=== PATIENT | male | born 1950 | race Caucasian/White ===

== ENCOUNTER → 2017-05-11 11:30 | Outpatient (CLI) | payer MEDICARE, OTHER, SELFPAY ==
[2017-05-11 12:21] LABS: AST(SGOT) 19 U/L (15-37); Alanine Aminotransfer ALT/SGPT 31 U/L (16-61); Alkaline Phosphatase 87 U/L (45-117); Bilirubin, Direct 0.22 mg/dL (0.00-0.30); Cholesterol 94 mg/dL (200); Globulin 4.1 g/dL (2.2-4.2); High Density Lipoprotein 24 mg/dL; Protein, Total 8.1 g/dL (6.4-8.2); Triglycerides 170 mg/dL; Very Low Density Lipoprotein 34 mg/dL (5-40)
== END ==
PROVIDERS: Family Provider Family Medicine; PCP Family Medicine; Visit Provider Nurse Practitioner Family
DX: E78.5 Hyperlipidemia, unspecified (principal); Z79.899 Other long term (current) drug therapy
CPT/HCPCS: 36415; 80061; 80076

== ENCOUNTER → 2017-06-14 10:25 | Outpatient (CLI) | payer MEDICARE, OTHER, SELFPAY ==
--- NOTE | 2017-06-14 18:21 | LEAS ---
Arterial Study - Arterial Study Arterial Study: Bilateral lower extremity noninvasive arterial exam at rest Right lower extremity The right PT and DP ankle-brachial indices at rest are 1.091.08 respectively with a digital index of 0.95. The right posterior tibial and dorsalis pedis Doppler waveforms are triphasic. Volume pulse recordings demonstrate normal application the calf the ankle and digital waveforms are well maintained. Left lower extremity The left PT and DP ankle-brachial indices at rest are normal at 1.02 and 1.04 respectively with a digital index of 0.82. The Doppler waveforms for the left posterior tibial and dorsalis pedis are triphasic. Volume pulse recordings demonstrate normal amplification the calf and the ankle and digital waveforms are well maintained. Impression Normal bilateral extremity noninvasive resting ankle brachial indices. Very minimally diminished digital indices likely consistent with insignificant distal small vessel disease. Naeem Charles M.D., F.A.C.S.
== END ==
PROVIDERS: Family Provider Family Medicine; PCP Family Medicine; Visit Provider Podiatrist
DX: I73.9 Peripheral vascular disease, unspecified (principal); Z98.890 Other specified postprocedural states
CPT/HCPCS: 93923

== ENCOUNTER → 2018-05-12 09:43 | Outpatient (CLI) | payer MEDICARE, OTHER, SELFPAY ==
[2018-05-12 09:20] VITALS: BMI 31.7
[2018-05-12 10:40] LABS: AST(SGOT) 18 U/L (15-37); Alanine Aminotransfer ALT/SGPT 29 U/L (16-61); Alkaline Phosphatase 68 U/L (45-117); Bilirubin, Direct 0.22 mg/dL (0.00-0.30); Cholesterol 99 mg/dL (200); Globulin 3.4 g/dL (2.2-4.2); High Density Lipoprotein 22 mg/dL; Protein, Total 7.4 g/dL (6.4-8.2); Triglycerides 204 mg/dL; Very Low Density Lipoprotein 41 mg/dL (5-40)
== END ==
PROVIDERS: Family Provider Family Medicine; PCP Family Medicine; Referring Provider Internal Medicine Cardiovascular Disease; Visit Provider Internal Medicine Cardiovascular Disease
DX: E78.5 Hyperlipidemia, unspecified (principal); I25.10 Atherosclerotic heart disease of native coronary artery without angina pectoris
CPT/HCPCS: 36415; 80061; 80076

== ENCOUNTER 2020-04-26 09:58 | Outpatient (RCR) | payer MEDICARE, OTHER, SELFPAY ==
[2019-12-20 13:16] VITALS: BMI 31.4
[2020-04-26] MEDS: COVID-19 VACC, MRNA(PFIZER)/PF 30 MCG/0.3 ML SYRINGE IM (08:19)
[2020-05-17] MEDS: COVID-19 VACC, MRNA(PFIZER)/PF 30 MCG/0.3 ML SYRINGE IM (08:05)
== END 2020-04-26 23:59 ==
LOC: IMMUN 09:58
PROVIDERS: PCP Family Medicine; Visit Provider Family Medicine
DX: Z23 Encounter for immunization (principal)
CPT/HCPCS: 0001A; 0002A; 91300

== ENCOUNTER → 2020-08-28 08:06 | Outpatient (CLI) | payer MEDICARE, OTHER, SELFPAY ==
[2019-05-18 11:52] VITALS: BMI 31.4
[2019-12-20 13:16] VITALS: BMI 31.4
[2020-08-28 09:40] LABS: AST(SGOT) 17 U/L (15-37); Alanine Aminotransfer ALT/SGPT 30 U/L (16-61); Albumin, Serum 4.1 g/dL (3.2-5.0); Alkaline Phosphatase 56 U/L (45-117); Cholesterol 85 mg/dL (200); Globulin 3.5 g/dL (2.2-4.2); High Density Lipoprotein 23 mg/dL; Protein, Total 7.6 g/dL (6.4-8.2); Triglycerides 234 mg/dL; Very Low Density Lipoprotein 47 mg/dL (5-40)
== END ==
PROVIDERS: Referring Provider Internal Medicine Cardiovascular Disease; Visit Provider Internal Medicine Cardiovascular Disease
DX: E78.5 Hyperlipidemia, unspecified (principal)
CPT/HCPCS: 36415; 80061; 80076

== ENCOUNTER → 2020-09-10 06:30 | Outpatient (CLI) | payer MEDICARE, OTHER, SELFPAY ==
[2020-08-29 08:56] VITALS: BMI 31.4
--- NOTE | 2020-09-10 06:32 | ART_ITS ---
Reason For Study: claudication, PVD Procedure A bilateral lower extremity continuous wave Doppler with analog waveform analysis,segmental pressures,and ankle brachial indexes without exercise. Left Segmental Pressures Left brachial= 148mmHg. Left thigh = 134mmHg. Left calf = 117mmHg. Left posterior tibial artery = 128mmHg. Left dorsalis pedis artery = 121mmHg. Left digit = 79 mmHg. Right Segmental Pressures Right brachial= 148mmHg. Right thigh = 115mmHg. Right calf = 136mmHg. Right posterior tibial artery = 109mmHg. Right dorsalis pedis artery = 98mmHg. Right digit = 75 mmHg. The right dorsalis pedis waveforms are biphasic. The right posterior tibial artery waveforms are biphasic. Indices The right ankle brachial index by the dorsalis pedis is .66. The right ankle brachial index by the posterior tibial artery is .74. The right digital-brachial index is .51. The left ankle brachial index by the dorsalis pedis is .82. The left ankle brachial index by the posterior tibial artery is .86. The left digital-brachial index is .53. VL/Lower Ext Art Exam w/o Exercis Interpretation Summary Abnormal right PT T and DP ankle-brachial indices of 0.74 and 0.66 respectively . Biphasic Doppler waveforms noted consistent with moderate to severe disease Abnormal left PT and DP ankle-brachial index of 0.86 and 0.82 respectively. Bip hasic Doppler waveforms consistent with moderate to severe disease Abnormal bilateral digital brachial indices Ordering Physician: Gabbi Saavedra Performed By: Angel Gabriel RVT and Student
--- NOTE | 2020-09-10 08:46 | STRESSREP_ITS ---
Stress Test Report Date: 09-10-2020 Procedure: Exercise tolerance test/imaging study Indications: Shortness of breath/dyspnea on exertion; CAD; status post PCI; st atus post CABG Consent: Per the patient Procedure: The patient exercised on a Valente protocol for 3 minutes and 30 seconds completing Stage I and 30 seconds of Stage II achieving a peak heart rate of 148 bpm (98% predicted maximal heart rate) with a peak blood pressure 228/88 mmHg and a peak MET capacity of 5 METs. The baseline ECG demonstrated sinus rhythm; poor R wave progression; nonspecific ST/T wave abnormality. The peak exercise ECG demonstrated continued nonspecific ST/T wave abnormality. There was a rare PVC during recovery. The functional capacity was considered decreased. There was [no complaint of chest discomfort during exercise or recovery]. The examination was discontinued secondary to dyspnea, leg discomfort, and fatigue. Impression: 1. Technically adequate (percent predicted maximal heart rate greater than 85%) exercise tolerance test 2. Peak exercise ECG with continued nonspecific ST/T wave abnormality 3. There was a rare PVC during recovery 4. Nuclear images pending Myocardial perfusion imaging study: Technique: The patient was injected with 14.5 mCi of technetium 99m Cardiolite and subsequently rest SPECT Cardiolite nuclear imaging was obtained in the horizontal long, vertical long, and short axis views. The patient exercised on a Valente protocol for 3 minutes and 30 seconds completing Stage I and 30 seconds of Stage II achieving a peak heart rate of 148 bpm (98% predicted maximal heart rate) with a peak blood pressure 228/88 mmHg and a peak MET capacity of 5 METs. The patient was injected with 44.2 mCi of technetium 99m Cardiolite and s ubsequently stress SPECT Cardiolite nuclear imaging was obtained in the horizontal long, vertical long, and short axis views. A gated Cardiolite study at peak stress was obtained. Interpretation: Rest and stress SPECT Cardiolite nuclear imaging status post realignment, normalization, and attenuation correction, demonstrates [the appearance of relative uniform tracer uptake and myocardial perfusion appearing within normal limits]. [There is end systolic thickening and brightening]. The gated Cardiolite study demonstrates [myocardial thickening and inward wall motion]. The reported LVEF is []%. Impression: 1. Rest and stress SPECT Cardiolite nuclear imaging demonstrate [relative uniform tracer uptake and myocardial perfusion appearing within normal limits]. 2. The gated Cardiolite study reports an LVEF of []%. This note was generated with Scandidation software. It may contain incorrect words, spelling, and punctuation that were not noted in checking the note before signing.
== END ==
PROVIDERS: PCP Family Medicine; Referring Provider Internal Medicine Cardiovascular Disease; Visit Provider Internal Medicine Cardiovascular Disease
DX: I25.10 Atherosclerotic heart disease of native coronary artery without angina pectoris (principal); I73.9 Peripheral vascular disease, unspecified; R06.00 Dyspnea, unspecified
CPT/HCPCS: 78452; 93017; 93923; A9500; A4216

== ENCOUNTER 2020-10-28 09:05 | Day surgery (SDC) | payer MEDICARE, OTHER, SELFPAY ==
[2020-08-29 08:56] VITALS: BMI 31.4
--- NOTE | 2020-10-09 09:24 | RAD_ITS ---
INDICATION: cerda EXAMINATION/TECHNIQUE: X-RAY - XR Chest 2 Views COMPARISON: 10/16/2015. FINDINGS: LINES/DEVICES: Sternal wires are seen in position. LUNGS: Obliteration of the left costophrenic angle is visualized with a fluid level and overlying anemia streaky opacities suggestive of subsegmental atelectatic streaks, these demonstrate slight prominence in comparison to the prior study. Unremarkable aeration of the right hemithorax is visualized. MEDIASTINUM AND CARDIOVASCULAR STRUCTURES: Cardiac silhouette not enlarged. Central airways and mediastinal contour are unremarkable. BONES AND SOFT TISSUES: Unremarkable. IMPRESSION: Left lower lobe opacification, would recommend clinical correlation for left lower lobe infiltrate, subsegmental atelectatic changes, aspiration with small pleural effusion. Electronically Signed: Lewis José MD at 11:41 EDT Tel , Service support , RAD/Chest PA and Lateral
[2020-10-09 10:43] LABS: Absolute Lymphocyte Count 1.35 X10^3/uL (0.83-4.51); Absolute Neutrophil Count 1.8 X10^3/uL (2.0-7.7); Basophil# 0.05 X10^3/uL; Basophil% 1.1 % (0-1); Eosinophil# 0.05 X10^3/uL; Eosinophils% 1.1 % (0-5); Hematocrit 36.6 % (40-54); Hemoglobin 11.4 g/dL (13.0-16.5); Lymphocyte # 1.35 X10^3/ul (0.83-4.51); Lymphocyte % 30.4 % (19-41); Mean Corp Hgb Conc 31.1 g/dL (32-36); Mean Corpuscular Hgb 31.1 pg (27.0-32.0); Mean Platelet Vol. 12.6 fl (6.2-12.0); Monocyte# 1.01 X10^3/uL; Monocyte% 22.7 % (0-10); NRBC Flagged by Analyzer 0 % (0-5); Neutrophil # 1.84 X10^3/uL (2.7-7.7); Neutrophil % 41.5 % (47-70); POSITIVE COUNT YES; Platelet Count 69 K/mm3 (150-450); RBC Distribution Width CV 17.2 % (11.6-14.6); RBC Distribution Width SD 61.8 fl (35.1-43.9); Red Blood Count 3.66 M/mm3 (4.6-6.2); White Blood Count 4.4 K/mm3 (4.4-11.0)
[2020-10-09 10:45] LABS: Differential Indicated SCAN CRITERIA MET
[2020-10-09 10:53] LABS: International Normalized Ratio 1.1; Partial Thromboplast Time 34.2 Seconds (24.1-36.2); Prothrombin Time (Protime)PT. 13.7 SECONDS (11.7-14.9)
[2020-10-09 11:25] LABS: Anisocytosis 1+; Platelet Estimate MKD DEC (ADEQ)
[2020-10-09 11:34] LABS: Anion Gap 8 (5-15); BUN 14 mg/dL (7-18); BUN/Creat Ratio 14.7 RATIO (10-20); Chloride 105 mmol/L (98-107); Creatinine, Serum 0.95 mg/dL (0.70-1.30); EST Glomerular Filtration Rate 83 mL/min (>60); Est Glom Filt Rate - Afr Amer 101 mL/min (>60); Glucose 259 mg/dL (74-106); Potassium 4.5 mmol/L (3.5-5.1); Sodium Level 137 mmol/L (136-145)
[2020-10-25 07:58] VITALS: BMI 31.0
--- NOTE | 2020-10-28 12:24 | CL.D_ITS ---
Patient Name: CLARK DUFFY Study Date: 10/28/2020 Performing: Samuel Plascencia MD Ht: 68.11 inches 173 cm : 1950 Wt: 205.03 lbs 93 kg Age: 70 Gender: male BSA: 2.07 PROCEDURE(S) PERFORMED [id number]/COR/LV/CABG CLINICAL PROFILE AND INDICATIONS Indications: Other, Other Heart Failure: None Stress/Imaging Date: 10/07/20ress Test with SPECT MPI: Indeterminant CAD Presentations: Symptom unlikely to be ischemic. CONCLUSIONS Well revascularized with a patent STARKEY to the LAD, saphenous vein graft to the circumflex artery, and saphenous vein graft to the right coronary artery supplying the posterolateral vessel. Stenosis not ed in the sokaogon distal circumflex artery. RECOMMENDATIONS Patient appears to be fairly well revascularized and without significant ischemia noted I would recom mend medical therapy. DESCRIPTION OF PROCEDURE The patient arrived to the procedure lab. The risks and benefits of the procedure as well as a full d escription of our services here and current unavailability of surgical backup were fully explained to the patient and/or their significant other prior to the catheterization. The Timeout was completed, verifying the correct patient and procedure. The patient's procedural site was prepped and draped in the usual fashion. Local anesthetic was given subcutaneously to right groin region with Lidocaine 2%. Using a modified Seldinger technique, arterial access was obtained via the right femoral artery, a 5 Fr sheath was inserted. Left Coronary Artery selective angiography was performed in multiple views u sing a 5 Fr. JL4 catheter. Right Coronary Artery selective angiography was then performed in multiple views using a 5 Fr. 3DRC (Tylor) catheter. Saphenous Vein graft to the OM 1 selective angiography was performed in multiple views using a 5 Fr. 3DRC (Tylor) catheter. Saphenous Vein graft to the RPDA selective angiography was performed in multiple views using a 5 Fr. 3DRC (Tylor) catheter. Left Ventriculography was performed in ABERNATHY projection using a 5 Fr. Pigtail catheter. LV t o AO pullback pressures were then recorded.Contrast was injected through the sheath and the Right Sophie ac and Femoral artery were assessed for possible closure device.The arterial sheath was pulled and ma nual compression applied until hemostasis is achieved. CORONARY ANGIOGRAPHY DOMINANCE: Right Dominant LEFT HEART ASSESSMENT Left Ventricular Ejection Fraction: by LV Gram 55 % Normal LV wall motion Normal Left Ventricular systolic function LEFT MAIN: Moderate luminal irregularities up to 50% LEFT ANTERIOR DESCENDING ARTERY: PROX LAD: Proximal 70% stenosis in the midsegment is subtotally occluded DIAGONAL 1: Proximal - Mild luminal irregularities less than 30% CIRCUMFLEX ARTERY: MID CIRC: Previously placed stent is occluded RIGHT CORONARY ARTERY: Nondominant with no significant stenosis GRAFTS: STARKEY graft to the Mid LAD Presumed to be patent because of competitive flow. Saphenous Vein graft to the 2nd OM Patent with proximal and mid segment valves noted to be present bu t no significant stenosis noted. Saphenous Vein graft to the RPDA Is patent Saphenous Vein graft to the RPDA This vessel further supplies to the posterolateral vessel which is p atent and then supplies to the AV groove branch of the circumflex artery and a high-grade 90% stenosi s is noted within. This vessel however subtends to a very small circumflex artery territory. COMPLICATIONS No Complications PROCEDURE MEDICATIONS Versed 1 mg IV Fentanyl 50 mcg IV Oxygen: 2 L/min via nasal cannula SUMMARY OF HEMODYNAMIC DATA Time AIR REST ECG 09:29:23 AO 145/71 (98) SA 11:44:00 LV 134/15, 23 12:05:18 LV 120/14, 14 12:05:24 LV 127/12, 22 12:06:07 LV 134/14, 23 12:06:13 LVp 134/14, 21 12:06:17 AOp 136/71 (97) 12:06:22 Signed By Samuel Plascencia MD On 10/28/2020 12:23:01 PM Samuel Plascencia MD
--- NOTE | 2020-10-28 14:12 | HP.PCM_ITS ---
History and Physical CLARK DUFFY, is a 70 M who presents today for a diagnostic heart cath for an abnormal stress test. He has a hx of coronary artery disease status post coronary bypass surgery with a left internal mammary artery to the left anterior descending artery saphenous vein graft to ramus intermedius and radial graft to the posterior descending artery. He also has a history of hypertension. hyperlipidemia and PAD. He does have CR and is on CPAP. He was in the office in August of 2019 with no complaints. Stress test was done since it has been greater than 5 years since his previous stress. Stress test demonstrated: 1. Rest and stress SPECT Cardiolite nuclear imaging demonstrate myocardial perfusion changes appearing compatible with an area of previous myocardial injury/infarction involving portions of the basal inferior segments and demonstrating post-rest myocardial perfusion changes concerning for an area of denae-infarct related myocardial ischemia extending to the mid inferior segments. 2. The gated Cardiolite study reports an LVEF of 56%. Allergies gluten Adverse Reaction (Verified 12/20/19 13:14) Nausea/Vom/Diarrhea lactose Adverse Reaction (Verified 12/20/19 13:14) Other lisinopril Adverse Reaction (Verified 12/20/19 13:14) cough nitro patch Allergy (Uncoded 05/18/19 11:52) Unknown RYE Adverse Reaction (Uncoded 05/18/19 11:52) Upset Stomach Medications tamsulosin 0.4 mg PO QODAY 11/04/14 [History Confirmed 08/29/20] aspirin 81 mg PO DAILY 10/18/15 [History Confirmed 08/29/20] metoprolol tartrate 100 mg tablet 100 mg PO BID #180 tab 05/11/17 [Rx Confirmed 08/29/20] nitroglycerin 0.4 mg sublingual tablet 0.4 mg SUBLINGUAL Q5M PRN #25 tab 05/11/17 [Rx Confirmed 08/29/20] cholecalciferol (vitamin D3) 50 mcg (2,000 unit) capsule 50 mcg PO DAILY 05/18/19 [History Confirmed 08/29/20] metformin 500 mg tablet 500 mg PO DAILY tab 05/18/19 [History Confirmed 08/29/20] phenazopyridine 200 mg tablet 200 mg PO TID PRN tab 05/18/19 [History Confirmed 08/29/20] amlodipine 5 mg tablet 5 mg PO DAILY #90 tab 08/29/20 [Rx Confirmed 08/29/20] atorvastatin 20 mg tablet 20 mg PO QHS #90 tab 08/29/20 [Rx Confirmed 08/29/20] PFSH Medical History Anemia Atherosclerotic heart disease of [place] coronary artery without angina pectoris Celiac disease Claudication of both lower extremities Depression Essential (primary) hypertension GERD (gastroesophageal reflux disease) Hyperlipidemia Obesity Old inferior wall myocardial infarction Peripheral vascular disease Surgical History H/O coronary artery bypass surgery (11/09/08) History of arthroscopy of left knee History of coronary artery stent placement (03/02/98) History of left heart catheterization (10/21/15) Hx of appendectomy Hx of removal of cyst Status post insertion of iliac artery stent Family History Mother Hypertension Brother Hypertension Sister Hypertension Social History (Updated 12/20/19 @ 14:04 by Gabbi CHURCHILL, [place]) Smoking Status: Former smoker second hand exposure: No alcohol intake: never substance use type: does not use what type of physical activity do you participate in: none frequency: does not exercise seatbelt use: always ROS Const Const: Negative for fatigue, weakness, headache(s), frequent falls, excessive sweating, weight gain or weight loss Eyes Eyes: Negative for blind spots, loss of peripheral vision, transient loss of vision, blurry vision, change in vision or double vision ENT ENT: Negative for headache(s), dizziness, tinnitus, Nosebleed/epistaxis or balance problems Cardio Chest Pain: No Palpitations: No Edema: None Muscle aches with walking: None Resp Respiratory: Negative for SOB with activity, SOB at rest, SOB orthopnea\SOB lying down or Cough GI GI: Negative nausea, vomiting, heartburn, bloating, vomiting blood/hematemesis, bright, red blood in stools or black,tarry stools : Negative for hematuria Musc Musc: Negative for muscle aches/ myalgia, muscle weakness, joint pain or balance problems Skin Skin: Negative rash or wounds Neuro Neuro: Negative for dizziness, lightheadedness, near syncope, syncope, orthostatic symptoms, frequent falls, headache(s), weakness, confusion, memory loss, restless legs, blurry vision or double vision Jourdan Hematologic/Lymphatic: Negative for easy bleeding or easy bruising Endo Endo: Negative for fatigue, cold intolerance, heat intolerance or excessive swea ting Psych Psych: Negative for anxiety or depression Allergy Allergy/Immunology: Negative for rash Cardiology Exam Const Appearance: cooperative, healthy appearing, comfortable, no acute distress and well developed Orientation: alert, awake and oriented x3 Head Head: normal to inspection Ears: hearing grossly normal bilaterally Nose: external nose normal Face and Sinus: face symmetric Mouth: oral mucosae normal, lip normal and moist mucous membranes Eyes General: appearance normal, both eyes and all related structures Eyelids: eyelids normal Conjunctivae: conjunctivae normal Pupils: PERRL EOM: EOM intact bilaterally Neck Neck: normal visual inspection and trachea midline; Negative no JVD Carotids: Negative bruit Chest Chest inspection: normal inspection of the chest Auscultation: Bilateral: Clear to Auscultation Cardio Palpation: normal PMI Rate: regular rate Rhythm: regular rhythm Heart sounds: S1 normal and S2 normal; Negative rub, gallop or murmur GI GI: soft, no hepatosplenomegaly and bowel sounds present Neuro General: patient alert, patient awake, patient oriented x3 and CN's II-XI intact bilaterally Extremities Pulses: Normal: Right Radial Pulse and Left Radial Pulse and Diminished: Right Posterior Tibial Pulse and Left Posterior Tibial Pulse Lower Extremity Edema: None: Bilateral Psych Psychological: normal affect Assessment & Plan Assessment/Plan (1) Atherosclerotic heart disease of [place] coronary artery without angina pectoris: (2) History of coronary artery stent placement: (3) Old inferior wall myocardial infarction: (4) Essential (primary) hypertension: (5) Hyperlipidemia: (6) Abnormal stress test: PLAN: Patient will undergo a diagnostic heart catheterization today for his abnormal stress test. Based on findings we will make additional changes in plan of care if needed. He will continue to follow-up in the office as scheduled.
== END 2020-10-28 17:30 | disposition home or self-care (01) ==
PROVIDERS: Physician Assistant Medical; PCP Family Medicine; Referring Provider Internal Medicine Cardiovascular Disease; Visit Provider Internal Medicine Cardiovascular Disease
DX: R94.39 Abnormal result of other cardiovascular function study (principal); I25.10 Atherosclerotic heart disease of native coronary artery without angina pectoris; E78.5 Hyperlipidemia, unspecified; I10 Essential (primary) hypertension; I73.9 Peripheral vascular disease, unspecified; G47.33 Obstructive sleep apnea (adult) (pediatric); K21.9 Gastro-esophageal reflux disease without esophagitis; E66.9 Obesity, unspecified; I25.2 Old myocardial infarction; Z79.82 Long term (current) use of aspirin; Z95.1 Presence of aortocoronary bypass graft; Z79.899 Other long term (current) drug therapy; Z68.31 Body mass index [BMI] 31.0-31.9, adult; Z87.891 Personal history of nicotine dependence; R06.09 Other forms of dyspnea; J90 Pleural effusion, not elsewhere classified; Z79.02 Long term (current) use of antithrombotics/antiplatelets; Z86.2 Personal history of diseases of the blood and blood-forming organs and certain disorders involving the immune mechanism
CPT/HCPCS: 36415; 71046; 80048; 85025; 85610; 85730; 93459; 99152; 99153; J7040; Q9967; C1769

== ENCOUNTER → 2020-11-11 14:09 | Outpatient (CLI) | payer MEDICARE, OTHER, SELFPAY ==
--- NOTE | 2020-11-11 14:12 | CT_ITS ---
We are attempting to reach an attending provider to discuss findings. An addendum with communication details will be sent when the communication is complete. EXAM: CT ANGIOGRAPHY ABDOMEN AND PELVIS WITH RUNOFF TO THE LOWER EXTREMITIES WITH INTRAVENOUS CONTRAST CLINICAL INDICATION: ATHEROSCLEROSIS TECHNIQUE: Helically acquired angiography images were obtained of the abdomen, pelvis and lower extremities with intravenous contrast using CTA runoff protocol. This CT exam was performed using one or more of the following dose reduction techniques: automated exposure control, adjustment of the mA and/or kV according to patient size, and/or use of iterative reconstruction technique. This report was created using [employer] report generation technology. MIP reconstructed images were created and reviewed. CONTRAST: IV 100mL [id number] COMPARISON: None. FINDINGS: VASCULATURE: AORTA: No acute findings. Normal caliber abdominal aorta. No occlusion or significant stenosis. No dissection. CELIAC TRUNK AND MESENTERIC ARTERIES: Celiac and superior mesenteric arteries: There is mild diffuse narrowing. Inferior mesenteric artery: There is mild diffuse narrowing. No dissection. RENAL ARTERIES: Right renal artery(arteries): There is mild diffuse narrowing. Left renal artery(arteries): There is mild diffuse narrowing. No dissection. RIGHT ILIAC ARTERIES: Right common iliac artery: There is mild diffuse narrowing. Right external iliac artery: There is mild diffuse narrowing. Right internal iliac artery: There is mild diffuse narrowing. No dissection. RIGHT FEMORAL/POPLITEAL ARTERIES: Right common femoral artery: No demonstrated narrowing. Right popliteal artery: No demonstrated narrowing. No dissection. RIGHT CALF/FOOT ARTERIES: Right anterior tibial artery: No flow seen distally. This may suggest slow flow, stenosis, or occlusion. Right anterior tibial artery: No flow seen distally. This may suggest slow flow, stenosis, or occlusion. Right posterior tibial artery: No demonstrated narrowing. Right peroneal artery: No demonstrated narrowing. LEFT ILIAC ARTERIES: Left common iliac artery: There is mild diffuse narrowing. Left external iliac artery: There is mild diffuse narrowing. Left internal iliac artery: There is mild diffuse narrowing. No dissection. LEFT FEMORAL/POPLITEAL ARTERIES: Left common femoral artery: No demonstrated narrowing. Left popliteal artery: No demonstrated narrowing. No dissection. LEFT CALF/FOOT ARTERIES: Left anterior tibial artery: No flow seen distally. This may suggest slow flow, stenosis, or occlusion. Left anterior tibial artery: No flow seen distally. This may suggest slow flow, stenosis, or occlusion. Left posterior tibial artery: No demonstrated narrowing. Left peroneal artery: No demonstrated narrowing. LOWER THORAX: Small left pleural effusion. Left lower lobe infiltrate. There are coronary arterial calcifications. Esophageal wall thickening may suggest an esophagitis. ABDOMEN: LIVER: There is diffuse fatty infiltration of the liver. GALLBLADDER AND BILE DUCTS: Unremarkable. No calcified gallstones. No gallbladder distention or wall edema. No intra- or extrahepatic biliary ductal dilation. PANCREAS: Fatty replacement of the pancreas. No focal cystic or solid mass. SPLEEN: Unremarkable. Normal size without focal cystic or solid mass. ADRENALS: Unremarkable. No nodules. KIDNEYS AND URETERS: 10 mm simple cyst of the right kidney. No follow-up acquired. Normal renal size and position. No hydronephrosis. STOMACH AND BOWEL: There is an umbilical hernia containing fat. There is no bowel involvement. There is no incarceration. There is no findings suggesting that this is causing a bowel obstruction. No focal inflammatory change. PELVIS: APPENDIX: No evidence of acute appendicitis. BLADDER: Unremarkable. REPRODUCTIVE: Unremarkable as visualized. No mass. ABDOMEN, PELVIS and LOWER EXTREMITIES: INTRAPERITONEAL SPACE: Unremarkable. No ascites or other fluid collection. No free air. BONES/JOINTS: Left superficial femoral: Severe critical stenosis distally. Right superficial femoral: Severe stenosis distally. Multiple median sternotomy wires are noted consistent for cardiac surgery. Right superficial femoral: Severe stenosis distally. Left superficial femoral: Severe critical stenosis distally. No suspicious lytic or blastic abnormality. SOFT TISSUES: See above. LYMPH NODES: Unremarkable. No enlarged lymph nodes. OTHER FINDINGS: RIGHT LOWER EXTREMITY Right profundus femoris: No demonstrated narrowing. Right tibioperoneal trunk: There is moderate diffuse narrowing. LEFT LOWER EXTREMITY Left profundus femoris: No demonstrated narrowing. Left tibioperoneal trunk: There is moderate diffuse narrowing. CT/CTA Abd w/Runoff W/WO Contrast IMPRESSION: 1. Small left pleural effusion. Left lower lobe infiltrate. 2. There is diffuse fatty infiltration of the liver. 3. There is esophagitis 4. Left anterior tibial artery: No flow seen distally. This may suggest slow flow, stenosis, or occlusion. 5. Right anterior tibial artery: No flow seen distally. This may suggest slow flow, stenosis, or occlusion. 6. Left superficial femoral: Severe critical stenosis distally but there is flow distally. 7. Right superficial femoral: Severe stenosis distally. Electronically Signed: Peewee Frazier MD at 15:29 EDT , Service support ,
== END ==
PROVIDERS: PCP Family Medicine; Referring Provider Surgery Vascular Surgery; Visit Provider Surgery Vascular Surgery
DX: I70.213 Atherosclerosis of native arteries of extremities with intermittent claudication, bilateral legs (principal); I77.1 Stricture of artery; I11.9 Hypertensive heart disease without heart failure; E11.9 Type 2 diabetes mellitus without complications; E78.00 Pure hypercholesterolemia, unspecified; C44.90 Unspecified malignant neoplasm of skin, unspecified; F32.A Depression, unspecified; F41.9 Anxiety disorder, unspecified
CPT/HCPCS: 75635; Q9967

== ENCOUNTER → 2021-10-28 | Outpatient (CLI) | payer MEDICARE, OTHER, SELFPAY ==
--- NOTE | 2021-10-28 08:46 | ADUL_ITS ---
Reason For Study: Atherosclerosis Left Velocities Ext Iliac Artery, dist = 73.4 cm./sec. Common Femoral Artery, mid = 104.3 cm./sec. SFA, origin, 197.6 cm/sec. SFA, prox, 46.1 cm/sec. SFA, mid, 38.4 cm/sec. SFA, mid/distal, 342.5 cm/sec. SFA, distal, 35.2 cm/sec. Profunda Femoral Artery = 134.5 cm./sec. Popliteal Artery, mid = 35.2 cm./sec. Post. Tibial Artery, prox = 23.7 cm./sec. Post Tibial Artery, mid = 37.2 cm./sec. Post Tibial Artery, dist. = 25.1 cm./sec. Peroneal Artery, prox = 18.7 cm./sec. Peroneal Artery, mid = 25.8 cm./sec. Peroneal Artery,dist. = 15.2 cm./sec. Ant.Tibial Artery, prox = 16.6 cm./sec. Ant Tibial Artery, mid = 12.1 cm./sec. Ant. Tibial Artery, distal = 10.9 cm./sec. Procedure Exam performed in department. /US Art Duplex Unilat Lower Ext Interpretation Summary Left femoral severe stenosis. Ordering Physician: Jeyson Albright Referring Physician: MD Omaira Robbin Performed By: Swetha Ortiz RVT
--- NOTE | 2021-10-28 08:46 | ART_ITS ---
Reason For Study: Atherosclerosis Procedure A bilateral lower extremity continuous wave Doppler with analog waveform analysis and ankle brachial indexes. Left Segmental Pressures Left brachial= 144mmHg. Left posterior tibial artery = 105mmHg. Left dorsalis pedis artery = 97mmHg. The left dorsalis pedis waveforms are biphasic. The left posterior tibial artery waveforms are biphasic. Right Segmental Pressures Right brachial= 144mmHg. Right posterior tibial artery = 114mmHg. Right dorsalis pedis artery = 109mmHg. The right dorsalis pedis waveforms are biphasic. The right posterior tibial artery waveforms are biphasic. Indices The right ankle brachial index by the dorsalis pedis is 0.76. The right ankle brachial index by the posterior tibial artery is 0.79. The left ankle brachial index by the dorsalis pedis is 0.67. The left ankle brachial index by the posterior tibial artery is 0.73. VL/Ankle Brachial Index Interpretation Summary Bilateral moderate occlussive disease at rest from with ABHINAV 0.79 and 0.73. Ordering Physician: Jeyson Albright Referring Physician: MD Robbin Castano Performed By: Swetha Ortiz RVT
--- NOTE | 2021-10-28 08:46 | AAVD_ITS ---
Reason For Study: Atherosclerosis of aorta Aorta Measurements Aorta Doppler Measurements Proximal aorta measures1.45 x 1.50cm. in cross- Peak systolic flow velocities within the proximal sectional axis. aorta measure 63.2 cm/sec. Proximal aorta measures1.47cm. in longitudinal Peak systolic flow velocities within the mid aorta axis. measure 90.4 cm/sec. Mid aorta measures1.15 x 1.16cm. in cross- Peak systolic flow velocities within the distal sectional axis. aorta measure 97.7 cm/sec. Mid aorta measures1.18cm. in longitudinal axis. Distal aorta measures1.06 x 1.04cm. in cross- sectional axis. Distal aorta measures1.06cm. in longitudinal axis. Left Iliac Artery Left iliac artery measures 0.56 x 0.57 cm. in the cross-sectional axis. Left iliac artery measures 0.54 cm. in the longitudinal axis. Peak systolic velocity in the left iliac artery measures 306 cm/sec. Right Iliac Artery Right iliac artery measures 0.54 x 0.52 cm. in the cross-sectional axis. Right iliac artery measures 0.60 cm. in the longitudinal axis. Peak systolic velocity in the right iliac artery measures 173.4 cm/sec. Procedure Aorta IVC Iliac vasculature or bypass grafts [id number]. Exam performed in department. VL/Abd Aortic/IVC Duplex scan Interpretation Summary Aorta and right iliac normal and no stenosis. Left common iliac severe stenosis . No aneurysm noted. Ordering Physician: Jeyson Albright Referring Physician: MD Omaira Robbin Performed By: Swetha Ortiz RVT
== END | disposition home or self-care (01) ==
LOC: CVS 08:41
PROVIDERS: PCP Family Medicine; Referring Provider Surgery Vascular Surgery; Visit Provider Surgery Vascular Surgery
DX: I70.0 Atherosclerosis of aorta (principal); E11.51 Type 2 diabetes mellitus with diabetic peripheral angiopathy without gangrene; I70.213 Atherosclerosis of native arteries of extremities with intermittent claudication, bilateral legs; I77.1 Stricture of artery; I10 Essential (primary) hypertension; F32.9 Major depressive disorder, single episode, unspecified; F41.9 Anxiety disorder, unspecified; E78.00 Pure hypercholesterolemia, unspecified; C44.90 Unspecified malignant neoplasm of skin, unspecified
CPT/HCPCS: 93922; 93926; 93978

== ENCOUNTER → 2022-12-04 | Outpatient (CLI) | payer MEDICARE, OTHER, SELFPAY ==
--- NOTE | 2022-12-04 08:05 | ART_ITS ---
Reason For Study: Atherosclerosis Procedure A bilateral lower extremity continuous wave Doppler with analog waveform analysis and ankle brachial indexes. Left Segmental Pressures Left brachial= 151mmHg. Left posterior tibial artery = 114mmHg. Left dorsalis pedis artery = 110mmHg. Left digit = 52 mmHg. The left dorsalis pedis waveforms are biphasic. The left posterior tibial artery waveforms are biphasic. Right Segmental Pressures Right brachial= 153mmHg. Right posterior tibial artery = 121mmHg. Right dorsalis pedis artery = 110mmHg. Right digit = 90 mmHg. The right dorsalis pedis waveforms are biphasic. The right posterior tibial artery waveforms are biphasic. Indices The right ankle brachial index by the dorsalis pedis is 0.72. The right ankle brachial index by the posterior tibial artery is 0.79. The right digital-brachial index is 0.59. The left ankle brachial index by the dorsalis pedis is 0.72. The left ankle brachial index by the posterior tibial artery is 0.75. The left digital-brachial index is 0.34. VL/Ankle Brachial Index Interpretation Summary Bilateral mild occlussive disease with ABHINAV 0.79 and 0.75. Digits 0.59 and 0.34. Ordering Physician: Jeyson Albright Referring Physician: Adam Watson Performed By: Swetha Ortiz RVT
--- NOTE | 2022-12-04 08:05 | AAVD_ITS ---
Reason For Study: Atherosclerosis Aorta Measurements Aorta Doppler Measurements Proximal aorta measures1.50 x 1.46cm. in cross- Peak systolic flow velocities within the proximal sectional axis. aorta measure 69.7 cm/sec. Proximal aorta measures1.49cm. in longitudinal Peak systolic flow velocities within the mid aorta axis. measure 100.8 cm/sec. Mid aorta measures1.04 x 1.04cm. in cross- Peak systolic flow velocities within the distal sectional axis. aorta measure 107.3 cm/sec. Mid aorta measures1.08cm. in longitudinal axis. Distal aorta measures1.08 x 1.04cm. in cross- sectional axis. Distal aorta measures1.01cm. in longitudinal axis. Left Iliac Artery Left iliac artery measures 0.62 x 0.67 cm. in the cross-sectional axis. Left iliac artery measures 0.62 cm. in the longitudinal axis. Peak systolic velocity in the left iliac artery measures 176.2 cm/sec. Right Iliac Artery Right iliac artery measures 0.74 x 0.86 cm. in the cross-sectional axis. Right iliac artery measures 0.77 cm. in the longitudinal axis. Peak systolic velocity in the right iliac artery measures 162.2 cm/sec. Procedure Aorta IVC Iliac vasculature or bypass grafts [id number]. Exam performed in department. VL/Abd Aortic/IVC Duplex scan Interpretation Summary No aortoiliac stenosis or aneurysm. Ordering Physician: Jeyson Albright Referring Physician: Adam Watson Performed By: Swetha Ortiz RVT
--- NOTE | 2022-12-04 08:05 | ADU_ITS ---
Reason For Study: Atherosclerosis Right Velocities Left Velocities Ext. Iliac Artery, dist = 71 cm./sec. Ext Iliac Artery, dist = 108.5 cm./sec. Common Femoral Artery, mid = 98.4 cm./sec. Common Femoral Artery, mid = 109.4 cm./sec. SFA origin, 153.4cm/sec. SFA, origin, 116.7 cm/sec. SFA prox, 60 cm/sec. SFA, prox, 37.7 cm/sec. SFA mid, 274.2 cm/sec. SFA, mid, 30.1 cm/sec. SFA mid, dist to stenosis, 138.7 cm/sec. SFA, mid/distal, 401.8 cm/sec. SFA distal, 40.4 cm/sec. SFA, distal, 28.9 cm/sec. Profunda Femoral Artery = 59.2 cm./sec. Profunda Femoral Artery = 93 cm./sec. Popliteal Artery, mid = 31.8 cm./sec. Popliteal Artery, mid = 33.6 cm./sec. Post. Tibial Artery, prox = 26.4 cm./sec. Post. Tibial Artery, prox = 23.2 cm./sec. Post. Tibial Artery, mid = 29.2 cm./sec. Post Tibial Artery, mid = 28.9 cm./sec. Post. Tibial Artery, dist = 36.7 cm./sec. Post Tibial Artery, dist. = 17.1 cm./sec. Peroneal Artery, prox = 22.6 cm./sec. Peroneal Artery, prox = 18 cm./sec. Peroneal Artery, mid = 40.9 cm./sec. Peroneal Artery, mid = 22 cm./sec. Peroneal Artery,dist = 23.4 cm./sec. Peroneal Artery,dist. = 11.9 cm./sec. Ant. Tibial Artery, prox = 22 cm./sec. Ant.Tibial Artery, prox = 19.4 cm./sec. Ant. Tibial Artery, mid = 13.1 cm./sec. Ant Tibial Artery, mid = 10.1. cm./sec. Ant. Tibial Artery, dist = 12 cm./sec. Ant. Tibial Artery, distal = 9.7 cm./sec. Procedure Exam performed in department. VL/US Art Duplex Bilat Lower Ext Interpretation Summary Right femoral stenosis, otherwise patent throughout. Ordering Physician: Jeyson Albright Referring Physician: Adam Watson Performed By: Swetha Ortiz RVT
== END | disposition home or self-care (01) ==
LOC: CVS 08:05
PROVIDERS: PCP Family Medicine; Referring Provider Surgery Vascular Surgery; Visit Provider Surgery Vascular Surgery
DX: Z48.812 Encounter for surgical aftercare following surgery on the circulatory system (principal); I77.1 Stricture of artery; I70.213 Atherosclerosis of native arteries of extremities with intermittent claudication, bilateral legs; I10 Essential (primary) hypertension
CPT/HCPCS: 93922; 93925; 93978

== ENCOUNTER 2023-02-03 09:08 | Inpatient (IN) | payer MEDICARE, OTHER, SELFPAY ==
[2023-02-03] VITALS (10 sets, daily range): BP systolic 138–189; BP diastolic 66–84; PULSE 104–122; RESP 12–26; TEMP 36.5–36.8; O2SAT 91–97; BMI 26.5; BMI 29.0
--- NOTE | 2023-02-03 09:51 | ED.VIS.CHEST ---
HPI History of Present Illness Chief Complaint: Chest Pain Informant: patient Onset/Context/Timing Onset: Today Location: Right Chest Narrative Narrative: Patient presents secondary to esophagus pain and dry heaves. He states this morning he developed pain through his esophagus and states he gets a burning sensation when he takes a deep breath. He has pain in the right upper chest. He was able to keep his medications down this morning but has not eaten anything. No fever or chills. 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 Depression Essential (primary) hypertension GERD (gastroesophageal reflux disease) Hyperlipidemia Obesity Old inferior wall myocardial infarction Peripheral vascular disease Home Medications tamsulosin 0.4 mg capsule 0.4 mg PO QODAY 11/04/14 [History Last Taken Unknown] aspirin 81 mg tablet,delayed release 81 mg PO DAILY 10/18/15 [History Last Taken 10/28/20] metoprolol tartrate 100 mg tablet 100 mg PO BID #180 tabs 05/11/17 [Rx Last Taken 10/28/20] nitroglycerin 0.4 mg sublingual tablet 0.4 mg sublingual Q5M PRN Chest Pain #25 tabs 05/11/17 [Rx Last Taken Unknown] cholecalciferol (vitamin D3) 50 mcg (2,000 unit) capsule 50 mcg PO DAILY 05/18/19 [History Last Taken 10/28/20] metformin 500 mg tablet 500 mg PO DAILY 05/18/19 [History Last Taken 10/26/20] phenazopyridine 200 mg tablet 200 mg PO TID PRN Pain 05/18/19 [History Last Taken Unknown] clopidogrel 75 mg tablet (Plavix) 75 mg PO DAILY #30 tabs 09/17/20 [Rx Last Taken 10/28/20] atorvastatin 20 mg tablet 20 mg PO QHS #90 tabs 05/19/22 [Rx Last Taken Unknown] amlodipine 5 mg tablet See Rx Instructions .Route .COMPLEX #90 tabs 07/07/22 [Rx Last Taken Unknown] Allergy/AdvReac Type Severity Reaction Status Date / Time nitroglycerin Allergy NEEDS Verified 02/03/23 09:08 FOLLOW-UP Food Allergies: Uncoded AdvReac Upset Verified 05/26/22 13:56 Stomach lactose AdvReac Other Verified 02/03/23 09:08 lisinopril AdvReac cough Verified 02/03/23 09:08 Family History Mother Hypertension Brother Hypertension Sister Hypertension Surgical History H/O coronary artery bypass surgery (11/09/08) History of arthroscopy of left knee History of coronary artery stent placement (03/02/98) History of left heart catheterization (10/28/20) Hx of appendectomy Hx of removal of cyst Status post insertion of iliac artery stent Social History Smoking Status: Former smoker second hand exposure: No alcohol intake: never substance use type: does not use what type of physical activity do you participate in: none frequency: does not exercise seatbelt use: always ROS ROS ED Constitutional Constitutional ED: Denies chills or fever(s) Eyes Eyes: Denies change in vision or discharge from eye(s) ENT ENT ED: Denies discharge from eye(s), rhinorrhea or sore throat Cardiovascular Cardiovascular: Reports chest pain; Denies palpitations Respiratory/Chest Respiratory/Chest: Reports dyspnea; Denies cough Gastrointestinal Gastrointestinal: Reports abdominal pain, nausea and vomiting; Denies diarrhea Genitourinary Genitourinary ED: Denies dysuria Musculoskeletal Musculoskeletal: Denies back pain or extremity pain Integumentary Denies Abrasions or rash Neurologic Neurologic: Denies headache(s) or weakness Psychiatric Psychiatric: Denies anxiety or depression Allergic/Immunologic Allergic/Immunologic ED: Denies lip swelling or urticaria EXAM Physical Exam Const Vital Signs: 02/03/23 09:09 02/03/23 09:50 02/03/23 10:04 Temperature 97.7 F L Temperature Source Oral Pulse Rate 122 H Respiratory Rate 26 H Respiratory Effort Normal Non-Labored Blood Pressure 189/84 H Blood Pressure Mean 119 Pulse Ox 95 Oxygen Delivery Method Room Air Room Air 02/03/23 11:13 02/03/23 11:21 02/03/23 12:25 Temperature Temperature Source Pulse Rate 108 H 117 H Respiratory Rate 18 22 H 20 H Respiratory Effort Blood Pressure 150/76 H 140/73 H Blood Pressure Mean 100 95 Pulse Ox 96 92 Oxygen Delivery Method Room Air Room Air Positive well nourished and well developed General Appearance ED: well developed HEENT Reports moist mucous membranes Eyes EOMs intact bilaterally Chest Wall inspection of chest normal and palpation of chest normal Resp normal respiratory effort and clear to auscultation bilaterally Cardio Rate: tachycardic GI soft to palpation and non-tender Extremity normal to inspection Neuro oriented x3 and no sensory deficits noted Motor Exam: strength 5/5 throughout Psych mental status grossly normal Skin no rashes or lesions noted Heart Score History: Slightly/Non-Suspicious ECG: Normal Age: >/= 65 years Risk Factors: >/= 3 Risk Factors or History of CAD Troponin: >1 - <3 Normal Limit Score: 5 MDM MDM MDM Narrative Medical decision making narrative: Patient placed on diagnostic cardiac sonographer. IV line established. EKG obtained to evaluate for cardiac arrhythmia/ischemia. Chest x-ray obtained to evaluate for acute lung pathology, cardiac size, or mediastinal abnormality. Labwork obtained to evaluate for leukocytosis, anemia, and electrolyte derangement. Patient given small dose of morphine along with Zofran. He will also be given a dose of Protonix. History & Record Review Discussion w/independent historian: Patient and Family Additional record(s) reviewed:: Prior outpatient record, Prior ED visit and Prior labs Lab Data Attestation: I reviewed the patient's lab results. Labs: Laboratory Results - last 24 hr 02/03/23 02/03/23 09:15 11:25 WBC 8.2 RBC 4.19 L Hgb 13.1 Hct 41.0 MCV 97.9 H MCH 31.3 MCHC 32.0 RDW Std Deviation 59.9 H RDW Coeff of Gertrudis 16.7 H Plt Count 61 L MPV 12.9 H Immature Gran % (Auto) 1.300 H Neut % (Auto) 61.4 Lymph % (Auto) 16.4 L Rich % (Auto) 19.8 H Eos % (Auto) 0.5 Baso % (Auto) 0.6 Absolute Neuts (auto) 5.1 Absolute Lymphs (auto) 1.35 Nucleated RBC % 0 Differential Comment SCANNED Platelet Estimate MOD DEC D-Dimer Quant (PE/DVT) 0.38 Sodium 135 L Potassium 4.1 Chloride 103 Carbon Dioxide 19.0 L Anion Gap 13 BUN 13 Creatinine 1.38 H Estim Creat Clear Calc 53.11 Est GFR (MDRD) Af Amer 65 Est GFR (MDRD) Non-Af 54 L BUN/Creatinine Ratio 9.4 L Glucose 242 H Calcium 9.5 Total Bilirubin 1.30 H Direct Bilirubin 0.34 H AST 22 ALT 29 Alkaline Phosphatase 70 Troponin I High Sens 36 94 H Total Protein 8.5 H Albumin 4.4 Globulin 4.1 Radiography Chest X-Ray - ED: 1 View, Read by ED Physician, Chronic Changes and No Infiltrates Diagnostic Testing: Clinical Impression(s) from Imaging Studies Chest X-Ray 02/03/23 10:10 IMPRESSION: No acute pulmonary process, no interval change Electronically Signed: Maicol Hayes MD at 10:25 EST , Abdomen/Pelvis CT 02/03/23 11:36 IMPRESSION: 1. No focal acute inflammatory process. 2. Hepatic steatosis. 3. Small hiatal hernia. Electronically Signed: Hiram Sommers MD at 12:40 EST , EKG Initial EKG: Attestation: I personally reviewed and interpreted this EKG as follows: Interpretation: Sinus Tachycardia (Sinus tachycardia at 126. No acute ischemia.) Treatment and Re-Evaluation :: Patient was given a dose of morphine and Zofran along with IV fluids. He did take his aspirin this morning. CBC reveals normal white count 8.2 with a hemoglobin of 13.1. Platelet count is low at 61,000. This is consistent with his prior values. Chemistry studies reveal a sodium of 135 and a bicarb of 19. Anion gap is normal. Creatinine is slightly bumped to 1.38. LFTs reveal a total bili of 1.3 and direct bili 0.34. Alk phos, ALT, AST are normal. Initial troponin is normal at 36 but 2-hour repeat is elevated at 94. Portable chest x-ray per my interpretation reveals chronic changes with no focal infiltrate. Radiology interpretation reviewed. Initial EKG is sinus tach at 126 with no acute ischemia. On repeat evaluation patient states the pain in his chest seem to be resolved but he was having some burning in his epigastrium like reflux. He had been given a dose of Protonix but I also given a GI cocktail. CT scan of the abdomen pelvis obtained which reveals a hiatal hernia with no other acute findings. With his troponin bump and I will repeat an EKG at this time and plan on observation for cycling of enzymes. He did take baby aspirin this morning but I will give him 3 additional baby aspirin at this time. I will speak with the hospitalist. Discharge Plan Dx/Rx/DC Orders Clinical Impression: Elevated troponin, Chest pain, Hernia, hiatal Disposition Disposition: Acute Care Hospital [facility]
[2023-02-03 10:00] LABS: Absolute Lymphocyte Count 1.35 X10^3/uL (0.83-4.51); Absolute Neutrophil Count 5.1 X10^3/uL (2.0-7.7); Basophil# 0.05 X10^3/uL; Basophil% 0.6 % (0-1); Eosinophil# 0.04 X10^3/uL; Eosinophils% 0.5 % (0-5); Hemoglobin 13.1 g/dL (13.0-16.5); Lymphocyte # 1.35 X10^3/ul (0.83-4.51); Lymphocyte % 16.4 % (19-41); Mean Corpuscular Hgb 31.3 pg (27.0-32.0); Mean Corpuscular Volume 97.9 fL (80-94); Mean Platelet Vol. 12.9 fl (6.2-12.0); Monocyte# 1.63 X10^3/uL; Monocyte% 19.8 % (0-10); NRBC Flagged by Analyzer 0 % (0-5); Neutrophil # 5.06 X10^3/uL (2.7-7.7); Neutrophil % 61.4 % (47-70); POSITIVE COUNT YES; POSITIVE DIFFERENTIAL YES; Platelet Count 61 K/mm3 (150-450); RBC Distribution Width CV 16.7 % (11.6-14.6); RBC Distribution Width SD 59.9 fl (35.1-43.9); Red Blood Count 4.19 M/mm3 (4.6-6.2); White Blood Count 8.2 K/mm3 (4.4-11.0)
[2023-02-03] MEDS: 0.9% Normal Saline (1000mL) 1,000 ML 150 ML IV (10:01)
[2023-02-03] MEDS: Ondansetron 4 MG/2 ML Vial IV (10:02)
[2023-02-03] MEDS: Morphine 4 MG/ML Syringe 2 MG IV (10:02)
[2023-02-03 10:09] LABS: D-Dimer Quantitative (DVT/PE) 0.38 FEU/ug/m (0.27-0.49)
--- NOTE | 2023-02-03 10:10 | RAD_ITS ---
STUDY: X-RAY CHEST REASON FOR EXAM: Male, 72 years old. Chest pain TECHNIQUE: 2 AP portable views COMPARISON: 10/09/2020 FINDINGS: EKG leads overlie the chest Lungs are expanded with stable blunting of the left costophrenic angle, likely postsurgical. Sternal cerclage wires and vascular clips are present from a prior sternotomy and coronary artery bypass graft procedure (CABG). Normal mediastinum and yamil. Normal visualized pulmonary arteries. There is atherosclerotic calcification of the aortic arch with tortuosity. There are diffuse degenerative changes of the visualized thoracic spine. Normal visualized ribs, clavicles, and shoulders. There is no demonstrated abnormality of the visualized soft tissue structures of the upper abdomen. RAD/Chest 1 View (Portable) IMPRESSION: No acute pulmonary process, no interval change Electronically Signed: Maicol Hayes MD at 10:25 EST ,
[2023-02-03 10:21] LABS: AST(SGOT) 22 U/L (15-37); Alanine Aminotransfer ALT/SGPT 29 U/L (16-61); Albumin, Serum 4.4 g/dL (3.2-5.0); Alkaline Phosphatase 70 U/L (45-117); Anion Gap 13 (5-15); BUN 13 mg/dL (7-18); BUN/Creat Ratio 9.4 RATIO (10-20); Bilirubin, Direct 0.34 mg/dL (0.00-0.30); Calcium,Total 9.5 mg/dL (8.5-10.1); Chloride 103 mmol/L (98-107); Creatinine, Serum 1.38 mg/dL (0.70-1.30); EST Glomerular Filtration Rate 54 mL/min (>60); Est Glom Filt Rate - Afr Amer 65 mL/min (>60); Estimated Creatinine Clearance 53.11 ml/min; Globulin 4.1 g/dL (2.2-4.2); Glucose 242 mg/dL (74-106); Potassium 4.1 mmol/L (3.5-5.1); Protein, Total 8.5 g/dL (6.4-8.2); Sodium Level 135 mmol/L (136-145); Troponin-I HS (w/2H Reflex) 36 pg/mL (3.0-78.0)
[2023-02-03 10:25] LABS: Differential Indicated SCAN CRITERIA MET
[2023-02-03 10:27] LABS: Differential Comment SCANNED; Platelet Estimate MOD DEC (ADEQ)
[2023-02-03] MEDS: Pantoprazole Sodium 40 MG in 0.9% Normal Saline (100mL MB+) 100 ML 330 MG IV (10:32)
--- NOTE | 2023-02-03 11:36 | CT_ITS ---
STUDY: CT ABDOMEN AND PELVIS WITH CONTRAST REASON FOR EXAM: Male, 72 years old. Upper abd pain RADIATION DOSAGE (If Supplied By Facility): CTDIvol = ( 13.24 ) mGy, DLP = ( 1033.80 ) mGycm TECHNIQUE: IV 100mL [id number]-300 was administered. Transaxial images were obtained from the dome of the diaphragm to the symphysis pubis. Multiplanar coronal and sagittal images were reformatted. Individualized Dose Optimization Techniques Were Used For This CT. COMPARISON: Prior study dated: 11/11/2020. FINDINGS: The visualized lung bases demonstrate mild scarring in the left lower lung. Normal heart size. Coronary calcifications. Hepatic steatosis. Normal gallbladder and extrahepatic biliary system. Normal spleen. There is diffuse atrophy of the pancreas. Normal bilateral adrenal glands. Small bilateral renal cysts appear to be simple. No evidence of hydronephrosis. There is a small hiatal hernia. Normal in caliber small bowel loops. No evidence of acute diverticulitis. The appendix is visualized and appears normal. There is diffuse atherosclerotic calcification of the abdominal aorta, without a demonstrated aneurysm. No retroperitoneal adenopathy. Normal urinary bladder. Very small umbilical hernia containing fat. No demonstrated acute osseous changes. CT/Abdomen/Pelvis W IV Cont ONLY IMPRESSION: 1. No focal acute inflammatory process. 2. Hepatic steatosis. 3. Small hiatal hernia. Electronically Signed: Hiram Sommers MD at 12:40 EST ,
[2023-02-03] MEDS: Mag Hydrox/Al Hydrox/Simeth 30 ML UDC PO (11:45)
[2023-02-03 11:54] LABS: Reflex Troponin-HS? (from REC) Y
[2023-02-03 12:21] LABS: Troponin-I HS 94 pg/mL (3.0-78.0)
[2023-02-03] MEDS: Aspirin 81 MG TAB.CHEW 243 MG PO (13:01)
--- NOTE | 2023-02-03 13:28 | HP.PCM.HOS_ITS ---
HPI - General General Date of Admission: 02/03/23 Date of Service: 02/03/23 Chief Complaint: Chest pain, dyspepsia, N/V. HPI Narrative The patient is a 72 y/o M w/ PMHx: CR on CPAP, COPD, Diabetes mellitus type II, BPH, Anxiety and Depression, Chronic thrombocytopenia, Chronic Fe deficiency anemia, CAD s/p CABG and PCI, PAD s/p liiac artery PCI, HTN, HLD, GERD, Obesity, PVD, Celiac disease, Former tobacco use who presents to the [facility] ED on 02/03/23 with history of atypical chest discomfort secondary to midline discomfort which she describes in the esophagus with associated nausea with dry heaves with a burning sensation when he attempts to take a deep breath with the pain primarily in the right upper chest although he does note that he was able to keep his medications down but he had not eaten anything with no recent fevers or chills with associated dyspnea and upper abdominal discomfort as well prompting eventual ED evaluation. In the ED patient following interventions notes being chest pain free. Last cardiac catheterization noted 10/28/2020 with patent STARKEY to LAD, saphenous vein graft to circumflex artery, saphenous vein graft to right coronary artery supplying the posterior lateral vessel with some stenosis noted in the [place] distal circumflex artery therefore recommended at that time given no significant ischemia continue medical therapy. He notes his initial discomfort started while he was walking from his doctors office at approximately 8:30 AM and persisted through evaluation rating his discomfort 3-4 out of 10 in severity with resolution he notes specifically following intake of the GI cocktail. Workup in the ED included T97.7, heart rate initially 122 with most recent repeat 117, BP initially 189/84 with most recent repeat 140/73, respiratory rate 26, 95% on room air with most recent repeat respiratory rate 20, 92% on room air, CBC with WBC 8.2, he 113.1, platelets 61 with increased immature granulocyte, D-dimer 0.38, CMP with sodium 135, carbon dioxide 19, BUN/creatinine 13/1.3, glucose 242, T. bili 1.30, D bili 0.34, AST/ALT 222/29, alk phos 70, troponin initial 36 with repeat delta 94, chest x-ray with no acute cardiopulmonary finding, CT abdomen and pelvis with contrast with no acute focal inflammatory process, hepatic steatosis, small hiatal hernia, EKG with sinus tachycardia with no acute evidence of ischemia with repeat EKG similar with questionable 0.5 mm depression V6. In the ED patient administered GI cocktail, Protonix 40 mg IV x 1, maintenance normal saline, morphine 2 mg IV x 1, aspirin 243 mg p.o. x 1. [facility] Medical History (Updated 02/03/23 @ 14:[address] Stacey Pruitt MD) Anemia Atherosclerotic heart disease of [place] coronary artery without angina pectoris Celiac disease Claudication of both lower extremities COPD (chronic obstructive pulmonary disease) Depression Diabetes mellitus, type 2 Essential (primary) hypertension GERD (gastroesophageal reflux disease) Hyperlipidemia Obesity Old inferior wall myocardial infarction CR on CPAP Peripheral vascular disease Home Medications tamsulosin 0.4 mg capsule 0.4 mg PO QODAY 11/04/14 [History Last Taken Unknown] aspirin 81 mg tablet,delayed release 81 mg PO DAILY 10/18/15 [History Last Taken 10/28/20] metoprolol tartrate 100 mg tablet 100 mg PO BID #180 tabs 05/11/17 [Rx Last Taken 10/28/20] nitroglycerin 0.4 mg sublingual tablet 0.4 mg sublingual Q5M PRN Chest Pain #25 tabs 05/11/17 [Rx Last Taken Unknown] metformin 500 mg tablet 1,000 mg PO BID glucose 05/18/19 [History Last Taken 10/26/20] atorvastatin 20 mg tablet 20 mg PO QHS #90 tabs 05/19/22 [Rx Last Taken Unknown] amlodipine 5 mg tablet 5 mg PO DAILY 02/03/23 [History Last Taken Unknown] duloxetine 60 mg capsule,delayed release 60 mg PO DAILY 02/03/23 [History Last Taken Unknown] ferrous sulfate 325 mg (65 mg iron) tablet (iron) 325 mg PO DAILY 02/03/23 [History Last Taken Unknown] finasteride 5 mg tablet (Proscar) 5 mg PO DAILY 02/03/23 [History Last Taken Unknown] fluticasone furoate 100 mcg-vilanterol 25 mcg/dose inhalation powder (Breo Ellipta) 1 inh inhalation QHS moisture for bottom of left lung 02/03/23 [History Last Taken Unknown] omeprazole 40 mg capsule,delayed release 40 mg PO DAILY 02/03/23 [History Last Taken Unknown] Allergy/AdvReac Type Severity Reaction Status Date / Time nitroglycerin Allergy NEEDS Verified 02/03/23 09:08 FOLLOW-UP Food Allergies: Uncoded AdvReac Upset Verified 05/26/22 13:56 Stomach lactose AdvReac Other Verified 02/03/23 09:08 lisinopril AdvReac cough Verified 02/03/23 09:08 Family History Mother Hypertension Brother Hypertension Sister Hypertension Surgical History H/O coronary artery bypass surgery (11/09/08) History of arthroscopy of left knee History of coronary artery stent placement (03/02/98) History of left heart catheterization (10/28/20) Hx of appendectomy Hx of removal of cyst Status post insertion of iliac artery stent Social History (Updated 02/03/23 @ 14:[address] Stacey Pruitt MD) household members: spouse Smoking Status: Former smoker how long ago did patient quit smoking: Quit 1998, smoked 2 ppd since age 26 until quit. second hand exposure: No alcohol intake: never substance use type: does not use what type of physical activity do you participate in: none frequency: does not exercise seatbelt use: always ROS ROS Narrative Admission Review of Systems: CONSTITUTIONAL: No weight loss, fever, chills, + weakness or fatigue. HEENT: Eyes: No visual loss, blurred vision, double vision or yellow sclerae. Ears, Nose, Throat: No hearing loss, sneezing, congestion, runny nose or sore throat. SKIN: No rash or itching, lesions, wounds. CARDIOVASCULAR: + Chest pain. No palpitations, edema, orthopnea, syncopal events. RESPIRATORY: + shortness of breath. No cough or sputum, wheezing, hemoptysis. GASTROINTESTINAL: + Episode dry heaving, nausea/emesis, upper abdominal discomfort with dyspepsia sensation. No anorexia, diarrhea, melena, BRBPR. GENITOURINARY: No dysuria, frequency, urgency or retention. NEUROLOGICAL: No headache, dizziness, syncope, paralysis, ataxia, numbness or tingling in the extremities, focal weakness, change in bowel or bladder control, seizure. MUSCULOSKELETAL: + muscle, back pain, joint pain or stiffness. HEMATOLOGIC: + anemia. No bleeding or bruising. LYMPHATICS: No enlarged nodes. No history of splenectomy. PSYCHIATRIC: + Anxiety and depression. ENDOCRINOLOGIC: No reports of sweating, cold or heat intolerance. No polyuria or polydipsia. ALLERGIES: No history of asthma, hives, eczema or rhinitis. Vital Signs Vital Signs Vital Signs: 02/03/23 09:09 02/03/23 09:50 02/03/23 10:04 Temperature 97.7 F L Temperature Source Oral Pulse Rate 122 H Respiratory Rate 26 H Respiratory Effort Normal Non-Labored Blood Pressure 189/84 H Blood Pressure Mean 119 Pulse Ox 95 Oxygen Delivery Method Room Air Room Air 02/03/23 11:13 02/03/23 11:21 02/03/23 12:25 Temperature Temperature Source Pulse Rate 108 H 117 H Respiratory Rate 18 22 H 20 H Respiratory Effort Blood Pressure 150/76 H 140/73 H Blood Pressure Mean 100 95 Pulse Ox 96 92 Oxygen Delivery Method Room Air Room Air 02/03/23 13:11 Temperature Temperature Source Pulse Rate 109 H Respiratory Rate 22 H Respiratory Effort Blood Pressure 155/79 H Blood Pressure Mean 104 Pulse Ox Oxygen Delivery Method Weight Weight: 195 lb 12.328 oz Body Mass Index (BMI) 26.5 Physical Exam Narrative Physical Examination: General: Awake, alert, oriented x 3 and cooperative, seated upright in the ED bed in no apparent distress, notes improvement of his previous discomfort, resolved. Skin: Normal color, normal turgor, no icterus, no cyanosis. HEENT: AT/NC, EOMI, PERRLA, mildly dry MM, no carotid bruits or JVD noted. Lungs: Mildly diminished, greater bases, proper effort, no rales, ronchi or wheezing. Heart: Mildly tachycardic with regular rhythm; no gallop, rub audible. Abdomen: Soft, NTTP including the epigastric region, ND, mildly hyperactive BS, no HSM. Extremities: No cyanosis, clubbing, or edema. Neurological: Patient awake, alert, oriented as noted, cognitive function intact; pupils equally reactive to light and accommodation, cranial nerves II- XII grossly normal, moving all 4 extremities, no focal deficits, strength mildly to moderately globally decreased secondary to acute presentation complaints, improving. Psychiatric: Affect appears mildly fatigued otherwise normal, no acute evidence of depressive or anxiety feelings. Results Lab / Micro Data 02/03/23 09:15 02/03/23 09:15 Labs: Laboratory Results - last 24 hr 02/03/23 09:15: WBC 8.2, RBC 4.19 L, Hgb 13.1, Hct 41.0, MCV 97.9 H, MCH 31.3, MCHC 32.0, RDW Std Deviation 59.9 H, RDW Coeff of Gertrudis 16.7 H, Plt Count 61 L, MPV 12.9 H, Immature Gran % (Auto) 1.300 H, Neut % (Auto) 61.4, Lymph % (Auto) 16.4 L, Butler % (Auto) 19.8 H, Eos % (Auto) 0.5, Baso % (Auto) 0.6, Absolute Neuts (auto) 5.1, Absolute Lymphs (auto) 1.35, Nucleated RBC % 0, Differential Comment SCANNED, Platelet Estimate MOD DEC, D-Dimer Quant (PE/DVT) 0.38, Sodium 135 L, Potassium 4.1, Chloride 103, Carbon Dioxide 19.0 L, Anion Gap 13, BUN 13, Creatinine 1.38 H, Estim Creat Clear Calc 53.11, Est GFR (MDRD) Af Amer 65, Est GFR (MDRD) Non-Af 54 L, BUN/Creatinine Ratio 9.4 L, Glucose 242 H, Calcium 9.5, Total Bilirubin 1.30 H, Direct Bilirubin 0.34 H, AST 22, ALT 29, Alkaline Phosphatase 70, Troponin I High Sens 36, Total Protein 8.5 H, Albumin 4.4, Globulin 4.1 02/03/23 11:25: Troponin I High Sens 94 H Imagaing Radiology Impression Chest X-Ray 02/03/23 10:10 IMPRESSION: No acute pulmonary process, no interval change Electronically Signed: Maicol Hayes MD at 10:25 EST , Abdomen/Pelvis CT 02/03/23 11:36 IMPRESSION: 1. No focal acute inflammatory process. 2. Hepatic steatosis. 3. Small hiatal hernia. Electronically Signed: Hiram Sommers MD at 12:40 EST , Assessment & Plan Assessment/Plan (1) Chest pain: (2) Elevated troponin: PLAN: Plan The patient is a 72 y/o M w/ PMHx: CR on CPAP, COPD, Diabetes mellitus type II, BPH, Anxiety and Depression, Chronic thrombocytopenia, Chronic Fe deficiency anemia, CAD s/p CABG and PCI, PAD s/p liiac artery PCI, HTN, HLD, GERD, Obesity, PVD, Celiac disease, Former tobacco use who presents to the [facility] ED on 02/03/23 with history of atypical chest discomfort secondary to midline discomfort which she describes in the esophagus with associated nausea with dry heaves with a burning sensation when he attempts to take a deep breath with the pain primarily in the right upper chest although he does note that he was able to keep his medications down but he had not eaten anything with no recent fevers or chills with associated dyspnea and upper abdominal discomfort as well prompting eventual ED evaluation. #1. Chest Pain, atypical with indeterminate cardiac enzyme of unclear significance: EKG in ED sinus tachycardia with no acute evidence of ischemia, CXR w/ no acute cardiopulmonary findings, CT A/P with no acute findings, initial trop 36-->repeat delta 94. Will admit to PCI, place on a monitored bed to assure no acute myocardial infarction with serial cardiac enzymes and EKGs. Will request ECHO. If repeat serial cardiac enzymes continue to significantly rise will initiate heparin drip cautiously given thrombocytopenia chronically and request cardiology consultation however if they remain similar may consider still AM stress testing but will continue to see trend and determine best course of action and certainly may still review this with cardiology depending on the level. FLP in AM. Mag requested. If cardiac work-up not marked then may need to further pursue GI etiology. ASA, NG, morphine. #2. CAD: Status post CABG and PCI, most recent cardiac catheterization 2020 with patent STARKEY to LAD, saphenous vein graft to circumflex artery, saphenous vein graft to right coronary artery supplying the posterior lateral vessel with some stenosis noted in the [place] distal circumflex artery therefore recommended at that time given no significant ischemia continue medical therapy, will continue aspirin, statin, metoprolol, not on TATE inhibitor secondary to cough history but from current list not on ARB, continue evaluation as noted above. #3. PAD: Status post peripheral iliac artery PCI, will continue aspirin, statin, hypertensive regimen as noted, continue evaluation as noted above, recent 12/15/2022 arterial evaluation with noted bilateral mildly occlusive d isease with an ABHINAV 0.79 and 0.75, digit 0.59, 0.34. Encourage continued outpatient follow-up with vascular surgery. #4. Possible Progressing CKD with Chronic Kidney Disease Stage III unclear subtype however previous GFR last noted 2020 was consistent with type II this certainly could be renal insufficiency on CKD but suspect more likely progressed to CKD stage III: Admission BUN/Cr 13/1.38, baseline renal function 0.9-1.0, repeat BMP in AM which will help further elucidate current disease level. #5. Diabetes mellitus type II: Hold oral home regimen, ADA diet until n.p.o. status, accu checks w/ ISS. #6. Hypertension: Continue home regimen including amlodipine, metoprolol, PRN hydralazine. #7. Hyperlipidemia: We will continue patient home atorvastatin, FLP in AM. #8. Chronic thrombocytopenia, unclear etiology: Admission platelets 61, baseline appears similar, will continue to closely trend, defer chemoprophylaxis. #9. Chronic iron deficiency anemia: Admission hemoglobin 13.1, baseline hemoglobin noted previously 11-12 range, MCV 97.9 currently, will continue iron supplementation. #10. Anxiety and depression: We will continue patient home duloxetine regimen. #11. GERD with hiatal hernia: Will maintain on PPI given current symptoms. #12. BPH: Continue patient on Flomax regimen. #13. Chronic COPD: Will attempt to hold home inhaler and in the interim transition to ATC budesonide therapy, PRN albuterol, HOB, IS parameters. #14. CR: CPAP nightly. #15. DVT prophylaxis: SCDs, if trop rises further would cautiously start heparin drip given thrombocytopenia. #16. CODE status: Patient SALLY is his who is present and living will is currently in place. Discussed CODE status at length including difference between FULL code, DNR-CCA and DNR-CC status. Following discussions about the differences in these status, requested DNR-CCA, no intubation status. Advanced Care Planning Face to Face Time: 16 minutes. Charges/Coding Visit Charges Inpatient E&M: 13400 Init Hosp L3 Procedures Hospitalists Procedures: 06858 Advncd Care Plan 30 Min
[2023-02-03 13:51] LABS: Magnesium 1.6 mg/dL (1.6-2.6)
--- NOTE | 2023-02-03 14:43 | ECHOD_ITS ---
Reason For Study: CAD/ASHD Procedure This was a 2D Doppler, Color Flow transthoracic echocardiogram. Exam performed portable in patient room. Left Ventricle Normal LV size. The estimated ejection fraction is 50-55 %. Left ventricular systolic function is normal. Stage 1 diastolic dysfunction. No regional wall motion abnormalities noted. Right Ventricle Normal RV size. Normal systolic function. Atria The left and right atria are normal. Mitral Valve There is Mild focal posterior mitral annular calcification. There is no mitral valve stenosis. Trivial mitral valve insufficiency. Tricuspid Valve Normal tricuspid valve. Trivial tricuspid valve insufficiency. Unable to estimate RV systolic pressure due to insufficient tricuspid regurgitant envelope. Aortic Valve Aortic sclerosis, no stenosis. The aortic valve is not well visualized in the short axis view. There is no aortic stenosis. No aortic valve insufficiency. Pulmonic Valve The pulmonic valve is not well visualized. Trivial pulmonic valve insufficiency. Great Vessels Normal aortic root. Pericardium/Pleural No pericardial effusion. MMode/2D Measurements & Calculations LVIDd: 5.9 cm IVSd: 1.0 cm LVOT diam: 2.0 cm LVIDs: 3.7 cm LVPWd: 0.98 cm LVOT area: 3.1 cm2 RVDd: 3.1 cm FS: 36.3 % Ao root diam: 3.4 cm LAV(MOD-bp): 52.1 ml LVAd ap4: 22.7 cm2 LAV(MOD-bp) Indexed: 25.7 ml/m2 LVLd ap4: 7.9 cm LAV(MOD-sp2): 52.0 ml EDV(MOD-sp4): 60.0 ml LAV(MOD-sp4): 51.3 ml EDV(sp4-el): 55.2 ml LVAs ap4: 14.4 cm2 LVLs ap4: 6.9 cm ESV(MOD-sp4): 29.1 ml ESV(sp4-el): 25.6 ml EF(MOD-sp4): 51.6 % EF(sp4-el): 53.6 % LVAd ap2: 23.9 cm2 SV(MOD-sp4): 30.9 ml SV(MOD-sp2): 34.9 ml LVLd ap2: 8.2 cm EDV(MOD-sp2): 62.5 ml EDV(sp2-el): 59.2 ml LVAs ap2: 13.9 cm2 LVLs ap2: 6.9 cm ESV(MOD-sp2): 27.6 ml ESV(sp2-el): 23.8 ml EF(MOD-sp2): 55.9 % SV(sp4-el): 29.6 ml LA dimension(2D): 4.5 cm LA A4 area: 18.6 cm2 RA A4 area: 11.7 cm2 TAPSE: 1.5 cm Time Measurements MV dec time: 0.11 sec Doppler Measurements & Calculations MV E max alek: 77.9 cm/sec Lat Peak E' Alek: 11.0 cm/sec Med Peak E' Alek: 7.7 cm/sec MV A max alek: 109.7 cm/sec E/E' lat: 7.1 E/E' med: 10.1 MV E/A: 0.71 Ao V2 max: 166.1 cm/sec LV V1 max: 122.4 cm/sec MV dec slope: 691.5 cm/sec2 Ao max P.0 mmHg LV V1 max P.0 mmHg Ao V2 mean: 111.3 cm/sec LV V1 mean P.4 mmHg Ao mean P.6 mmHg LV V1 mean: 87.8 cm/sec Ao V2 VTI: 23.3 cm LV V1 VTI: 17.6 cm AV (velocity ratio): 0.75 RUY(I,D): 2.3 cm2 RUY(V,D): 2.3 cm2 SV(LVOT): 54.6 ml PA V2 max: 115.2 cm/sec PA max PG (full): 2.4 mmHg ECHO/Echo Complete Interpretation Summary There is Mild focal posterior mitral annular calcification. The estimated ejection fraction is 50-55 %. Stage 1 diastolic dysfunction. No regional wall motion abnormalities noted. Ordering Physician: Stacey Pruitt Performed By: Eileen Cuellar RDCS
[2023-02-03 16:32] LABS: Troponin-I HS 219 pg/mL (3.0-78.0)
[2023-02-03 17:16] LABS: Bedside Glucose 139 mg/dL (74-106)
[2023-02-03 17:43] LABS: International Normalized Ratio 1.2; Prothrombin Time (Protime)PT. 15.1 SECONDS (11.7-14.9)
[2023-02-03 17:44] LABS: Partial Thromboplast Time 34.1 Seconds (24.1-36.2)
[2023-02-03] MEDS: Heparin Injection (Vial) 5,000 UNIT/ML VIAL 6000 UNIT IV (17:50)
[2023-02-03] MEDS: 0.9% Saline Lock 10 ML Syringe IV (17:51)
[2023-02-03] MEDS: HEPARIN/D5w 25,000 UNITS 25,000 UNITS/250 ML IV.SOLN. 12 UNITS CONT INF (17:51)
[2023-02-03] MEDS: Budesonide Respules 0.5 MG/2 ML AMPUL.NEB. INHALATION (18:41)
[2023-02-03] MEDS: Pantoprazole Sodium 40 MG Tablet PO (22:55)
[2023-02-03] MEDS: Metoprolol Tartrate 100 MG Tablet PO (22:55)
[2023-02-03] MEDS: Atorvastatin Calcium 20 MG Tablet PO (22:59)
[2023-02-03] MEDS: Insulin Lispro 100 UNIT/ML INSULN.PEN SC (23:13)
--- NOTE | 2023-02-03 23:53 | CPS ---
Pt placed on sleep lab PAP machine for the night, with a CPAP of 14
[2023-02-04] VITALS (11 sets, daily range): BP systolic 139–148; BP diastolic 70–79; PULSE 71–87; RESP 16–18; TEMP 36.5–36.8; O2SAT 93–98; BMI 29.0
[2023-02-04 00:46] LABS: Bedside Glucose 157 mg/dL (74-106)
[2023-02-04 01:13] LABS: Partial Thromboplast Time 123.4 Seconds (24.1-36.2)
[2023-02-04] MEDS: 0.9% Normal Saline (1000mL) 1,000 ML 100 ML IV (01:40)
[2023-02-04] MEDS: Aspirin E.C. 81 MG Tablet PO (06:12)
[2023-02-04 07:09] LABS: Bedside Glucose 167 mg/dL (74-106)
[2023-02-04 07:13] LABS: Absolute Lymphocyte Count 1.28 X10^3/uL (0.83-4.51); Absolute Neutrophil Count 2.7 X10^3/uL (2.0-7.7); Basophil# 0.04 X10^3/uL; Basophil% 0.7 % (0-1); Eosinophil# 0.05 X10^3/uL; Eosinophils% 0.9 % (0-5); Hematocrit 35.1 % (40-54); Hemoglobin 11.3 g/dL (13.0-16.5); Lymphocyte # 1.28 X10^3/ul (0.83-4.51); Lymphocyte % 23.6 % (19-41); Mean Corp Hgb Conc 32.2 g/dL (32-36); Mean Corpuscular Volume 96.4 fL (80-94); Mean Platelet Vol. 12.7 fl (6.2-12.0); Monocyte% 23.9 % (0-10); NRBC Flagged by Analyzer 0 % (0-5); Neutrophil # 2.68 X10^3/uL (2.7-7.7); Neutrophil % 49.4 % (47-70); POSITIVE COUNT YES; RBC Distribution Width CV 16.8 % (11.6-14.6); RBC Distribution Width SD 59.1 fl (35.1-43.9); Red Blood Count 3.64 M/mm3 (4.6-6.2); White Blood Count 5.4 K/mm3 (4.4-11.0)
[2023-02-04 07:24] LABS: Differential Indicated SCAN CRITERIA MET; Platelet Count 48 K/mm3 (150-450)
[2023-02-04 07:25] LABS: Partial Thromboplast Time 59.6 Seconds (24.1-36.2)
[2023-02-04] MEDS: Budesonide Respules 0.5 MG/2 ML AMPUL.NEB. INHALATION ×2 (07:47→19:50)
[2023-02-04 08:08] LABS: ALB/GLOB Ratio 1.1 RATIO (0.9-2.4); AST(SGOT) 24 U/L (15-37); Alanine Aminotransfer ALT/SGPT 27 U/L (16-61); Albumin, Serum 3.7 g/dL (3.2-5.0); Alkaline Phosphatase 55 U/L (45-117); Anion Gap 9 (5-15); BUN 12 mg/dL (7-18); BUN/Creat Ratio 12.5 RATIO (10-20); Calcium,Total 8.7 mg/dL (8.5-10.1); Chloride 108 mmol/L (98-107); Cholesterol 67 mg/dL (200); Creatinine, Serum 0.96 mg/dL (0.70-1.30); EST Glomerular Filtration Rate 82 mL/min (>60); Est Glom Filt Rate - Afr Amer 99 mL/min (>60); Estimated Creatinine Clearance 67.29 ml/min; Globulin 3.4 g/dL (2.2-4.2); Glucose 171 mg/dL (74-106); High Density Lipoprotein 18 mg/dL; Potassium 4.3 mmol/L (3.5-5.1); Protein, Total 7.1 g/dL (6.4-8.2); Sodium Level 139 mmol/L (136-145); Triglycerides 177 mg/dL; Very Low Density Lipoprotein 35 mg/dL (5-40)
[2023-02-04 08:28] LABS: Differential Comment SCANNED; Platelet Estimate MKD DEC (ADEQ); Platelet Morphology LARGE
[2023-02-04] MEDS: DULoxetine Hcl 60 MG Capsule PO (10:11)
[2023-02-04] MEDS: Metoprolol Tartrate 100 MG Tablet PO ×2 (10:11→22:48)
[2023-02-04] MEDS: Ferrous Sulfate 325 MG Tablet PO (10:11)
[2023-02-04] MEDS: amLODIPine 5 MG Tablet PO (10:11)
[2023-02-04] MEDS: Pantoprazole Sodium 40 MG Tablet PO ×2 (10:11→22:49)
[2023-02-04] MEDS: Insulin Lispro 100 UNIT/ML INSULN.PEN SC ×2 (11:21→22:49)
[2023-02-04 11:27] LABS: Bedside Glucose 163 mg/dL (74-106)
[2023-02-04 12:58] LABS: Partial Thromboplast Time 33.1 Seconds (24.1-36.2)
--- NOTE | 2023-02-04 13:20 | CON.PCM.CA_ITS ---
Assessment & Plan Assessment/Plan (1) Elevated troponin: PLAN: Plan 1. History of CAD status post CABG. 2. Dry heaves and heartburn which resolved with Protonix and GI cocktail likely GERD/gastritis. Consider GI evaluation for EGD #3 elevated troponin in the setting of acute kidney injury and dehydration. 4. Acute kidney injury likely due to dehydration. Resolved. 5. Sinus tachycardia upon presentation likely due to dehydration, resolved after hydration. #6 hypertension 7. Severe thrombocytopenia Plan Patient is chest pain-free. Last left heart catheterization in October 2020 showed patent STARKEY to LAD, patent SVG to OM, patent radial graft to PDA. Continue with Protonix. D-dimer upon admission was negative. Troponins are slightly elevated which is likely due to acute kidney injury in the setting of dehydration. Continue aspirin and Lipitor 20 mg daily. Continue metoprolol and amlodipine Obtain echocardiogram for evaluation of ejection fraction and wall motions If ejection fraction is normal then patient will need follow-up with cardiology as outpatient with outpatient stress test Recommend to stop heparin as troponins are due to acute kidney injury also specially in the setting of severe thrombocytopenia Consider hematology workup for severe thrombocytopenia. HPI Consult Data Date of Consult: 02/04/23 HPI Narrative Reason for Consultation: Elevated troponin. HPI Narrative: CLARK DUFFY, is a 72 M who presents with dry heaves. A 72-year-old male patient with past medical history of CAD status post CABG x 3 (left heart catheterization in October 2020 showed patent STARKEY to LAD, patent SVG to OM and patent radial graft to PDA), history of hypertension, diabetes and severe thrombocytopenia. Patient said yesterday morning after visiting his doctor office he was walking to the restaurant to have breakfast as he has not eaten anything that morning except his meds however before eating anything patient developed dry heaves, nausea and heartburn. He denied chest pain or shortness of breath. Patient said yesterday morning he took his medicine however he did not have any food. He has been doing very well without any exertional chest pain or shortness of breath. Upon presentation to the ED EKG showed sinus tachycardia with no acute ischemic ST-T wave changes, patient was found in acute kidney injury with creatinine of 1.38 He was given IV fluids and GI cocktail in addition to Protonix. Patient's symptoms resolved after GI cocktail. Troponins were slightly elevated in the setting of acute kidney injury. Patient has not had any chest pain or heartburn since he was admitted. Repeat EKG this morning showed normal sinus rhythm with no acute ST-T wave changes. Kidney function has recovered. Patient denied any chest pain or shortness of breath. Denied PND's, no orthopnea, no palpitations or dizziness, no syncope. He denied fever, denied chills, denied diarrhea. Denied abdominal pain. Platelets this morning were 48 so heparin drip was stopped. Heparin drip initially was started due to elevated troponin. [facility], LATER [facility] Medical History (Updated 02/03/23 @ 14:49 by Minoo Farrell) Anemia Anxiety Atherosclerotic heart disease of [place] coronary artery without angina pectoris Celiac disease Claudication of both lower extremities COPD (chronic obstructive pulmonary disease) CPAP (continuous positive airway pressure) dependence Depression Diabetes Diabetes mellitus, type 2 Essential (primary) hypertension Former smoker GERD (gastroesophageal reflux disease) Hyperlipidemia Myocardial infarct Obesity Old inferior wall myocardial infarction CR on CPAP Peripheral vascular disease Home Medications tamsulosin 0.4 mg capsule 0.4 mg PO QODAY 11/04/14 [History Last Taken 02/02/23] aspirin 81 mg tablet,delayed release 81 mg PO DAILY 10/18/15 [History Last Taken 10/28/20] metoprolol tartrate 100 mg tablet 100 mg PO BID #180 tabs 05/11/17 [Rx Last Taken 10/28/20] nitroglycerin 0.4 mg sublingual tablet 0.4 mg sublingual Q5M PRN Chest Pain #25 tabs 05/11/17 [Rx Last Taken Unknown] metformin 500 mg tablet 1,000 mg PO BID glucose 05/18/19 [History Last Taken 10/26/20] atorvastatin 20 mg tablet 20 mg PO QHS #90 tabs 05/19/22 [Rx Last Taken Unknown] amlodipine 5 mg tablet 5 mg PO DAILY 02/03/23 [History Last Taken Unknown] duloxetine 60 mg capsule,delayed release 60 mg PO DAILY 02/03/23 [History Last Taken Unknown] ferrous sulfate 325 mg (65 mg iron) tablet (iron) 325 mg PO DAILY 02/03/23 [History Last Taken Unknown] finasteride 5 mg tablet (Proscar) 5 mg PO DAILY 02/03/23 [History Last Taken Unknown] fluticasone furoate 100 mcg-vilanterol 25 mcg/dose inhalation powder (Breo E llipta) 1 inh inhalation QHS moisture for bottom of left lung 12/27/23 [History Last Taken Unknown] omeprazole 40 mg capsule,delayed release 40 mg PO DAILY 02/03/23 [History Last Taken Unknown] Allergy/AdvReac Type Severity Reaction Status Date / Time nitroglycerin Allergy NEEDS Verified 02/03/23 09:08 FOLLOW-UP Food Allergies: Uncoded AdvReac Upset Verified 05/26/22 13:56 Stomach lactose AdvReac Other Verified 02/03/23 09:08 lisinopril AdvReac cough Verified 02/03/23 09:08 Family History Mother Hypertension Brother Hypertension Sister Hypertension Surgical History H/O coronary artery bypass surgery (11/09/08) History of arthroscopy of left knee History of coronary artery stent placement (03/02/98) History of left heart catheterization (10/28/20) Hx of appendectomy Hx of removal of cyst Status post insertion of iliac artery stent Social History (Updated 02/03/23 @ 14:[address] Stacey Pruitt MD) household members: spouse Smoking Status: Former smoker how long ago did patient quit smoking: Quit 1998, smoked 2 ppd since age 26 until quit. second hand exposure: No alcohol intake: never substance use type: does not use what type of physical activity do you participate in: none frequency: does not exercise seatbelt use: always ROS ROS Narrative 12 points review of system were obtained, negative other than what mentioned HPI. Physical Exam Const alert, oriented x3 and no apparent distress HEENT normocephalic and head/scalp atraumatic Eyes PERRL and EOMs intact bilaterally Neck supple and no JVD Chest inspection of chest normal and palpation of chest normal Resp normal respiratory effort and clear to auscultation bilaterally Cardio regular rate, regular rhythm, S1 normal heart sound, S2 normal heart sound and no murmurs GI normal to inspection, nondistended, normoactive bowel sounds and soft to p alpation Extremity normal to inspection and no pedal edema Skin no rashes or lesions noted and no wounds Psych mental status grossly normal and thought process normal Risk Stratification Risk Stratification Applicable: No Objective Data Vital Signs: Vital Signs Temp Pulse Resp BP Pulse Ox O2 Del Method FiO2 97.9 F 87 16 148/79 H 93 Room Air 21 02/04/23 10:10 02/04/23 10:11 02/04/23 10:10 02/04/23 10:11 02/04/23 10:10 02/04/23 10:10 02/03/23 22:38 Oxygen Delivery Method Room Air Weight: 191 lb 5.78 oz Body Mass Index (BMI) 29.0 Intake & Output: Intake and Output for Last 24 Hours 02/02/23 02/03/23 02/04/23 23:59 23:59 23:59 Intake Total 1522.5 / 1922.5 1574.1 / 1574.1 Balance 1522.5 / 1922.5 1574.1 / 1574.1 Lab / Micro Data 02/04/23 07:00 02/04/23 07:00 Labs: Laboratory Results - last 24 hr 02/03/23 11:25: Magnesium 1.6 02/03/23 15:30: Troponin I High Sens 219 H* 02/03/23 16:59: POC Glucose 139 H 02/03/23 17:25: PT 15.1 H, INR 1.2, APTT 34.1 02/03/23 23:02: POC Glucose 157 H 02/04/23 00:15: APTT 123.4 H* 02/04/23 06:17: POC Glucose 167 H 02/04/23 07:00: WBC 5.4, RBC 3.64 L, Hgb 11.3 L, Hct 35.1 L, MCV 96.4 H, MCH 31.0, MCHC 32.2, RDW Std Deviation 59.1 H, RDW Coeff of Gertrud[place] 16.8 H, Plt Count 48 L*, MPV 12.7 H, Immature Gran % (Auto) 1.500 H, Neut % (Auto) 49.4, Lymph % (Auto) 23.6, [place] % (Auto) 23.9 H, Eos % (Auto) 0.9, Baso % (Auto) 0.7, Absolute Neuts (auto) 2.7, Absolute Lymphs (auto) 1.28, Nucleated RBC % 0, Differential Comment SCANNED, Diff Path Review May foll, Platelet Estimate MKD DEC, Plt Morphology Comment LARGE, APTT 59.6 H, Sodium 139, Potassium 4.3, Chloride 108 H , Carbon Dioxide 22.0, Anion Gap 9, BUN 12, Creatinine 0.96, Estim Creat Clear Calc 67.29, Est GFR (MDRD) Af Amer 99, Est GFR (MDRD) Non-Af 82, BUN/Creatinine Ratio 12.5, Glucose 171 H, Calcium 8.7, Total Bilirubin 0.80, AST 24, ALT 27, Alkaline Phosphatase 55, Total Protein 7.1, Albumin 3.7, Globulin 3.4, Albumin/Globulin Ratio 1.1, Triglycerides 177, Cholesterol 67, LDL Cholesterol 14, VLDL Cholesterol 35, HDL Cholesterol 18 L 02/04/23 10:49: POC Glucose 163 H 02/04/23 12:46: APTT 33.1 Cardiology Labs/Tests 02/03/23 11:25: Magnesium 1.6 02/03/23 17:25: PT 15.1 H, INR 1.2, APTT 34.1 02/04/23 00:15: APTT 123.4 H* 02/04/23 07:00: WBC 5.4, RBC 3.64 L, Hgb 11.3 L, Hct 35.1 L, MCV 96.4 H, MCH 31.0, MCHC 32.2, Plt Count 48 L*, MPV 12.7 H, Immature Gran % (Auto) 1.500 H, Neut % (Auto) 49.4, Lymph % (Auto) 23.6, [place] % (Auto) 23.9 H, Eos % (Auto) 0.9, Baso % (Auto) 0.7, Absolute Neuts (auto) 2.7, Nucleated RBC % 0, APTT 59.6 H, Sodium 139, Potassium 4.3, Chloride 108 H, Carbon Dioxide 22.0, Anion Gap 9, BUN 12, Creatinine 0.96, Est GFR (MDRD) Af Amer 99, Est GFR (MDRD) Non-Af 82, BUN/Creatinine Ratio 12.5, Glucose 171 H, Calcium 8.7, Total Bilirubin 0.80, Triglycerides 177, Cholesterol 67, LDL Cholesterol 14, VLDL Cholesterol 35, HDL Cholesterol 18 L 02/04/23 12:46: APTT 33.1 Rhythm: EKG: ECHO: Stress Test: Cardiac Cath: PCI: CT Surgery: Holter monitor: EPS: PPM: CXR: Chest CT Scan:
--- NOTE | 2023-02-04 14:25 | PN_ITS ---
Subjective Subjective Patient seen and examined. He was lying comfortably in bed. He had no active complaints and had an uneventful night. Review of systems otherwise negative. Objective Data Objective Data Vital Signs: Vital Signs Temp Pulse Resp BP Pulse Ox O2 Del Method FiO2 97.9 F 87 16 148/79 H 93 Room Air 21 02/04/23 10:10 02/04/23 10:11 02/04/23 10:10 02/04/23 10:11 02/04/23 10:10 02/04/23 10:10 02/03/23 22:38 Oxygen Delivery Method Room Air Weight: 191 lb 5.78 oz Body Mass Index (BMI) 29.0 Intake & Output: Intake and Output for Last 24 Hours 02/02/23 02/03/23 02/04/23 23:59 23:59 23:59 Intake Total 1522.5 / 1922.5 1574.1 / 1574.1 Balance 1522.5 / 1922.5 1574.1 / 1574.1 Lab / Micro Data 02/04/23 07:00 02/04/23 07:00 Labs: Laboratory Results - last 24 hr 02/03/23 15:30: Troponin I High Sens 219 H* 02/03/23 16:59: POC Glucose 139 H 02/03/23 17:25: PT 15.1 H, INR 1.2, APTT 34.1 02/03/23 23:02: POC Glucose 157 H 02/04/23 00:15: APTT 123.4 H* 02/04/23 06:17: POC Glucose 167 H 02/04/23 07:00: WBC 5.4, RBC 3.64 L, Hgb 11.3 L, Hct 35.1 L, MCV 96.4 H, MCH 31.0, MCHC 32.2, RDW Std Deviation 59.1 H, RDW Coeff of [place] 16.8 H, Plt Count 48 L*, MPV 12.7 H, Immature Gran % (Auto) 1.500 H, Neut % (Auto) 49.4, Lymph % (Auto) 23.6, [place] % (Auto) 23.9 H, Eos % (Auto) 0.9, Baso % (Auto) 0.7, Absolute Neuts (auto) 2.7, Absolute Lymphs (auto) 1.28, Nucleated RBC % 0, Differential Comment SCANNED, Diff Path Review May foll, Platelet Estimate MKD DEC, Plt Morphology Comment LARGE, APTT 59.6 H, Sodium 139, Potassium 4.3, Chloride 108 H , Carbon Dioxide 22.0, Anion Gap 9, BUN 12, Creatinine 0.96, Estim Creat Clear Calc 67.29, Est GFR (MDRD) Af Amer 99, Est GFR (MDRD) Non-Af 82, BUN/Creatinine Ratio 12.5, Glucose 171 H, Calcium 8.7, Total Bilirubin 0.80, AST 24, ALT 27, Alkaline Phosphatase 55, Total Protein 7.1, Albumin 3.7, Globulin 3.4, Albumin/Globulin Ratio 1.1, Triglycerides 177, Cholesterol 67, LDL Cholesterol 14, VLDL Cholesterol 35, HDL Cholesterol 18 L 02/04/23 10:49: POC Glucose 163 H 02/04/23 12:46: APTT 33.1 Physical Exam Const alert, oriented x3 and no apparent distress General Appearance: cooperative HEENT normocephalic, head/scalp atraumatic, moist oral mucous membranes and oropharynx normal Eyes PERRL and EOMs intact bilaterally Neck no lymphadenopathy and supple Lymph Lymphatic: no lymphadenopathy noted and no lymphedema noted Resp normal respiratory effort, normal air movement and clear to auscultation bilaterally Cardio regular rate, regular rhythm, S1 normal heart sound, S2 normal heart sound and no murmurs GI normal to inspection, nondistended, normoactive bowel sounds, soft to palpation and non-tender Extremity normal capillary refill and no clubbing, cyanosis or edema General Extremity: no tenderness to palpation of joints or extremities Neuro CN's II-XII intact bilaterally, no focal motor deficits and no sensory deficits noted Motor Exam: strength 5/5 throughout and general weakness Psych thought process normal and cooperative Appearance: appropriate Assessment & Plan Assessment/Plan (1) Elevated troponin: (2) Chest pain: PLAN: Plan #Chest pain * patient not having any more chest pain now. * troponiins trended up to 219. * 2D echo ordered and pending * placed on heparin drip but this was discontinued this morning platelets are dropped to 48. * Continue aspirin and sublingual nitroglycerin. Discussed with cardiology, Dr. Jina Sharp. Plan is for patient to have patient follow up with cardiology on outpatient basis as EKG showed no acute ST changes and patient is not having any chest pain now * #CAD s/p CABG: * Heart cath in October 2020 which showed patent STARKEY to LAD, saphenous vein graft to circumflex artery, saphenous vein graft to right coronary artery supplying the posterior lateral vessel with some stenosis noted in the walk[place] distal circumflex artery * On aspirin and statin as well as metoprolol. * #PAD: S/p peripheral iliac artery PCI. On aspirin and statin. #Type 2 diabetes mellitus, oral meds on hold. Insulin sliding scale. Accu- Cheks ACHS. #Hypertension: On amlodipine and metoprolol. IV hydralazine as needed. #Hyperlipidemia: On statin #Thrombocytopenia: * Has chronic thrombocytopenia. Platelets were 61 on admission but trended down to 48. * Heparin drip therefore discontinued. * Will monitor to see if platelets will trend back up to his baseline. #Anxiety and depression: On duloxetine DVT prophylaxis: SCDs. NO anticoagulation due to thrombocytopenia Charges/Coding Visit Charges Inpatient E&M: 71807 Subs Hosp L2
--- NOTE | 2023-02-04 16:12 | CASEMGMT ---
KAY VENTURA Assessment: Face to Face with pt for initial transition planning/care coordination assessment. RN AUDREY introduced self and role at [facility], pt voices understanding and consents to assessment. Pt is A&O x4 and answers all questions appropriately at this time. Pt sitting up in bed in no distress with at bedside. Care providers, pharmacy, and demographics verified/updated. Admitting Dx: CP, elevated trop PCP:Shirley Specialists:ramsey Rhodes; Temo cardio Preferred Pharmacy: [facility] Insurance: [facility] Prescription Benefit: yes LNOK: Erica Bedoya, ; Mariya Bedoya, dtr Living Arrangements: Pt lives in a two story home with no steps to enter. Pt reports he is I in ADL's and denies concerns at home. Transportation: Pt drives self and denies concerns with transportation. DME:shower chair, w/c, grab bars in bathroom, cane, walker, rollator, hand rails over toilet and raised toilet seat, BGM with sufficient supplies, CPAP. Pt does not use AD to ambulate. HHC/SNF: Denies hx of Pt states no concerns with going home at time of dc. Pt states no further concerns/needs. CM to follow. Advised pt to ask CM if any further question/concerns/needs arise, voices understanding. Pt Goal: Home Plan: Home
[2023-02-04] MEDS: Tamsulosin HCl 0.4 MG Capsule 0.400000000000000022 MG PO (16:39)
[2023-02-04 17:00] LABS: Bedside Glucose 128 mg/dL (74-106)
[2023-02-04] MEDS: Atorvastatin Calcium 20 MG Tablet PO (22:49)
[2023-02-05 00:17] LABS: Bedside Glucose 182 mg/dL (74-106)
[2023-02-05 04:03] VITALS: PULSE 74; O2SAT 96
[2023-02-05 05:50] VITALS: BMI 29.1
[2023-02-05 06:15] VITALS: BP 159/74; PULSE 70; RESP 16; TEMP 36.6; O2SAT 95
[2023-02-05] MEDS: Insulin Lispro 100 UNIT/ML INSULN.PEN SC (06:23)
[2023-02-05 07:06] VITALS: PULSE 83; RESP 20; O2SAT 97
[2023-02-05] MEDS: Budesonide Respules 0.5 MG/2 ML AMPUL.NEB. INHALATION (07:06)
[2023-02-05 07:16] LABS: Absolute Lymphocyte Count 1.34 X10^3/uL (0.83-4.51); Absolute Neutrophil Count 2.2 X10^3/uL (2.0-7.7); Basophil# 0.05 X10^3/uL; Basophil% 0.9 % (0-1); Eosinophil# 0.07 X10^3/uL; Eosinophils% 1.3 % (0-5); Hematocrit 35.7 % (40-54); Hemoglobin 11.2 g/dL (13.0-16.5); Lymphocyte # 1.34 X10^3/ul (0.83-4.51); Lymphocyte % 24.9 % (19-41); Mean Corp Hgb Conc 31.4 g/dL (32-36); Mean Corpuscular Hgb 30.8 pg (27.0-32.0); Mean Corpuscular Volume 98.1 fL (80-94); Mean Platelet Vol. 13.2 fl (6.2-12.0); Monocyte# 1.56 X10^3/uL; NRBC Flagged by Analyzer 0 % (0-5); Neutrophil # 2.23 X10^3/uL (2.7-7.7); Neutrophil % 41.5 % (47-70); POSITIVE COUNT YES; POSITIVE DIFFERENTIAL YES; RBC Distribution Width CV 16.4 % (11.6-14.6); RBC Distribution Width SD 59.6 fl (35.1-43.9); Red Blood Count 3.64 M/mm3 (4.6-6.2); White Blood Count 5.4 K/mm3 (4.4-11.0)
[2023-02-05 07:22] LABS: Bedside Glucose 165 mg/dL (74-106)
[2023-02-05 07:23] LABS: Differential Indicated SCAN CRITERIA MET; Platelet Count 49 K/mm3 (150-450)
[2023-02-05 08:11] LABS: Anion Gap 7 (5-15); BUN 13 mg/dL (7-18); BUN/Creat Ratio 13.8 RATIO (10-20); Calcium,Total 9.2 mg/dL (8.5-10.1); Chloride 106 mmol/L (98-107); Creatinine, Serum 0.94 mg/dL (0.70-1.30); EST Glomerular Filtration Rate 84 mL/min (>60); Est Glom Filt Rate - Afr Amer 101 mL/min (>60); Estimated Creatinine Clearance 68.72 ml/min; Glucose 171 mg/dL (74-106); Potassium 4.4 mmol/L (3.5-5.1); Sodium Level 137 mmol/L (136-145)
[2023-02-05 08:14] LABS: Anisocytosis 1+; Platelet Estimate MKD DEC (ADEQ)
[2023-02-05 10:07] VITALS: BP 160/73; PULSE 80; RESP 16; TEMP 36.5; O2SAT 96
[2023-02-05] MEDS: DULoxetine Hcl 60 MG Capsule PO (10:10)
[2023-02-05] MEDS: amLODIPine 5 MG Tablet PO (10:10)
[2023-02-05] MEDS: Pantoprazole Sodium 40 MG Tablet PO (10:10)
[2023-02-05] MEDS: Aspirin E.C. 81 MG Tablet PO (10:10)
[2023-02-05 10:11] VITALS: PULSE 81
[2023-02-05] MEDS: Metoprolol Tartrate 100 MG Tablet PO (10:11)
--- NOTE | 2023-02-05 11:00 | CASEMGMT ---
Patient has order for discharge. RN CM in to discuss needs at discharge. Patient denies need or help at discharge, at bedside. Patient had no further questions or concerns.
[2023-02-05 12:05] LABS: Pathologist Review Reviewed
--- NOTE | 2023-02-05 12:18 | DCINST_ITS ---
Discharge Instructions Diet Discharge Diet: Low fat / Low cholesterol Activity Discharge Activity: Return to Normal Activity Weight Bearing Status: Weight bearing as tolerated Dressing / Incision Call your doctor if you observe: Fever of 101 or Higher, Shortness of breath, Dizziness, Swelling in the ankles, Chest pain and Increased palpitations (irregular heartbeat) Follow Up Care Test Results: Test results from this visit will be discussed in further detail at your follow- up appointment, if applicable. Discharge Plan Admission Admit Date/Time: 02/03/23 16:48 Primary Reason for Your Visit: chest pain Attending Provider: Vita Pierce Primary Care Provider: Adam Watson Consulting Providers: Lila Muro; Stacey Pruitt Instructions Patient Instructions: Discharge Instructions for Angina Discharge Orders/Prescriptions Prescriptions: Continued metoprolol tartrate 100 mg tablet 100 mg PO BID Qty: 180 3RF nitroglycerin 0.4 mg tablet, sublingual 0.4 mg SUBLINGUAL Q5M PRN (Reason: Chest Pain) Qty: 25 3RF metformin 500 mg tablet 1,000 mg PO BID tamsulosin 0.4 MG capsule 0.4 mg PO QODAY aspirin 81 MG tablet,delayed release (DR/EC) 81 mg PO DAILY fluticasone furoate-vilanterol [Breo Ellipta] 100-25 mcg/dose blister with device 1 inh INHALATION QHS omeprazole 40 mg capsule,delayed release(DR/EC) 40 mg PO DAILY duloxetine 60 mg capsule,delayed release(DR/EC) 60 mg PO DAILY ferrous sulfate [iron] 325 mg (65 mg iron) tablet 325 mg PO DAILY amlodipine 5 mg tablet 5 mg PO DAILY finasteride [Proscar] 5 mg tablet 5 mg PO DAILY atorvastatin 20 mg tablet 20 mg PO QHS Qty: 90 3RF Referrals / Follow Up: Samuel Plascencia MD [Med Staff - Active Staff] - 03/04/23 10:30 am Gary Reich DO [Med Staff - Active Staff] - Within 1 Month Adam Watson MD [Primary Care Provider] - 02/12/23 11:20 am Disposition Disposition (needs filled in before D/C Order can be placed): Home, Self Care
[2023-02-05 12:20] LABS: Pathologist Review Reviewed
[2023-02-05 12:21] LABS: Bedside Glucose 223 mg/dL (74-106)
--- NOTE | 2023-02-05 12:22 | PHA.DC_ITS ---
Pharmacy [facility] Reconciliation Pharmacy Service has performed discharge medication reconciliation for this patient. No new medication changes at time of discharge medication review. Medications reviewed are from previously reported home medications. The patient's discharge medication list was reviewed for discrepancies and discrepancies were resolved. Medications at Discharge Home Medications tamsulosin 0.4 mg capsule 0.4 mg PO QODAY 11/04/14 aspirin 81 mg tablet,delayed release 81 mg PO DAILY 10/18/15 metoprolol tartrate 100 mg tablet 100 mg PO BID #180 tabs 05/11/17 nitroglycerin 0.4 mg sublingual tablet 0.4 mg sublingual Q5M PRN Chest Pain #25 tabs 05/11/17 metformin 500 mg tablet 1,000 mg PO BID glucose 05/18/19 atorvastatin 20 mg tablet 20 mg PO QHS #90 tabs 05/19/22 amlodipine 5 mg tablet 5 mg PO DAILY 02/03/23 duloxetine 60 mg capsule,delayed release 60 mg PO DAILY 02/03/23 ferrous sulfate 325 mg (65 mg iron) tablet (iron) 325 mg PO DAILY 02/03/23 finasteride 5 mg tablet (Proscar) 5 mg PO DAILY 02/03/23 fluticasone furoate 100 mcg-vilanterol 25 mcg/dose inhalation powder (Breo Ellipta) 1 inh inhalation QHS moisture for bottom of left lung 02/03/23 omeprazole 40 mg capsule,delayed release 40 mg PO DAILY 02/03/23
[2023-02-05] MEDS: Ferrous Sulfate 325 MG Tablet PO (12:23)
--- NOTE | 2023-02-05 12:29 | PCM.DC.SUM ---
Providers Date of Admission: 02/03/23 Date of Discharge: 02/05/23 Primary Care Physician: Dr. Adam Watson MD Consultations 02/03/23 16:48 Consult: Cardiology Routine Consulting Provider: Lila Muro Reason for Consult: Chest pain, NSTEMI EMERGENT Consult: No MD Notified: Yes Date Notified: 02/03/23 Time Notified: 16:49 Method of Notification: Text Reason For Visit: CHEST PAIN, ELEVATED TROP Diagnosis Discharge Diagnosis (1) Elevated troponin: Status: Acute Code(s): R79.89 - Other specified abnormal findings of blood chemistry (2) Chest pain: Status: Acute Code(s): R07.9 - Chest pain, unspecified Plan #Chest pain patient not having any more chest pain now. troponiins trended up to 219. 2D echo ordered and pending placed on heparin drip but this was discontinued this morning platelets are dropped to 48. Continue aspirin and sublingual nitroglycerin. Discussed with cardiology, Dr. Jina Sharp. Plan is for patient to have patient follow up with cardiology on outpatient basis as EKG showed no acute ST changes and patient is not having any chest pain now #CAD s/p CABG: Heart cath in October 2020 which showed patent STARKEY to LAD, saphenous vein graft to circumflex artery, saphenous vein graft to right coronary artery supplying the posterior lateral vessel with some stenosis noted in the [place] distal circumflex artery On aspirin and statin as well as metoprolol. #PAD: S/p peripheral iliac artery PCI. On aspirin and statin. #Type 2 diabetes mellitus, oral meds on hold. Insulin sliding scale. Accu-Cheks ACHS. #Hypertension: On amlodipine and metoprolol. IV hydralazine as needed. #Hyperlipidemia: On statin #Thrombocytopenia: Has chronic thrombocytopenia. Platelets were 61 on admission but trended down to 48. Heparin drip therefore discontinued. Will monitor to see if platelets will trend back up to his baseline. #Anxiety and depression: On duloxetine DVT prophylaxis: SCDs. NO anticoagulation due to thrombocytopenia Medications at Discharge Home Medications tamsulosin 0.4 mg capsule 0.4 mg PO QODAY 11/04/14 aspirin 81 mg tablet,delayed release 81 mg PO DAILY 10/18/15 metoprolol tartrate 100 mg tablet 100 mg PO BID #180 tabs 05/11/17 nitroglycerin 0.4 mg sublingual tablet 0.4 mg sublingual Q5M PRN Chest Pain #25 tabs 05/11/17 metformin 500 mg tablet 1,000 mg PO BID glucose 05/18/19 atorvastatin 20 mg tablet 20 mg PO QHS #90 tabs 05/19/22 amlodipine 5 mg tablet 5 mg PO DAILY 02/03/23 duloxetine 60 mg capsule,delayed release 60 mg PO DAILY 02/03/23 ferrous sulfate 325 mg (65 mg iron) tablet (iron) 325 mg PO DAILY 02/03/23 finasteride 5 mg tablet (Proscar) 5 mg PO DAILY 02/03/23 fluticasone furoate 100 mcg-vilanterol 25 mcg/dose inhalation powder (Breo Ellipta) 1 inh inhalation QHS moisture for bottom of left lung 02/03/23 omeprazole 40 mg capsule,delayed release 40 mg PO DAILY 02/03/23 Hospital Course Operations None Procedures 2-D Echocardiogram Summary of Care Provided Minutes Spent on Discharge: 55 Hospital Course: Patient is a 72-year-old male with a As above medical history as outlined who was admitted through the ED on 02/03/2023 with a complaint of chest pain and dry heaves. He felt the pain within his esophagus he had a burning sensation when he took a deep breath to. He also had pain in his upper chest. He denied any fever or chills, palpitations, dizziness, nausea vomiting or any other symptoms. Patient had a history of CAD s/p CABG and not had a cardiac cath in October 2020 which showed patent STARKEY to LAD, saphenous vein graft to circumflex artery, saphenous vein graft to right coronary artery supplying the posterior lateral vessel with some stenosis noted in the [place] distal circumflex artery. He had been on optimize medical therapy. On admission, initial troponin was negative but troponin trended up to 94 and then subsequently trended up to 235. Chest x-ray showed no acute cardiopulmonary findings and CT of the abdomen and pelvis with contrast showed small hiatal hernia and hepatic steatosis but no other acute process. EKG showed sinus tachycardia with no evidence of acute ST changes. He was therefore admitted and managed for chest pain to rule out ACS. He was also given GI cocktail which helped with his pain. In light of his troponins subsequently trended up to 235, he was started on heparin drip to be treated for non-STEMI and cardiology consulted. Cardiology reviewed patient and in light of patient's chronic thrombocytopenia which had subsequently dropped somewhat to a lgen of 48, 2D echo was done. 2D echo showed EF of 50 to 55% with stage I diastolic dysfunction and no regional wall motion abnormalities noted. Cardiology reviewed patient and in light of his thrombocytopenia and lack of acute ST changes and chest pain have resolved, cardiology recommended that patient could follow-up on outpatient basis with cardiology. Patient remained stable and was therefore discharged on 02/05/2023. He was referred to gastroenterology on outpatient basis as well for consideration for EGD in light of the pain possibly being due to GI origins also. Patient seen and examined prior to discharge. He felt well and had no complaints. He had an uneventful night. Review of systems otherwise negative. Labs and vitals reviewed. Home medication reviewed and reconciled. Physical Exam Const alert, oriented x3 and no apparent distress General Appearance: cooperative, comfortable and well kempt Orientation / Consciousness: awake HEENT normocephalic, head/scalp atraumatic, hearing grossly normal bilaterally, moist oral mucous membranes and oropharynx normal Mouth: oral and palatal mucosa normal Eyes PERRL and EOMs intact bilaterally Neck no lymphadenopathy and supple Lymph Lymphatic: no lymphadenopathy noted and no lymphedema noted Resp normal respiratory effort, normal air movement and clear to auscultation bilaterally Cardio regular rate, regular rhythm, S1 normal heart sound, S2 normal heart sound and no murmurs GI normal to inspection, nondistended, normoactive bowel sounds, soft to palpation and non-tender Extremity normal to inspection, full ROM, normal capillary refill and no clubbing, cyanosis or edema General Extremity: no tenderness to palpation of joints or extremities Neuro oriented x3, CN's II-XII intact bilaterally, moves all extremities, no focal motor deficits and no sensory deficits noted Motor Exam: strength 5/5 throughout and general weakness Psych thought process normal and cooperative Appearance: appropriate Weight / BMI Weight Weight: 191 lb 12.835 oz Body Mass Index (BMI) 29.1 ABG / Lab / Microbiology Data 02/05/23 06:13 02/05/23 06:13 Laboratory: Laboratory Results - last 24 hr 02/04/23 07:00: Diff Path Review Reviewed 02/04/23 12:46: APTT 33.1 02/04/23 16:34: POC Glucose 128 H 02/04/23 22:44: POC Glucose 182 H 02/05/23 06:13: WBC 5.4, RBC 3.64 L, Hgb 11.2 L, Hct 35.7 L, MCV 98.1 H, MCH 30.8, MCHC 31.4 L, RDW Std Deviation 59.6 H, RDW Coeff of Gertrudis 16.4 H, Plt Count 49 L*, MPV 13.2 H, Immature Gran % (Auto) 2.400 H, Neut % (Auto) 41.5 L, Lymph % (Auto) 24.9, [place] % (Auto) 29.0 H, Eos % (Auto) 1.3, Baso % (Auto) 0.9, Absolute Neuts (auto) 2.2, Absolute Lymphs (auto) 1.34, Nucleated RBC % 0, Diff Path Review Reviewed, Platelet Estimate MKD DEC, Anisocytosis 1+, Sodium 137, Potassium 4.4, Chloride 106, Carbon Dioxide 24.0, Anion Gap 7, BUN 13, Creatinine 0.94, Estim Creat Clear Calc 68.72, Est GFR (MDRD) Af Amer 101, Est GFR (MDRD) Non-Af 84, BUN/Creatinine Ratio 13.8, Glucose 171 H, Calcium 9.2 02/05/23 06:22: POC Glucose 165 H 02/05/23 12:03: POC Glucose 223 H Radiography Diagnostic Testing: Radiology Impression Echocardiogram 02/03/23 14:43 Interpretation Summary There is Mild focal posterior mitral annular calcification. The estimated ejection fraction is 50-55 %. Stage 1 diastolic dysfunction. No regional wall motion abnormalities noted. Ordering Physician: Stacey Pruitt Performed By: Eileen Cuellar RDCS D/C Instructions Discharge Diet: Low fat / Low cholesterol Discharge Activity: Return to Normal Activity Weight Bearing Status: Weight bearing as tolerated Call your doctor if you observe: Fever of 101 or Higher, Shortness of breath, Dizziness, Swelling in the ankles, Chest pain and Increased palpitations (irregular heartbeat) Meaningful Use Info Meaningful Use Diagnoses (Choose all that apply): AMI AMI/Post PCI/Angioplasty Aspirin given w/in 24hrs of arrival?: Yes ASA at discharge?: Yes Antiplatelet Therapy at Discharge:: Yes Reason Antiplatelet Therapy not ordered:: thrombocytopenia Statins at discharge?: Yes Maurice/ARB at discharge?: No Reason Maurice/ARB not ordered:: Not indicated Beta Terrance at discharge?: Yes Done w/ Acute VT measure.: Yes Documented LVEF (%): 55 Discharge Plan Admission Admit Date/Time: 02/03/23 16:48 Primary Reason for Your Visit: chest pain Attending Provider: Vita Pierce Primary Care Provider: Adam Watson Consulting Providers: Lila Muro; Stacey Pruitt Instructions Patient Instructions: Discharge Instructions for Angina Discharge Orders/Prescriptions Prescriptions: Continued metoprolol tartrate 100 mg tablet 100 mg PO BID Qty: 180 3RF nitroglycerin 0.4 mg tablet, sublingual 0.4 mg SUBLINGUAL Q5M PRN (Reason: Chest Pain) Qty: 25 3RF metformin 500 mg tablet 1,000 mg PO BID tamsulosin 0.4 MG capsule 0.4 mg PO QODAY aspirin 81 MG tablet,delayed release (DR/EC) 81 mg PO DAILY fluticasone furoate-vilanterol [Breo Ellipta] 100-25 mcg/dose blister with device 1 inh INHALATION QHS omeprazole 40 mg capsule,delayed release(DR/EC) 40 mg PO DAILY duloxetine 60 mg capsule,delayed release(DR/EC) 60 mg PO DAILY ferrous sulfate [iron] 325 mg (65 mg iron) tablet 325 mg PO DAILY amlodipine 5 mg tablet 5 mg PO DAILY finasteride [Proscar] 5 mg tablet 5 mg PO DAILY atorvastatin 20 mg tablet 20 mg PO QHS Qty: 90 3RF Referrals / Follow Up: Samuel Plascencia MD [Med Staff - Active Staff] - 03/04/23 10:30 am Gary Reich DO [Med Staff - Active Staff] - Within 1 Month Adam Watson MD [Primary Care Provider] - 02/12/23 11:20 am Disposition Disposition (needs filled in before D/C Order can be placed): Home, Self Care Charges/Coding Visit Charges Inpatient E&M: 44893 Disch Hosp >30min
== END 2023-02-05 13:30 | disposition home or self-care (01) | DRG 313 ==
LOC: ED 12:53 → PCU 13:54
PROVIDERS: Hospitalist; Admitting Provider Family Medicine; Emergency Provider Emergency Medicine; PCP Family Medicine; Visit Provider Student in an Organized Health Care Education/Training Program
DX: R07.89 Other chest pain (principal); D69.6 Thrombocytopenia, unspecified; E11.22 Type 2 diabetes mellitus with diabetic chronic kidney disease; E11.51 Type 2 diabetes mellitus with diabetic peripheral angiopathy without gangrene; D50.9 Iron deficiency anemia, unspecified; E78.5 Hyperlipidemia, unspecified; N18.30 Chronic kidney disease, stage 3 unspecified; J44.9 Chronic obstructive pulmonary disease, unspecified; F32.A Depression, unspecified; I12.9 Hypertensive chronic kidney disease with stage 1 through stage 4 chronic kidney disease, or unspecified chronic kidney disease; K76.0 Fatty (change of) liver, not elsewhere classified; K21.9 Gastro-esophageal reflux disease without esophagitis; I25.10 Atherosclerotic heart disease of native coronary artery without angina pectoris; K44.9 Diaphragmatic hernia without obstruction or gangrene; G47.33 Obstructive sleep apnea (adult) (pediatric); K29.70 Gastritis, unspecified, without bleeding; F41.9 Anxiety disorder, unspecified; Z95.5 Presence of coronary angioplasty implant and graft; Z87.891 Personal history of nicotine dependence; Z79.84 Long term (current) use of oral hypoglycemic drugs; Z79.82 Long term (current) use of aspirin; Z95.1 Presence of aortocoronary bypass graft
CPT/HCPCS: 36415; 71045; 74177; 80048; 80053; 80061; 80076; 82962; 83735; 84484; 85025; 85379; 85610; 85730; 93005; 93306; 94002; 94640; 94660; 97802; 99285; J7030; Q9967; A4216; J2405

== ENCOUNTER → 2023-04-07 | Outpatient (CLI) | payer MEDICARE, OTHER, SELFPAY ==
--- OUTSIDE RECORDS SUMMARY | 2023-04-07 06:41 | XMS RPT_ITS | CCD ---
Author Name Unknown Address [id number] [place] [address] Organization [facility] Care Team Providers Care Animal Taxonomist Name Role Phone Ondina VILLANUEVA, Roma Vanessa Unavailable Unavailable Glynn Cummings Unavailable Unavailable Nanette Inman Unavailable Unavailable Nanette Inman Unavailable Unavailable Adam Lucero MD Primary Care Provider Nic BERTRAND, Adam Mart Primary Care Provider Adam Lucero MD Primary Care Provider Adam Lucero MD Primary Care Provider Darrin Kenney MD Unavailable Anne Marie BERTRAND, Darrin Unavailable Darrin Kenney MD Unavailable Kel Lilly MD Unavailable [phone] HORACE RHODES Referring Unavail able HORACE RHODES Attending Unavail able ADAM LUCERO Primary Care Unavailable DAAM LUCERO Primary Care Unavailable HORACE RHODES Attending Unavail able ADAM LUCERO Referring Unavailable ADAM LUCERO Primary Care Unavailable ADAM LUCERO Attending Unavailable SELF Referring Unavailable ADAM LUCERO Referring Unavailable ADAM LUCERO Primary Care Unavailable ADAM LUCERO Primary Care Unavailable SELF Referring Unavailable TAYLOR HENNING Attending Unavailable ADAM LUCERO Primary Care Unavailable KEL LILLY Referring Unavailable KEL LILLY Attending Unavailable ADAM LUCERO Primary Care Unavailable KEL LILLY Referring Unavailable ADAM LUCERO Primary Care Unavailable ADAM LUCERO Referring Unavailable OJ SANTORO Attending Unavailable ADAM LUCERO Primary Care Unavailable ADAM LUCERO Referring Unavailable ADAM LUCERO Primary Care Unavailable NIC, ADAM Mart Referring Unavailable NIC, ADAM Mart Primary Care Unavailable NIC, ADAM Mart Referring Unavailable LIZZ NAVA Attending Unavailable NIC, ADAM Mart Primary Care Unavailable KEL LILLY Referring Unavailable NIC, ADAM Mart Primary Care Unavailable NIC, ADAM Mart Attending Unavailable NIC, ADAM Mart Primary Care Unavailable TORO WEAVER Attending Unavailable NIC, ADAM Mart Primary Care Unavailable NIC, ADAM Mart Primary Care Unavailable TORO WEAVER Attending Unavailable NIC, ADAM Mart Primary Care Unavailable KEL LILLY Referring Unavailable KEL LILLY Attending Unavailable NIC, ADAM Mart Primary Care Unavailable NIC, ADAM Mart Referring Unavailable NIC, ADAM Mart Primary Care Unavailable ELIDIA ROBLES Attending Unavailable NIC, ADAM J Primary Care Unavailable Allergies Allergy Classification Reported Allergen(s) Allergy Type Date of Onset Reaction(s) Facility (8 sources) NITROPATCH drug allergy 1 Rash [facility] Work Phone: (20 sources) clopidogrel; Translations: [CLOPIDOGREL] Drug Allergy 1 GI Upset [facility] (20 sources) Lactose; Translations: [LACTOSE] Drug Allergy 6 Diarrhea [facility] (20 sources) Lisinopril; Translations: [LISINOPRIL] Drug Allergy 8 Cough [facility] (20 sources) rye allergenic extract; Translations: [RYE] Drug Allergy 7 Diarrhea [facility] Work Phone: (20 sources) venlafaxine; Translations: [VENLAFAXINE HCL] Drug Allergy 6 Other: See Comments [facility] (20 sources) NITRO PATCH [Other] Propensity to adverse reactions 6 Rash [facility] (20 sources) Wheat gluten extract; Translations: [GLUTEN] Drug Allergy 0 Other: See Comments [facility] (2 sources) OTHER; Translations: [OTHER] Propensity to adverse reactions (disorder) 6 [facility] Other [facility] (9 sources) Adhesive agent; Translations: [ADHESIVE] Drug Intolerance 4 Rash [facility] Work Phone: Medications Current Medications Medication Drug Class(es) Dates Sig (Normalized) Sig (Original) amoxicillin 875 mg oral tablet (5 sources) Penicillin-class Antibacterial Start: 09-07-2022 End: 09-17-2022 take 1 tablet by mouth twice daily amoxicillin (AMOXIL) 875 mg tablet Indications: Sinus congestion , Sinus pressure Take 1 tablet by mouth twice daily for 10 days. 20 tablet 0 09/07/2022 09/17/2022 Active Completed/Discontinued Medications Medication Drug Class(es) Dates Sig (Normalized) Sig (Original) aminolevulinate 200 mg/ml topical solution (1 source) Start: 07-15-2022 End: 07-15-2022 Aminolevulinic Acid HCl 20 % soln 2 Each amLODIPine 5 mg oral tablet (20 sources) Dihydropyridine Calcium Channel Terrance Start: 11-28-2019 take 1 tablet by mouth once daily amLODIPine (NORVASC) 5 mg tablet Indications: Essential hypertension, benign Take 1 tablet by mouth once daily. 90 tablet 3 11/28/2019 Active Problems Active Problems Problem Classification Problem Date Documented Da te Episodic/Chronic Abdominal hernia (1 source) Hiatal hernia; Translations: [Diaphragmatic hernia without obstruction or gangrene] 03-16-2023 Episodic Adjustment disorders (20 sources) Adjustment disorder with depressed mood; Translations: [Adjustment disorder with depressed mood] Onset: 6 04-21-2021 Chronic Cancer of bladder (20 sources) Malignant tumor of urinary bladder; Translations: [Malignant neoplasm of bladder, unspecified] Onset: 2 03-02-2011 Chronic Chronic obstructive pulmonary disease and bronchiectasis (2 sources) Emphysematous bronchitis; Translations: [Chronic obstructive pulmonary disease, unspecified] Chronic Coagulation and hemorrhagic disorders (20 sources) Thrombocytopenic disorder; Translations: [Platelet count below reference range] Onset: 4 03-27-2014 Chronic Conditions associated with dizziness or vertigo (1 source) Dizziness; Translations: [Dizziness and giddiness] 09-23-2022 Episodic Congestive heart failure; nonhypertensive (16 sources) Left heart failure; Translations: [Heart failure] Onset: 1 Resolved: 6 10-03-2015 Chronic Coronary atherosclerosis and other heart disease (20 sources) Coronary atherosclerosis; Translations: [Coronary arteriosclerosis] Onset: 1 Resolved: 6 08-01-2010 Chronic Deficiency and other anemia (15 sources) Pancytopenia; Translations: [Other pancytopenia] Onset: 3 Chronic Diabetes mellitus with complications (4 sources) Type 2 diabetes mellitus; Translations: [Type 2 diabetes mellitus with other diabetic kidney complication] Onset: 4 Chronic Diabetes mellitus without complication (20 sources) Diabetes mellitus; Translations: [Type 2 diabetes mellitus without complication] Onset: 9 12-12-2020 Chronic Disorders of lipid metabolism (20 sources) Hyperlipidemia; Translations: [Hyperlipidemia, unspecified] Onset: 6 08-01-2010 Chronic Esophageal disorders (20 sources) Gastro-esophageal reflux disease with esophagitis; Translations: [Gastroesophageal reflux disease with esophagitis without hemorrhage] Onset: 2 Chronic Esophageal disorders (1 source) Esophagitis; Translations: [Esophagitis] Episodic Essential hypertension (20 sources) Hypertensive disorder; Translations: [Benign essential hypertension] Onset: 8 08-01-2010 Chronic Fluid and electrolyte disorders (2 sources) Hyperkalemia; Translations: [Hyperkalemia] Onset: 4 03-15-2023 Episodic Gastritis and duodenitis (1 source) Duodenitis; Translations: [Duodenitis without bleeding] Episodic Hyperplasia of prostate (20 sources) Benign prostatic hyperplasia; Translations: [Benign prostatic hyperplasia without lower urinary tract symptoms] Onset: 1 12-18-2010 Chronic Immunizations and screening for infectious disease (10 sources) Patient encounter status; Translations: [Encounter for immunization] Onset: 1 Episodic Mycoses (1 source) Onychomycosis; Translations: [Tinea unguium] 03-23-2023 Episodic Neoplasms of unspecified nature or uncertain behavior (1 source) Neoplastic disease; Translations: [Neoplasm of unspecified behavior of bone, soft tissue, and skin] Episodic Nonspecific chest pain (1 source) Chest pain, unspecified; Translations: [Chest pain, unspecified type] Onset: 4 Episodic Nutritional deficiencies (20 sources) Vitamin D deficiency; Translations: [Vitamin D deficiency, unspecified] Onset: 8 08-09-2017 Chronic Other and unspecified benign neoplasm (1 source) Tubular adenoma ; Translations: [Benign neoplasm, unspecified site] Episodic Other diseases of bladder and urethra (1 source) Unspecified anterior urethral stricture, male; Translations: [Stricture of anterior urethra in male, unspecified stricture type] Onset: 3 Episodic Other gastrointestinal disorders (1 source) Fatty stool ; Translations: [Intestinal malabsorption, unspecified] 03-16-2023 Chronic Other gastrointestinal disorders (1 source) Passing flatus; Translations: [Flatulence] 03-16-2023 Episodic Other liver diseases (2 sources) Steatosis of liver; Translations: [Fatty (change of) liver, not elsewhere classified] Chronic Other lower respiratory disease (2 sources) Nodule of lung; Translations: [Solitary pulmonary nodule] Episodic Other lower respiratory disease (1 source) Multiple nodules of lung; Translations: [Other nonspecific abnormal finding of lung field] 09-21-2022 Episodic Other lower respiratory disease (1 source) Dyspnea; Translations: [Shortness of breath] 03-12-2023 Episodic Other lower respiratory disease (1 source) Shortness of breath; Translations: [SOB (shortness of breath)] Onset: 4 Episodic Other nutritional; endocrine; and metabolic disorders (4 sources) Body mass index (BMI) 30.0-30.9, adult; Translations: [Body mass index (BMI) 30.0-30.9, adult] Onset: 5 03-27-2014 Chronic Other nutritional; endocrine; and metabolic disorders (20 sources) Obesity; Translations: [Other obesity due to excess calories] Onset: 2 04-21-2021 Chronic Other nutritional; endocrine; and metabolic disorders (18 sources) Obesity caused by energy imbalance; Translations: [Other obesity due to excess calories] Onset: 2 04-21-2021 Chronic Other screening for suspected conditions (not mental disorders or infectious disease) (20 sources) Computed tomography result abnormal; Translations: [Abnormal findings on diagnostic imaging of other specified body structures] Onset: 1 Chronic Other skin disorders (1 source) Seborrheic keratosis; Translations: [Other seborrheic keratosis] Episodic Other skin disorders (1 source) Change in skin lesion; Translations: [Disorder of the skin and subcutaneous tissue, unspecified] Episodic Other skin disorders (1 source) Ingrowing nail of toe of right foot; Translations: [Ingrowing nail] 03-23-2023 Episodic Other upper respiratory disease (1 source) Congestion of nasal sinus; Translations: [Nasal congestion] 09-07-2022 Episodic Other upper respiratory disease (1 source) Nasal sinus problem; Translations: [Other specified disorders of nose and nasal sinuses] 09-07-2022 Episodic Other upper respiratory infections (20 sources) Chronic frontal sinusitis; Translations: [Chronic frontal sinusitis] Onset: 9 11-30-2018 Chronic Peripheral and visceral atherosclerosis (20 sources) Arteriosclerotic vascular disease; Translations: [Peripheral vascular disease, unspecified] Onset: 1 Resolved: 7 11-11-2016 Chronic Pleurisy; pneumothorax; pulmonary collapse (4 sources) Pleural effusion; Translations: [Pleural effusion, not elsewhere classified] Episodic Residual codes; unclassified (20 sources) Obstructive sleep apnea syndrome; Translations: [Obstructive sleep apnea (adult) (pediatric)] Onset: 9 12-20-2019 Chronic Residual codes; unclassified (1 source) Early satiety; Translations: [Early satiety] 03-16-2023 Episodic Unclassified (4 sources) 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; Translations: [Presence of aortocoronary bypass graft] Onset: 1 11-11-2016 Unclassified (8 sources) Long-term drug therapy; Translations: [Other residential (current) drug therapy] Onset: 1 08-01-2010 Urinary tract infections (1 source) Urinary tract infectious disease; Translations: [Urinary tract infection, site not specified] Episodic Past or Other Problems Problem Classification Problem Date Documented Da te Episodic/Chronic Cancer of bladder (20 sources) H/O: malignant neoplasm; Translations: [Personal history of malignant neoplasm of bladder] Onset: 07-28-2012 07-28-2012 Episodic Coronary atherosclerosis and other heart disease (12 sources) History of myocardial infarction; Translations: [Coronary angioplasty status] Onset: 08-01-2010 08-01-2010 Episodic Deficiency and other anemia (20 sources) Anemia; Translations: [Anemia, unspecified] Onset: 01-01-2014 Episodic Deficiency and other anemia (1 source) Anemia, unspecified; Translations: [Anemia, unspecified type] Onset: 12-27-2020 Episodic Genitourinary symptoms and ill-defined conditions (10 sources) Incomplete emptying of bladder; Translations: [Retention of urine, unspecified] Onset: 09-07-2022 Episodic Heart valve disorders (8 sources) Heart murmur; Translations: [Cardiac murmur, unspecified] Onset: 08-01-2010 Resolved: 11-11-2016 08-01-2010 Episodic Other aftercare (20 sources) Polypharmacy ; Translations: [Other terminal computer operator (current) drug therapy] Onset: 12-18-2010 12-18-2010 Episodic Other diseases of kidney and ureters (20 sources) Cyst of kidney; Translations: [Cyst of kidney, acquired] Onset: 12-18-2010 12-18-2010 Episodic Other hematologic conditions (20 sources) Reticulocytosis; Translations: [Abnormal plasma viscosity] Onset: 11-12-2021 11-12-2021 Episodic Other hematologic conditions (1 source) Abnormal plasma viscosity; Translations: [Reticulocytosis] Onset: 11-12-2021 Episodic Other lower respiratory disease (6 sources) Snoring; Translations: [Snoring] Onset: 04-27-2013 04-27-2013 Episodic Other lower respiratory disease (1 source) Other nonspecific abnormal finding of lung field; Translations: [Lung nodules] Onset: 09-21-2022 Episodic Other nutritional; endocrine; and metabolic disorders (8 sources) Body mass index (BMI) 29.0-29.9, adult; Translations: [Body mass index (BMI) 29.0-29.9, adult] Onset: 09-27-2013 Resolved: 03-26-2015 09-27-2013 Episodic Other screening for suspected conditions (not mental disorders or infectious disease) (11 sources) Cardiovascular stress test abnormal; Translations: [Patient encounter status] Onset: 10-03-2015 Resolved: 04-23-2016 10-03-2015 Episodic Other skin disorders (20 sources) Actinic keratosis; Translations: [Actinic keratosis] Onset: 04-24-2005 04-24-2005 Episodic Other upper respiratory disease (20 sources) Supraglottic airway obstruction; 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] Onset: 04-27-2013 04-27-2013 Episodic Residual codes; unclassified (4 sources) FH: Hypertension; Translations: [Family history of ischemic heart disease and other diseases of the circulatory system] 03-27-2014 Episodic Screening and history of mental health and substance abuse codes (20 sources) Tobacco use and exposure - finding; Translations: [Personal history of nicotine dependence] Onset: 12-18-2010 12-18-2010 Episodic Results Test Name Value Interpretation Reference Range Facil ity Vital Signs Date Time Vital Sign Value Performing Clinician Facility 03-19-2023 08:14-0500 Body height 174 cm Kel Lilly MD Work Phone: [facility] 03-19-2023 08:14-0500 Body temperature 97.3 [degF] Kel Lilly MD Work Phone: [facility] 03-19-2023 08:14-0500 Body weight 87.09 kg Kel Lilly MD Work Phone: [facility] 03-19-2023 08:14-0500 Diastolic blood pressure 71 mm[Hg] Kel Lilly MD Work Phone: [facility] 03-19-2023 08:14-0500 Heart rate 85 /min Kel Lilly MD Work Phone: [facility] 03-19-2023 08:14-0500 Respiratory rate 12 /min Kel Lilly MD Work Phone: [facility] 03-19-2023 08:14-0500 SaO2% (BldA) [Mass fraction] 96 % Kel Lilly MD Work Phone: [facility] 03-19-2023 08:14-0500 Systolic blood pressure 169 mm[Hg] Kel Lilly MD Work Phone: [facility] 03-16-2023 08:27-0500 Body height 172.7 cm Taylor Henning PA-C Work Phone: [facility] 03-16-2023 08:27-0500 Body weight 87.23 kg Taylor Henning PA-C Work Phone: [facility] 03-16-2023 08:27-0500 Diastolic blood pressure 80 mm[Hg] Taylor Miguel PA-C Work Phone: [facility] 03-16-2023 08:27-0500 Heart rate 68 /min Taylor Henning PA-C Work Phone: [facility] 03-16-2023 08:27-0500 Systolic blood pressure 142 mm[Hg] Taylor Henning PA-C Work Phone: [facility] 03-12-2023 10:39-0500 Body height 172.7 cm Adam Lucero MD Work Phone: [facility] 03-12-2023 10:39-0500 Body weight 86.64 kg Adam Lucero MD Work Phone: [facility] 03-12-2023 10:39-0500 Diastolic blood pressure 54 mm[Hg] Adam Lucero MD Work Phone: [facility] 03-12-2023 10:39-0500 Heart rate 72 /min Adam Lucero MD Work Phone: [facility] 03-12-2023 10:39-0500 SaO2% (BldA) [Mass fraction] 98 % Adam Lucero MD Work Phone: [facility] 03-12-2023 10:39-0500 Systolic blood pressure 116 mm[Hg] Adam Lucero MD Work Phone: [facility] 09-23-2022 18:20-0400 Body temperature 98.01 [degF] Amor Marie APRN.TRANSIT VEHICLE INSPECTOR Work Phone: [facility] 09-23-2022 18:20-0400 Body weight 90.54 kg Amor Marie APRN.TRANSIT VEHICLE INSPECTOR Work Phone: [facility] 09-23-2022 18:20-0400 Diastolic blood pressure 78 mm[Hg] Amor Marie PLASTIC INJECTION MOLD MAKER.TRANSIT VEHICLE INSPECTOR Work Phone: [facility] 09-23-2022 18:20-0400 Heart rate 79 /min Amor Pendlebury PLASTIC INJECTION MOLD MAKER.TRANSIT VEHICLE INSPECTOR Work Phone: [facility] 09-23-2022 18:20-0400 Respiratory rate 16 /min Amor Bettskelsie PLASTIC INJECTION MOLD MAKER.TRANSIT VEHICLE INSPECTOR Work Phone: [facility] 09-23-2022 18:20-0400 SaO2% (BldA) [Mass fraction] 97 % [facility] PLASTIC INJECTION MOLD MAKER.TRANSIT VEHICLE INSPECTOR Work Phone: [facility] 09-23-2022 18:20-0400 Systolic blood pressure 144 mm[Hg] Amor Watsonbang PLASTIC INJECTION MOLD MAKER.TRANSIT VEHICLE INSPECTOR Work Phone: [facility] 09-16-2022 08:34-0400 Body temperature 97.3 [degF] Kel Lilly MD Work Phone: [facility] 09-16-2022 08:34-0400 Body weight 89.58 kg Kel Lilly MD Work Phone: [facility] 09-16-2022 08:34-0400 Diastolic blood pressure 72 mm[Hg] Kel Lilly MD Work Phone: [facility] 09-16-2022 08:34-0400 Heart rate 67 /min Kel Lilly MD Work Phone: [facility] 09-16-2022 08:34-0400 SaO2% (BldA) [Mass fraction] 96 % Kel Lilly MD Work Phone: [facility] 09-16-2022 08:34-0400 Systolic blood pressure 132 mm[Hg] Kel Lilly MD Work Phone: [facility] 09-15-2022 09:51-0400 Body height 174 cm Lizz CHURCHILL-C Work Phone: [facility] 09-15-2022 09:51-0400 Body temperature 97.39 [degF] Lizz CHURCHILL-C Work Phone: [facility] 09-15-2022 09:51-0400 Body weight 89.72 kg Lizz CHURCHILL-C Work Phone: [facility] 09-15-2022 09:51-0400 Diastolic blood pressure 70 mm[Hg] Lizz Nava PA-C Work Phone: [facility] 09-15-2022 09:51-0400 Heart rate 70 /min Lizz Nava PA-C Work Phone: [facility] 09-15-2022 09:51-0400 Respiratory rate 12 /min Lizz Nava PA-C Work Phone: [facility] 09-15-2022 09:51-0400 SaO2% (BldA) [Mass fraction] 96 % Lizz Nava PA-C Work Phone: [facility] 09-15-2022 09:51-0400 Systolic blood pressure 138 mm[Hg] Lizz Nava PA-C Work Phone: [facility] 09-07-2022 11:59-0400 Body weight 89.81 kg Adam Lucero MD Work Phone: [facility] 09-07-2022 11:59-0400 Diastolic blood pressure 69 mm[Hg] Adam Lucero MD Work Phone: [facility] 09-07-2022 11:59-0400 Heart rate 73 /min Adam Lucero MD Work Phone: [facility] 09-07-2022 11:59-0400 SaO2% (BldA) [Mass fraction] 93 % Adam Lucero MD Work Phone: [facility] 09-07-2022 11:59-0400 Systolic blood pressure 131 mm[Hg] Adam Lucero MD Work Phone: [facility] 02-12-2022 10:30-0500 Body height 172.7 cm Adam Lucero MD Work Phone: [facility] 02-12-2022 10:30-0500 Body weight 93.44 kg Adam Lucero MD Work Phone: [facility] 02-12-2022 10:30-0500 Diastolic blood pressure 80 mm[Hg] Adam Lucero MD Work Phone: [facility] 02-12-2022 10:30-0500 Heart rate 83 /min Adam Lucero MD Work Phone: [facility] 02-12-2022 10:30-0500 SaO2% (BldA) [Mass fraction] 97 % Adam Lucero MD Work Phone: [facility] 02-12-2022 10:30-0500 Systolic blood pressure 158 mm[Hg] Adam Lucero MD Work Phone: [facility] 01-05-2022 14:40-0500 Body weight 93.89 kg NA Dias PA-C Work Phone: [facility] 01-05-2022 14:40-0500 Diastolic blood pressure 60 mm[Hg] NA Dias PA-C Work Phone: [facility] 01-05-2022 14:40-0500 Heart rate 72 /min NA Dias PA-C Work Phone: [facility] 01-05-2022 14:40-0500 Respiratory rate 16 /min NA Dias PA-C Work Phone: [facility] 01-05-2022 14:40-0500 SaO2% (BldA) [Mass fraction] 97 % NA Dias PA-C Work Phone: [facility] 01-05-2022 14:40-0500 Systolic blood pressure 128 mm[Hg] NA Dias PA-C Work Phone: [facility] 12-11-2021 10:50-0400 Body height 172.7 cm Horace Rhodes MD Work Phone: [facility] 12-11-2021 10:50-0400 Heart rate 67 /min Horace Rhodes MD Work Phone: [facility] 12-11-2021 10:50-0400 SaO2% (BldA) [Mass fraction] 98 % Horace Rhodes MD Work Phone: [facility] 11-05-2021 11:25-0400 Body height 172.7 cm [facility] 11-05-2021 11:25-0400 Body temperature 97.5 [degF] Pst 1 [facility] 11-05-2021 11:25-0400 Body weight 89.81 kg Pst 1 [facility] 11-05-2021 11:25-0400 Diastolic blood pressure 73 mm[Hg] Pst 1 [facility] 11-05-2021 11:25-0400 Heart rate 72 /min Pst 1 [facility] 11-05-2021 11:25-0400 Respiratory rate 16 /min Pst 1 [facility] 11-05-2021 11:25-0400 SaO2% (BldA) [Mass fraction] 98 % Pst 1 [facility] 11-05-2021 11:25-0400 Systolic blood pressure 132 mm[Hg] Pst 1 [facility] 10-22-2021 14:15-0400 Body height 172.7 cm Horace Rhodes MD Work Phone: [facility] 10-22-2021 14:15-0400 Heart rate 107 /min Horace Rhodes MD Work Phone: [facility] 10-22-2021 14:15-0400 SaO2% (BldA) [Mass fraction] 95 % Horace Rhodes MD Work Phone: [facility] 10-21-2021 09:33-0400 Body height 172.7 cm Teresa Kovachik PA-C Work Phone: [facility] 10-21-2021 09:33-0400 Body weight 90.27 kg Teresa Kovachik PA-C Work Phone: [facility] 10-21-2021 09:33-0400 Respiratory rate 18 /min Teresa Kovachik PA-C Work Phone: [facility] 09-09-2021 08:43-0400 Body height 172.7 cm Teresa Kovachik PA-C Work Phone: [facility] 09-09-2021 08:43-0400 Body weight 90.72 kg Teresa Kovachik PA-C Work Phone: [facility] 09-09-2021 08:43-0400 Diastolic blood pressure 80 mm[Hg] Teresa Francisk PA-C Work Phone: [facility] 09-09-2021 08:43-0400 Systolic blood pressure 152 mm[Hg] Teresa Garyhik PA-C Work Phone: [facility] 07-22-2021 15:25-0400 Body weight 90.27 kg Home Bartholomew MD Work Phone: [facility] 07-22-2021 15:25-0400 Diastolic blood pressure 70 mm[Hg] Home Bartholomew MD Work Phone: [facility] 07-22-2021 15:25-0400 Heart rate 84 /min Home Bartholomew MD Work Phone: [facility] 07-22-2021 15:25-0400 Respiratory rate 17 /min Home Bartholomew MD Work Phone: [facility] 07-22-2021 15:25-0400 SaO2% (BldA) [Mass fraction] 99 % Home Bartholomew MD Work Phone: [facility] 07-22-2021 15:25-0400 Systolic blood pressure 136 mm[Hg] Home Bartholomew MD Work Phone: [facility] 07-14-2021 08:46-0400 Diastolic blood pressure 70 mm[Hg] Alisa Shi PLASTIC INJECTION MOLD MAKER.TRANSIT VEHICLE INSPECTOR Work Phone: [facility] 07-14-2021 08:46-0400 Systolic blood pressure 124 mm[Hg] Alisa Shi PLASTIC INJECTION MOLD MAKER.TRANSIT VEHICLE INSPECTOR Work Phone: [facility] 07-14-2021 08:44-0400 Body weight 92.08 kg Alisa Shi PLASTIC INJECTION MOLD MAKER.TRANSIT VEHICLE INSPECTOR Work Phone: [facility] 07-14-2021 08:44-0400 Heart rate 80 /min Alisa Shi PLASTIC INJECTION MOLD MAKER.TRANSIT VEHICLE INSPECTOR Work Phone: [facility] 07-14-2021 08:44-0400 SaO2% (BldA) [Mass fraction] 98 % Alisa Aguilarmarin PEREZ Work Phone: [facility] 06-24-2021 14:39-0400 Body weight 92.26 kg Adam Lucero MD Work Phone: [facility] 06-24-2021 14:39-0400 Diastolic blood pressure 78 mm[Hg] Adam Lucero MD Work Phone: [facility] 06-24-2021 14:39-0400 Heart rate 82 /min Adam Lucero MD Work Phone: [facility] 06-24-2021 14:39-0400 Respiratory rate 16 /min Adam Lucero MD Work Phone: [facility] 06-24-2021 14:39-0400 SaO2% (BldA) [Mass fraction] 98 % Adam Lucero MD Work Phone: [facility] 06-24-2021 14:39-0400 Systolic blood pressure 138 mm[Hg] Adam Lucero MD Work Phone: [facility] 05-05-2021 12:00-0400 Diastolic blood pressure 59 mm[Hg] Chucho Johansen MD Work Phone: [facility] 05-05-2021 12:00-0400 Heart rate 67 /min Chucho Johansen MD Work Phone: [facility] 05-05-2021 12:00-0400 Respiratory rate 16 /min Chucho Johansen MD Work Phone: [facility] 05-05-2021 12:00-0400 SaO2% (BldA) [Mass fraction] 92 % Chucho Johansen MD Work Phone: [facility] 05-05-2021 12:00-0400 Systolic blood pressure 106 mm[Hg] Chucho Johansen MD Work Phone: [facility] 05-05-2021 11:24-0400 Body temperature 97 [degF] Chucho Johansen MD Work Phone: [facility] 12-12-2020 13:24-0400 Respiratory rate 16 /min SIRENA BLACKMON MD [facility] 12-12-2020 13:05-0400 Diastolic blood pressure 68 mm[Hg] SIRENA BLACKMON MD [facility] 12-12-2020 13:05-0400 Heart rate 68 /min SIRENA BLACKMON MD [facility] 12-12-2020 13:05-0400 Mean blood pressure 88 mm[Hg] SIRENA BLACKMON MD [facility] 12-12-2020 13:05-0400 Respiratory rate 16 /min SIRENA BLACKMON MD [facility] 12-12-2020 13:05-0400 Systolic blood pressure 128 mm[Hg] SIRENA BLACKMON MD [facility] 12-12-2020 12:40-0400 Diastolic blood pressure 68 mm[Hg] SIRENA BLACKMON MD [facility] 12-12-2020 12:40-0400 Heart rate 64 /min SIRENA BLACKMON MD [facility] 12-12-2020 12:40-0400 Mean blood pressure 90 mm[Hg] SIRENA BLACKMON MD [facility] 12-12-2020 12:40-0400 Respiratory rate 16 /min SIRENA BLACKMON MD [facility] 12-12-2020 12:40-0400 Systolic blood pressure 134 mm[Hg] SIRENA BLACKMON MD [facility] 12-12-2020 12:17-0400 Diastolic blood pressure 70 mm[Hg] SIRENA BLACKMON MD [facility] 12-12-2020 12:17-0400 Heart rate 72 /min SIRENA BLACKMON MD [facility] 12-12-2020 12:17-0400 Systolic blood pressure 118 mm[Hg] SIRENA BLACKMON MD [facility] 12-12-2020 11:46-0400 Mean blood pressure 83 mm[Hg] SIRENA BLACKMON MD [facility] 12-12-2020 11:20-0400 Heart rate 64 /min SIRENA BLACKMON MD [facility] 12-12-2020 11:06-0400 Heart rate 64 /min SIRENA BLACKMON MD [facility] 12-12-2020 10:55-0400 Heart rate 64 /min SIRENA BLACKMON MD [facility] 12-12-2020 10:49-0400 Heart rate 65 /min SIRENA BLACKMON MD [facility] 12-12-2020 10:44-0400 Heart rate 67 /min SIRENA BLACKMON MD [facility] 12-12-2020 07:14-0400 Body height 175.3 cm SIRENA BLACKMON MD [facility] 12-12-2020 07:14-0400 Body temperature 97.88 [degF] SIRENA BLACKMON MD [facility] 12-12-2020 07:14-0400 Body weight 91.3 kg SIRENA BLACKMON MD [facility] 12-12-2020 07:14-0400 Body weight 29.71 kg/m2 SIRENA BLACKMON MD [facility] 12-12-2020 07:14-0400 diastolic 71 mm[Hg] SIRENA BLACKMON MD [facility] 12-12-2020 07:14-0400 Heart rate 74 /min SIRENA BLACKMON MD [facility] 12-12-2020 07:14-0400 systolic 129 mm[Hg] SIRENA BLACKMON MD [facility] 11-12-2016 09:06-0400 BMI (Body Mass Index) 29.02 kg/m2 [facility] Work Phone: 11-12-2016 09:06-0400 BP Diastolic 88 mm[Hg] [facility] Work Phone: 11-12-2016 09:06-0400 BP Systolic 132 mm[Hg] [facility] Work Phone: 11-12-2016 09:06-0400 Height 181.61 cm [facility] Work Phone: 11-12-2016 09:06-0400 Pulse (Heart Rate) 68 /min Glynn Cummings [facility] Work Phone: 11-12-2016 09:06-0400 Respiratory Rate 20 /min [facility] Work Phone: 11-12-2016 09:06-0400 Weight 95.71 kg Glynn Cummings [facility] Work Phone: 04-23-2016 11:30-0400 BMI (Body Mass Index) 30.34 kg/m2 Roma Nj RN [facility] Work Phone: 04-23-2016 11:30-0400 BP Diastolic 60 mm[Hg] Roma Nj RN [facility] Work Phone: 04-23-2016 11:30-0400 BP Systolic 100 mm[Hg] Roma Nj RN [facility] Work Phone: 04-23-2016 11:30-0400 Height 181.61 cm oRma Nj RN [facility] Work Phone: 04-23-2016 11:30-0400 Pulse (Heart Rate) 68 /min Roma Nj RN [facility] Work Phone: 04-23-2016 11:30-0400 Respiratory Rate 20 /min Roma Nj RN [facility] Work Phone: 04-23-2016 11:30-0400 Weight 100.06 kg Roma Nj RN [facility] Work Phone: 10-04-2015 13:35-0400 Heart rate 80 /min Roma Nj RN [facility] Work Phone: 09-24-2015 09:58-0400 BSA (Body Surface Area) 2.22 m2 Roma Nj RN [facility] Work Phone: 09-27-2013 11:43-0400 Heart rate 406 ms Roma Nj RN [facility] Work Phone: 10-06-2012 16:06-0400 Height 181.61 cm [facility] Work Phone: 10-06-2012 16:06-0400 Weight 90.91 kg Roma [facility] Work Phone: Encounters Encounter Date Encounter Type Care Provider Facility Start: 03-23-2023 End: 03-23-2023 ambulatory ADAM LUCERO Facility:[facility] Start: 03-23-2023 End: 03-23-2023 Patient encounter procedure Oj Santoro Work Phone: Podiatry Procedures Date Procedure Procedure Detail Performing Clinician Start: 09-21-2022 Ct thorax w/o contrast material Adam Lucero MD Work Phone: Start: 09-15-2022 Urnls dip stick/tablet rgnt auto w/o microscopy Lizz Nava PA-C Work Phone: Start: 08-18-2022 CRYOTHERAPY SKIN LESION Toro Weaver PLASTIC INJECTION MOLD MAKER.TRANSIT VEHICLE INSPECTOR Work Phone: Start: 05-18-2022 CRYOTHERAPY SKIN LESION Toro Weaver PLASTIC INJECTION MOLD MAKER.TRANSIT VEHICLE INSPECTOR Work Phone: Start: 01-05-2022 Urnls dip stick/tablet rgnt auto w/o microscopy Bradley Dias PA-C Work Phone: Start: 01-05-2022 INFLUENZA SEASONAL QUADRIVALENT HIGH DOSE AGE 65+ M Bradley Dias PA-C Work Phone: Start: 01-05-2022 [employer] COVID-19 BIVALENT BOOSTER VACCINE, AGE 12+ YR M Bradley Dias PA-C Work Phone: Start: 10-21-2021 Urnls dip stick/tablet rgnt auto w/o microscopy Teresa Allen PA-C Work Phone: Start: 09-09-2021 Urnls dip stick/tablet rgnt auto w/o microscopy Teresa Allen PA-C Work Phone: Start: 07-18-2021 Us abdominal real time w/image limited Alisa Shi PLASTIC INJECTION MOLD MAKER.TRANSIT VEHICLE INSPECTOR Work Phone: Start: 06-30-2021 Ct thorax w/o contrast material Adam Lucero MD Work Phone: Start: 06-24-2021 Adult depression screening assessment Adam Lucero MD Work Phone: Start: 05-15-2021 SKIN / NAIL BIOPSY Toro Hendricksonelvia PLASTIC INJECTION MOLD MAKER.TRANSIT VEHICLE INSPECTOR Work Phone: Start: 05-15-2021 CRYOTHERAPY SKIN LESION Toro Evanstawana PLASTIC INJECTION MOLD MAKER.TRANSIT VEHICLE INSPECTOR Work Phone: Start: 05-05-2021 Esophagogastroduodenoscopy transoral diagnostic Alisa Shi PLASTIC INJECTION MOLD MAKER.TRANSIT VEHICLE INSPECTOR Work Phone: Start: 05-05-2021 Colonoscopy flx dx w/collj spec when pfrmd Alisa Shi PLASTIC INJECTION MOLD MAKER.TRANSIT VEHICLE INSPECTOR Work Phone: Start: 05-05-2021 Colonoscopy Chucho Johansen MD Work Phone: Start: 05-06-2018 Adult depression screening assessment Chucho Johansen MD Work Phone: Start: 11-12-2016 End: 11-12-2016 HEALTH SCIENCE INSTRUCTOR Alexis Christensen NP Work Phone: Start: 11-12-2016 End: 11-12-2016 Follow Up Appt 6 months Alexis Christensen LOSS CONTROL TECHNICIAN Work Phone: Start: 11-12-2016 End: 11-12-2016 Dietary management education, guidance, and counseling Glynn Cummings Start: 10-23-2016 End: 11-10-2016 *Hepatic Function Panel Raymond Mccoy Start: 10-23-2016 End: 11-10-2016 Lipid 1996 panel - Serum or Plasma Samuel Plascencia MD Start: 04-23-2016 End: 04-23-2016 *CBC with Differential Samuel Plascencia MD Start: 04-23-2016 End: 04-23-2016 *Hepatic Function Panel Raymond Mccoy Start: 04-23-2016 End: 04-23-2016 Follow Up Appt 6 months Raymond Mccoy Start: 04-23-2016 End: 04-23-2016 Lipid 1996 panel - Serum or Plasma Samuel Plascencia MD Start: 04-23-2016 End: 04-23-2016 MMM Samuel Plascencia MD Start: 03-26-2016 End: 04-23-2016 *Hepatic Function Panel Raymond Mccoy Start: 03-26-2016 End: 04-23-2016 Lipid Tonio panel - Serum or Plasma Samuel Plascencia MD Start: 10-21-2015 End: 10-24-2015 Chest x-ray Samuel Plascencia MD Start: 10-21-2015 End: 10-24-2015 Left Heart Cath W/Grafts Samuel Plascencia MD Start: 10-15-2015 End: 10-16-2015 *BMP Samuel Plascencia MD Start: 10-15-2015 End: 10-16-2015 CBC W Auto Differential panel - Blood Samuel Plascencia MD Start: 10-15-2015 End: 10-16-2015 INR in Platelet poor plasma by Coagulation assay Samuel Plascencia MD Start: 10-04-2015 End: 10-24-2015 Ecg routine ecg w/least 12 lds w/i&r Samuel Plascencia MD Start: 09-24-2015 End: 09-26-2015 *Hepatic Function Panel Raymond Mccoy Start: 09-24-2015 End: 09-24-2015 Follow Up Appt 6 months Raymond Mccoy Start: 09-24-2015 End: 09-26-2015 Lipid 1996 panel - Serum or Plasma Samuel Plascencia MD Start: 09-24-2015 End: 09-24-2015 MMM Samuel Plascencia MD Start: 09-24-2015 End: 10-03-2015 Nuclear stress test -exercise Samuel Mcdaniel MD Start: 03-26-2015 End: 03-26-2015 *Hepatic Function Panel Raymond Mccoy Start: 03-26-2015 End: 03-26-2015 HEALTH SCIENCE INSTRUCTOR Gabbi Saavedra PA-C Work Phone: Start: 03-26-2015 End: 03-26-2015 Ecg routine ecg w/least 12 lds w/i&r Gabbi Saavedra PA-C Work Phone: Start: 03-26-2015 End: 03-26-2015 Follow Up Appt 6 months Gabbi Saavedra PA-C Work Phone: Start: 03-26-2015 End: 10-24-2015 Follow Up Appt Other Gabbi Saavedra PA-C Work Phone: Start: 03-26-2015 End: 03-26-2015 Lipid 1996 panel - Serum or Plasma Samuel Plascencia MD Start: 03-26-2015 End: 03-26-2015 Dietary management education, guidance, and counseling Roma Nj RN Start: 09-25-2014 End: 09-25-2014 *Hepatic Function Panel Raymond Mccoy Start: 09-25-2014 End: 09-26-2014 Documentation of current medications Samuel Plascencia MD Start: 09-25-2014 End: 09-25-2014 Follow Up Appt 6 months Raymond Mccoy Start: 09-25-2014 End: 09-25-2014 Lipid 1996 panel - Serum or Plasma Samuel Plascencia MD Start: 09-25-2014 End: 09-25-2014 GERARDO Plascencia MD Start: 03-27-2014 End: 03-27-2014 HEALTH SCIENCE INSTRUCTOR Gabbi Saavedra PA-C Work Phone: Start: 03-27-2014 End: 03-28-2014 Documentation of current medications Gabbi Saavedra PA-C Work Phone: Start: 03-27-2014 End: 03-27-2014 Follow Up Appt 6 months Gabbi Saavedra PA-C Work Phone: Start: 03-27-2014 End: 03-21-2015 Follow Up Appt Other Gabbi Saavedra PA-C Work Phone: Start: 03-11-2014 End: 03-27-2014 *Hepatic Function Panel Raymond Mccoy Start: 03-11-2014 End: 03-27-2014 Lipid 1996 panel - Serum or Plasma Samuel Plascencia MD Start: 09-27-2013 End: 09-28-2013 *Hepatic Function Panel Raymond Mccoy Start: 09-27-2013 End: 09-28-2013 Follow Up Appt 6 months Raymond Mccoy Start: 09-27-2013 End: 09-28-2013 Lipid 1996 panel - Serum or Plasma Samuel Plascencia MD Start: 09-27-2013 End: 09-28-2013 GERARDO Plascencia MD Start: 05-03-2013 End: 05-03-2013 HEALTH SCIENCE INSTRUCTOR Gabbi Saavedra PA-C Work Phone: Start: 05-03-2013 End: 05-03-2013 Follow Up Appt 6 months Gabbi Saavedra PA-C Work Phone: Start: 03-11-2013 End: 04-20-2013 *Hepatic Function Panel Raymond Mccoy Start: 03-11-2013 End: 04-20-2013 Lipid 1996 panel - Serum or Plasma Samuel Plascencia MD Start: 10-06-2012 End: 10-11-2012 *Hepatic Function Panel Raymond Mccoy Start: 10-06-2012 End: 03-28-2013 Follow Up Appt 6 months Raymond Mccoy Start: 10-06-2012 End: 10-11-2012 Lipid 1996 panel - Serum or Plasma Samuel Plascencia MD Start: 10-06-2012 End: 03-28-2013 MMM Samuel Plascencia MD Start: 10-06-2012 End: 10-14-2012 Nuclear stress test -exercise Samuel Mcdaniel MD Start: 07-09-2012 End: 10-11-2012 *Hepatic Function Panel Raffy Bernardo MD Start: 07-09-2012 End: 10-11-2012 Lipid 1996 panel - Serum or Plasma Breana Bernardo MD Start: 01-11-2012 End: 01-12-2012 Ecg routine ecg w/least 12 lds w/i&r Raffy Bernardo MD Start: 01-11-2012 End: 01-11-2012 Follow Up Appt 6 months Raffy Bernardo MD Start: 12-16-2011 End: 01-11-2012 *Hepatic Function Panel Raffy Bernardo MD Start: 12-16-2011 End: 01-11-2012 Lipid 1996 panel - Serum or Plasma Breana Bernardo MD Start: 07-07-2011 End: 07-07-2011 Ecg routine ecg w/least 12 lds w/i&r Raffy Bernardo MD Start: 07-07-2011 End: 07-07-2011 Follow Up Appt 6 months Raffy Bernardo MD Start: 03-12-2009 Coronary artery bypass graft operation planned SIRENA BLACKMON MD Angiography SIRENA BLACKMON MD Hernia repair SIRENA Gage Plan of Treatment Date Care Activity Detail Author Start: 05-06-2031 Colonoscopy COLONOSCOPY [facility] Start: 05-06-2031 COLORECTAL CANCER SCREENING COLORECTAL CANCER SCREENING [facility] Start: 05-05-2026 Colonoscopy COLONOSCOPY [facility] Start: 05-05-2026 COLORECTAL CANCER SCREENING COLORECTAL CANCER SCREENING [facility] Start: 05-05-2026 Screening for malign ant neoplasm of colon [facility] Start: 11-04-2024 Urine microalbumin profile [facility] Start: 03-23-2024 Diabetic foot examination Diabetic F oot Exam [facility] Start: 03-12-2024 Annual PCP Team Panel Maker anshul Disease Visit Annual PCP Team Chronic Disease Visit [facility] Start: 03-12-2024 BP Controlled (<130/80) BP Controlle d (<130/80) [facility] Start: 03-12-2024 Hepatitis B screening Urine Al bumin:Creatinine Ratio [facility] Start: 03-12-2024 RSV Vaccine (1 - 1-d ose 60+ series) RSV Vaccine (1 - 1-dose 60+ series) [facility] Immunizations Immunization Date Immunization Notes Care Provider Fa cility 02-12-2023 COVID-19 vaccine, ag e 12+ yr, season ([employer]) Adam Lucero MD Work Phone: [facility] 02-12-2023 influenza (HD-IIV4) vaccine, age 65+ yr, high dose, quadrivalent, PF (FLUZONE HIGH-DOSE) Adam Lucero MD Work Phone: [facility] 01-05-2022 COVID-19 booster vaccine, age 12+ yr, bivalent ([employer]) RONY Dias PA-C Work Phone: [facility] 01-05-2022 influenza, high-dose , quadrivalent vaccine (FLUZONE HIGH DOSE QUADRIVALENT) NA Arun CHURCHILL-Jose Work Phone: [facility] 01-05-2022 influenza virus vacc ine, unspecified formulation Ct (I-Stat) Work Phone: [facility] 12-09-2020 COVID-19 vaccine, ag e 12+ yr ([employer] - PURPLE TOP) Chucho Johansen MD Work Phone: [facility] Work Phone: 12-04-2020 influenza, high-dose , quadrivalent vaccine (FLUZONE HIGH DOSE QUADRIVALENT) Chucho Johansen MD Work Phone: [facility] Work Phone: 01-01-2020 influenza (aIIV4) vaccine, age 65+ yr, quadrivalent, PF (FLUAD QUADRIVALENT) RONY Dias PA-C Work Phone: [facility] 11-22-2018 influenza, high dose seasonal, preservative-free Chucho Johansen MD Work Phone: [facility] 11-02-2018 influenza, injectabl e, quadrivalent, preservative free RONY CHURCHILL-C Work Phone: [facility] 10-28-2017 influenza, high dose seasonal, preservative-free NA Arun PA-C Work Phone: [facility] 08-20-2016 pneumococcal conjuga te vaccine, 13 valent Chucho Johansen MD Work Phone: [facility] 07-11-2015 pneumococcal polysaccharide vaccine, 23 valent Chucho Johansen MD Work Phone: [facility] 11-04-2014 tetanus toxoid, redu seun diphtheria toxoid, and acellular pertussis vaccine, adsorbed Chucho Johansen MD Work Phone: [facility] 11-09-2013 seasonal influenza, intradermal, preservative free Chucho Johansen MD Work Phone: [facility] 02-18-2009 novel influenza-H1N1 -09, preservative-free, injectable NA Arun PA-C Work Phone: [facility] 11-30-2008 influenza virus vacc ine, unspecified formulation Chucho Johansen MD Work Phone: [facility] 07-12-2007 tetanus toxoid, redu seun diphtheria toxoid, and acellular pertussis vaccine, adsorbed Chucho Johansen MD Work Phone: [facility] 01-03-2007 influenza virus vacc ine, whole virus NA Dias PA-C Work Phone: [facility] Payers Date Payer Category Payer Medicare MEDICARE MEDICAR E A AND B [id number] 2015-Present [phone] [place] [address] Medicare [id number] 2015 Medicare MEDICARE MEDICAR E A AND B [id number] 2015-Present [phone] [place] [address] Medicare [id number] 2015 Medicare [id number] 2015 Private Health Insurance [facility] SU[employer] [id number] 2015-Present [phone] [place] [address] Indemnity [id number] 2015 Private Health Insurance [employer] [id number] 2015-Present [phone] [place] [address] Indemnity [id number] 2015 Unknown [id number] Social History Date Type Detail Facility Start: 12-12-2020 Never smoked t obacco (finding) [facility] Sex Assigned At Male [facility] Start: 07-22-2021 End: 01-05-2022 Tobacco smoking status NHIS Ex-smoker [facility] Work Phone: End: 12-23-1998 History of tobacco use Current smoker [facility] End: 12-23-1998 History of tobacco use Cigarette Smoker [facility] Start: 05-05-2021 End: 09-07-2022 Alcohol intake Current drinker of alcohol (finding) [facility] Start: 1950 Sex Assigned At Not on file [facility] Start: 04-25-2021 End: 11-10-2021 Exposure to SARS-CoV-2 (event) Not sure [facility] Start: 07-22-2021 End: 01-05-2022 Tobacco Comment Father smoked in childhood home. NO ETS as adult. [facility] Start: 07-22-2021 End: 07-15-2022 Cigarettes smoked current (pack per day) - Reported 1 [facility] Work Phone: Start: 07-22-2021 End: 01-05-2022 Tobacco use and exposure Smokeless tobacco non-user [facility] Work Phone: Start: 02-12-2022 End: 07-15-2022 Tobacco use panel [facility] Work Phone: Adult Depression Screening Assessment 0 [facility] Work Phone: Start: 09-15-2022 End: 03-23-2023 Alcohol intake Ex-drinker (finding) [facility] Medical Equipment Procedure Code Equipment Code Equipment Origin al Text Equipment Identifier Dates Mesh Srg Pariete x 6cm Soha Rnd - [id number] Start: 03-31-2012 Clinical Notes 04-11-2012 to 03-23-2023 Patient InstructionsTestOj pfeiffer - 03/23/2023 8:51 AM Ivis Chawla, KAY - 03/23/2023 8:28 AM ESTTelephone Encounter - Genevieve JamesLORI - 03/22/2023 4:42 PM ESTPatient Instructions Note Date & Type Note Facility 03-23-2023 Note HNO ID: [id number] Author: OJ SANTORO, ? Service: ? Author Type: Physician Type: Progress Notes Filed: 03/23/2023 09:11 Note Text: Consultation requested by Dr. Lucero for an opinion regarding diabetic foot exam. My final recommendations will be communicated back to the requesting physician by way of shared Medical record or letter to requesting physician via US mail. Initial Office Visit Subjective: This 72 year old male presents to clinic for diabetic foot check. Patient has the following complaints: numbness in both feet. Patient admits to being diabetic for 2 years now. Patient +B/T/N in feet at this time. Patient -pain in legs when walking. No other pedal complaints at this time. No change in medications or medical history since last visit. PAIN EVALUATION 03/23/2023 0829 Pain Location: -- bilateral feet Description: Numbness;Tingling Hemoglobin A1C (%) Date Value 03/12/2023 5.3 09/05/2022 6.3 01/07/2022 7.6 06/25/2021 7.4 03/28/2021 7.1 12/25/2020 7.7 03/29/2020 7.0 09/27/2019 7.0 03/29/2019 6.7 PCP: Adam Lucero MD PAST MEDICAL HISTORY Diagnosis Date Acute myocardial infarction, unspecified site, episode of care unspecified 03/02/1998 Bladder cancer (HCC) 02/2011 CAD (coronary artery disease) 2009 CABG x 3 Chronic depressive personality disorder Diverticulosis of colon (without mention of hemorrhage) DM (diabetes mellitus), type 2 (HCC) denies takes no medications Essential hypertension, benign Hiatal hernia DEC ER VISIT 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 fluticasone-vilanterol (BREO ELLIPTA) 100-25 mcg/dose inhaler Inhale 1 Inhalation as instructed once daily. nitroglycerin sublingual (NITROSTAT) 0.4 mg SL tablet Dissolve 1 tablet under the tongue every 5 minutes as needed for chest pain. Max of 3 tablets. DULoxetine (CYMBALTA) 60 mg capsule Take 1 capsule by mouth once daily. tamsulosin (FLOMAX) 0.4 mg take 1 capsule by mouth daily at bedtime omeprazole (PRILOSEC) 40 mg capsule Take 1 capsule by mouth once daily. finasteride (PROSCAR) 5 mg tablet Take 1 tablet by mouth once daily. ferrous sulfate (IRON ORAL) Take 1 tablet by mouth once daily. blood sugar diagnostic (BLOOD GLUCOSE TEST) test strip Test blood sugar(s) 1 times daily. Dx: Type 2 DM - Controlled E11.9 Insulin: No Lancets lancets Test blood sugar(s) 1 times daily. Dx: Type 2 DM - Controlled E11.9 Insulin: No blood sugar diagnostic (FREESTYLE TEST) test strip 1 Strip twice daily. Use as instructed metFORMIN (GLUCOPHAGE) 500 mg tablet Take 2 tablets by mouth twice daily with meals. . (Patient taking differently: Take 1,000 mg by mouth two times a day with meals. One tablet by mouth four times daily) multivit-min/FA/lycopen/lutein (CENTRUM SILVER MEN ORAL) Take 1 tablet by mouth once daily. amLODIPine (NORVASC) 5 mg tablet Take 1 tablet by mouth once daily. atorvastatin (LIPITOR) 20 mg tablet Take 1 tablet by mouth once daily. CPAP Autopap 7-20 cm H2O, Heat Humidity, suitable mask, [employer], opt Chinstrap, G47.33. aspirin, enteric coated (ASPIRIN, ENTERIC COATED) 81 mg EC tablet Take 1 tablet by mouth once daily. triamcinolone acetonide (KENALOG) 0.1 % cream Apply thin layer to affected areas twice daily as needed for irritation after photodynamic therapy. (Patient not taking: Reported on 03/16/2023) phenazopyridine (PYRIDIUM, GERIDIUM) 200 mg tablet Take 1 tablet by mouth three times daily as needed. (Patient not taking: Reported on 03/16/2023) No current facility-administered medications for this visit. ALLERGIES Allergen Reactions Plavix [Clopidogrel] GI Upset Caused constipation Adhesive Rash Adhesive on nitro patches Effexor [Venlafaxin* Other: See Comments Agitation; constipation Gluten Other: See Comments Lactose Diarrhea Lisinopril Cough [place] Diarrhea PAST SURGICAL HISTORY Procedure Laterality Date ANGIOPLASTY PERIPERAL ART 03/02/1998 STENT PLACED APPENDECTOMY 1969 COLONOSCOPY 05/05/2021 repeat in 5 years COLONOSCOPY FLX DX W/COLLJ SPEC WHEN PFRMD 08/23/2006 COLONOSCOPY FLX DX W/COLLJ SPEC WHEN PFRMD 12/11/2011 Colonoscopy CYSTOSCOPY 2017 Urethral dilation. CYSTOURETHROSCOPY 2019 LASER EXCISION SMALL BLADDER TUMOR(S) 0.5 TO 2.0 C EGD W/O BRSH SPEC VARICIES INJ 05/05/2021 ESOPHAGOGASTRODUODENOSCOPY TRANSORAL DIAGNOSTIC 12/11/2011 EGD KNEE AR (more content not included)... [facility] 03-23-2023 Note HNO ID: [id number] Author: IVIS BROWN RN Service: ? Author Type: Registered Nurse Type: Progress Notes Filed: 03/23/2023 09:11 Note Text: AMB ROOMING INTAKE FLOWSHEET DATA Pain Pain Location: (bilateral feet) Description: Numbness, Tingling Patient presents with: Left Foot - New, Diabetic Foot Check, Numbness Right Foot - New, Diabetic Foot Check, Numbness Patient presents as referral from Dr. Lucero for bilateral foot numbness/tingling that started about 4 years ago and diabetic foot exam. [facility] 03-23-2023 Instructions Oj Santoro - 03/23/2023 9:06 AM EST Diabetes Foot Care Instructions When you have diabetes, proper foot care is very important. Poor foot care may lead to amputation of a foot or leg. As a person with diabetes, you are more vulnerable to foot problems, because diabetes can damage your nerves and reduce blood flow to your feet. Here are some diabetes foot care tips to follow: Wash and Dry Your Feet Daily Use mild soaps Use warm water Pat your skin dry; do not rub. Thoroughly dry your feet. After washing, use lotion on your feet to prevent cracking. Do not put lotion between your toes. Examine Your Feet Each Day Check the tops and bottoms of your feet. Have someone else look at your feet if you cannot see them. Check for dry, cracked skin. Look for blisters, cuts, scratches, or other sores. Check for redness, increased warmth, or tenderness when touching any area of your feet. Check for ingrown toenails, corns, and calluses. If you get a blister or sore from your shoes, do not pop it. Apply a bandage and wear a different pair of shoes. Take Care of Your Toenails Cut toenails after bathing, when they are soft. Cut toenails straight across and smooth with a nail file. Avoid cutting into the corners of toes. Do not cut cuticles. If you have neuropathy (or decreased sensation in your feet) a bag shop worker should always cut your toenails. Be Careful When Exercising Walk and exercise in comfortable shoes. Do not exercise when you have open sores on your feet. Protect Your Feet With Shoes and Socks Never go barefoot. Always protect your feet by wearing shoes or hard-soled slippers or footwear. Avoid shoes with high heels and pointed toes. Avoid shoes that expose your toes or heels (such as open-toed shoes or sandals). These types of shoes increase your risk for injury and potential infections. Try on new footwear with the type of socks you usually wear. Do not wear new shoes for more than an hour at a time. Change your socks daily. Look and feel inside your shoes before putting them on to make sure there are no foreign objects or rough areas. Avoid tight socks. Wear natural-fiber socks (cotton, wool, or a cotton-wool blend). Wear special shoes if your health care provider recommends them. Wear shoes/boots that will protect your feet from various weather conditions (cold, moisture, etc.). Make sure your shoes fit properly. If you have neuropathy (nerve damage), you may not notice that your shoes are too tight. Perform the footwear test described below. Footwear Test Use this simple test to see if your shoes fit correctly: Stand on a piece of paper. (Make sure you are standing and not sitting, because your foot changes shape when you stand.) Trace the outline of your foot. Trace the outline of your shoe. Compare the tracings: Is the shoe too narrow? Is your foot crammed into the shoe? The shoe should be at least 1/2 inch longer than your longest toe and as wide as your foot. Proper Shoe Choices The following types of shoes are best for people with diabetes Closed toes and heels Leather uppers without a seam inside At least 1/2 inch extra space at the end of your longest toe Inside of shoe should be soft with no rough areas Outer sole should be made of stiff material Shoes should be at least as wide as your feet Tips for Foot Care in Diabetes Don't wait to treat a minor foot problem if you have diabetes. Follow your health care provider's guidelines and first aid guidelines. Report foot injuries and infections to your health care provider immediately. Check water temperature with your elbow, not your foot. Do not use a heating pad on your feet. Do not cross your legs. Do not self-treat your corns, calluses, or other foot problems. Go to your health care provider or bag shop worker to treat these conditions. documented in this encounter [facility] 03-23-2023 History of Presen t illness Narrative Images from the original note were not included. Consultation requested by Dr. Lucero for an opinion regarding diabetic foot exam. My final recommendations will be communicated back to the requesting physician by way of shared Medical record or letter to requesting physician via US mail. Initial Office Visit Subjective: This 72 year old male presents to clinic for diabetic foot check. Patient has the following complaints: numbness in both feet. Patient admits to being diabetic for 2 years now. Patient +B/T/N in feet at this time. Patient -pain in legs when walking. No other pedal complaints at this time. No change in medications or medical history since last visit. PAIN EVALUATION 03/23/2023 0829 Pain Location: -- bilateral feet Description: Numbness;Tingling Hemoglobin A1C (%) Date Value 03/12/2023 5.3 09/05/2022 6.3 01/07/2022 7.6 06/25/2021 7.4 03/28/2021 7.1 12/25/2020 7.7 03/29/2020 7.0 09/27/2019 7.0 03/29/2019 6.7 PCP: Adam Lucero MD PAST MEDICAL HISTORY Diagnosis Date Acute myocardial infarction, unspecified site, episode of care unspecified 03/02/1998 Bladder cancer (HCC) 02/2011 CAD (coronary artery disease) 2009 CABG x 3 Chronic depressive personality disorder Diverticulosis of colon (without mention of hemorrhage) DM (diabetes mellitus), type 2 (HCC) denies takes no medications Essential hypertension, benign Hiatal hernia DEC ER VISIT 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 fluticasone-vilanterol (BREO ELLIPTA) 100-25 mcg/dose inhaler Inhale 1 Inhalation as instructed once daily. nitroglycerin sublingual (NITROSTAT) 0.4 mg SL tablet Dissolve 1 tablet under the tongue every 5 minutes as needed for chest pain. Max of 3 tablets. DULoxetine (CYMBALTA) 60 mg capsule Take 1 capsule by mouth once daily. tamsulosin (FLOMAX) 0.4 mg take 1 capsule by mouth daily at bedtime omeprazole (PRILOSEC) 40 mg capsule Take 1 capsule by mouth once daily. finasteride (PROSCAR) 5 mg tablet Take 1 tablet by mouth once daily. ferrous sulfate (IRON ORAL) Take 1 tablet by mouth once daily. blood sugar diagnostic (BLOOD GLUCOSE TEST) test strip Test blood sugar(s) 1 times daily. Dx: Type 2 DM - Controlled E11.9 Insulin: No Lancets lancets Test blood sugar(s) 1 times daily. Dx: Type 2 DM - Controlled E11.9 Insulin: No blood sugar diagnostic (FREESTYLE TEST) test strip 1 Strip twice daily. Use as instructed metFORMIN (GLUCOPHAGE) 500 mg tablet Take 2 tablets by mouth twice daily with meals. . (Patient taking differently: Take 1,000 mg by mouth two times a day with meals. One tablet by mouth four times daily) multivit-min/FA/lycopen/lutein (CENTRUM SILVER MEN ORAL) Take 1 tablet by mouth once daily. amLODIPine (NORVASC) 5 mg tablet Take 1 tablet by mouth once daily. atorvastatin (LIPITOR) 20 mg tablet Take 1 tablet by mouth once daily. CPAP Autopap 7-20 cm H2O, Heat Humidity, suitable mask, [employer] supplies, opt [place], G47.33. aspirin, enteric coated (ASPIRIN, ENTERIC COATED) 81 mg EC tablet Take 1 tablet by mouth once daily. triamcinolone acetonide (KENALOG) 0.1 % cream Apply thin layer to affected areas twice daily as needed for irritation after photodynamic therapy. (Patient not taking: Reported on 03/16/2023) phenazopyridine (PYRIDIUM, GERIDIUM) 200 mg tablet Take 1 tablet by mouth three times daily as needed. (Patient not taking: Reported on 03/16/2023) No current facility-administered medications for this visit. ALLERGIES Allergen Reactions Plavix [Clopidogrel] GI Upset Caused constipation Adhesive Rash Adhesive on nitro patches Effexor [Venlafaxin* Other: See Comments Agitation; constipation Gluten Other: See Comments Lactose Diarrhea Lisinopril Cough [place] Diarrhea PAST SURGICAL HISTORY Procedure Laterality Date ANGIOPLASTY PERIPERAL ART 03/02/1998 STENT PLACED APPENDECTOMY 1969 COLONOSCOPY 05/05/2021 repeat in 5 years COLONOSCOPY FLX DX W/COLLJ SPEC WHEN PFRMD 08/23/2006 COLONOSCOPY FLX DX W/COLLJ SPEC WHEN PFRMD 12/11/2011 Colonoscopy CYSTOSCOPY 2017 Urethral dilation. CYSTOURETHROSCOPY 2019 LASER EXCISION SMALL BLADDER TUMOR(S) 0.5 TO 2.0 C EGD W/O [facility] SPEC VARICIES INJ 05/05/2021 ESOPHAGOGASTRODUODENOSCOPY TRANSORAL DIAGNOSTIC 12/11/2011 EGD KNEE ARTHROSCOPY Left 1966 PAST SURGICAL HISTORY OF 11/2008 CABG 3 PAST SURGICAL HISTORY OF 02/11/2011 Cysto, TURBT PAST SURGICAL HISTORY OF 12/18/2013 bladder surgery PAST SURGICAL HISTORY OF 2012 Transurethral resection of a medium bladder tumor REMOVE CATARACT, INSERT LENS, INTRACAPSUL Left 2013 RPR 1ST INGUN HRNA AGE 5 YRS/> REDUCIBLE Bilateral 2012 SIGMOIDOSCOPY FLX DX W/COLLJ SPEC BR/WA IF PFRMD 2001 Sigmoidoscopy TRANSCATH STENT INIT VESSEL,PERCUT 1998 Transcath stent init vessel percut 1 stent TRANSURETHRAL ELEC-SURG PROSTATECTOM 2016 Transurethral resection of bladder tumor, large FAMILY HISTORY Problem Relation Age of Onset Hypertension Mother Lipids Mother other (dementia) Mother other (aspiration pneumonia) Father following head injury Hypertension Sister Hypertension Brother No Known Problems Maternal Grandmother No Known Problems Maternal Grandfather Colon Cancer Paternal Grandmother No Known Problems Paternal Grandfather Social History Tobacco Use Smoking status: Former Packs/day: 1.00 Years: 20.00 Additional pack years: 0.00 Total pack years: 20.00 Types: Cigarettes Quit date: 12/23/1998 Years since quittin.2 Smokeless tobacco: Never Tobacco comments: Father smoked in childhood home. NO ETS as adult. Vaping Use Vaping Use: Never used Substance Use Topics Alcohol use: Not Currently Drug use: Never REVIEW OF SYSTEMS GENERAL: Negative for Malaise, significant weight loss, fever RESPIRATORY: Negative for cough, wheezing and shortness of breath CARDIOVASCULAR: Negative for chest pain, leg swelling and palpitations GI: Negative for abdominal discomfort, blood in stools or black stools and change in bowel habits : Negative for dysuria, frequency and incontinence MUSCULOSKELETAL: Negative for joint pain or swelling, back pain, and muscle pain. SKIN: Negative for lesions, rash, and itching. HEMATOLOGY/LYMPHOLOGY Negative for prolonged bleeding, bruising easily, and swollen nodes. ENDOCRINE: Negative for cold or heat intolerance, polyuria, polydipsia and goiter. NEURO: negative The remainder of the review of systems is noncontributory. Objective: Patient presents to clinic ambulating in dress shoes Constitutional: Pt is a well developed 72 year old male who is alert, oriented, cooperative and in no apparent distress. Eyes: Following during examination. No redness or drainage. Respiratory: RR normal and nonlabored. Even breathing. No evidence of distress. Psychology: Patient is engaged during conversation. Normal affect and mood. Does not appear depressed or anxious. Vasc: DP and PT pulses are nonpalpable bilateral. CFT is less than 5 seconds bilateral. Skin temperature is warm to cool proximal to distal bilateral. There is no edema or varicosities noted. Hair growth absent. Neuro: Protective sensation is absent to the foot and toes when tested with the 5.07 SWM bilateral. Vibratory sensation is absent at the hallux bilateral. +Significant neurological defecits. Derm: Inspection and palpation performed. Nails 1-5 b/l are painful, discolored-yellow, thick, crumbly, dystrophic and with subungal debris. Right hallux medial nail border is ingrowing without signs of infection. Skin is thin, dry, ruborous and hair growth is absent. Hyperkeratosis noted to none. There is scab to right foot without infection. NO ulcerations, scars, verruca or other lesions noted. Ortho: Ankle joint DF is full with the knee extended and full with knee flexed. No pain or crepitus noted. STJ, MTJ ROM are full and free of pain or crepitus. Muscle strength is 5/5 for dorsiflexors, plantarflexors, inverters, everters. Digital deformities include none. Assessment: (I73.9) PAD (peripheral artery disease) ([facility]) (primary encounter diagnosis) (E11.9) Type 2 diabetes mellitus without complication, without long-term current use of insulin ([facility]) (E11.42) Type 2 diabetes mellitus with peripheral neuropathy ([facility]) (L60.0) Ingrowing toenail of right foot (B35.1) Onychomycosis Pain in toe Plan: 1. Patient was seen and evaluated. 2. Patient was instructed on the continued importance of diabetic foot care along with proper diet and keeping their blood sugar under control to prevent complications. Instructions given both oral and written. 3. Discussed neuropathy. He has no pain. If he was having pain, could consider either oral or topical medication but in absence of pain, can monitor. Discussed need to avoid barefoot walking, self inspection of feet, use of lotion to feet. Other things that he needs to consider is safety of driving. 4. Toenails 1-5 b/l debrided in length and thickness. He meets criteria for debridement based on risk factgors. Q8 modifier. He does have ingrown without infection. Slant back performed. 5. Of note, he has small noninfected scab of right foot. No evidence of infection. No evidence of foreign body on clinical exam. Offered xray. He is going to monitor. 6. F/u in 3 months Oj Santoro DPM AMB ROOMING INTAKE FLOWSHEET DATA Pain Pain Location: (bilateral feet) Description: Numbness, Tingling Patient presents with: Left Foot - New, Diabetic Foot Check, Numbness Right Foot - New, Diabetic Foot Check, Numbness Patient presents as referral from Dr. Lucero for bilateral foot numbness/tingling that started about 4 years ago and diabetic foot exam. documented in this encounter [facility] 03-22-2023 Miscellaneous Notes Patient returned call and went over results from Dr Lucero with understanding. Left message for patient to return call. [place] Ma Bmp is normal. documented in this encounter [facility] 03-19-2023 Note HNO ID: [id number] Author: KEL LILLY MD Service: ? 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 He feels well, reports no issues other than recently discovered hematuria, seeing urology.. Here for follow up, feels well, Labs reviewed. Taking iron daily. CLINICAL IMPRESSION: Mild anemia Chronic thrombocytopenia, ?ITP versus fatty liver/hypersplenism RECOMMENDATION/PLAN: 1. Continue to monitor CBC, no intervention at this time 2. We can see back prn as he gets labs with his PCP 3, iron levels make sure he's not getting overloaded. Written and verbal health teaching given to patient, patient verbalizes understanding and agrees with treatment plan. PAST MEDICAL HISTORY Diagnosis Date Acute myocardial infarction, unspecified site, episode of care unspecified 03/02/1998 Bladder cancer (HCC) 02/2011 CAD (coronary artery disease) 2009 CABG x 3 Chronic depressive personality disorder Diverticulosis of colon (without mention of hemorrhage) DM (diabetes mellitus), type 2 (HCC) denies takes no medications Essential hypertension, benign Hiatal hernia DEC ER VISIT [facility] History of basal cell carcinoma (BCC) of skin 2019 right posterior shoulder 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 Hyperlipidemia Malignant neoplasm of urinary bladder, unspecified site (HCC) CR (obstructive sleep apnea) DME [facility] Other and unspecified hyperlipidemia Other peripheral vascular disease(443.89) Postsurgical aortocoronary bypass status Retention of urine, unspecified Sinusitis PAST SURGICAL HISTORY Procedure Laterality Date ANGIOPLASTY PERIPERAL ART 03/02/1998 STENT PLACED APPENDECTOMY 1969 COLONOSCOPY 05/05/2021 repeat in 5 years COLONOSCOPY FLX DX W/COLLJ SPEC WHEN PFRMD 08/23/2006 COLONOSCOPY FLX DX W/COLLJ SPEC WHEN PFRMD 12/11/2011 Colonoscopy CYSTOSCOPY 2017 Urethral dilation. CYSTOURETHROSCOPY 2019 LASER EXCISION SMALL BLADDER TUMOR(S) 0.5 TO 2.0 C EGD W/O [facility] SPEC VARICIES INJ 05/05/2021 ESOPHAGOGASTRODUODENOSCOPY TRANSORAL DIAGNOSTIC 12/11/2011 EGD KNEE ARTHROSCOPY Left 1966 PAST SURGICAL HISTORY OF 11/2008 CABG 3 PAST SURGICAL HISTORY OF 02/11/2011 Cysto, TURBT PAST SURGICAL HISTORY OF 12/18/2013 bladder surgery PAST SURGICAL HISTORY OF 2012 Transurethral resection of a medium bladder tumor REMOVE CATARACT, INSERT LENS, INTRACAPSUL Left 2012 RPR 1ST INGUN HRNA AGE 5 YRS/> REDUCIBLE Bilateral 2012 SIGMOIDOSCOPY FLX DX W/COLLJ SPEC BR/WA IF PFRMD 2001 Sigmoidoscopy TRANSCATH STENT INIT VESSEL,PERCUT 1999 Transcath stent init vessel percut 1 stent TRANSURETHRAL ELEC-SURG PROSTATECTOM 2016 Transurethral resection of bladder tumor, large FAMILY HISTORY Problem Relation Age of Onset Hypertension Mother Lipids Mother other (dementia) Mother other (aspiration pneumonia) Father following head injury Hypertension Sister Hypertension Brother No Known Problems Maternal Grandmother No Known Problems Maternal Grandfather Colon Cancer Paternal Grandmother No Known Problems Paternal Grandfather Social History Tobacco Use Smoking status: Former Packs/day: 1.00 Years: 20.00 Additional pack years: 0.00 Total pack years: 20.00 Types: Cigarettes Quit date: 12/23/1998 Years since quittin.2 Smokeless tobacco: Never Tobacco comments: Father smoked in childhood home. NO ETS as adult. Vaping Use Vaping Use: Never used Substance Use Topics Alcohol use: Not Currently Drug use: Never ALLERGIES: ALLERGIES Allergen Reactions Plavix [Clopidogrel] GI Upset Caused constipation Adhesive Rash Adhesive on nitro patches Effexor [Venlafaxin* Other: See Comments Agitation; constipation Gluten Other: See Comments Lactose Diarrhea Lisinopril Cough [place] Diarrhea CURRENT OUTPATIENT MEDICATIONS: metoprolol tartrate, short acting, (LOPRESSOR) 100 mg tablet Take 1 tablet by mouth two times a day. fluticasone-vilanterol (BREO ELLIPTA) 100-25 mcg/dose inhaler Inhale 1 Inhalation as instructed once daily. nitroglycerin sublingual (NITROSTAT) 0.4 mg SL tablet Dissolve 1 tablet under the tongue every 5 minutes as needed for chest pain. Max of 3 tablets. DULoxetine (CYMBALTA) 60 mg capsule Take 1 capsule by mouth once daily. tamsulosin (FLOMAX) 0.4 mg take 1 capsule by mouth daily at bedtime omeprazole (PRILOSEC) 40 mg capsule Take 1 capsule by mouth once daily. finasteride (PROSCAR) 5 mg tablet Take 1 tablet by mouth once daily. ferrous sulfate (IRON ORAL) Take 1 tablet by mouth o (more content not included)... 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 He feels well, reports no issues other than recently discovered hematuria, seeing urology.. Here for follow up, feels well, Labs reviewed. Taking iron daily. CLINICAL IMPRESSION: Mild anemia Chronic thrombocytopenia, ?ITP versus fatty liver/hypersplenism RECOMMENDATION/PLAN: 1. Continue to monitor CBC, no intervention at this time 2. We can see back prn as he gets labs with his PCP 3, iron levels make sure he's not getting overloaded. Written and verbal health teaching given to patient, patient verbalizes understanding and agrees with treatment plan. PAST MEDICAL HISTORY Diagnosis Date Acute myocardial infarction, unspecified site, episode of care unspecified 03/02/1998 Bladder cancer (HCC) 02/2011 CAD (coronary artery disease) 2009 CABG x 3 Chronic depressive personality disorder Diverticulosis of colon (without mention of hemorrhage) DM (diabetes mellitus), type 2 (HCC) denies takes no medications Essential hypertension, benign Hiatal hernia DEC ER VISIT [facility] History of basal cell carcinoma (BCC) of skin 2019 right posterior shoulder 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 Hyperlipidemia Malignant neoplasm of urinary bladder, unspecified site (HCC) CR (obstructive sleep apnea) DME [facility] Other and unspecified hyperlipidemia Other peripheral vascular disease(443.89) Postsurgical aortocoronary bypass status Retention of urine, unspecified Sinusitis PAST SURGICAL HISTORY Procedure Laterality Date ANGIOPLASTY PERIPERAL ART 03/02/1998 STENT PLACED APPENDECTOMY 1969 COLONOSCOPY 05/05/2021 repeat in 5 years COLONOSCOPY FLX DX W/COLLJ SPEC WHEN PFRMD 08/23/2006 COLONOSCOPY FLX DX W/COLLJ SPEC WHEN PFRMD 12/11/2011 Colonoscopy CYSTOSCOPY 2017 Urethral dilation. CYSTOURETHROSCOPY 2019 LASER EXCISION SMALL BLADDER TUMOR(S) 0.5 TO 2.0 C EGD W/O [facility] SPEC VARICIES INJ 05/05/2021 ESOPHAGOGASTRODUODENOSCOPY TRANSORAL DIAGNOSTIC 12/11/2011 EGD KNEE ARTHROSCOPY Left 1966 PAST SURGICAL HISTORY OF 11/2008 CABG 3 PAST SURGICAL HISTORY OF 02/11/2011 Cysto, TURBT PAST SURGICAL HISTORY OF 12/18/2013 bladder surgery PAST SURGICAL HISTORY OF 2012 Transurethral resection of a medium bladder tumor REMOVE CATARACT, INSERT LENS, INTRACAPSUL Left 2012 RPR 1ST INGUN HRNA AGE 5 YRS/> REDUCIBLE Bilateral 2013 SIGMOIDOSCOPY FLX DX W/COLLJ SPEC BR/WA IF PFRMD 2002 Sigmoidoscopy TRANSCATH STENT INIT VESSEL,PERCUT 1999 Transcath stent init vessel percut 1 stent TRANSURETHRAL ELEC-SURG PROSTATECTOM 2016 Transurethral resection of bladder tumor, large FAMILY HISTORY Problem Relation Age of Onset Hypertension Mother Lipids Mother other (dementia) Mother other (aspiration pneumonia) Father following head injury Hypertension Sister Hypertension Brother No Known Problems Maternal Grandmother No Known Problems Maternal Grandfather Colon Cancer Paternal Grandmother No Known Problems Paternal Grandfather Social History Tobacco Use Smoking status: Former Packs/day: 1.00 Years: 20.00 Additional pack years: 0.00 Total pack years: 20.00 Types: Cigarettes Quit date: 12/23/1998 Years since quittin.2 Smokeless tobacco: Never Tobacco comments: Father smoked in childhood home. NO ETS as adult. Vaping Use Vaping Use: Never used Substance Use Topics Alcohol use: Not Currently Drug use: Never ALLERGIES: ALLERGIES Allergen Reactions Plavix [Clopidogrel] GI Upset Caused constipation Adhesive Rash Adhesive on nitro patches Effexor [Venlafaxin* Other: See Comments Agitation; constipation Gluten Other: See Comments Lactose Diarrhea Lisinopril Cough [place] Diarrhea CURRENT OUTPATIENT MEDICATIONS: metoprolol tartrate, short acting, (LOPRESSOR) 100 mg tablet Take 1 tablet by mouth two times a day. fluticasone-vilanterol (BREO ELLIPTA) 100-25 mcg/dose inhaler Inhale 1 Inhalation as instructed once daily. nitroglycerin sublingual (NITROSTAT) 0.4 mg SL tablet Dissolve 1 tablet under the tongue every 5 minutes as needed for chest pain. Max of 3 tablets. DULoxetine (CYMBALTA) 60 mg capsule Take 1 capsule by mouth once daily. tamsulosin (FLOMAX) 0.4 mg take 1 capsule by mouth daily at bedtime omeprazole (PRILOSEC) 40 mg capsule Take 1 capsule by mouth once daily. finasteride (PROSCAR) 5 mg tablet Take 1 tablet by mouth once daily. ferrous sulfate (IRON ORAL) Take 1 tablet by mouth once daily. blood sugar diagnostic (BLOOD GLUCOSE TEST) test strip Test blood sugar(s) 1 times daily. Dx: Type 2 DM - Controlled E11.9 Insulin: No Lancets lancets Test blood sugar(s) 1 times daily. Dx: Type 2 DM - Controlled E11.9 Insulin: No blood sugar diagnostic (FREESTYLE TEST) test strip 1 Strip twice daily. Use as instructed metFORMIN (GLUCOPHAGE) 500 mg tablet Take 2 tablets by mouth twice daily with meals. . (Patient taking differently: Take 1,000 mg by mouth two times a day with meals. One tablet by mouth four times daily) multivit-min/FA/lycopen/lutein (CENTRUM SILVER MEN ORAL) Take 1 tablet by mouth once daily. amLODIPine (NORVASC) 5 mg tablet Take 1 tablet by mouth once daily. atorvastatin (LIPITOR) 20 mg tablet Take 1 tablet by mouth once daily. CPAP Autopap 7-20 cm H2O, Heat Humidity, suitable mask, Lifetime supplies, opt Chinstrap, G47.33. aspirin, enteric coated (ASPIRIN, ENTERIC COATED) 81 mg EC tablet Take 1 tablet by mouth once daily. triamcinolone acetonide (KENALOG) 0.1 % cream Apply thin layer to affected areas twice daily as needed for irritation after photodynamic therapy. (Patient not taking: Reported on 03/16/2023) phenazopyridine (PYRIDIUM, GERIDIUM) 200 mg tablet Take 1 tablet by mouth three times daily as needed. (Patient not taking: Reported on 03/16/2023) REVIEW OF SYSTEMS: GENERAL: No fever, night sweats, weight loss or malaise. All other reviewed and negative other than HPI. PHYSICAL EXAMINATION: VITAL SIGNS: BP 169/71 Pulse 85 Temp 97.3 Resp 12 Ht 5' 8.504 (1.74m) Wt 192 lb (87.1kg) SpO2 96% BMI 28.77 kg/(m^2). GENERAL APPEARANCE: Well appearing, in no acute distress, alert and oriented x3, well-hydrated, well nourished. SKIN: Skin color, texture, turgor normal. No needle tracks, ulcers, rashes or lesions. No bruising I spent a total of 20 minutes on the date of the service which included preparing to see the patient, [id number] patient care, completing clinical documentation, obtaining and/or reviewing separately obtained history, performing a medically appropriate examination, ordering medications, tests, or procedures, independently interpreting results (not separately reported), and communicating results to the patient/family/caregiver. Electronically Signed: Kel Lilly MD March 19, 2023 documented in this encounter [facility] 03-17-2023 Miscellaneous Notes Patient notified. Refill request cancelled. Fabiola Cho RN Left message for pt to contact office. Visual.ly shows omeprazole was refilled on 11/27/22 Qty: 90 with 3 refills and was sent to [facility]. Plkease advise pt he needs to check with them as he should have refills left. Please cancel refill request after speaking with pt. Margo Liz LPN Patient has been identified by name and date of : Patient phones for refill(s): Requested Prescriptions Pending Prescriptions Disp Refills omeprazole (PRILOSEC) 40 mg capsule 90 capsule 3 Sig: Take 1 capsule by mouth once daily. Date of last office visit in primary care: 03/12/2023 Date of next office visit in primary care: 09/10/2023 Please advise. Thank you. Anais Figueroa. documented in this encounter [facility] 03-17-2023 Miscellaneous Notes Patient has been identified by name and date of : Yes, Provider Dr Lucero Date 03/17/23 Time 11:25 am Patient phones for refill(s): Requested Prescriptions Pending Prescriptions Disp Refills metoprolol tartrate, short acting, (LOPRESSOR) 100 mg tablet 180 tablet 3 Sig: Take 1 tablet by mouth two times a day. fluticasone-vilanterol (BREO ELLIPTA) 100-25 mcg/dose inhaler 3 Each 3 Sig: Inhale 1 Inhalation as instructed once daily. Date of last office visit in primary care: 03/12/2023 Date of next office visit in primary care: 09/10/2023 Please advise. Thank you. Margo Liz LPN. Patient has been identified by name and date of : Patient phones for refill(s): Requested Prescriptions Pending Prescriptions Disp Refills metoprolol tartrate, short acting, (LOPRESSOR) 100 mg tablet 180 tablet 3 Sig: Take 1 tablet by mouth two times a day. fluticasone-vilanterol (BREO ELLIPTA) 100-25 mcg/dose inhaler 3 Each 3 Sig: Inhale 1 Inhalation as instructed once daily. Date of last office visit in primary care: 03/12/2023 Date of next office visit in primary care: 09/10/2023 Please advise. Thank you. Anais Figueroa. documented in this encounter [facility] 03-17-2023 Miscellaneous Notes Patient returned call and went over results, notes from Dr Lucero with understanding. Aware copy of lab results were faxed to [facility]. TC to pt, left message to return call to office. Lab results faxed to [facility]. Antony Andres LPN Message left for return call. Latonia Fitzpatrick His bmp showed his potassium was slightly up. Bnp or test for heart failure was only minimally up and may not be significant. Rest of labs are ok. Send copy of labs to cardiology. Recheck bmp in one month. Call with update on po intake and weight in two weeks. documented in this encounter [facility] 03-16-2023 Note HNO ID: [id number] Author: TAYLOR HENNING PA-C Service: ? Author Type: Physician [employer] Type: Progress Notes Filed: 03/16/2023 08:54 Note Text: CHIEF COMPLAINT: Patient presents with: ER F/U: Indigestion, hiatal hernia. CT done in [facility] This consult was requested by Self for an opinion regarding ER f/u . My final recommendations will be communicated to the requesting health care provider by way of the shared medical record for internal providers or letter via the [email or web address] for external providers. HPI: Clark Bedoya is a 72 year old male who presents for ER F/U (Indigestion, hiatal hernia. CT done in [facility] ). is present today. Patient tells me that he developed dry heaves that took him to the ER. Hasn't had that since his ER stay. Denies GERD symptoms. Notes that he is not eating as much as usual. Notes that he is having a lot of early satiety. No vomiting or nausea. Slowly declining in weight, down at least ten pounds since his hospital stay. Notes greasy bowel movements, loose stools. Notes a lot of flatulence. No bloating. No rectal bleeding or black stools. No smoking or alcohol use. No pertinent GI family hx. CT 01/2023: FINDINGS: The visualized lung bases demonstrate mild scarring in the left lower lung. Normal heart size. Coronary calcifications. Hepatic steatosis. Normal gallbladder and extrahepatic biliary system. Normal spleen. There is diffuse atrophy of the pancreas. Normal bilateral adrenal glands. Small bilateral renal cysts appear to be simple. No evidence of hydronephrosis. There is a small hiatal hernia. Normal in caliber small bowel loops. No evidence of acute diverticulitis. The appendix is visualized and appears normal. There is diffuse atherosclerotic calcification of the abdominal aorta, without a demonstrated aneurysm. No retroperitoneal adenopathy. Normal urinary bladder. Very small umbilical hernia containing fat. No demonstrated acute osseous changes. Record Review: [facility] / Outside records reviewed. 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 Hyperlipidemia Malignant neoplasm of urinary bladder, unspecified site (HCC) CR (obstructive sleep apnea) DME [facility] Other and unspecified hyperlipidemia Other peripheral vascular disease(443.89) Postsurgical aortocoronary bypass status Retention of urine, unspecified Sinusitis PAST SURGICAL HISTORY Procedure Laterality Date ANGIOPLASTY PERIPERAL ART 03/02/1998 STENT PLACED APPENDECTOMY 1969 COLONOSCOPY 05/05/2021 repeat in 5 years COLONOSCOPY FLX DX W/COLLJ SPEC WHEN PFRMD 08/23/2006 COLONOSCOPY FLX DX W/COLLJ SPEC WHEN PFRMD 12/11/2011 Colonoscopy CYSTOSCOPY 2017 Urethral dilation. CYSTOURETHROSCOPY 2019 LASER EXCISION SMALL BLADDER TUMOR(S) 0.5 TO 2.0 C EGD W/O BRSH SPEC VARICIES INJ 05/05/2021 ESOPHAGOGASTRODUODENOSCOPY TRANSORAL DIAGNOSTIC 12/11/2011 EGD KNEE ARTHROSCOPY Left 1966 PAST SURGICAL HISTORY OF 11/2008 CABG 3 PAST SURGICAL HISTORY OF 02/11/2011 Cysto, TURBT PAST SURGICAL HISTORY OF 12/18/2013 bladder surgery PAST SURGICAL HISTORY OF 2013 Transurethral resection of a medium bladder tumor REMOVE CATARACT, INSERT LENS, INTRACAPSUL Left 2013 RPR 1ST INGUN HRNA AGE 5 YRS/> REDUCIBLE Bilateral 2012 SIGMOIDOSCOPY FLX DX W/COLLJ SPEC BR/WA IF PFRMD 2002 Sigmoidoscopy TRANSCATH STENT INIT VESSEL,PERCUT 1998 Transcath stent init vessel percut 1 stent TRANSURETHRAL ELEC-SURG PROSTATECTOM 2016 Transurethral resection of bladder tumor, large Allergies: ALLERGIES Allergen Reactions Plavix [Clopidogrel] GI Upset Caused constipation Adhesive Rash Adhesive on nitro patches Effexor [Venlafaxin* Other: See Comments Agitation; constipation Gluten Other: See Comments Lactose Diarrhea Lisinopril Cough [place] Diarrhea Medications: DULoxetine (CYMBALTA) 60 mg capsule Take 1 capsule by mouth once daily. tamsulosin (FLOMAX) 0.4 mg take 1 capsule by mouth daily at bedtime omeprazole (PRILOSEC) 40 mg capsule Take 1 capsule by mouth once daily. finasteride (PROSCAR) 5 mg tablet Take 1 tablet by mouth once daily. ferrous sulfate (IRON ORAL) Take 1 tablet by mouth once daily. blood sugar diagnostic (BLOOD GLUCOSE TEST) test strip Test blood sugar(s) 1 times daily. Dx: Type 2 DM - Controlled E11.9 Insulin: No Lancets lancets Test blood sugar(s) 1 times daily. Dx: Type 2 DM - Controlled E11.9 Insulin: No blo (more content not included)... [facility] 03-16-2023 Instructions Taylor Henning PA-C - 03/16/2023 8:47 AM EST - Start probiotic with at least 15 billion live cultures, 10+ strains -- Dania, Essie, Floranirav, Podclass, [employer] documented in this encounter [facility] 03-16-2023 History of Presen t illness Narrative CHIEF COMPLAINT: Patient presents with: ER F/U: Indigestion, hiatal hernia. CT done in [facility] This consult was requested by Self for an opinion regarding ER f/u . My final recommendations will be communicated to the requesting health care provider by way of the shared medical record for internal providers or letter via the [email or web address] for external providers. HPI: Clark Bedoya is a 72 year old male who presents for ER F/U (Indigestion, hiatal hernia. CT done in [facility] ). is present today. Patient tells me that he developed dry heaves that took him to the ER. Hasn't had that since his ER stay. Denies GERD symptoms. Notes that he is not eating as much as usual. Notes that he is having a lot of early satiety. No vomiting or nausea. Slowly declining in weight, down at least ten pounds since his hospital stay. Notes greasy bowel movements, loose stools. Notes a lot of flatulence. No bloating. No rectal bleeding or black stools. No smoking or alcohol use. No pertinent GI family hx. CT 01/2023: FINDINGS: The visualized lung bases demonstrate mild scarring in the left lower lung. Normal heart size. Coronary calcifications. Hepatic steatosis. Normal gallbladder and extrahepatic biliary system. Normal spleen. There is diffuse atrophy of the pancreas. Normal bilateral adrenal glands. Small bilateral renal cysts appear to be simple. No evidence of hydronephrosis. There is a small hiatal hernia. Normal in caliber small bowel loops. No evidence of acute diverticulitis. The appendix is visualized and appears normal. There is diffuse atherosclerotic calcification of the abdominal aorta, without a demonstrated aneurysm. No retroperitoneal adenopathy. Normal urinary bladder. Very small umbilical hernia containing fat. No demonstrated acute osseous changes. Record Review: [facility] / Outside records reviewed. 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 Hyperlipidemia Malignant neoplasm of urinary bladder, unspecified site (HCC) CR (obstructive sleep apnea) DME [facility] Other and unspecified hyperlipidemia Other peripheral vascular disease(443.89) Postsurgical aortocoronary bypass status Retention of urine, unspecified Sinusitis PAST SURGICAL HISTORY Procedure Laterality Date ANGIOPLASTY PERIPERAL ART 03/02/1998 STENT PLACED APPENDECTOMY 1969 COLONOSCOPY 05/05/2021 repeat in 5 years COLONOSCOPY FLX DX W/COLLJ SPEC WHEN PFRMD 08/23/2006 COLONOSCOPY FLX DX W/COLLJ SPEC WHEN PFRMD 12/11/2011 Colonoscopy CYSTOSCOPY 2017 Urethral dilation. CYSTOURETHROSCOPY 2019 LASER EXCISION SMALL BLADDER TUMOR(S) 0.5 TO 2.0 C EGD W/O BRSH SPEC VARICIES INJ 05/05/2021 ESOPHAGOGASTRODUODENOSCOPY TRANSORAL DIAGNOSTIC 12/11/2011 EGD KNEE ARTHROSCOPY Left 1966 PAST SURGICAL HISTORY OF 11/2008 CABG 3 PAST SURGICAL HISTORY OF 02/11/2011 Cysto, TURBT PAST SURGICAL HISTORY OF 12/18/2013 bladder surgery PAST SURGICAL HISTORY OF 2012 Transurethral resection of a medium bladder tumor REMOVE CATARACT, INSERT LENS, INTRACAPSUL Left 2012 RPR 1ST INGUN HRNA AGE 5 YRS/> REDUCIBLE Bilateral 2012 SIGMOIDOSCOPY FLX DX W/COLLJ SPEC BR/WA IF PFRMD 2001 Sigmoidoscopy TRANSCATH STENT INIT VESSEL,PERCUT 1999 Transcath stent init vessel percut 1 stent TRANSURETHRAL ELEC-SURG PROSTATECTOM 2016 Transurethral resection of bladder tumor, large Allergies: ALLERGIES Allergen Reactions Plavix [Clopidogrel] GI Upset Caused constipation Adhesive Rash Adhesive on nitro patches Effexor [Venlafaxin* Other: See Comments Agitation; constipation Gluten Other: See Comments Lactose Diarrhea Lisinopril Cough [place] Diarrhea Medications: DULoxetine (CYMBALTA) 60 mg capsule Take 1 capsule by mouth once daily. tamsulosin (FLOMAX) 0.4 mg take 1 capsule by mouth daily at bedtime omeprazole (PRILOSEC) 40 mg capsule Take 1 capsule by mouth once daily. finasteride (PROSCAR) 5 mg tablet Take 1 tablet by mouth once daily. ferrous sulfate (IRON ORAL) Take 1 tablet by mouth once daily. blood sugar diagnostic (BLOOD GLUCOSE TEST) test strip Test blood sugar(s) 1 times daily. Dx: Type 2 DM - Controlled E11.9 Insulin: No Lancets lancets Test blood sugar(s) 1 times daily. Dx: Type 2 DM - Controlled E11.9 Insulin: No blood sugar diagnostic (FREESTYLE TEST) test strip 1 Strip twice daily. Use as instructed metFORMIN (GLUCOPHAGE) 500 mg tablet Take 2 tablets by mouth twice daily with meals. . (Patient taking differently: Take 1,000 mg by mouth two times a day with meals. One tablet by mouth four times daily) metoprolol tartrate, short acting, (LOPRESSOR) 100 mg tablet Take 1 tablet by mouth twice daily. fluticasone-vilanterol (BREO ELLIPTA) 100-25 mcg/dose inhaler Inhale 1 Inhalation as instructed once daily. multivit-min/FA/lycopen/lutein (CENTRUM SILVER MEN ORAL) Take 1 tablet by mouth once daily. amLODIPine (NORVASC) 5 mg tablet Take 1 tablet by mouth once daily. atorvastatin (LIPITOR) 20 mg tablet Take 1 tablet by mouth once daily. CPAP Autopap 7-20 cm H2O, Heat Humidity, suitable mask, Lifetime supplies, opt Chinstrap, G47.33. aspirin, enteric coated (ASPIRIN, ENTERIC COATED) 81 mg EC tablet Take 1 tablet by mouth once daily. nitroglycerin sublingual (NITROSTAT) 0.4 mg SL tablet Dissolve 1 tablet under the tongue every 5 minutes as needed for chest pain. Max of 3 tablets. (Patient not taking: Reported on 03/16/2023) triamcinolone acetonide (KENALOG) 0.1 % cream Apply thin layer to affected areas twice daily as needed for irritation after photodynamic therapy. (Patient not taking: Reported on 03/16/2023) phenazopyridine (PYRIDIUM, GERIDIUM) 200 mg tablet Take 1 tablet by mouth three times daily as needed. (Patient not taking: Reported on 03/16/2023) FAMILY HISTORY Problem Relation Age of Onset Hypertension Mother Lipids Mother other (dementia) Mother other (aspiration pneumonia) Father following head injury Hypertension Sister Hypertension Brother No Known Problems Maternal Grandmother No Known Problems Maternal Grandfather Colon Cancer Paternal Grandmother No Known Problems Paternal Grandfather Employer And Job Title: None on file Years Of Education Completed: Not specified Marital Status: with 4 children Social History Tobacco Use Smoking status: Former Packs/day: 1.00 Years: 20.00 Additional pack years: 0.00 Total pack years: 20.00 Types: Cigarettes Quit date: 12/23/1998 Years since quittin.2 Smokeless tobacco: Never Tobacco comments: Father smoked in childhood home. NO ETS as adult. Vaping Use Vaping Use: Never used Substance Use Topics Alcohol use: Not Currently Drug use: Never Review of Systems: Review of Systems All other systems reviewed and are negative. Are you taking any blood thinners? No Physical Examination: BP 142/80 Pulse 68 Ht 5' 8 (1.73m) Wt 192 lb 4.8 oz (87.2kg) BMI 29.25 kg/(m^2). Physical Exam Constitutional: Appearance: Normal appearance. HENT: Head: Normocephalic and atraumatic. Eyes: General: No scleral icterus. Extraocular Movements: Extraocular movements intact. Conjunctiva/sclera: Conjunctivae normal. Pupils: Pupils are equal, round, and reactive to light. Cardiovascular: Rate and Rhythm: Normal rate and regular rhythm. Pulses: Normal pulses. Heart sounds: Normal heart sounds. Pulmonary: Effort: Pulmonary effort is normal. Breath sounds: Normal breath sounds. Abdominal: General: Abdomen is flat. Bowel sounds are normal. Palpations: Abdomen is soft. Tenderness: There is no abdominal tenderness. Musculoskeletal: General: Normal range of motion. Cervical back: Normal range of motion and neck supple. Skin: General: Skin is warm and dry. Coloration: Skin is not jaundiced. Neurological: General: No focal deficit present. Mental Status: He is alert and oriented to person, place, and time. Psychiatric: Mood and Affect: Mood normal. Behavior: Behavior normal. Thought Content: Thought content normal. Judgment: Judgment normal. Assessment/Plan (K44.9) Hiatal hernia (primary encounter diagnosis) (R68.81) Early satiety (K90.9) Steatorrhea (R14.3) Flatulence 1. Hiatal hernia -- Patient with hiatal hernia seen on CT abd/pelvis. Having some indigestion and early satiety. -- Would like to keep him on Omeprazole -- Plan for EGD once stress test is completed 2. Early satiety -- Patient with hiatal hernia seen on CT abd/pelvis. Having some indigestion and early satiety. -- Would like to keep him on Omeprazole -- Plan for EGD once stress test is completed -- Consider GES pending results of EGD 3. Steatorrhea -- Patient with steatorrhea and excessive gas production -- Will check pancreatic elastase -- Start OTC probiotics - PANC ELASTASE, FECAL 4. Flatulence -- Patient with steatorrhea and excessive gas production -- Will check pancreatic elastase -- Start OTC probiotics - PANC ELASTASE, FECAL Follow up in office PRN. Recommended to please call office/go to ER if fever, chills, chest pain, SOB, diarrhea, nausea, emesis, worsening abdominal pain, dehydration occurs I spent a total of 20 minutes on the date of the service which included preparing to see the patient, [id number] patient care, completing clinical documentation, obtaining and/or reviewing separately obtained history, performing a medically appropriate examination, counseling and educating the patient/family/caregiver, and ordering medications, tests, or procedures. Taylor Henning PA-C March 16, 2023 8:51 AM documented in this encounter [facility] 03-12-2023 Note HNO ID: [id number] Author: ADAM LUCERO MD Service: ? Author Type: Physician Type: Progress Notes Filed: 03/12/2023 11:50 Note Text: Patient presents with: 6 Month Exam HPI: Patient presents today for office visit for follow up. Continues on Finasteride and Tamsulosin. Hx of BPH. Follows with Urology. No issues. Last OV in Nov. Denies chest pain. Has not had to use Nitro. Saw cardiology this week. Feeling well. They are going to do a stress test . Mentions shortness of breath only when he lays down for bed. States it takes him a couple minutes to start being able to breathe normally. Has been that way for some time. Red flags for re-assessment reviewed with patient in detail. Using CPAP nightly. Sleeping good through the night. Feels rested when waking. No snoring. GERD: Symptoms controlled. Mentions flatulence. No bloody or black stool. Sees Gastro on 03/16/23 for hiatal hernia. Mentions no appetite. says he's not eating like he should. Concerns of about a 10lb weight decrease in 6wks. See gi soon. Admitted into [facility] on 02/03/23 Discharged on 02/05/23 Chest pain and hiatal hernia. Sees [facility], urology, hematology. Saw Dr Blackmon, vascular surgery last month See Elidia's last note: Patient was admitted to [facility] on 02/03/2023 with complaint of chest pain and dry heaves. He had felt pain within his esophagus and was burning sensation when he took a deep breath then. He also had pain in his upper chest. He denies any fevers chills, palpitations, dizziness, nausea/vomiting, or any other symptoms. He had a history of his CAD status post CABG and had a cardiac cath in October 2020 which showed patent STARKEY to LAD, saphenous vein graft to circumflex artery, saphenous vein graft to right coronary artery supplying the posterior lateral vessel with some stenosis in the [place] distal circumflex artery. He had been on optimal medical therapy. On admission, his initial troponin was negative, but trended up to 94 and then subsequently up to 235. Chest x-ray showed no acute pulmonary findings. CT of the abdomen and pelvis with contrast showed small hiatal hernia and hepatic steatosis, but no other processes. EKG showed sinus tach with no evidence of acute ST changes. He was admitted and managed for chest pain to rule out ACS. He was given a GI cocktail which helped his pain. In light of his troponin subsequently trending up to 235, he was started on heparin drip to be treated for non-STEMI and cardiology was consulted. Cardiology reviewed patient and in light of patient's chronic thrombocytopenia which had subsequently dropped somewhat to a glen of 48, 2D echo was done. 2D echo showed EF of 50 to 55% with stage I diastolic dysfunction and no regional wall motion abnormalities noted. Cardiology reviewed patient in light of the thrombocytopenia and lack of acute ST changes and chest pain has resolved cough, cardiology recommended that patient follow-up as an outpatient with cardiology. (Per cardiology notes, it was suspected that troponins were slightly elevated due to acute kidney injury in the setting of dehydration.). Patient remained stable and was therefore discharged on 02/05/2023. He was referred to GI on outpatient basis as well for consideration for EGD in light of the pain possibly being due to GI origins. Since being home, he has had no further episodes. He reports that he gets some chronic stable angina symptoms that usually are provoked w/ activity, but improve with 3-4 minutes of rest. Requesting refill of nitro. No palpitations/sob. Appetite has been good. No heartburn/indigestion. No hematochezia/melena. No hematuria. He has a follow-up scheduled with cardiology on 03/04/2023. He has a follow-up scheduled with GI on 03/16/2023. He has a 6-month follow-up for hematology scheduled for 03/19/2023. MEDICATIONS: Current Outpatient Medications Medication Sig nitroglycerin sublingual (NITROSTAT) 0.4 mg SL tablet Dissolve 1 tablet under the tongue every 5 minutes as needed for chest pain. Max of 3 tablets. DULoxetine (CYMBALTA) 60 mg capsule Take 1 capsule by mouth once daily. tamsulosin (FLOMAX) 0.4 mg take 1 capsule by mouth daily at bedtime omeprazole (PRILOSEC) 40 mg capsule Take 1 capsule by mouth once daily. finasteride (PROSCAR) 5 mg tablet Take 1 tablet by mouth once daily. ferrous sulfate (IRON ORAL) Take 1 tablet by mouth once daily. blood sugar diagnostic (BLOOD GLUCOSE TEST) test strip Test blood sugar(s) 1 times daily. Dx: Type 2 DM - Controlled E11.9 Insulin: No Lancets lancets Test blood sugar(s) 1 times daily. Dx: Type 2 DM - Controlled E11.9 Insulin: No blood sugar diagnostic (FREESTYLE TEST) test strip 1 Strip twice daily. Use as instructed metFORMIN (GLUCOPHAGE) 500 mg tablet Take 2 tablets by mouth twice daily with meals. . (Patient taking differently: Take 1,000 mg by francisco javier (more content not included)... [facility] 03-12-2023 History of Presen t illness Narrative Patient presents with: 6 Month Exam HPI: Patient presents today for office visit for follow up. Continues on Finasteride and Tamsulosin. Hx of BPH. Follows with Urology. No issues. Last OV in Nov. Denies chest pain. Has not had to use Nitro. Saw cardiology this week. Feeling well. They are going to do a stress test . Mentions shortness of breath only when he lays down for bed. States it takes him a couple minutes to start being able to breathe normally. Has been that way for some time. Red flags for re-assessment reviewed with patient in detail. Using CPAP nightly. Sleeping good through the night. Feels rested when waking. No snoring. GERD: Symptoms controlled. Mentions flatulence. No bloody or black stool. Sees Gastro on 03/16/23 for hiatal hernia. Mentions no appetite. says he's not eating like he should. Concerns of about a 10lb weight decrease in 6wks. See gi soon. Admitted into [facility] on 02/03/23 Discharged on 02/05/23 Chest pain and hiatal hernia. Sees [facility], urology, hematology. Saw Dr Blackmon, vascular surgery last month See Elidia's last note: Patient was admitted to [facility] on 02/03/2023 with complaint of chest pain and dry heaves. He had felt pain within his esophagus and was burning sensation when he took a deep breath then. He also had pain in his upper chest. He denies any fevers chills, palpitations, dizziness, nausea/vomiting, or any other symptoms. He had a history of his CAD status post CABG and had a cardiac cath in October 2020 which showed patent STARKEY to LAD, saphenous vein graft to circumflex artery, saphenous vein graft to right coronary artery supplying the posterior lateral vessel with some stenosis in the [place] distal circumflex artery. He had been on optimal medical therapy. On admission, his initial troponin was negative, but trended up to 94 and then subsequently up to 235. Chest x-ray showed no acute pulmonary findings. CT of the abdomen and pelvis with contrast showed small hiatal hernia and hepatic steatosis, but no other processes. EKG showed sinus tach with no evidence of acute ST changes. He was admitted and managed for chest pain to rule out ACS. He was given a GI cocktail which helped his pain. In light of his troponin subsequently trending up to 235, he was started on heparin drip to be treated for non-STEMI and cardiology was consulted. Cardiology reviewed patient and in light of patient's chronic thrombocytopenia which had subsequently dropped somewhat to a glen of 48, 2D echo was done. 2D echo showed EF of 50 to 55% with stage I diastolic dysfunction and no regional wall motion abnormalities noted. Cardiology reviewed patient in light of the thrombocytopenia and lack of acute ST changes and chest pain has resolved cough, cardiology recommended that patient follow-up as an outpatient with cardiology. (Per cardiology notes, it was suspected that troponins were slightly elevated due to acute kidney injury in the setting of dehydration.). Patient remained stable and was therefore discharged on 02/05/2023. He was referred to GI on outpatient basis as well for consideration for EGD in light of the pain possibly being due to GI origins. Since being home, he has had no further episodes. He reports that he gets some chronic stable angina symptoms that usually are provoked w/ activity, but improve with 3-4 minutes of rest. Requesting refill of nitro. No palpitations/sob. Appetite has been good. No heartburn/indigestion. No hematochezia/melena. No hematuria. He has a follow-up scheduled with cardiology on 03/04/2023. He has a follow-up scheduled with GI on 03/16/2023. He has a 6-month follow-up for hematology scheduled for 03/19/2023. MEDICATIONS: Current Outpatient Medications Medication Sig nitroglycerin sublingual (NITROSTAT) 0.4 mg SL tablet Dissolve 1 tablet under the tongue every 5 minutes as needed for chest pain. Max of 3 tablets. DULoxetine (CYMBALTA) 60 mg capsule Take 1 capsule by mouth once daily. tamsulosin (FLOMAX) 0.4 mg take 1 capsule by mouth daily at bedtime omeprazole (PRILOSEC) 40 mg capsule Take 1 capsule by mouth once daily. finasteride (PROSCAR) 5 mg tablet Take 1 tablet by mouth once daily. ferrous sulfate (IRON ORAL) Take 1 tablet by mouth once daily. blood sugar diagnostic (BLOOD GLUCOSE TEST) test strip Test blood sugar(s) 1 times daily. Dx: Type 2 DM - Controlled E11.9 Insulin: No Lancets lancets Test blood sugar(s) 1 times daily. Dx: Type 2 DM - Controlled E11.9 Insulin: No blood sugar diagnostic (FREESTYLE TEST) test strip 1 Strip twice daily. Use as instructed metFORMIN (GLUCOPHAGE) 500 mg tablet Take 2 tablets by mouth twice daily with meals. . (Patient taking differently: Take 1,000 mg by mouth two times a day with meals. One tablet by mouth four times daily) triamcinolone acetonide (KENALOG) 0.1 % cream Apply thin layer to affected areas twice daily as needed for irritation after photodynamic therapy. metoprolol tartrate, short acting, (LOPRESSOR) 100 mg tablet Take 1 tablet by mouth twice daily. fluticasone-vilanterol (BREO ELLIPTA) 100-25 mcg/dose inhaler Inhale 1 Inhalation as instructed once daily. multivit-min/FA/lycopen/lutein (CENTRUM SILVER MEN ORAL) Take 1 tablet by mouth once daily. amLODIPine (NORVASC) 5 mg tablet Take 1 tablet by mouth once daily. atorvastatin (LIPITOR) 20 mg tablet Take 1 tablet by mouth once daily. phenazopyridine (PYRIDIUM, GERIDIUM) 200 mg tablet Take 1 tablet by mouth three times daily as needed. CPAP Autopap 7-20 cm H2O, Heat Humidity, suitable mask, [employer] supplies, opt [place], G47.33. aspirin, enteric coated (ASPIRIN, ENTERIC COATED) 81 mg EC tablet Take 1 tablet by mouth once daily. No current facility-administered medications for this visit. ALLERGIES: ALLERGIES Allergen Reactions Plavix [Clopidogrel] GI Upset Caused constipation Adhesive Rash Adhesive on nitro patches Effexor [Venlafaxin* Other: See Comments Agitation; constipation Gluten Other: See Comments Lactose Diarrhea Lisinopril Cough [place] Diarrhea 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 Hyperlipidemia Malignant neoplasm of urinary bladder, unspecified site (HCC) CR (obstructive sleep apnea) DME [facility] G Other and unspecified hyperlipidemia Other peripheral vascular disease(443.89) Postsurgical aortocoronary bypass status Retention of urine, unspecified Sinusitis PAST SURGICAL HISTORY Procedure Laterality Date ANGIOPLASTY PERIPERAL ART 03/02/1998 STENT PLACED APPENDECTOMY 1969 COLONOSCOPY 05/05/2021 repeat in 5 years COLONOSCOPY FLX DX W/COLLJ SPEC WHEN PFRMD 08/23/2006 COLONOSCOPY FLX DX W/COLLJ SPEC WHEN PFRMD 12/11/2011 Colonoscopy CYSTOSCOPY 2017 Urethral dilation. CYSTOURETHROSCOPY 2019 LASER EXCISION SMALL BLADDER TUMOR(S) 0.5 TO 2.0 C EGD W/O [facility] SPEC VARICIES INJ 05/05/2021 ESOPHAGOGASTRODUODENOSCOPY TRANSORAL DIAGNOSTIC 12/11/2011 EGD KNEE ARTHROSCOPY Left 1966 PAST SURGICAL HISTORY OF 11/2008 CABG 3 PAST SURGICAL HISTORY OF 02/11/2011 Cysto, TURBT PAST SURGICAL HISTORY OF 12/18/2013 bladder surgery PAST SURGICAL HISTORY OF 2012 Transurethral resection of a medium bladder tumor REMOVE CATARACT, INSERT LENS, INTRACAPSUL Left 2013 RPR 1ST INGUN HRNA AGE 5 YRS/> REDUCIBLE Bilateral 2012 SIGMOIDOSCOPY FLX DX W/COLLJ SPEC BR/WA IF PFRMD 2002 Sigmoidoscopy TRANSCATH STENT INIT VESSEL,PERCUT 1998 Transcath stent init vessel percut 1 stent TRANSURETHRAL ELEC-SURG PROSTATECTOM 2016 Transurethral resection of bladder tumor, large FAMILY HISTORY Problem Relation Age of Onset Hypertension Mother Lipids Mother other (dementia) Mother other (aspiration pneumonia) Father following head injury Hypertension Sister Hypertension Brother No Known Problems Maternal Grandmother No Known Problems Maternal Grandfather Colon Cancer Paternal Grandmother No Known Problems Paternal Grandfather Social History Tobacco Use Smoking status: Former Packs/day: 1.00 Years: 20.00 Additional pack years: 0.00 Total pack years: 20.00 Types: Cigarettes Quit date: 12/23/1998 Years since quittin.2 Smokeless tobacco: Never Tobacco comments: Father smoked in childhood home. NO ETS as adult. Vaping Use Vaping Use: Never used Substance Use Topics Alcohol use: Not Currently Drug use: Never Reviewed current medications, allergies, past medical history, surgical history, family history and social history today. REVIEW OF SYSTEMS All other reviewed and negative other than HPI. HEALTH MAINTENANCE: Reviewed health maintenance issues today and recommended the following in detail. Shingrix Vaccine(1 of 2) Never done RSV Vaccine(1 - 1-dose 60+ series) Never done BP Controlled (<130/80) due on 03/29/2021 Diabetic Foot Exam-want podiatry to see his toenails. Urine Albumin:Creatinine Ratio due on 01/05/2023 Advance Directive Discussion due on 02/08/2023 Depression Assessment - positive. On cymbalta. Offered meds and counseling. Red flags for re-assessment reviewed with patient in detail. HbA1C due on 03/08/2023 Dilated Retinal Exam due on 02/17/2023 VITALS: BP 116/54 Pulse 72 Ht 172.7 cm (5' 8 ) Wt 86.6 kg (191 lb) SpO2 98% BMI 29.04 kg/m Last 4 Encounter Wt Readings: Date: Wt: 02/12/2023 87.1 kg (192 lb) 09/23/2022 90.5 kg (199 lb 9.6 oz) 09/16/2022 89.6 kg (197 lb 8 oz) 09/15/2022 89.7 kg (197 lb 12.8 oz) PHYSICAL EXAMINATION: General appearance: Well appearing, alert, in no acute distress, well-hydrated, well nourished. Skin: has a skin tag that bothers him. Also a small ecchymotic area on left chest wall. Sees derm Head: Normocephalic, no masses, lesions, tenderness or abnormalities Eyes: Anicteric sclera. Pupils are equally round and reactive to light. Extraocular movements are intact. Lungs: Lungs clear to auscultation. No wheezing, rhonchi, rales Heart: RRR without murmur, gallop, or rubs. No ectopy Abdomen: Normal abdominal exam, Abdomen soft, non-tender. Bowel sounds normal. No masses, organomegaly Extremities: No deformities, edema, skin discoloration, clubbing or cyanosis. Good capillary refill. Musculoskeletal: No joint swelling, deformity, or tenderness ASSESSMENT/PLAN: 1. Atherosclerosis of coronary artery of [place] heart with angina pectoris, unspecified vessel or lesion type (HCC) - ICD9: 414.01, 413.9, ICD10: I25.119 (primary diagnosis) - stable. Getting stress test. Red flags for re-assessment reviewed with patient in detail. 2. Essential hypertension, benign - ICD9: 401.1, ICD10: I10 - Controlled - Continue current medications 3. Hyperlipidemia LDL goal <100 - ICD9: 272.4, ICD10: E78.5 - Continue current medications - Counseled on healthy diet and regular exercise 4. Primary hypertension - ICD9: 401.9, ICD10: I10 5. CR (obstructive sleep apnea) - ICD9: 327.23, ICD10: G47.33 - as above. 6. 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) - ICD9: 188.3, ICD10: C67.3 Per urologyl 7. Anemia, unspecified type - ICD9: 285.9, ICD10: D64.9 - follow labs. 8. Chronic ITP (idiopathic thrombocytopenia) (HCC) - ICD9: 287.31, ICD10: D69.3 - per hematology 9. Type 2 diabetes mellitus without complication, without long-term current use of insulin (HCC) - ICD9: 250.00, ICD10: E11.9 - Controlled - Continue current medications - BASIC METABOLIC PNL - CBC + DIFF - HGB A1C - ALBUMIN/CREAT RATIO RND UR - CONSULT TO PODIATRY 10. History of bladder cancer - ICD9: V10.51, ICD10: Z85.51 - per urologyl 11. SOB (shortness of breath) - ICD9: 786.05, ICD10: R06.02 [- per cardiology - NT PRO BNP 12. Type 2 diabetes mellitus with peripheral neuropathy (HCC) - ICD9: 250.60, 357.2, ICD10: E11.42 - CONSULT TO PODIATRY Adam Lucero MD documented in this encounter [facility] 02-12-2023 Note HNO ID: [id number] Author: ELIDIA ROBLES APRN.TRANSIT VEHICLE INSPECTOR Service: ? Author Type: Nurse Practitioner Type: Progress Notes Filed: 02/12/2023 17:26 Note Text: This is a 72 year old male who presents today with: Patient presents with: Hospital F/U HISTORY OF PRESENT ILLNESS: Clark Bedoya is a 72 year old male. Patient presents with: Hospital F/U Pt presents today for hospital follow-up. 25 minutes delayed to appt. Patient was admitted to [facility] on 02/03/2023 with complaint of chest pain and dry heaves. He had felt pain within his esophagus and was burning sensation when he took a deep breath then. He also had pain in his upper chest. He denies any fevers chills, palpitations, dizziness, nausea/vomiting, or any other symptoms. He had a history of his CAD status post CABG and had a cardiac cath in October 2020 which showed patent STARKEY to LAD, saphenous vein graft to circumflex artery, saphenous vein graft to right coronary artery supplying the posterior lateral vessel with some stenosis in the [place] distal circumflex artery. He had been on optimal medical therapy. On admission, his initial troponin was negative, but trended up to 94 and then subsequently up to 235. Chest x-ray showed no acute pulmonary findings. CT of the abdomen and pelvis with contrast showed small hiatal hernia and hepatic steatosis, but no other processes. EKG showed sinus tach with no evidence of acute ST changes. He was admitted and managed for chest pain to rule out ACS. He was given a GI cocktail which helped his pain. In light of his troponin subsequently trending up to 235, he was started on heparin drip to be treated for non-STEMI and cardiology was consulted. Cardiology reviewed patient and in light of patient's chronic thrombocytopenia which had subsequently dropped somewhat to a glen of 48, 2D echo was done. 2D echo showed EF of 50 to 55% with stage I diastolic dysfunction and no regional wall motion abnormalities noted. Cardiology reviewed patient in light of the thrombocytopenia and lack of acute ST changes and chest pain has resolved cough, cardiology recommended that patient follow-up as an outpatient with cardiology. (Per cardiology notes, it was suspected that troponins were slightly elevated due to acute kidney injury in the setting of dehydration.). Patient remained stable and was therefore discharged on 02/05/2023. He was referred to GI on outpatient basis as well for consideration for EGD in light of the pain possibly being due to GI origins. Since being home, he has had no further episodes. He reports that he gets some chronic stable angina symptoms that usually are provoked w/ activity, but improve with 3-4 minutes of rest. Requesting refill of nitro. No palpitations/sob. Appetite has been good. No heartburn/indigestion. No hematochezia/melena. No hematuria. He has a follow-up scheduled with cardiology on 03/04/2023. He has a follow-up scheduled with GI on 03/16/2023. He has a 6-month follow-up for hematology scheduled for 03/19/2023. PAST MEDICAL HISTORY: 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 Hyperlipidemia Malignant neoplasm of urinary bladder, unspecified site (HCC) CR (obstructive sleep apnea) DME [facility] Other and unspecified hyperlipidemia Other peripheral vascular disease(443.89) Postsurgical aortocoronary bypass status Retention of urine, unspecified Sinusitis PAST SURGICAL HISTORY Procedure Laterality Date ANGIOPLASTY PERIPERAL ART 03/02/1998 STENT PLACED APPENDECTOMY 1969 COLONOSCOPY 05/05/2021 repeat in 5 years COLONOSCOPY FLX DX W/COLLJ SPEC WHEN PFRMD 08/23/2006 COLONOSCOPY FLX DX W/COLLJ SPEC WHEN PFRMD 12/11/2011 Colonoscopy CYSTOSCOPY 2017 Urethral dilation. CYSTOURETHROSCOPY 2019 LASER EXCISION SMALL BLADDER TUMOR(S) 0.5 TO 2.0 C EGD W/O [facility] SPEC VARICIES INJ 05/05/2021 ESOPHAGOGASTRODUODENOSCOPY TRANSORAL DIAGNOSTIC 12/11/2011 EGD KNEE ARTHROSCOPY Left 1966 PAST SURGICAL HISTORY OF 11/2008 CABG 3 PAST SURGICAL HISTORY OF 02/11/2011 Cysto, TURBT PAST SURGICAL HISTORY OF 12/18/2013 bladder surgery PAST SURGICAL HISTORY OF 2012 Transurethral resection of a medium bladder tumor REMOVE CATARACT, INSERT LENS, INTRACAPSUL Left 2012 RPR 1ST INGUN HRNA AGE 5 YRS/> REDUCIBLE Bilateral 2013 SIGMOIDOSCOPY FLX DX W/COLLJ SPEC BR/WA IF PFRMD 2002 Sigmoidoscopy TRANSCATH STENT INIT VESS (more content not included)... [facility] documented as of this encounter (statuses as of 03/12/2023) [facility] History of Past illness Narrative* Problem Noted Date Diagnosed Date Resolved Date Chest pain 02/05/2023 03/12/2023 03/12/2023 Chronic frontal sinusitis 11/30/2018 Last Assessment & Plan: Assessment: hx, no current tx Snoring 04/27/2013 06/24/2021 Inguinal hernia without ment ion of obstruction or gangrene, unilateral or unspecified, (not specified as recurrent) 04/11/2012 06/24/2015 Bilateral inguinal hernia 12/23/2010 Hematuria, microscopic 12/18/201006/23 Inguinal hernia 12/18/2010 06/24/2015 Coronary atherosclerosis 01/03/2008 documented as of this encounter (statuses as of 03/16/2023) [facility] History of Past illness Narrative* Problem Noted Date Diagnosed Date Resolved Date Chest pain 02/05/2023 03/12/2023 03/12/2023 Chronic frontal sinusitis 11/30/2018 Last Assessment & Plan: Assessment: hx, no current tx Snoring 04/27/2013 06/24/2021 Inguinal hernia without ment ion of obstruction or gangrene, unilateral or unspecified, (not specified as recurrent) 04/11/2012 06/24/2015 Bilateral inguinal hernia 12/23/2010 Hematuria, microscopic 12/18/201006/23 Inguinal hernia 12/18/2010 06/24/2015 Coronary atherosclerosis 01/03/2008 documented as of this encounter (statuses as of 03/17/2023) [facility] History of Past illness Narrative* Problem Noted Date Diagnosed Date Resolved Date Chest pain 02/05/2023 03/12/2023 03/12/2023 Chronic frontal sinusitis 11/30/2018 Last Assessment & Plan: Assessment: hx, no current tx Snoring 04/27/2013 06/24/2021 Inguinal hernia without ment ion of obstruction or gangrene, unilateral or unspecified, (not specified as recurrent) 04/11/2012 06/24/2015 Bilateral inguinal hernia 12/23/2010 Hematuria, microscopic 12/18/201006/23 Inguinal hernia 12/18/2010 06/24/2015 Coronary atherosclerosis 01/03/2008 documented as of this encounter (statuses as of 03/17/2023) [facility] History of Past illness Narrative* Problem Noted Date Diagnosed Date Resolved Date Chest pain 02/05/2023 03/12/2023 03/12/2023 Chronic frontal sinusitis 11/30/2018 Last Assessment & Plan: Assessment: hx, no current tx Snoring 04/27/2013 06/24/2021 Inguinal hernia without ment ion of obstruction or gangrene, unilateral or unspecified, (not specified as recurrent) 04/11/2012 06/24/2015 Bilateral inguinal hernia 12/23/2010 Hematuria, microscopic 12/18/201006/23 Inguinal hernia 12/18/2010 06/24/2015 Coronary atherosclerosis 01/03/2008 documented as of this encounter (statuses as of 03/17/2023) [facility] History of Past illness Narrative* Problem Noted Date Diagnosed Date Resolved Date Chest pain 02/05/2023 03/12/2023 03/12/2023 Chronic frontal sinusitis 11/30/2018 Last Assessment & Plan: Assessment: hx, no current tx Snoring 04/27/2013 06/24/2021 Inguinal hernia without ment ion of obstruction or gangrene, unilateral or unspecified, (not specified as recurrent) 04/11/2012 06/24/2015 Bilateral inguinal hernia 12/23/2010 Hematuria, microscopic 12/18/201006/23 Inguinal hernia 12/18/2010 06/24/2015 Coronary atherosclerosis 01/03/2008 documented as of this encounter (statuses as of 03/19/2023) [facility] History of Past illness Narrative* Problem Noted Date Diagnosed Date Resolved Date Chest pain 02/05/2023 03/12/2023 03/12/2023 Chronic frontal sinusitis 11/30/2018 Last Assessment & Plan: Assessment: hx, no current tx Snoring 04/27/2013 06/24/2021 Inguinal hernia without ment ion of obstruction or gangrene, unilateral or unspecified, (not specified as recurrent) 04/11/2012 06/24/2015 Bilateral inguinal hernia 12/23/2010 Hematuria, microscopic 12/18/201006/23 Inguinal hernia 12/18/2010 06/24/2015 Coronary atherosclerosis 01/03/2008 documented as of this encounter (statuses as of 03/23/2023) [facility] History of Past illness Narrative* Problem Noted Date Diagnosed Date Resolved Date Chest pain 02/05/2023 03/12/2023 03/12/2023 Chronic frontal sinusitis 11/30/2018 Last Assessment & Plan: Assessment: hx, no current tx Snoring 04/27/2013 06/24/2021 Inguinal hernia without ment ion of obstruction or gangrene, unilateral or unspecified, (not specified as recurrent) 04/11/2012 06/24/2015 Bilateral inguinal hernia 12/23/2010 Hematuria, microscopic 12/18/201006/23 Inguinal hernia 12/18/2010 06/24/2015 Coronary atherosclerosis 01/03/2008 documented as of this encounter (statuses as of 03/23/2023) [facility] NoteHNO ID: [id number] Author: Horace Rhodes MD Service: ? Author Type: Physician Type: Procedures Filed: 11/11/2022 5:57 PM Note Text: CYSTOSCOPY PROCEDURE NOTE: Clark Bedoya is a 72 year old male who presents with hematuria gross and follow up bladder tumor for cystoscopy. Pt ID verified with patient: Yes Procedure verified with patient: Yes Procedure confirmed with physician and it support engineer: Yes Patient's Pre-op pain level: 0 UNIVERSAL PROTOCOL / SAFETY CHECKLIST Procedure to be Performed: cystoscopy Sign In: A Moment of CARE was completed. Personnel directly involved with the procedure wore the appropriate PPE (Personal Protective Equipment). Patient/Surrogate Stated/Verified: PATIENT VERIFIED(optional for EMERGENT procedures): Patient name, Date of , Relevant allergies, and The intended procedure Time Out Communication: Intended patient and procedure match the source documents. Consent documented and matches the intended procedure. Sign Out: SIGN OUT (optional for EMERGENT procedures): No specimen collected. Horace Rhodes MD A urinalysis was performed revealing no evidence of infection. The benefits, risks, alternatives of the cystoscopy procedure and personnel were discussed with the patient. The verbal consent was obtained and the patient agrees to proceed. Procedure: The patient was placed on the procedure table in the supine position and prepped and draped in the usual sterile fashion. 2% Lidocaine Jelly was placed per urethra as an anesthetic in the standard fashion. Once adequate local anesthesia was achieved, the tip of the flexible cystoscope was carefully placed into the urethra under direct visual guidance. The scope was negotiated through the pendulous urethra to the level of the bulbar urethra with evidence of a anterior urethral stricture approximately 1 cm in length, I was able to pass the scope through with gentle pressure.. The verumontanum came into view and the scope was negotiated through the prostatic urethra which showed considerable prostatic regrowth at the bladder neck and base of the prostate.. The bladder was entered and careful [place] endoscopy was carried out. The posterior, superior and lateral ugarte and dome of the bladder were all well visualized. The findings were consistent with no evidence of bladder mucosal pathology. The prostatic nodular regrowth showed marked vascularity. At the conclusion of the procedure, the flexible cystoscope was removed atraumatically. The patient tolerated the procedure without complications. Patient was given standard post-procedure instructions, and was directed to complete the course of oral antibiotics and increase oral fluid intake as directed. Patient's Post-op pain level: 0 ASSESSMENT/PLAN: 1. Gross hematuria - ICD9: 599.71, ICD10: R31.0 (primary diagnosis) - CYSTO.PANENDO 2. History of bladder cancer - ICD9: V10.51, ICD10: Z85.51 3. Stricture of anterior urethra in male, unspecified stricture type - ICD9: 598.9, ICD10: N35.914 4. BPH with obstruction/lower urinary tract symptoms - ICD9: 600.01, 599.69, ICD10: N40.1, N13.8 Diagnosed in 2010 with bladder cancer. Also remote history of transurethral resection of the prostate. Last positive TURBT was in 2013. History of urethral stricture for which he straight catheterizes approximately 1 time per week. Recently had bouts of gross hematuria. Cystoscopy today shows nodular regrowth of the prostate with marked vascularity of it. Discussed TURP. He continues to need blood thinners. I would start him on finasteride in effort to downsize his prostate and hopefully help with the hematuria. Plan on cystoscopy in 1 year. I will be 10 years out from last positive specimen. Horace Rhodes Please note: This note has been produced using speech recognition software and may contain errors related to that system including grammar, punctuation, spelling, gender and words and phrases that may be inappropriate.[facility]08-16-2023 NoteHNO ID: [id number] Author: Amor Marie APRN.TRANSIT VEHICLE INSPECTOR Service: ? Author Type: Nurse Practitioner Type: Progress Notes Filed: 09/23/2022 6:40 PM Note Text: Subjective HPI Nontoxic-appearing male presents urgent care chief complaint dizziness. Duration of symptoms 24 hours. Associated symptoms dizziness with changing of positions. Patient feels like room is tilting. This sensation only last for a few seconds and resolves. Has not use any OTC medications. Denies any other symptoms. No known injuries. Does have a headache but this is normal for him. Does have some tingling in his left hand but he states this has been going on for over a month. Denies any significant discomfort. Denies any fever body aches chills nausea vomiting abdominal pain visual changes change in bowel or bladder habits. No chest pain or shortness of breath. Past medical history prescription medication use allergies reviewed. BP 144/78 Pulse 79 Temp 36.7 ?C (98 ?F) (Tympanic) Resp 16 Wt 90.5 kg (199 lb 9.6 oz) SpO2 97% BMI 29.91 kg/m? 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 Hyperlipidemia Malignant neoplasm of urinary bladder, unspecified site (HCC) CR (obstructive sleep apnea) DME [facility] Other and unspecified hyperlipidemia Other peripheral vascular disease(443.89) Postsurgical aortocoronary bypass status Retention of urine, unspecified Sinusitis PAST SURGICAL HISTORY Procedure Laterality Date ANGIOPLASTY PERIPERAL ART 03/02/1998 STENT PLACED APPENDECTOMY 1969 COLONOSCOPY 05/05/2021 repeat in 5 years COLONOSCOPY FLX DX W/COLLJ SPEC WHEN PFRMD 08/23/2006 COLONOSCOPY FLX DX W/COLLJ SPEC WHEN PFRMD 12/11/2011 Colonoscopy CYSTOSCOPY 2017 Urethral dilation. CYSTOURETHROSCOPY 2019 LASER EXCISION SMALL BLADDER TUMOR(S) 0.5 TO 2.0 C EGD W/O BRSH SPEC VARICIES INJ 05/05/2021 ESOPHAGOGASTRODUODENOSCOPY TRANSORAL DIAGNOSTIC 12/11/2011 EGD KNEE ARTHROSCOPY Left 1966 PAST SURGICAL HISTORY OF 11/2008 CABG 3 PAST SURGICAL HISTORY OF 02/11/2011 Cysto, TURBT PAST SURGICAL HISTORY OF 12/18/2013 bladder surgery PAST SURGICAL HISTORY OF 2012 Transurethral resection of a medium bladder tumor REMOVE CATARACT, INSERT LENS, INTRACAPSUL Left 2012 RPR 1ST INGUN HRNA AGE 5 YRS/> REDUCIBLE Bilateral 2012 SIGMOIDOSCOPY FLX DX W/COLLJ SPEC BR/WA IF PFRMD 2001 Sigmoidoscopy TRANSCATH STENT INIT VESSEL,PERCUT 1998 Transcath stent init vessel percut 1 stent TRANSURETHRAL ELEC-SURG PROSTATECTOM 2016 Transurethral resection of bladder tumor, large ALLERGIES Plavix [Clopidogrel], Effexor [Venlafaxine Hcl], Gluten, Lactose, Lisinopril, Nitro Patch [Other], and [place] MEDICATIONS ferrous sulfate (IRON ORAL) Take 1 tablet by mouth once daily. blood sugar diagnostic (BLOOD GLUCOSE TEST) test strip Test blood sugar(s) 1 times daily. Dx: Type 2 DM - Controlled E11.9 Insulin: No Lancets lancets Test blood sugar(s) 1 times daily. Dx: Type 2 DM - Controlled E11.9 Insulin: No blood sugar diagnostic (FREESTYLE TEST) test strip 1 Strip twice daily. Use as instructed metFORMIN (GLUCOPHAGE) 500 mg tablet Take 2 tablets by mouth twice daily with meals. . (Patient taking differently: Take 1,000 mg by mouth twice daily with meals. One tablet by mouth four times daily) triamcinolone acetonide (KENALOG) 0.1 % cream Apply thin layer to affected areas twice daily as needed for irritation after photodynamic therapy. metoprolol tartrate, short acting, (LOPRESSOR) 100 mg tablet Take 1 tablet by mouth twice daily. tamsulosin (FLOMAX) 0.4 mg Take 1 capsule by mouth daily at bedtime. DULoxetine (CYMBALTA) 60 mg capsule Take 1 capsule by mouth once daily. fluticasone-vilanterol (BREO ELLIPTA) 100-25 mcg/dose inhaler Inhale 1 Inhalation as instructed once daily. multivit-min/FA/lycopen/lutein (CENTRUM SILVER MEN ORAL) Take 1 tablet by mouth once daily. amLODIPine (NORVASC) 5 mg tablet Take 1 tablet by mouth once daily. atorvastatin (LIPITOR) 20 mg tablet Take 1 tablet by mouth once daily. Lancets lancets Test blood sugar(s) 2 times daily. Dx: Type 2 DM - Uncontrolled E11.65 Insulin: No aspirin, enteric coated (ASPIRIN, ENTERIC COATED) 81 mg EC tablet Take 1 tablet by mouth once daily. omeprazole (PRILOSEC) 40 mg capsule Take 1 capsule by mouth once daily. losartan (COZAAR) 25 mg tablet Take 1 tablet by mouth once daily. Ch (more content not included)...[facility]08-16-2023 History of Present illness Narrative* Amor Marie APRN.TRANSIT VEHICLE INSPECTOR - 09/23/2022 6:22 PM EDT Subjective HPI Nontoxic-appearing male presents urgent care chief complaint dizziness. Duration of symptoms 24 hours. Associated symptoms dizziness with changing of positions. Patient feels like room is tilting. This sensation only last for a few seconds and resolves. Has not use any OTC medications. Denies any other symptoms. No known injuries. Does have a headache but this is normal for him. Does have some tingling in his left hand but he states this has been going on for over a month. Denies any significant discomfort. Denies any fever body aches chills nausea vomiting abdominal pain visual changes change in bowel or bladder habits. No chest pain or shortness of breath. Past medical history prescription medication use allergies reviewed. BP 144/78 Pulse 79 Temp 36.7 C (98 F) (Tympanic) Resp 16 Wt 90.5 kg (199 lb 9.6 oz) SpO2 97% BMI 29.91 kg/m 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 Hyperlipidemia Malignant neoplasm of urinary bladder, unspecified site (HCC) CR (obstructive sleep apnea) D[facility] Other and unspecified hyperlipidemia Other peripheral vascular disease(443.89) Postsurgical aortocoronary bypass status Retention of urine, unspecified Sinusitis PAST SURGICAL HISTORY Procedure Laterality Date ANGIOPLASTY PERIPERAL ART 03/02/1998 STENT PLACED APPENDECTOMY 1969 COLONOSCOPY 05/05/2021 repeat in 5 years COLONOSCOPY FLX DX W/COLLJ SPEC WHEN PFRMD 08/23/2006 COLONOSCOPY FLX DX W/COLLJ SPEC WHEN PFRMD 12/11/2011 Colonoscopy CYSTOSCOPY 2017 Urethral dilation. CYSTOURETHROSCOPY 2019 LASER EXCISION SMALL BLADDER TUMOR(S) 0.5 TO 2.0 C EGD W/O [facility] SPEC VARICIES INJ 05/05/2021 ESOPHAGOGASTRODUODENOSCOPY TRANSORAL DIAGNOSTIC 12/11/2011 EGD KNEE ARTHROSCOPY Left 1966 PAST SURGICAL HISTORY OF 11/2008 CABG 3 PAST SURGICAL HISTORY OF 02/11/2011 Cysto, TURBT PAST SURGICAL HISTORY OF 12/18/2013 bladder surgery PAST SURGICAL HISTORY OF 2012 Transurethral resection of a medium bladder tumor REMOVE CATARACT, INSERT LENS, INTRACAPSUL Left 2013 RPR 1ST INGUN HRNA AGE 5 YRS/> REDUCIBLE Bilateral 2012 SIGMOIDOSCOPY FLX DX W/COLLJ SPEC BR/WA IF PFRMD 2001 Sigmoidoscopy TRANSCATH STENT INIT VESSEL,PERCUT 1998 Transcath stent init vessel percut 1 stent TRANSURETHRAL ELEC-SURG PROSTATECTOM 2015 Transurethral resection of bladder tumor, large ALLERGIES Plavix [Clopidogrel], Effexor [Venlafaxine Hcl], Gluten, Lactose, Lisinopril, Nitro Patch[Other], and [place] MEDICATIONS ferrous sulfate (IRON ORAL) Take 1 tablet by mouth once daily. blood sugar diagnostic (BLOOD GLUCOSE TEST) test strip Test blood sugar(s) 1 times daily. Dx: Type 2 DM - Controlled E11.9 Insulin: No Lancets lancets Test blood sugar(s) 1 times daily. Dx: Type 2 DM - Controlled E11.9 Insulin: No blood sugar diagnostic (FREESTYLE TEST) test strip 1 Strip twice daily. Use as instructed metFORMIN (GLUCOPHAGE) 500 mg tablet Take 2 tablets by mouth twice daily with meals. . (Patient taking differently: Take 1,000 mg by mouth twice daily with meals. One tablet by mouth four times daily) triamcinolone acetonide (KENALOG) 0.1 % cream Apply thin layer to affected areas twice daily as needed for irritation after photodynamic therapy. metoprolol tartrate, short acting, (LOPRESSOR) 100 mg tablet Take 1 tablet by mouth twice daily. tamsulosin (FLOMAX) 0.4 mg Take 1 capsule by mouth daily at bedtime. DULoxetine (CYMBALTA) 60 mg capsule Take 1 capsule by mouth once daily. fluticasone-vilanterol (BREO ELLIPTA) 100-25 mcg/dose inhaler Inhale 1 Inhalation as instructed once daily. multivit-min/FA/lycopen/lutein (CENTRUM SILVER MEN ORAL) Take 1 tablet by mouth once daily. amLODIPine (NORVASC) 5 mg tablet Take 1 tablet by mouth once daily. atorvastatin (LIPITOR) 20 mg tablet Take 1 tablet by mouth once daily. Lancets lancets Test blood sugar(s) 2 times daily. Dx: Type 2 DM - Uncontrolled E11.65 Insulin: No aspirin, enteric coated (ASPIRIN, ENTERIC COATED) 81 mg EC tablet Take 1 tablet by mouth once daily. omeprazole (PRILOSEC) 40 mg capsule Take 1 capsule by mouth once daily. losartan (COZAAR) 25 mg tablet Take 1 tablet by mouth once daily. Cholecalciferol, Vitamin D3, 50 mcg (2,000 unit) cap Take 1 capsule by mouth once daily. phenazopyridine (PYRIDIUM, GERIDIUM) 200 mg tablet Take 1 tablet by mouth three times daily as needed. (Patient not taking: Reported on 09/15/2022) CPAP Autopap 7-20 cm H2O, Heat Humidity, suitable mask, [employer], opt [place], G47.33. FAMILY HISTORY Problem Relation Age of Onset Hypertension Mother Lipids Mother other (dementia) Mother other (aspiration pneumonia) Father following head injury Hypertension Sister Hypertension Brother No Known Problems Maternal Grandmother No Known Problems Maternal Grandfather Colon Cancer Paternal Grandmother No Known Problems Paternal Grandfather Social History Tobacco Use Smoking status: Former Packs/day: 1.00 Years: 20.00 Additional pack years: 0.00 Total pack years: 20.00 Types: Cigarettes Quit date: 12/23/1998 Years since quittin.7 Smokeless tobacco: Never Tobacco comments: Father smoked in childhood home. NO ETS as adult. Vaping Use Vaping Use: Never used Substance Use Topics Alcohol use: Not Currently Drug use: Never Review of Systems Constitutional: Negative for chills, fever and malaise/fatigue. HENT: Positive for congestion. Negative for ear discharge, ear pain, sinus pain and sore throat. Eyes: Negative for blurred vision, pain, discharge and redness. Respiratory: Negative for cough, hemoptysis, sputum production, shortness of breath, wheezing and stridor. Cardiovascular: Negative for chest pain. Gastrointestinal: Negative for abdominal pain, diarrhea, nausea and vomiting. Musculoskeletal: Negative for myalgias. Skin: Negative for itching and rash. Neurological: Positive for dizziness, tingling and headaches. Objective Physical Exam Constitutional: General: He is not in acute distress. Appearance: He is not diaphoretic. HENT: Head: Normocephalic. Jaw: No trismus, tenderness, swelling or pain on movement. Right Ear: Tympanic membrane, ear canal and external ear normal. Left Ear: Tympanic membrane, ear canal and external ear normal. Nose: Nose normal. Mouth/Throat: Mouth: Mucous membranes are moist. Pharynx: Oropharynx is clear. Uvula midline. No pharyngeal swelling, oropharyngeal exudate, posterior oropharyngeal erythema or uvula swelling. Eyes: Conjunctiva/sclera: Conjunctivae normal. Pupils: Pupils are equal, round, and reactive to light. Cardiovascular: Rate and Rhythm: Normal rate and regular rhythm. Heart sounds: Normal heart sounds. Pulmonary: Effort: Pulmonary effort is normal. No tachypnea, accessory muscle usage or respiratory distress. Breath sounds: Normal breath sounds. No stridor. No wheezing, rhonchi or rales. Abdominal: General: There is no distension. Palpations: Abdomen is soft. Tenderness: There is no abdominal tenderness. There is no guarding or rebound. Musculoskeletal: Cervical back: Normal range of motion and neck supple. No edema, erythema, rigidity or tenderness. No pain with movement. Normal range of motion. Lymphadenopathy: Cervical: No cervical adenopathy. Skin: General: Skin is warm and dry. Neurological: General: No focal deficit present. Mental Status: He is alert and oriented to person, place, and time. Mental status is at baseline. Motor: No weakness. Gait: Gait normal. ASSESSMENT/PLAN: 1. Dizziness - ICD9: 780.4, ICD10: R42 Negative [place]-Hallpike maneuver. Dizziness was reproducible with movements. Discussed causes of dizziness. Discussed limitations in urgent care. With patient presenting symptoms I recommended patient be seen the ED for further evaluation care. Patient verbalized understand agrees plan of care. Amor Marie APRN.TRANSIT VEHICLE INSPECTOR documented [facility]Do[facility]23 NoteHNO ID: [id number] Author: Cheryl Sanchez RT(Reddy) Service: ? Author Type: Learning Technologist Type: Progress Notes Filed: 09/21/2022 2:52 PM Note Text: Radiology Service Progress Note PATIENT NAME: Clark Bedoya DATE OF SERVICE: September 21, 2022 TIME: 2:52 PM PATIENT IDENTITY VERIFICATION COMPLETED USING TWO (2) IDENTIFIERS: Name and Date of confirmed by patient verbally. FALL SCREENING: Has the patient had 2 falls in the last year or 1 fall with injury or currently using an Ambulatory Assistive Device (Walker, Cane, Wheelchair, Crutches, etc.)? No PATIENT GENDER DATA: Male PATIENT RELEVANT IMPLANT DATA REVIEWED: Yes RADIOLOGY DEPARTMENT: CT; Exam(s) Completed: Chest PERIPHERAL IV DATA: Not applicable SIGNED BY: RT Vazquez(R) September 21, 2022 2:52 PM[facility] History of Present illness Narrative* Cheryl Sanchez RT(R) - 09/21/2022 1:40 PM EDT Radiology Service Progress Note PATIENT NAME: Clark Bedoya DATE OF SERVICE: September 21, 2022 TIME: 2:52 PM PATIENT IDENTITY VERIFICATION COMPLETED USING TWO (2) IDENTIFIERS: Name and Date of confirmedby patient verbally. FALL SCREENING: Has the patient had 2 falls in the last year or 1 fall with injury or currently using an Ambulatory Assistive Device (Walker, Cane, Wheelchair, Crutches, etc.)? No PATIENT GENDER DATA: Male PATIENT RELEVANT IMPLANT DATA REVIEWED: Yes RADIOLOGY DEPARTMENT: CT; Exam(s) Completed: Chest PERIPHERAL IV DATA: Not applicable SIGNED BY: RT Vazquez(R) September 21, 2022 2:52 PM documented in this encounterDoctors Hospital08-09-2023 Miscellaneous Notes* Telephone Encounter - Ellen Gonzalez - 09/16/2022 3:31 PM EDT Left vm pt needs his cysto rescheduled with a sooner date. See Kelle Nava's note. Chela documented in this encounterDoctors Hospital08-09-2023 NoteHNO ID: [id number] Author: Kel Lilly MD Service: ? Author Type: Physician Type: Progress Notes Filed: 09/16/2022 9:28 AM Note Text: HISTORY OF PRESENT ILLNESS: Clark Bedoya is a 72 year old male history of mild anemia, moderate thrombocytopenia thought due to chronic ITP. He feels well, reports no issues other than recently discovered hematuria, seeing urology.. CLINICAL IMPRESSION: Mild anemia Chronic ITP presumptively Hematuria unlikely to stem from low platelets at this level RECOMMENDATION/PLAN: 1. Continue to monitor CBC, no intervention at this time 2. Back in 6 months with cbc Written and verbal health teaching given to patient, patient verbalizes understanding and agrees with treatment plan. 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 Hyperlipidemia Malignant neoplasm of urinary bladder, unspecified site (HCC) CR (obstructive sleep apnea) DME [facility] Other and unspecified hyperlipidemia Other peripheral vascular disease(443.89) Postsurgical aortocoronary bypass status Retention of urine, unspecified Sinusitis PAST SURGICAL HISTORY Procedure Laterality Date ANGIOPLASTY PERIPERAL ART 03/02/1998 STENT PLACED APPENDECTOMY 1969 COLONOSCOPY 05/05/2021 repeat in 5 years COLONOSCOPY FLX DX W/COLLJ SPEC WHEN PFRMD 08/23/2006 COLONOSCOPY FLX DX W/COLLJ SPEC WHEN PFRMD 12/11/2011 Colonoscopy CYSTOSCOPY 2017 Urethral dilation. CYSTOURETHROSCOPY 2019 LASER EXCISION SMALL BLADDER TUMOR(S) 0.5 TO 2.0 C EGD W/O BRSH SPEC VARICIES INJ 05/05/2021 ESOPHAGOGASTRODUODENOSCOPY TRANSORAL DIAGNOSTIC 12/11/2011 EGD KNEE ARTHROSCOPY Left 1966 PAST SURGICAL HISTORY OF 11/2008 CABG 3 PAST SURGICAL HISTORY OF 02/11/2011 Cysto, TURBT PAST SURGICAL HISTORY OF 12/18/2013 bladder surgery PAST SURGICAL HISTORY OF 2012 Transurethral resection of a medium bladder tumor REMOVE CATARACT, INSERT LENS, INTRACAPSUL Left 2012 RPR 1ST INGUN HRNA AGE 5 YRS/> REDUCIBLE Bilateral 2013 SIGMOIDOSCOPY FLX DX W/COLLJ SPEC BR/WA IF PFRMD 2002 Sigmoidoscopy TRANSCATH STENT INIT VESSEL,PERCUT 1999 Transcath stent init vessel percut 1 stent TRANSURETHRAL ELEC-SURG PROSTATECTOM 2016 Transurethral resection of bladder tumor, large FAMILY HISTORY Problem Relation Age of Onset Hypertension Mother Lipids Mother other (dementia) Mother other (aspiration pneumonia) Father following head injury Hypertension Sister Hypertension Brother No Known Problems Maternal Grandmother No Known Problems Maternal Grandfather Colon Cancer Paternal Grandmother No Known Problems Paternal Grandfather Social History Tobacco Use Smoking status: Former Packs/day: 1.00 Years: 20.00 Total pack years: 20.00 Types: Cigarettes Quit date: 12/23/1998 Years since quittin.7 Smokeless tobacco: Never Tobacco comments: Father smoked in childhood home. NO ETS as adult. Vaping Use Vaping Use: Never used Substance Use Topics Alcohol use: Not Currently Drug use: Never ALLERGIES: ALLERGIES Allergen Reactions Plavix [Clopidogrel] GI Upset Caused constipation Effexor [Venlafaxin* Other: See Comments Agitation; constipation Gluten Other: See Comments Lactose Diarrhea Lisinopril Cough Nitro Patch [Other] Rash Rash at site [place] Diarrhea CURRENT OUTPATIENT MEDICATIONS: ferrous sulfate (IRON ORAL) Take 1 tablet by mouth once daily. amoxicillin (AMOXIL) 875 mg tablet Take 1 tablet by mouth twice daily for 10 days. blood sugar diagnostic (BLOOD GLUCOSE TEST) test strip Test blood sugar(s) 1 times daily. Dx: Type 2 DM - Controlled E11.9 Insulin: No Lancets lancets Test blood sugar(s) 1 times daily. Dx: Type 2 DM - Controlled E11.9 Insulin: No blood sugar diagnostic (FREESTYLE TEST) test strip 1 Strip twice daily. Use as instructed metFORMIN (GLUCOPHAGE) 500 mg tablet Take 2 tablets by mouth twice daily with meals. . (Patient taking differently: Take 1,000 mg by mouth twice daily with meals. One tablet by mouth four times daily) triamcinolone acetonide (KENALOG) 0.1 % cream Apply thin layer to affected areas twice daily as needed for irritation after photodynamic therapy. metoprolol tartrate, short acting, (LOPRESSOR) 100 mg tablet Take 1 tablet by mouth twice daily. tamsulosin (FLOMAX) 0.4 mg Take 1 capsule by mouth daily at bedtime. DULoxetine (CYMBALTA) 60 mg capsule Take 1 capsule by mouth once daily. omeprazole (PRILOSEC) 40 m (more content not included)...[facility]08-09-2023 History of Present illness Narrative* Kel Lilly MD - 09/16/2022 8:48 AM EDT HISTORY OF PRESENT ILLNESS: Clark Bedoya is a 72 year old male history of mild anemia, moderatethrombocytopenia thought due to chronic ITP. He feels well, reports no issues other than recently discovered hematuria, seeing urology.. CLINICAL IMPRESSION: Mild anemia Chronic ITP presumptively Hematuria unlikely to stem from low platelets at this level RECOMMENDATION/PLAN: 1. Continue to monitor CBC, no intervention at this time 2. Back in 6 months with cbc Written and verbal health teaching given to patient, patient verbalizes understanding and agrees with treatment plan. 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 Hyperlipidemia Malignant neoplasm of urinary bladder, unspecified site (HCC) CR (obstructive sleep apnea) D[facility] Other and unspecified hyperlipidemia Other peripheral vascular disease(443.89) Postsurgical aortocoronary bypass status Retention of urine, unspecified Sinusitis PAST SURGICAL HISTORY Procedure Laterality Date ANGIOPLASTY PERIPERAL ART 03/02/1998 STENT PLACED APPENDECTOMY 1969 COLONOSCOPY 05/05/2021 repeat in 5 years COLONOSCOPY FLX DX W/COLLJ SPEC WHEN PFRMD 08/23/2006 COLONOSCOPY FLX DX W/COLLJ SPEC WHEN PFRMD 12/11/2011 Colonoscopy CYSTOSCOPY 2017 Urethral dilation. CYSTOURETHROSCOPY 2019 LASER EXCISION SMALL BLADDER TUMOR(S) 0.5 TO 2.0 C EGD W/O [facility] SPEC VARICIES INJ 05/05/2021 ESOPHAGOGASTRODUODENOSCOPY TRANSORAL DIAGNOSTIC 12/11/2011 EGD KNEE ARTHROSCOPY Left 1966 PAST SURGICAL HISTORY OF 11/2008 CABG 3 PAST SURGICAL HISTORY OF 02/11/2011 Cysto, TURBT PAST SURGICAL HISTORY OF 12/18/2013 bladder surgery PAST SURGICAL HISTORY OF 2012 Transurethral resection of a medium bladder tumor REMOVE CATARACT, INSERT LENS, INTRACAPSUL Left 2013 RPR 1ST INGUN HRNA AGE 5 YRS/> REDUCIBLE Bilateral 2013 SIGMOIDOSCOPY FLX DX W/COLLJ SPEC BR/WA IF PFRMD 2002 Sigmoidoscopy TRANSCATH STENT INIT VESSEL,PERCUT 1999 Transcath stent init vessel percut 1 stent TRANSURETHRAL ELEC-SURG PROSTATECTOM 2016 Transurethral resection of bladder tumor, large FAMILY HISTORY Problem Relation Age of Onset Hypertension Mother Lipids Mother other (dementia) Mother other (aspiration pneumonia) Father following head injury Hypertension Sister Hypertension Brother No Known Problems Maternal Grandmother No Known Problems Maternal Grandfather Colon Cancer Paternal Grandmother No Known Problems Paternal Grandfather Social History Tobacco Use Smoking status: Former Packs/day: 1.00 Years: 20.00 Total pack years: 20.00 Types: Cigarettes Quit date: 12/23/1998 Years since quittin.7 Smokeless tobacco: Never Tobacco comments: Father smoked in childhood home. NO ETS as adult. Vaping Use Vaping Use: Never used Substance Use Topics Alcohol use: Not Currently Drug use: Never ALLERGIES: ALLERGIES Allergen Reactions Plavix [Clopidogrel] GI Upset Caused constipation Effexor [Venlafaxin* Other: See Comments Agitation; constipation Gluten Other: See Comments Lactose Diarrhea Lisinopril Cough Nitro Patch [Other] Rash Rash at site [facility] Diarrhea CURRENT OUTPATIENT MEDICATIONS: ferrous sulfate (IRON ORAL) Take 1 tablet by mouth once daily. amoxicillin (AMOXIL) 875 mg tablet Take 1 tablet by mouth twice daily for 10 days. blood sugar diagnostic (BLOOD GLUCOSE TEST) test strip Test blood sugar(s) 1 times daily. Dx: Type 2 DM - Controlled E11.9 Insulin: No Lancets lancets Test blood sugar(s) 1 times daily. Dx: Type 2 DM - Controlled E11.9 Insulin: No blood sugar diagnostic (FREESTYLE TEST) test strip 1 Strip twice daily. Use as instructed metFORMIN (GLUCOPHAGE) 500 mg tablet Take 2 tablets by mouth twice daily with meals. . (Patient taking differently: Take 1,000 mg by mouth twice daily with meals. One tablet by mouth four times daily) triamcinolone acetonide (KENALOG) 0.1 % cream Apply thin layer to affected areas twice daily as needed for irritation after photodynamic therapy. metoprolol tartrate, short acting, (LOPRESSOR) 100 mg tablet Take 1 tablet by mouth twice daily. tamsulosin (FLOMAX) 0.4 mg Take 1 capsule by mouth daily at bedtime. DULoxetine (CYMBALTA) 60 mg capsule Take 1 capsule by mouth once daily. omeprazole (PRILOSEC) 40 mg capsule Take 1 capsule by mouth once daily. fluticasone-vilanterol (BREO ELLIPTA) 100-25 mcg/dose inhaler Inhale 1 Inhalation as instructed once daily. multivit-min/FA/lycopen/lutein (CENTRUM SILVER MEN ORAL) Take 1 tablet by mouth once daily. amLODIPine (NORVASC) 5 mg tablet Take 1 tablet by mouth once daily. atorvastatin (LIPITOR) 20 mg tablet Take 1 tablet by mouth once daily. Lancets lancets Test blood sugar(s) 2 times daily. Dx: Type 2 DM - Uncontrolled E11.65 Insulin: No CPAP Autopap 7-20 cm H2O, Heat Humidity, suitable mask, Lif[employer] supplies, opt Chinstrap, G47.33. aspirin, enteric coated (ASPIRIN, ENTERIC COATED) 81 mg EC tablet Take 1 tablet by mouth once daily. losartan (COZAAR) 25 mg tablet Take 1 tablet by mouth once daily. Cholecalciferol, Vitamin D3, 50 mcg (2,000 unit) cap Take 1 capsule by mouth once daily. phenazopyridine (PYRIDIUM, GERIDIUM) 200 mg tablet Take 1 tablet by mouth three times daily as needed. (Patient not taking: Reported on 09/15/2022) REVIEW OF SYSTEMS: GENERAL: No fever, night sweats, weight loss or malaise. All other reviewed and negative other than HPI. PHYSICAL EXAMINATION: VITAL SIGNS: BP 132/72 Pulse 67 Temp (Src) 97.3 (Temporal) Wt 197 lb 8 oz (89.6kg) SpO2 96% GENERAL APPEARANCE: Well appearing, in no acute distress, alert and oriented x3, well-hydrated, well nourished. SKIN: Skin color, texture, turgor normal. No needle tracks, ulcers, rashes or lesions. No bruising I spent a total of 30 minutes on the date of the service which included preparing to see the patient, [id number] patient care, completing clinical documentation, obtaining and/or reviewing separately obtained history, performing a medically appropriate examination, ordering medications, tests, or procedures, independently interpreting results (not separately reported), and communicating resultsto the patient/family/caregiver. Electronically Signed: Kel Lilly MD September 16, 2022 8:48 AM documented in this encounterDoctors Hospital08-08-2023 NoteHNO ID: [id number] Author: Lizz Nava PA-C Service: ? 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 SERVICE DATE: 09/15/2022 SERVICE TIME: 7:01 PM NAME: Clark Bedoya CHIEF COMPLAINT: History of Bladder Cancer HISTORY OF PRESENT ILLNESS: Clark Bedoya is a 72 year old male an established patient following up for recent gross hematuria episodes The patient reports he has been having gross hematuria ans was seen by PCP Dr. Lucero and was told to make a follow up appointment with Urology And was scheduled with me, however he is an active patient of Dr. Rhodes and had recently had a Cystoscopy and planned for TURBT (The findings were consistent with a red ulcerated area at the base of the bladder consistent with potential bladder cancer. Measures approximately 1/2-2 and half centimeters in diameter.) Post Cystoscopy there was no tumor, but stricture and BPH only No obvious tumor,+ prostatic nodular regrowth. The plan was to follow-up in 1 year with cysto. He had episodes of gross hematuria 1-2 weeks ago and referred to me Will check urine culture today to make sure he is clear for Cystoscopy with Dr. Rhodes Pt # [phone] LUTS: GROSS HEMATURIA: yes LABS: Hematocrit (%) Date Value 09/07/2022 38.4 11/11/2021 35.9 10/17/2021 32.1 07/14/2021 35.8 04/02/2021 37.6 03/28/2021 42.1 12/25/2020 40.7 03/29/2020 39.9 PSA (ng/mL) Date Value 03/24/2017 1.11 07/25/2015 1.04 07/04/2015 1.38 01/09/2012 1.38 PSA Screening (ng/mL) Date Value 01/07/2022 0.84 01/08/2021 0.8 01/03/2020 0.77 12/28/2018 1.39 11/30/2013 1.52 No results found for: TESTOST PSA (ng/mL) Date Value 03/24/2017 1.11 07/25/2015 1.04 07/04/2015 1.38 01/09/2012 1.38 PSA Screening (ng/mL) Date Value 01/07/2022 0.84 01/08/2021 0.8 01/03/2020 0.77 12/28/2018 1.39 11/30/2013 1.52 Creatinine Date Value Ref Range Status 09/07/2022 0.94 0.73 - 1.22 mg/dL Final 11/11/2021 0.91 0.73 - 1.22 mg/dL Final 06/25/2021 0.91 0.73 - 1.22 mg/dL Final 04/02/2021 0.81 0.73 - 1.22 mg/dL Final MEDICATIONS: amoxicillin (AMOXIL) 875 mg tablet Take 1 tablet by mouth twice daily for 10 days. blood sugar diagnostic (BLOOD GLUCOSE TEST) test strip Test blood sugar(s) 1 times daily. Dx: Type 2 DM - Controlled E11.9 Insulin: No Lancets lancets Test blood sugar(s) 1 times daily. Dx: Type 2 DM - Controlled E11.9 Insulin: No blood sugar diagnostic (FREESTYLE TEST) test strip 1 Strip twice daily. Use as instructed metFORMIN (GLUCOPHAGE) 500 mg tablet Take 2 tablets by mouth twice daily with meals. . (Patient taking differently: Take 1,000 mg by mouth twice daily with meals. One tablet by mouth four times daily) metoprolol tartrate, short acting, (LOPRESSOR) 100 mg tablet Take 1 tablet by mouth twice daily. tamsulosin (FLOMAX) 0.4 mg Take 1 capsule by mouth daily at bedtime. DULoxetine (CYMBALTA) 60 mg capsule Take 1 capsule by mouth once daily. omeprazole (PRILOSEC) 40 mg capsule Take 1 capsule by mouth once daily. fluticasone-vilanterol (BREO ELLIPTA) 100-25 mcg/dose inhaler Inhale 1 Inhalation as instructed once daily. losartan (COZAAR) 25 mg tablet Take 1 tablet by mouth once daily. multivit-min/FA/lycopen/lutein (CENTRUM SILVER MEN ORAL) Take 200 mg by mouth once daily. amLODIPine (NORVASC) 5 mg tablet Take 1 tablet by mouth once daily. atorvastatin (LIPITOR) 20 mg tablet Take 1 tablet by mouth once daily. Cholecalciferol, Vitamin D3, 50 mcg (2,000 unit) cap Take 1 capsule by mouth once daily. CPAP Autopap 7-20 cm H2O, Heat Humidity, suitable mask, Lif[employer] supplies, opt Chinstrap, G47.33. aspirin, enteric coated (ASPIRIN, ENTERIC COATED) 81 mg EC tablet Take 1 tablet by mouth once daily. triamcinolone acetonide (KENALOG) 0.1 % cream Apply thin layer to affected areas twice daily as needed for irritation after photodynamic therapy. (Patient not taking: Reported on 08/18/2022) phenazopyridine (PYRIDIUM, GERIDIUM) 200 mg tablet Take 1 tablet by mouth three times daily as needed. (Patient not taking: Reported on 09/15/2022) Lancets lancets Test blood sugar(s) 2 times daily. Dx: Type 2 DM - Uncontrolled E11.65 Insulin: No (Patient not taking: Reported on 09/15/2022) PAST MEDICAL HISTORY: PAST MEDICAL HISTORY Diagnosis Date Acute myocardial infarction, unspecified site, episode of care unspecified 03/02/1998 Bladder cancer (HCC) 02/2011 CAD (coronary artery disease) 2009 CABG x 3 Chronic depressive personality disorder Diverticulosis of colon (without mention of hemorrhage) DM (diabetes mellitus), type 2 (HCC) lilliam (more content not included)...[facility]08-08-2023 History of Present illness Narrative* Lizz Nava PA-C - 09/15/2022 7:01 PM EDT Images from the original note were not included. [facility] [place] [facility] ESTABLISHED PATIENT CLINIC NOTE Some elements copied from his previous note, which have been updated where appropriate, and all reflect current medical decision making from date of this visit. SERVICE DATE: 09/15/2022 SERVICE TIME: 7:01 PM NAME: Clark Bedoya CHIEF COMPLAINT: History of Bladder Cancer HISTORY OF PRESENT ILLNESS: Clark Bedoya is a 72 year old male an established patient following up for recent gross hematuria episodes The patient reports he has been having gross hematuria ans was seen by PCP Dr. Lucero and was told tomake a follow up appointment with Urology And was scheduled with me, however he is an active patient of Dr. Rhodes and had recently had aCystoscopy and planned for TURBT (The findings were consistent with a red ulcerated area at the base of the bladder consistent with potential bladder cancer. Measures approximately 1/2-2 and half centimeters in diameter.) Post Cystoscopy there was no tumor, but stricture and BPH only No obvious tumor,+ prostatic nodular regrowth. The plan was to follow-up in 1 year with cysto. He had episodes of gross hematuria 1-2 weeks ago and referred to me Will check urine culture today to make sure he is clear for Cystoscopy with Dr. Rhodes Pt # [phone] LUTS: GROSS HEMATURIA: yes LABS: Hematocrit (%) Date Value 09/07/2022 38.4 11/11/2021 35.9 10/17/2021 32.1 07/14/2021 35.8 04/02/2021 37.6 03/28/2021 42.1 12/25/2020 40.7 03/29/2020 39.9 PSA (ng/mL) Date Value 03/24/2017 1.11 07/25/2015 1.04 07/04/2015 1.38 01/09/2012 1.38 PSA Screening (ng/mL) Date Value 01/07/2022 0.84 01/08/2021 0.8 01/03/2020 0.77 12/28/2018 1.39 11/30/2013 1.52 No results found for: TESTOST PSA (ng/mL) Date Value 03/24/2017 1.11 07/25/2015 1.04 07/04/2015 1.38 01/09/2012 1.38 PSA Screening (ng/mL) Date Value 01/07/2022 0.84 01/08/2021 0.8 01/03/2020 0.77 12/28/2018 1.39 11/30/2013 1.52 Creatinine Date Value Ref Range Status 09/07/2022 0.94 0.73 - 1.22 mg/dL Final 11/11/2021 0.91 0.73 - 1.22 mg/dL Final 06/25/2021 0.91 0.73 - 1.22 mg/dL Final 04/02/2021 0.81 0.73 - 1.22 mg/dL Final MEDICATIONS: amoxicillin (AMOXIL) 875 mg tablet Take 1 tablet by mouth twice daily for 10 days. blood sugar diagnostic (BLOOD GLUCOSE TEST) test strip Test blood sugar(s) 1 times daily. Dx: Type 2 DM - Controlled E11.9 Insulin: No Lancets lancets Test blood sugar(s) 1 times daily. Dx: Type 2 DM - Controlled E11.9 Insulin: No blood sugar diagnostic (FREESTYLE TEST) test strip 1 Strip twice daily. Use as instructed metFORMIN (GLUCOPHAGE) 500 mg tablet Take 2 tablets by mouth twice daily with meals. . (Patient taking differently: Take 1,000 mg by mouth twice daily with meals. One tablet by mouth four times daily) metoprolol tartrate, short acting, (LOPRESSOR) 100 mg tablet Take 1 tablet by mouth twice daily. tamsulosin (FLOMAX) 0.4 mg Take 1 capsule by mouth daily at bedtime. DULoxetine (CYMBALTA) 60 mg capsule Take 1 capsule by mouth once daily. omeprazole (PRILOSEC) 40 mg capsule Take 1 capsule by mouth once daily. fluticasone-vilanterol (BREO ELLIPTA) 100-25 mcg/dose inhaler Inhale 1 Inhalation as instructed once daily. losartan (COZAAR) 25 mg tablet Take 1 tablet by mouth once daily. multivit-min/FA/lycopen/lutein (CENTRUM SILVER MEN ORAL) Take 200 mg by mouth once daily. amLODIPine (NORVASC) 5 mg tablet Take 1 tablet by mouth once daily. atorvastatin (LIPITOR) 20 mg tablet Take 1 tablet by mouth once daily. Cholecalciferol, Vitamin D3, 50 mcg (2,000 unit) cap Take 1 capsule by mouth once daily. CPAP Autopap 7-20 cm H2O, Heat Humidity, suitable mask, [employer] supplies, opt Chinstrap, G47.33. aspirin, enteric coated (ASPIRIN, ENTERIC COATED) 81 mg EC tablet Take 1 tablet by mouth once daily. triamcinolone acetonide (KENALOG) 0.1 % cream Apply thin layer to affected areas twice daily as needed for irritation after photodynamic therapy. (Patient not taking: Reported on 08/18/2022) phenazopyridine (PYRIDIUM, GERIDIUM) 200 mg tablet Take 1 tablet by mouth three times daily as needed. (Patient not taking: Reported on 09/15/2022) Lancets lancets Test blood sugar(s) 2 times daily. 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 Hyperlipidemia Malignant neoplasm of urinary bladder, unspecified site (HCC) CR (obstructive sleep apnea) DME [facility] [place] Other and unspecified hyperlipidemia Other peripheral vascular disease(443.89) Postsurgical aortocoronary bypass status Retention of urine, unspecified Sinusitis PAST SURGICAL HISTORY: PAST SURGICAL HISTORY Procedure Laterality Date ANGIOPLASTY PERIPERAL ART 03/02/1998 STENT PLACED APPENDECTOMY 1969 COLONOSCOPY 05/05/2021 repeat in 5 years COLONOSCOPY FLX DX W/COLLJ SPEC WHEN PFRMD 08/23/2006 COLONOSCOPY FLX DX W/COLLJ SPEC WHEN PFRMD 12/11/2011 Colonoscopy CYSTOSCOPY 2017 Urethral dilation. CYSTOURETHROSCOPY 2019 LASER EXCISION SMALL BLADDER TUMOR(S) 0.5 TO 2.0 C [facility]IC[facility] INJ 05/05/2021 ESOPHAGOGASTRODUODENOSCOPY TRANSORAL DIAGNOSTIC 12/11/2011 EGD KNEE ARTHROSCOPY Left 1966 PAST SURGICAL HISTORY OF 11/2008 CABG 3 PAST SURGICAL HISTORY OF 02/11/2011 Cysto, TURBT PAST SURGICAL HISTORY OF 12/18/2013 bladder surgery PAST SURGICAL HISTORY OF 2012 Transurethral resection of a medium bladder tumor REMOVE CATARACT, INSERT LENS, INTRACAPSUL Left 2012 RPR 1ST INGUN HRNA AGE 5 YRS/> REDUCIBLE Bilateral 2012 SIGMOIDOSCOPY FLX DX W/COLLJ SPEC BR/WA IF PFRMD 2001 Sigmoidoscopy TRANSCATH STENT INIT VESSEL,PERCUT 1998 Transcath stent init vessel percut 1 stent TRANSURETHRAL ELEC-SURG PROSTATECTOM 2016 Transurethral resection of bladder tumor, large FAMILY HISTORY: FAMILY HISTORY Problem Relation Age of Onset Hypertension Mother Lipids Mother other (dementia) Mother other (aspiration pneumonia) Father following head injury Hypertension Sister Hypertension Brother No Known Problems Maternal Grandmother No Known Problems Maternal Grandfather Colon Cancer Paternal Grandmother No Known Problems Paternal Grandfather SOCIAL HISTORY: Social Connections: Not on file REVIEW OF SYSTEMS: GENERAL: No fever, chills, weight loss, or fatigue. All other systems reviewed and are negative PHYSICAL EXAMINATION: Blood pressure 138/70, pulse 70, temperature 36.3 C (97.4 F), temperature source Temporal, resp. rate 12, height 174 cm (5' 8.5 ), weight 89.7 kg (197 lb 12.8 oz), SpO2 96 %. GENERAL: WNL nutrition, no deformities, healthy appearing PROBLEM LIST REVIEW: Yes LABS: Results for orders placed or performed in visit on 09/15/22 UA DIP, URINE (POC) Result Value Ref Range GLUCOSE UA (POCT) Negative Negative mg/dL BILIRUBIN UA (POCT) Negative Negative KETONE UA (POCT) Negative Negative mg/dL SPECIFIC GRAVITY UA (POCT) 1.015 1.005 - 1.030 HEMOGLOBIN/BLOOD UA (POCT) Large (A) Negative PH UA (POCT) 5.5 4.5 - 8.0 PROTEIN UA (POCT) Negative Negative mg/dL UROBILINOGEN UA (POCT) 0.2 Normal E.U./dL NITRITE UA (POCT) Negative Negative LEUKOCYTES UA (POCT) Negative Negative COLOR UA (POCT) Yellow CLARITY UA (POCT) Clear Urine Culture - Pending PROCEDURES: PVR: 37 ml IMPRESSION/PLAN: 72 year old male with 1. Gross hematuria - ICD9: 599.71, ICD10: R31.0 (primary diagnosis) 2. History of bladder cancer - ICD9: V10.51, ICD10: Z85.51 Will check urine culture today to make sure he is clear for Cystoscopy with Dr. Rhodes Pt # [phone] message sent so they can make a plan with patient, there was some mention In the notes that patient was not interested in another TURP, patient states he does not recall that conversation So I think it best for follow-up to be with Dr. Rhodes to make a plan for the recent hemturia EDU Hunt MT, PA-C * Cheryl Hargrove LPN - 09/15/2022 9:50 AM EDT Verified name and date of . CC Post Void Residual HPI: Clark Bedoya is a 72 year old male. The patient is here now for an appointment with EDU Hunt MT, PA-COV. Procedure: Explained procedure to patient and verbalizes understanding. Performed a PVR. Patient urinated and instructed to empty bladder as much as possible just prior to having PVR done using bladder ultrasound scanner. Results of scan: 37 mL The patient tolerated the procedure well. Plan: Appointment with Lizz. documented in this encounterDo[facility]08-08-2023 NoteHNO ID: [id number] Author: Cheryl Hargrove LPN Service: ? Author Type: ? Type: Progress Notes Filed: 09/15/2022 7:11 PM Note Text: Verified name and date of . CC Post Void Residual HPI: Clark Bedoya is a 72 year old male. The patient is here now for an appointment with EDU Hunt MT, PA-COV. Procedure: Explained procedure to patient and verbalizes understanding. Performed a PVR. Patient urinated and instructed to empty bladder as much as possible just prior to having PVR done using bladder ultrasound scanner. Results of scan: 37 mL The patient tolerated the procedure well. Plan: Appointment with Lizz.[facility]08-07-2023 Miscellaneous Notes* Telephone Encounter - Stacey Stuart - 09/14/2022 2:18 PM EDT Pt returned call and scheduled as directed * Telephone Encounter - Stacey Stuart - 09/14/2022 9:22 AM EDT 2nd attempt: LM * Telephone Encounter - Monica Cabrera Kassy - 09/07/2022 12:28 PM EDT Per 09/[address] Lucero. 1st attempt. Message left for patient to reschedule May appointments. Please schedule with Dr. Lilly w/labs prior at patient's convenience. CBC/CMP(S)/6 MO OV* documented in this encounterDoctors Hospital07-31-2023 NoteHNO ID: [id number] Author: Adam Lucero MD Service: ? Author Type: Physician Type: Progress Notes Filed: 09/07/2022 5:43 PM Note Text: Patient presents with: 6 Month Exam HPI: Patient presents today for office visit for follow CR: uses CPAP regularly. Sleeps well: Yes. Feels rested on awakening: No No daytime fatigue: No Snoring: No HTN: Patient is compliant with meds Yes Monitors bp at home: No. Denies side effects: No. Chest pain: No. Dyspnea: when going up stairs the second time with laundry basket. Edema: No. Palpitations: No. Syncope: No. Headache: having soreness from recent dental procedure with headache. Had top teeth removed and dentures. Soreness felt into sinus. Dizziness: No. Diabetes: HgbA1C is much improved from previous. Not yet checking sugars at home but would like to start. Will check once daily. Had a lot of jaw pain after his teeth were pulled. Has been having sinus pressure since teeth pulled a month ago. In the area of the both maxillary sinuses No cough. No chest congestion. Mild ear pain. No current swelling Seeing dentist tomorrow evening. Not using his xarelto. Had noted blood in his urine everytime he takes it. It was put on it by Dr. Blackmon. Advised to let him know. Missed last urology appt. Missed his last hematology appt. Sees Dr Cordon. May have missed last appts there as well. MEDICATIONS: Current Outpatient Medications Medication Sig metFORMIN (GLUCOPHAGE) 500 mg tablet Take 2 tablets by mouth twice daily with meals. . metoprolol tartrate, short acting, (LOPRESSOR) 100 mg tablet Take 1 tablet by mouth twice daily. tamsulosin (FLOMAX) 0.4 mg Take 1 capsule by mouth daily at bedtime. DULoxetine (CYMBALTA) 60 mg capsule Take 1 capsule by mouth once daily. omeprazole (PRILOSEC) 40 mg capsule Take 1 capsule by mouth once daily. fluticasone-vilanterol (BREO ELLIPTA) 100-25 mcg/dose inhaler Inhale 1 Inhalation as instructed once daily. losartan (COZAAR) 25 mg tablet Take 1 tablet by mouth once daily. multivit-min/FA/lycopen/lutein (CENTRUM SILVER MEN ORAL) Take 200 mg by mouth once daily. amLODIPine (NORVASC) 5 mg tablet Take 1 tablet by mouth once daily. atorvastatin (LIPITOR) 20 mg tablet Take 1 tablet by mouth once daily. CPAP Autopap 7-20 cm H2O, Heat Humidity, suitable mask, [employer] supplies, opt Chinstrap, G47.33. aspirin, enteric coated (ASPIRIN, ENTERIC COATED) 81 mg EC tablet Take 1 tablet by mouth once daily. blood sugar diagnostic (FREESTYLE TEST) test strip 1 Strip twice daily. Use as instructed triamcinolone acetonide (KENALOG) 0.1 % cream Apply thin layer to affected areas twice daily as needed for irritation after photodynamic therapy. (Patient not taking: Reported on 08/18/2022) XARELTO 2.5 mg tablet Take 1 tablet by mouth twice daily. Cholecalciferol, Vitamin D3, 50 mcg (2,000 unit) cap Take 1 capsule by mouth once daily. phenazopyridine (PYRIDIUM, GERIDIUM) 200 mg tablet Take 1 tablet by mouth three times daily as needed. Lancets lancets Test blood sugar(s) 2 times daily. Dx: Type 2 DM - Uncontrolled E11.65 Insulin: No No current facility-administered medications for this visit. ALLERGIES: ALLERGIES Allergen Reactions Plavix [Clopidogrel] GI Upset Caused constipation Effexor [Venlafaxin* Other: See Comments Agitation; constipation Gluten Other: See Comments Lactose Diarrhea Lisinopril Cough Nitro Patch [Other] Rash Rash at site [facility] Diarrhea PAST MEDICAL HISTORY Diagnosis Date Acute myocardial infarction, unspecified site, episode of care unspecified 03/02/98 Bladder cancer (HCC) 02/2011 CAD (coronary artery disease) 2009 CABG x 3 Chronic depressive personality disorder Diverticulosis of colon (without mention of hemorrhage) DM (diabetes mellitus), type 2 (HCC) denies takes no medications Essential hypertension, benign History of basal cell carcinoma (BCC) of skin 2019 right posterior shoulder 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 CYSTOURETHROSCOPY 2019 LASER EXCISION SMALL BLADDER TUMOR(S) 0.5 TO 2.0 C EGD W/O [facility] SPEC VARICIES INJ 05/05/2021 ESOPHAGOGASTRODUODENOSCOPY TRANSORAL DIAGNOSTIC 12/11/2011 EGD KNEE ARTHROSCOPY Left 1966 PAST SURGICAL HISTORY OF 11/2008 CABG 3 PAST SURGICAL HISTORY OF 02/11/2011 Cysto, TURBT PAST SURGICAL HISTORY OF 12/18/2013 bladder surgery PAS (more content not included)...[facility] [facility] Instructions* Patient Instructions* Adam Lucero MD - 09/07/2022 12:[address] Blackmon know you are not taking your xarelto. See urology, hematology And check with cardiology to see if due. documented in this encounterDo[facility] History of Present illness Narrative* Adam Lucero MD - 09/07/2022 11:55 AM EDT Patient presents with: 6 Month Exam HPI: Patient presents today for office visit for follow CR: uses CPAP regularly. Sleeps well: Yes. Feels rested on awakening: No No daytime fatigue: No Snoring: No HTN: Patient is compliant with meds Yes Monitors bp at home: No. Denies side effects: No. Chest pain: No. Dyspnea: when going up stairs the second time with laundry basket. Edema: No. Palpitations: No. Syncope: No. Headache: having soreness from recent dental procedure with headache. Had top teeth removed and dentures. Soreness felt into sinus. Dizziness: No. Diabetes: HgbA1C is much improved from previous. Not yet checking sugars at home but would like to start. Will check once daily. Had a lot of jaw pain after his teeth were pulled. Has been having sinus pressure since teeth pulled a month ago. In the area of the both maxillary sinuses No cough. No chest congestion. Mild ear pain. No current swelling Seeing dentist tomorrow evening. Not using his xarelto. Had noted blood in his urine everytime he takes it. It was put on it by Dr. Blackmon. Advised to let him know. Missed last urology appt. Missed his last hematology appt. Sees Dr Cordon. May have missed last appts there as well. MEDICATIONS: Current Outpatient Medications Medication Sig metFORMIN (GLUCOPHAGE) 500 mg tablet Take 2 tablets by mouth twice daily with meals. . metoprolol tartrate, short acting, (LOPRESSOR) 100 mg tablet Take 1 tablet by mouth twice daily. tamsulosin (FLOMAX) 0.4 mg Take 1 capsule by mouth daily at bedtime. DULoxetine (CYMBALTA) 60 mg capsule Take 1 capsule by mouth once daily. omeprazole (PRILOSEC) 40 mg capsule Take 1 capsule by mouth once daily. fluticasone-vilanterol (BREO ELLIPTA) 100-25 mcg/dose inhaler Inhale 1 Inhalation as instructed once daily. losartan (COZAAR) 25 mg tablet Take 1 tablet by mouth once daily. multivit-min/FA/lycopen/lutein (CENTRUM SILVER MEN ORAL) Take 200 mg by mouth once daily. amLODIPine (NORVASC) 5 mg tablet Take 1 tablet by mouth once daily. atorvastatin (LIPITOR) 20 mg tablet Take 1 tablet by mouth once daily. CPAP Autopap 7-20 cm H2O, Heat Humidity, suitable mask, [employer] supplies, opt Chinstrap, G47.33. aspirin, enteric coated (ASPIRIN, ENTERIC COATED) 81 mg EC tablet Take 1 tablet by mouth once daily. blood sugar diagnostic (FREESTYLE TEST) test strip 1 Strip twice daily. Use as instructed triamcinolone acetonide (KENALOG) 0.1 % cream Apply thin layer to affected areas twice daily as needed for irritation after photodynamic therapy. (Patient not taking: Reported on 08/18/2022) XARELTO 2.5 mg tablet Take 1 tablet by mouth twice daily. Cholecalciferol, Vitamin D3, 50 mcg (2,000 unit) cap Take 1 capsule by mouth once daily. phenazopyridine (PYRIDIUM, GERIDIUM) 200 mg tablet Take 1 tablet by mouth three times daily as needed. Lancets lancets Test blood sugar(s) 2 times daily. Dx: Type 2 DM - Uncontrolled E11.65 Insulin: No No current facility-administered medications for this visit. ALLERGIES: ALLERGIES Allergen Reactions Plavix [Clopidogrel] GI Upset Caused constipation Effexor [Venlafaxin* Other: See Comments Agitation; constipation Gluten Other: See Comments Lactose Diarrhea Lisinopril Cough Nitro Patch [Other] Rash Rash at site [place] Diarrhea PAST MEDICAL HISTORY Diagnosis Date Acute myocardial infarction, unspecified site, episode of care unspecified 03/02/98 Bladder cancer (HCC) 02/2011 CAD (coronary artery disease) 2009 CABG x 3 Chronic depressive personality disorder Diverticulosis of colon (without mention of hemorrhage) DM (diabetes mellitus), type 2 (HCC) denies takes no medications Essential hypertension, benign History of basal cell carcinoma (BCC) of skin 2019 right posterior shoulder 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 CYSTOURETHROSCOPY 2019 LASER EXCISION SMALL BLADDER TUMOR(S) 0.5 TO 2.0 C EGD W/O [facility] SPEC VARICIES INJ 05/05/2021 ESOPHAGOGASTRODUODENOSCOPY TRANSORAL DIAGNOSTIC 12/11/2011 EGD KNEE ARTHROSCOPY Left 1966 PAST SURGICAL HISTORY OF 11/2008 CABG 3 PAST SURGICAL HISTORY OF 02/11/2011 Cysto, TURBT PAST SURGICAL HISTORY OF 12/18/2013 bladder surgery PAST SURGICAL HISTORY OF 2013 Transurethral resection of a medium bladder tumor REMOVE CATARACT, INSERT LENS, INTRACAPSUL Left 2013 RPR 1ST INGUN HRNA AGE 5 YRS/> REDUCIBLE Bilateral 2013 SIGMOIDOSCOPY FLX DX W/COLLJ SPEC BR/WA IF PFRMD 2002 Sigmoidoscopy TRANSCATH STENT INIT VESSEL,PERCUT 1999 Transcath stent init vessel percut 1 stent TRANSURETHRAL ELEC-SURG PROSTATECTOM 2016 Transurethral resection of bladder tumor, large FAMILY HISTORY Problem Relation Age of Onset Hypertension Mother Lipids Mother other (dementia) Mother other (aspiration pneumonia) Father following head injury Hypertension Sister Hypertension Brother No Known Problems Maternal Grandmother No Known Problems Maternal Grandfather Colon Cancer Paternal Grandmother No Known Problems Paternal Grandfather Social History Tobacco Use Smoking status: Former Packs/day: 1.00 Years: 20.00 Total pack years: 20.00 Types: Cigarettes Quit date: 12/23/1998 Years since quittin.7 Smokeless tobacco: Never Tobacco comments: Father smoked in childhood home. NO ETS as adult. Vaping Use Vaping Use: Never used Substance Use Topics Alcohol use: Yes Comment: RARE Drug use: No Reviewed current medications, allergies, past medical history, surgical history, family history andsocial history today. REVIEW OF SYSTEMS All other reviewed and negative other than HPI. VITALS: BP 131/69 Pulse 73 Wt 89.8 kg (198 lb) SpO2 93% BMI 30.11 kg/m Last 4 Encounter Wt Readings: Date: Wt: 02/12/2022 93.4 kg (206 lb) 01/05/2022 93.9 kg (207 lb) 11/11/2021 93.2 kg (205 lb 8 oz) 11/05/2021 89.8 kg (198 lb) PHYSICAL EXAMINATION: General appearance: Well appearing, alert, in no acute distress, well-hydrated, well nourished. Skin: Skin color, texture, turgor normal, no suspicious rashes or lesions Head: Normocephalic, no masses, lesions, tenderness or abnormalities Eyes: Anicteric sclera. Pupils are equally round and reactive to light. Extraocular movements are intact. Ears: External ears normal, canals clear Nose/Sinuses: slightly tender over maxillary sinuses. Oropharynx: Lips, mucosa, and tongue normal, teeth and gums normal, oropharynx normal Neck: Supple, no adenopath Lungs: Lungs clear to auscultation. No wheezing, rhonchi, rales Heart: RRR without murmur, gallop, or rubs. No ectopy Abdomen: Normal abdominal exam, Abdomen soft, non-tender. Bowel sounds normal. No masses, organomegaly Extremities: No deformities, edema, skin discoloration, clubbing or cyanosis. Good capillary refill. ASSESSMENT/PLAN: 1. Essential hypertension, benign - ICD9: 401.1, ICD10: I10 (primary diagnosis) - Controlled - Continue current medications - COMP METABOLIC PANEL - LIPID PANEL, NONFASTING 2. Hyperlipidemia LDL goal <100 - ICD9: 272.4, ICD10: E78.5 - Controlled - Continue current medications 3. Atherosclerosis of coronary artery of [place] heart with angina pectoris, unspecified vessel or lesion type ([facility]) - ICD9: 414.01, 413.9, ICD10: I25.119 - follow with cardiology 4. PAD (peripheral artery disease) ([facility]) - ICD9: 443.9, ICD10: I73.9 - stable. Advised to let his vascular surgeon know he is not taking his blood thinners. 5. CR (obstructive sleep apnea) - ICD9: 327.23, ICD10: G47.33 Rec continue tx. 6. 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 Type 2 diabetes mellitus without complication, without long-term current use of insulin ([facility]) - ICD9: 250.00, ICD10: E11.9 - BLOOD-GLUCOSE METER KIT - BLOOD GLUCOSE TEST STRIPS - LANCETS 8. Chronic ITP (idiopathic thrombocytopenia) ([facility]) - ICD9: 287.31, ICD10: D69.3 - check labs and get back into hematology. - CBC + DIFF - CONSULT TO HEMATOLOGY 9. Sinus congestion - ICD9: 478.19, ICD10: R09.81 -Discussed risks and benefits of new medication with the patient. Advised them to call if any side effects or questions. Red flags for re-assessment reviewed with patient in detail. Call if symptoms worsen at all or if not better in one to two weeks Reviewed diagnosis and treatment options in detail. Questions were answered. Patient expressed understanding of treatment plan. -see dentist - AMOXICILLIN 875 MG TABLET 10. Gross hematuria - ICD9: 599.71, ICD10: R31.0 - explained with his history needs that followed up on. - URINALYSIS, WITH MICROSCOPIC - CONSULT TO UROLOGY - URINE CULTURE 11. History of bladder cancer - ICD9: V10.51, ICD10: Z85.51 - URINALYSIS, WITH MICROSCOPIC - CONSULT TO UROLOGY - URINE CULTURE 12. Vitamin D deficiency - ICD9: 268.9, ICD10: E55.9 - VITAMIN D 25 HYDROXY 13. Sinus pressure - ICD9: 478.19, ICD10: J34.89 - AMOXICILLIN 875 MG TABLET Adam Lucero MD documented in this encounterDoctors Hospital07-27-2023 Miscellaneous Notes* Telephone Encounter - Jennifer Malave - 09/03/2022 3:15 PM EDT Patient has been identified by name and date of : Yes Requested Prescriptions Pending Prescriptions Disp Refills blood sugar diagnostic (FREESTYLE TEST) test strip 100 Strip 11 Si Strip twice daily. Use as instructed RX INSTRUCTIONS:these test strips are freestyle lite Patient aware RX will be sent to pharmacy. No need to notify patient. [facility] documented in this encounterDoctors Hospital07-11-2023 NoteHNO ID: [id number] Author: Toro Weaver APRN.ALLA Service: ? Author Type: Nurse Practitioner Type: Progress Notes Filed: 08/18/2022 9:13 AM Note Text: Department of Dermatology Toro Weaver APRN.CNP 08/18/2022 Last visit in Dermatology: 07/15/2022 Objective/Assessment/Plan 1. AK (actinic keratosis) (8) Left Antihelix, Left [place], Left Parotid Area, Left Posterior Neck, Right Anterior Mandible, Right [place], Right Preauricular Area, Right Temporal Scalp Red papules with gritty adherent scale. CRYOTHERAPY SKIN LESION - Left Antihelix, Left [place], Left Parotid Area, Left Posterior Neck, Right Anterior Mandible, Right [place], Right Preauricular Area, Right Temporal Scalp Complexity: simple Destruction method: cryotherapy Informed consent: discussed and consent obtained Timeout: patient name, date of , surgical site, and procedure verified Lesion destroyed using liquid nitrogen: Yes Cryotherapy cycles: 2 Outcome: patient tolerated procedure well with no complications Post-procedure details: wound care instructions given Additional details: I discussed treatment options with the patient. The risks of blistering, infection, scarring, damage to underlying structures and potential need for future procedures discussed. The patient verbalized understanding and desires us to proceed. The nature of sun-induced photo-aging and skin cancers is discussed. Sun avoidance, protective clothing, and the use of 30-SPF sunscreens is advised. Patient is instructed to perform regular self exams. Observe for changing, symptomatic, or new skin lesions and seek care with the patient's primary care provider or with dermatology if any lesions of concern are noted. Follow-up as noted below or as needed. Chief Complaint: Patient presents with: Actinic Keratosis: Follow up PDT Subjective and Objective HPI: Clark Bedoya is a 72 year old male who presents for: Follow up actinic keratoses. Patient had a severe reaction to PDT. He is unsure if it was beneficial. Overall, his skin is smoother. Past medical history is reviewed. Medication list is reviewed. Physical Exam included: Face, scalp, ears, neck Intake information obtained by Erika Smith Ma 08/18/22 8:43 AM Toro Weaver APRN.[facility]07-11-2023 Instructions* Patient Instructions* Toro Weaver APRN.[facility] - 08/18/2022 8:52 AM EDT SKIN CARE AFTER CRYOSURGERY The skin's response to cryosurgery (freezing) can be mild to severe, depending on the depth of the freeze and location of the area treated. You may have minimal redness and swelling with little discomfort or significant discoloration and blistering with considerable discomfort. A burning sensation in the skin may last from several minutes to several hours after the procedure. Follow these instructions when caring for an area treated by cryosurgery: 1. Please clean the area every day with gentle soap and water. It is not necessary to cover the site with a bandage. However, it may be used for protection and it must be changed daily. Do not leave a soiled or wet bandage on the wound. 2. If you are experiencing discomfort you may use a cool compress, elevate the area or take over the counter pain relievers. 3. Apply Vaseline or Aquaphor daily to the site. This can help with itching, irritation, and discomfort. -The lesion may take 2-4 weeks to fully resolve. Depending on the severity of treatment and lesion treated, it may take longer. -DO NOT USE NEOSPORIN OR BACITRACIN as there is a fairly high incidence of allergic response to these products. -You may experience some mild discomfort, redness, swelling, and/or a clear discharge from the wound after your procedure. Severe pain, worsening swelling, and foul-smelling discharge from the site are NOT to be expected. If you have concerns about how your wounds are healing, please send your provider a [employer] message or call . documented in this encounterDoctors Hospital07-11-2023 History of Present illness Narrative* Toro Weaver APRN.CNP - 08/18/2022 8:40 AM EDT Images from the original note were not included. Department of Dermatology Toro Weaver APRN.CNP 08/18/2022 Last visit in Dermatology: 07/15/2022 Objective/Assessment/Plan 1. AK (actinic keratosis) (8) Left Antihelix, Left [place], Left Parotid Area, Left Posterior Neck, Right Anterior Mandible, Right [place], Right Preauricular Area, Right Temporal Scalp Red papules with gritty adherent scale. CRYOTHERAPY SKIN LESION - Left Antihelix, Left [place], Left Parotid Area, Left Posterior Neck, Right Anterior Mandible, Right [place], Right Preauricular Area, Right Temporal Scalp Complexity: simple Destruction method: cryotherapy Informed consent: discussed and consent obtained Timeout: patient name, date of , surgical site, and procedure verified Lesion destroyed using liquid nitrogen: Yes Cryotherapy cycles: 2 Outcome: patient tolerated procedure well with no complications Post-procedure details: wound care instructions given Additional details: I discussed treatment options with the patient. The risks of blistering, infection, scarring, damage to underlying structures and potential need for future procedures discussed. The patient verbalized understanding and desires us to proceed. The nature of sun-induced photo-aging and skin cancers is discussed. Sun avoidance, protective clothing, and the use of 30-SPF sunscreens is advised. Patient is instructed to perform regular self exams. Observe for changing, symptomatic, or new skin lesions and seek care with the patient's primary care provider or with dermatology if any lesions of concern are noted. Follow-up as noted below or as needed. Chief Complaint: Patient presents with: Actinic Keratosis: Follow up PDT Subjective and Objective HPI: Clark Bedoya is a 72 year old male who presents for: Follow up actinic keratoses. Patient had a severe reaction to PDT. He is unsure if it was beneficial. Overall, his skin is smoother. Past medical history is reviewed. Medication list is reviewed. Physical Exam included: Face, scalp, ears, neck Intake information obtained by Erika Smith Ma 08/18/22 8:43 AM Toro Weaver APRN.[employer] documented in this encounterDoctors Hospital06-07-2023 NoteHNO ID: [id number] Author: Lelia Ernandez RN Service: ? Author Type: Registered Nurse Type: Progress Notes Filed: 07/15/2022 12:59 PM Note Text: PHOTODYNAMIC THERAPY July 15, 2022 Dx: Actinic Keratosis Pt ID verified with patient: Yes Procedure verified against order and with patient: Yes Skin prepped with 70% isopropyl alcohol Yes Area treated: bilateral ears, neck/post-auricular, cheeks, chin, and nose Number of Levulan sticks applied: 2 Lot # [id number] 07/2025 Time before Blue Light exposure: 15 minutes Area treated: bilateral ears, neck/post-auricular, cheeks, chin, and nose Pt exposed to light for 30 minutes Patient reaction during treatment: None, patient tolerated procedure well. Patient reaction after treatment: None, patient tolerated procedure well. Aftercare instructions given. Patient verbalizes understanding. Follow up with Toro Weaver CNP . [facility] History of Present illness Narrative* Lelia Ernandez RN - 07/15/2022 10:30 AM EDT PHOTODYNAMIC THERAPY July 15, 2022 Dx: Actinic Keratosis Pt ID verified with patient: Yes Procedure verified against order and with patient: Yes Skin prepped with 70% isopropyl alcohol Yes Area treated: bilateral ears, neck/post-auricular, cheeks, chin, and nose Number of Levulan sticks applied: 2 Lot # [id number] 07/2025 Time before Blue Light exposure: 15 minutes Area treated: bilateral ears, neck/post-auricular, cheeks, chin, and nose Pt exposed to light for 30 minutes Patient reaction during treatment: None, patient tolerated procedure well. Patient reaction after treatment: None, patient tolerated procedure well. Aftercare instructions given. Patient verbalizes understanding. Follow up with Toro Weaver CNP . Lelia Ernandez RN documented in this encounterDoctors Hospital06-07-2023 Instructions* Patient Instructions* Alix Montiel - 07/15/2022 8:36 AM EDT After Care Instructions Photodynamic Therapy with Levulan and Blue Light Expected skin changes after PDT: The treated skin will likely turn red and may appear slightly swollen 24-48 h after treatment, but you should not see any blistering. Redness usually peaks one-to-two days after treatment and gets better within a week. Actinic keratosis lesions may not be gone until about four weeks after treatment. The skin may be itchy or change color slightly after treatment, but these changes are temporary. Photosensitivity: Levulan remains in the skin for 48 hours, so further reactions (redness and a tingling or burning sensation) can be caused by light exposure if one is not careful. Therefore, for about 2 days after the treatment, you should take care to protect the treated areas from light. Stay out of strong, direct light. Stay indoors as much as possible. Wear protective clothing and wide-brimmed hats to avoid sunlight when outdoors. Avoid beaches, snow, light colored concrete, or other reflective surfaces. After Care steps for you to do at home: Again, avoid direct light for 48 hours. Gently wash area twice a day with Cetaphil, Neutrogena or other mild cleanser. Do not scrub! After cleansing, use Aquaphor or Vaseline twice a day to keep the area moist and free of crust. Apply the topical steroid ointment that your doctor has prescribed for you (or alternatively, you can use 1% hydrocortisone ointment available at any pharmacy) to the entire treated area, twice a dayas needed for 2-4 days, to help decrease redness and irritation. Apply the steroid BEFORE applying Aquaphor ointment, not afterwards. Apply cool compresses as needed for comfort during the first few days. After day 3, gently exfoliate with a soft washcloth and warm water twice a day. Then apply either Aquaphor or Vaseline. To address swelling and redness, you may also take [id number] oral medications: Claritin (loratidine) 10 mg in the morning, Benadryl (diphenhydramine) 25-50 mg nightly (may cause drowsiness) and/or Ibuprofen as directed. If you absolutely must go outdoors during the first 48 hours, cover yourself with a broad-brimmed hat and use Neutrogena sensitive skin (chemical free) sunscreen SPF 30, or other titanium-dioxide type of sunscreen, in a thick layer to protect you from sunlight If you have questions or concerns, call the following number(s): [facility] [phone] documented in this encounterDoctors Hospital06-06-2023 NotePatient Outreach (INTMMN) CLARK BEDOYA ([id number]) 1950 M NFR Date Time Provider Department 07/14/22 ADAM LUCERO During your visit today, we recorded the following information about you: Allergies As of Date: 07/14/2022 Noted Allergy Reaction PLAVIX (CLOPIDOGREL) 01/03/2021 8 - GI Upset Comments: Caused constipation EFFEXOR (VENLAFAXINE HCL) 04/23/2005 14 - Other: See Comments Comments: Agitation; constipation GLUTEN 12/20/2019 14 - Other: See Comments LACTOSE 04/23/2005 6 - Diarrhea LISINOPRIL 03/24/2017 3 - Cough NITRO PATCH [Other] 04/23/2005 2 - Rash Comments: Rash at site RYE 05/20/2006 6 - Diarrhea Date Reviewed: 05/18/2022 Reviewed by: Alix Montiel - Fully Assessed Visit Diagnosis:Type 2 diabetes mellitus without complication, without long-term current use of insulin (HCC) [E11.9] Order(s):HGB A1C [ZCLCG5G] Order #: [id number] FUTURE Prescriptions as of 07/17/2022 - triamcinolone acetonide (KENALOG) 0.1 % cream Apply thin layer to affected areas twice daily as needed for irritation after photodynamic therapy. - metoprolol tartrate, short acting, (LOPRESSOR) 100 mg tablet Take 1 tablet by mouth twice daily. - tamsulosin (FLOMAX) 0.4 mg Take 1 capsule by mouth daily at bedtime. - DULoxetine (CYMBALTA) 60 mg capsule Take 1 capsule by mouth once daily. - metFORMIN (GLUCOPHAGE) 500 mg tablet Take 2 tablets by mouth twice daily with meals. . - omeprazole (PRILOSEC) 40 mg capsule Take 1 capsule by mouth once daily. - fluticasone-vilanterol (BREO ELLIPTA) 100-25 mcg/dose inhaler Inhale 1 Inhalation as instructed once daily. - XARELTO 2.5 mg tablet Take 1 tablet by mouth twice daily. - losartan (COZAAR) 25 mg tablet Take 1 tablet by mouth once daily. - multivit-min/FA/lycopen/lutein (CENTRUM SILVER MEN ORAL) Take 200 mg by mouth once daily. - amLODIPine (NORVASC) 5 mg tablet Take 1 tablet by mouth once daily. - atorvastatin (LIPITOR) 20 mg tablet Take 1 tablet by mouth once daily. - Cholecalciferol, Vitamin D3, 50 mcg (2,000 unit) cap Take 1 capsule by mouth once daily. - phenazopyridine (PYRIDIUM, GERIDIUM) 200 mg tablet Take 1 tablet by mouth three times daily as needed. - blood sugar diagnostic (FREESTYLE TEST) test strip 1 Strip twice daily. Use as instructed - Lancets lancets Test blood sugar(s) 2 times daily. Dx: Type 2 DM - Uncontrolled E11.65 Insulin: No - CPAP Autopap 7-20 cm H2O, Heat Humidity, suitable mask, [employer] supplies, opt [place], G47.33. - aspirin, enteric coated (ASPIRIN, ENTERIC COATED) 81 mg EC tablet Take 1 tablet by mouth once daily. Problem List As Of Date 07/14/2022 Noted Resolved ACTINIC KERATOSIS [L57.0] 04/24/2005 Hyperlipidemia LDL goal <100 [E78.5] 04/24/2005 ADJUSTMENT DISORDER WITH DEPRESSED MOOD [F43.21]04/24/2005 BENIGN HYPERTENSION [I10] 07/12/2007 Coronary atherosclerosis [I25.10] 01/03/2008 12/25/2020 Hematuria, microscopic [R31.29] 12/18/2010 06/24/2015 Polypharmacy [Z79.899] 12/18/2010 Renal cyst [N28.1] 12/18/2010 Inguinal hernia [K40.90] 12/18/2010 06/24/2015 BPH (benign prostatic hyperplasia) [N40.0] 12/18/2010 Smoking history [Z87.891] 12/18/2010 Bilateral inguinal hernia [K40.20] 12/23/2010 06/24/2015 Bladder cancer [C67.9] 03/02/2011 GERD (gastroesophageal reflux disease) [K21.9] 12/11/2011 Inguinal hernia without mention of obstruction *04/11/2012 06/24/2015 History of bladder cancer [Z85.51] 07/28/2012 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] 04/27/2013 Snoring [R06.83] 04/27/2013 06/24/2021 Anemia [D64.9] 01/01/2014 Thrombocytopenia (HCC) [D69.6] 01/01/2014 Atherosclerosis of coronary artery of [place] he*07/21/2016 Vitamin D deficiency [E55.9] 08/09/2017 Chronic frontal sinusitis [J32.1] 11/30/2018 CR (obstructive sleep apnea) [G47.33] 12/13/2018 Type 2 diabetes mellitus without complication, *12/27/2018 PAD (peripheral artery disease) (HCC) [I73.9] 12/25/2020 Abnormal CXR [R93.89] 01/03/2021 Chronic ITP (idiopathic thrombocytopenia) ([facility])*04/02/2021 Class 1 obesity due to excess calories with ser*04/21/2021 Reticulocytosis [R70.1] 11/12/2021 Encounter Status:Closed by Lee Silber, Brain[employer]USER on 07/17/22[facility] 05-18-2022 NoteHNO ID: [id number] Author: Toro Weaver APRN.ALLA Service: ? Author Type: Nurse Practitioner Type: Progress Notes Filed: 05/21/2022 9:13 AM Note Text: Department of Dermatology Toro Weaver APRN.TRANSIT VEHICLE INSPECTOR 05/18/2022 Last visit in Dermatology: 07/22/2021 Objective/Assessment/Plan 1. AK (actinic keratosis) (6) Head, Left Ear (2), Right Breast, Right Ear (2) Red papules with gritty adherent scale. LN2 today. Plan to treat with PDT in about 1 month. R/b/a for the treatment/medication(s) including possible side effects discussed and reviewed with patient. CRYOTHERAPY SKIN LESION - Left Ear (2), Right Breast, Right Ear (2) Complexity: simple Destruction method: cryotherapy Informed consent: discussed and consent obtained Timeout: patient name, date of , surgical site, and procedure verified Lesion destroyed using liquid nitrogen: Yes Cryotherapy cycles: 2 Outcome: patient tolerated procedure well with no complications Post-procedure details: wound care instructions given Additional details: Actinic keratosis - Discussed premalignant etiology - Discussed risks and benefits of treatment options including cryotherapy vs Efudex 5% vs. Photodynamic Therapy (PDT). - Given recommend local therapy with cryotherapy. - Patient elects for treatment with Cryotherapy: Risks, benefits, alternatives, complications, and personnel required for cryosurgery were reviewed with the patient. Specifically, the risks of permanent scarring, loss or darkening of skin color, blister, incomplete treatment, and recurrence of the lesion were discussed. The patient verbalizes understanding and wishes to proceed. - Cryosurgery performed with Liquid Nitrogen via cryostat spray gun to Actinic Keratosis . - Patient tolerated well and wound care was discussed. Return if lesions fail to fully resolve. PDT 2020 - Head The nature of sun-induced photo-aging and skin cancers is discussed. Sun avoidance, protective clothing, and the use of 30-SPF sunscreens is advised. Patient is instructed to perform regular self exams. Observe for changing, symptomatic, or new skin lesions and seek care with the patient's primary care provider or with dermatology if any lesions of concern are noted. Follow-up as noted below or as needed. Toro Weaver APRN.ALLA Chief Complaint: Patient presents with: LESION, SKIN Subjective and Objective HPI: Clark Bedoya is a 72 year old male who presents for: For individual lesion(s). Lesion(s): spots Location(s): ears Duration: 4-5 years Symptoms: bleeds only if catches on towel Inciting factors: no inciting factors Associated symptoms/previous treatments: LN2 Past medical history is reviewed. Medication list is reviewed. Physical Exam included: Ears, face, scalp, neck Intake completed by LORI Evans APRN.[facility]04-10-2023 Instructions* Patient Instructions* Toro Weaver APRN.ALLA - 05/18/2022 11:55 AM EDT SKIN CARE AFTER CRYOSURGERY The skin's response to cryosurgery (freezing) can be mild to severe, depending on the depth of the freeze and location of the area treated. You may have minimal redness and swelling with little discomfort or significant discoloration and blistering with considerable discomfort. A burning sensation in the skin may last from several minutes to several hours after the procedure. Follow these instructions when caring for an area treated by cryosurgery: 1. Please clean the area every day with gentle soap and water. It is not necessary to cover the site with a bandage. However, it may be used for protection and it must be changed daily. Do not leave a soiled or wet bandage on the wound. 2. If you are experiencing discomfort you may use a cool compress, elevate the area or take over the counter pain relievers. 3. Apply Vaseline or Aquaphor daily to the site. This can help with itching, irritation, and discomfort. -The lesion may take 2-4 weeks to fully resolve. Depending on the severity of treatment and lesion treated, it may take longer. -DO NOT USE NEOSPORIN OR BACITRACIN as there is a fairly high incidence of allergic response to these products. -You may experience some mild discomfort, redness, swelling, and/or a clear discharge from the wound after your procedure. Severe pain, worsening swelling, and foul-smelling discharge from the site are NOT to be expected. If you have concerns about how your wounds are healing, please send your provider a [employer] message or call . documented in this encounterDoctors Hospital04-10-2023 History of Present illness Narrative* Toro Weaver APRN.CNP - 05/18/2022 11:52 AM EDT Images from the original note were not included. Department of Dermatology Toro Weaver APRN.CNP 05/18/2022 Last visit in Dermatology: 07/22/2021 Objective/Assessment/Plan 1. AK (actinic keratosis) (6) Head, Left Ear (2), Right Breast, Right Ear (2) Red papules with gritty adherent scale. LN2 today. Plan to treat with PDT in about 1 month. R/b/a for the treatment/medication(s) including possible side effects discussed and reviewed with patient. CRYOTHERAPY SKIN LESION - Left Ear (2), Right Breast, Right Ear (2) Complexity: simple Destruction method: cryotherapy Informed consent: discussed and consent obtained Timeout: patient name, date of , surgical site, and procedure verified Lesion destroyed using liquid nitrogen: Yes Cryotherapy cycles: 2 Outcome: patient tolerated procedure well with no complications Post-procedure details: wound care instructions given Additional details: Actinic keratosis - Discussed premalignant etiology - Discussed risks and benefits of treatment options including cryotherapy vs Efudex 5% vs. Photodynamic Therapy (PDT). - Given recommend local therapy with cryotherapy. - Patient elects for treatment with Cryotherapy: Risks, benefits, alternatives, complications, and personnel required for cryosurgery were reviewed with the patient. Specifically, the risks of permanent scarring, loss or darkening of skin color, blister, incomplete treatment, and recurrence of the lesion were discussed. The patient verbalizes understanding and wishes to proceed. - Cryosurgery performed with Liquid Nitrogen via cryostat spray gun to Actinic Keratosis . - Patient tolerated well and wound care was discussed. Return if lesions fail to fully resolve. PDT 2020 - Head The nature of sun-induced photo-aging and skin cancers is discussed. Sun avoidance, protective clothing, and the use of 30-SPF sunscreens is advised. Patient is instructed to perform regular self exams. Observe for changing, symptomatic, or new skin lesions and seek care with the patient's primary care provider or with dermatology if any lesions of concern are noted. Follow-up as noted below or as needed. 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 Lesion(s): spots Location(s): ears Duration: 4-5 years Symptoms: bleeds only if catches on towel Inciting factors: no inciting factors Associated symptoms/previous treatments: LN2 Past medical history is reviewed. Medication list is reviewed. Physical Exam included: Ears, face, scalp, neck Intake completed by LORI Evans APRN.TRANSIT VEHICLE INSPECTOR documented in this encounterDoctors Hospital03-23-2023 Miscellaneous Notes* Telephone Encounter - Maya Carlos LPN - 04/30/2022 4:33 PM EDT Faxed as requested. * Telephone Encounter - Adam Lucero MD - 04/30/2022 3:48 PM EDT printed * Telephone Encounter - Jennifer Pickett - 04/30/2022 2:42 PM EDT Clark Bedoya is calling Adam Lucero MD today to request a new RX be sent for patient C-PAP supplies to [facility] . Patient has been identified by name and birthdate. Duration of symptoms: N/A Person calling: self Call patient at: at home [phone] (home) Was an appointment scheduled: No Closing statement: Results or non-symptom based questions: [facility] you [facility], your call will be returned within the next business day. Jennifer Serna [employer] documented in this encounterDoctors Hospital03-20-2023 Miscellaneous Notes* Telephone Encounter - Natalia Cabrera - 04/27/2022 3:34 PM EDT Pharmacy verified in Epic Patient has been identified by name and date of : Yes Patient aware RX will be sent to pharmacy. No need to notify patient. Patient phones for refill(s): Requested Prescriptions Pending Prescriptions Disp Refills metoprolol tartrate, short acting, (LOPRESSOR) 100 mg tablet 180 tablet 3 Sig: Take 1 tablet by mouth twice daily. Date of last office visit : 02/12/2022 Date of next office visit : Visit date not found Last 2 Encounter Wt Readings: Date: Wt: 02/12/2022 93.4 kg (206 lb) 01/05/2022 93.9 kg (207 lb) Please advise. Natalia Spears Pss documented in this encounterDoctors Hospital01-05-2023 History of Present illness Narrative* Adam Lucero MD - 02/12/2022 10:30 AM EST Patient presents with: White Spots HPI: Patient presents today for office visit for spots on ears X 3 months. Has seen Dermatology in past and had cryo done. No pain. Have changed size. Seemed to have gotten bigger. No drainage or redness. MEDICATIONS: Current Outpatient Medications Medication Sig DULoxetine (CYMBALTA) 60 mg capsule Take 1 capsule by mouth once daily. metFORMIN (GLUCOPHAGE) 500 mg tablet Take 2 tablets by mouth twice daily with meals. . tamsulosin (FLOMAX) 0.4 mg Take 1 capsule by mouth daily at bedtime. omeprazole (PRILOSEC) 40 mg capsule Take 1 capsule by mouth once daily. fluticasone-vilanterol (BREO ELLIPTA) 100-25 mcg/dose inhaler Inhale 1 Inhalation as instructed once daily. XARELTO 2.5 mg tablet Take 1 tablet by mouth twice daily. losartan (COZAAR) 25 mg tablet Take 1 tablet by mouth once daily. multivit-min/FA/lycopen/lutein (CENTRUM SILVER MEN ORAL) Take 200 mg by mouth once daily. metoprolol tartrate, short acting, (LOPRESSOR) 100 mg tablet Take 1 tablet by mouth twice daily. amLODIPine (NORVASC) 5 mg tablet Take 1 tablet by mouth once daily. atorvastatin (LIPITOR) 20 mg tablet Take 1 tablet by mouth once daily. Cholecalciferol, Vitamin D3, 50 mcg (2,000 unit) cap Take 1 capsule by mouth once daily. phenazopyridine (PYRIDIUM, GERIDIUM) 200 mg tablet Take 1 tablet by mouth three times daily as needed. blood sugar diagnostic (FREESTYLE TEST) test strip 1 Strip twice daily. Use as instructed Lancets lancets Test blood sugar(s) 2 times daily. Dx: Type 2 DM - Uncontrolled E11.65 Insulin: No CPAP Autopap 7-20 cm H2O, Heat Humidity, suitable mask, [employer], opt [place], G47.33. aspirin, enteric coated (ASPIRIN, ENTERIC COATED) 81 mg EC tablet Take 1 tablet by mouth once daily. No current facility-administered medications for this visit. ALLERGIES: ALLERGIES Allergen Reactions Plavix [Clopidogrel] GI Upset Caused constipation Effexor [Venlafaxin* Other: See Comments Agitation; constipation Gluten Other: See Comments Lactose Diarrhea Lisinopril Cough Nitro Patch [Other] Rash Rash at site [place] Diarrhea PAST MEDICAL HISTORY Diagnosis Date Acute myocardial infarction, unspecified site, episode of care unspecified 03/02/98 Bladder cancer (HCC) 02/2011 CAD (coronary artery disease) 2009 CABG x 3 Chronic depressive personality disorder Diverticulosis of colon (without mention of hemorrhage) DM (diabetes mellitus), type 2 (HCC) denies takes no medications Essential hypertension, benign History of basal cell carcinoma (BCC) of skin 2019 right posterior shoulder 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 CYSTOURETHROSCOPY 2019 LASER EXCISION SMALL BLADDER TUMOR(S) 0.5 TO 2.0 C EGD W/O [facility] SPEC VARICIES INJ 05/05/2021 ESOPHAGOGASTRODUODENOSCOPY TRANSORAL DIAGNOSTIC 12/11/2011 EGD KNEE ARTHROSCOPY Left 1966 PAST SURGICAL HISTORY OF 11/2008 CABG 3 PAST SURGICAL HISTORY OF 02/11/2011 Cysto, TURBT PAST SURGICAL HISTORY OF 12/18/2013 bladder surgery PAST SURGICAL HISTORY OF 2012 Transurethral resection of a medium bladder tumor REMOVE CATARACT, INSERT LENS, INTRACAPSUL Left 2012 RPR 1ST INGUN HRNA AGE 5 YRS/> REDUCIBLE Bilateral 2013 SIGMOIDOSCOPY FLX DX W/COLLJ SPEC BR/WA IF PFRMD 2002 Sigmoidoscopy TRANSCATH STENT INIT VESSEL,PERCUT 1999 Transcath stent init vessel percut 1 stent TRANSURETHRAL ELEC-SURG PROSTATECTOM 2016 Transurethral resection of bladder tumor, large FAMILY HISTORY Problem Relation Age of Onset Hypertension Mother Lipids Mother other (dementia) Mother other (aspiration pneumonia) Father following head injury Hypertension Sister Hypertension Brother No Known Problems Maternal Grandmother No Known Problems Maternal Grandfather Colon Cancer Paternal Grandmother No Known Problems Paternal Grandfather Social History Tobacco Use Smoking status: Former Packs/day: 1.00 Years: 20.00 Pack years: 20.00 Types: Cigarettes Quit date: 12/23/1998 Years since quittin.1 Smokeless tobacco: Never Tobacco comments: Father smoked in childhood home. NO ETS as adult. Vaping Use Vaping Use: Never used Substance Use Topics Alcohol use: Yes Comment: RARE Drug use: No Reviewed current medications, allergies, past medical history, surgical history, family history andsocial history today. REVIEW OF SYSTEMS All other reviewed and negative other than HPI. VITALS: BP 158/80 Pulse 83 Ht 172.7 cm (5' 8 ) Wt 93.4 kg (206 lb) SpO2 97% BMI 31.32 kg/m Last 4 Encounter Wt Readings: Date: Wt: 01/05/2022 93.9 kg (207 lb) 11/11/2021 93.2 kg (205 lb 8 oz) 11/05/2021 89.8 kg (198 lb) 10/21/2021 90.3 kg (199 lb) PHYSICAL EXAMINATION: General appearance: Well appearing, alert, in no acute distress, well-hydrated, well nourished. Skin: a lot of scaling on both ears. Right greater than left. ASSESSMENT/PLAN: 1. Actinic keratosis - ICD9: 702.0, ICD10: L57.0 - back into derm. - CONSULT TO DERMATOLOGY Adam Lucero MD documented in this encounterDoctors Hospital12-13-2022 Miscellaneous Notes* Telephone Encounter - Lesia Too Pérez [facility] - 01/20/2022 11:22 AM EST Patient has been identified by name and date of : Yes Requested Prescriptions Pending Prescriptions Disp Refills DULoxetine (CYMBALTA) 60 mg capsule 90 capsule 3 Sig: Take 1 capsule by mouth once daily. RX INSTRUCTIONS: Patient aware RX escripted to mail away pharmacy. No need to notify patient. Lesia Pérez Pss documented in this encounterDoctors Hospital12-02-2022 Miscellaneous Notes* Telephone Encounter - Santa Bianchi Ma - 01/09/2022 10:15 AM EST Patient was made aware of the results. Patient verbalizes understanding. Santa Bianchi Ma * Telephone Encounter - Santa Bianchi Ma - 01/09/2022 10:14 AM EST ----- Message from Raymond Dias PA-C sent at 01/09/2022 6:31 AM EST ----- He can stop ATB. Thanks, Chetan Dias PA-C * Telephone Encounter - Santa Bianchi Ma - 01/09/2022 10:13 AM EST ----- Message from Raymond Dias PA-C sent at 01/09/2022 6:30 AM EST ----- Please advise UC showed no infection skin bacteria.. Thanks, Chetan Dias PA-C documented in this encounterDoctors Hospital12-01-2022 Miscellaneous Notes* Telephone Encounter - Fabiola Cho RN - 01/08/2022 8:53 AM EST Patient contacted and given provider's message below with verbalized understanding. Fabiola Cho RN * Telephone Encounter - Adam Lucero MD - 01/08/2022 8:23 AM EST His sugars are higher. Would recommend increasing metformin to 4 tabs a day. Call sugars in two weeks to Chetan and watch his diet. documented in this encounterDoctors Hospital11-30-2022 Miscellaneous Notes* Telephone Encounter - Latonia Fitzpatrick - 01/07/2022 9:45 AM EST Patient stopped in the office and message was relayed about abx called in. Patient states he already picked up Rx and started. Latonia Fitzpatrick * Telephone Encounter - Raymond Herman RN - 01/07/2022 8:07 AM EST Left vm on unidentified vm for patient to return call to nurse for provider message. * Telephone Encounter - Raymond Dias PA-C - 01/06/2022 5:59 PM EST The following approved medication requests have been transmitted electronically. Requested Prescriptions Signed Prescriptions Disp Refills nitrofurantoin monohydrate and macrocrystal (MACROBID) 100 mg capsule 14 capsule 0 Sig: Take 1 capsule by mouth twice daily with meals for 7 days. Authorizing Provider: Raymond DIAS PA-C documented in this encounterDoctors Hospital11-30-2022 Miscellaneous Notes* Telephone Encounter - Antony Andres LPN - 01/07/2022 9:08 AM EST See other phone note. Antony Andres LPN * Telephone Encounter - Santa Bianchi Ma - 01/06/2022 6:03 PM EST Pt was advised abx will be called in * Telephone Encounter - Raymond Dias PA-C - 01/06/2022 5:09 PM EST Waiting for microscopic to determine need. Thanks, Chetan Dias PA-C * Telephone Encounter - Roma Esquivel LPN - 01/06/2022 3:52 PM EST Pt seen yesterday & states an antibiotic was going to be called in for him for a UTI. Pt uses [facility] & states the antibiotic hasnt been sent in yet. Please advise & notify pt. Roma Esquivel LPN documented in this encounterDoctors Hospital11-28-2022 History of Present illness Narrative* Raymond Dias PA-C - 01/05/2022 2:40 PM EST 71 year old male with c/o here for follow up- I haven't seen him in 5 years. Atherosclerosis of coronary artery of [place] heart with angina pectoris, unspecified vessel or lesion type (hcc) (primary encounter diagnosis) Essential hypertension, benign Hyperlipidemia ldl goal <100 Pad (peripheral artery disease) ([facility]) Cardiology: [facility] Cardiovascular interval hx: 09/10/2020 exercise tolerance test, [facility], Dr. Plascencia: Valente protocol for 3 minutes and 30 seconds completing stage I 30 seconds of stage II with peak heart rate 148, 98% of predicted MHR with peak blood pressure 228/88, peak met capacity 5 METS. Baseline EKG demonstrated poor R wave progression, nonspecific ST and T wave abnormalities which continue to be demonstrated at peak exercise. Cardiolite demonstrated uniform tracer uptake 06/14/2017 bilateral lower extremity noninvasive arterial exam: Right: PT and DP ABHINAV 1.09, 1.08 respectively with digital index of 0.95 WNL Left: PT and DP ABHINAV 1.02 and 1.04 respectively with a digital index of 0.82 WNL 10/21/2015 cardiac catheterization [facility], Dr. Plascencia: LVSP 141/68, aortic pressure 141/80, post angiogram LV SP 141/68, aortic 34/71. Left main: 80% stenosis bifurcation into the LAD and LCx LCx: Branches to obtuse marginal, second medium-sized obtuse marginal with bifurcation with inferior branch subtotally occluded, LCx stent totally occluded with small sidebranch with obtuse marginal noted LAD: Medium sized vessel, proximal 30 to 40% with continuation to first diagonal, mild disease noted. Mid segment also with mild to moderate disease. Vessel continuing to the second diagonal branch with bifurcated with competitive flow seen filling the distal LAD. RCA: Nondominant vessel with sinoatrial branch and conus branch and acute marginal branch. STARKEY to LAD patent with proximal and distal anastomotic sites free of disease SVG to posterior descending artery free from disease both proximal and distal. SVG to obtuse marginal branch patent. Left ventriculogram: Preserved LV SF, severe hypokinesis of basal and mid inferior wall. Preserved ejection fraction 10/04/2015 nuclear stress test treadmill, [facility], Dr. Plascencia: Mildly abnormal exercise perfusion stress test with evidence of: Previous inferior infarct, mild inferior ischemia, mild functional aerobic 03/02/[address] Blackmon Current meds: Clopidogrel 75mg daily- d/c 2020 Dr. Blackmon due to constipation Xarelto 2.5mg daily --> now takes it every other day instead of daily, was causing him hematuria. Is planning to talk to his professor of medicine. No easy bruising or epistaxis. ASA 81mg daily Metoprolol tartrate SA twice a day Amlodipine 5mg daily Losartan 25mg daily Atorvastatin 20mg daily HS Use of NTG: No Chest pain, arm, jaw pain, neck, or upper back pain suggestive of angina: No. SOB: No Dyspnea with exertion: Yes. After he uses the stairs, but is able to recatch it. Orthopnea: No Cough : No Racing or irregular heartbeats: No Palpitations: No Syncopal sx: No. Headache: No Unexplainable fatigue No Leg swelling: No Nausea: No diaphoresis: No Heartburn: No Claudication: No Smoking: No. Quit 20 years ago. Following Low cholesterol, high fiber diet? No If on statin: muscle aches? No If on statin: GI sx or diarrhea? No Lab review: Component Latest Ref Rng & Units 06/25/2021 Cholesterol, Total <200 mg/dL 72 Triglyceride <150 mg/dL 215 (H) HDL Cholesterol >39 mg/dL 19 (L) Non HDL Cholesterol <130 mg/dL 53 Fasting Time hrs 12 VLDL Cholesterol <30 mg/dL 43 (H) TC:HDL Ratio <5.10 3.79 LDL Cholesterol <100 mg/dL 10 LDL:HDL Ratio <2.54 0.53 Current medications: Fluticasone-vilatenterol 100-25mcg 1 inh daily CR (obstructive sleep apnea) CPAP 7-20cm H2O heated humidity BPH Urethral stricture Malignant neoplasm of anterior wall of urinary bladder ([facility]) Urologist: Dr. Horace Rhodes Hx TURP 11/10/2021 12/05/2018 bladder bx: FINAL DIAGNOSIS: A) RIGHT PERIURETERAL ORIFICE, BIOPSY - BENIGN UROTHELIAL MUCOSA WITH MILD CHRONIC INFLAMMATION. B) POSTERIOR BLADDER WALL, BIOPSY - NO PATHOLOGIC ABNORMALITIES. C) ANTERIOR BLADDER WALL, TRANSURETHRAL RESECTION - FRAGMENTS OF BENIGN MUSCULARIS PROPRIA WITH CHRONIC INFLAMMATION AND SCANT INTACT UNREMARKABLE UROTHELIUM. Type 2 diabetes mellitus without complication, without long-term current use of insulin ([facility]) Current medications: Metformin 500mg three times daily Medication side effects? No Taking medication as directed consistently? Yes Medical Issues / Complications: None Checking blood sugars at home? No. Watching diet? Yes. Staying away from carbs and sugar. Physical Activity: Regular Hypoglycemic spells? No Any visual disturbance? No Chest pain? No New numbness, tingling or loss of sensation? Yes. Tingling/numbness in both feet. Any recent foot problems, sores or rashes? No Any recent or sudden weight loss? No Change in urination? No. Any recent illness? Yes, COVID a few weeks ago. Last eye exam: April 2021. Last foot exam: Today. HBA1C: Hemoglobin A1C (%) Date Value 06/25/2021 7.4 03/28/2021 7.1 12/25/2020 7.7 ) CMP: Glucose 379 11/11/2021 BUN 19 11/11/2021 Creatinine 0.91 11/11/2021 Sodium 138 11/11/2021 Potassium 4.5 11/11/2021 Chloride 100 11/11/2021 CO2 23 11/11/2021 Protein, Total 7.4 11/11/2021 Albumin 4.7 11/11/2021 Calcium 9.3 11/11/2021 Alkaline Phosphatase 68 11/11/2021 Bilirubin, Total 0.7 11/11/2021 AST 15 11/11/2021 ALT 14 11/11/2021 Last 2 Encounter Wt Readings: Date: Wt: 11/11/2021 93.2 kg (205 lb 8 oz) 11/05/2021 89.8 kg (198 lb) Chronic itp (idiopathic thrombocytopenia) (hcc) Component Latest Ref Rng & Units 10/17/2021 11/11/2021 WBC 3.70 - 11.00 k/uL 5.67 10.22 RBC 4.20 - 6.00 m/uL 3.27 (L) 3.60 (L) Hemoglobin 13.0 - 17.0 g/dL 10.3 (L) 11.3 (L) Hematocrit 39.0 - 51.0 % 32.1 (L) 35.9 (L) MCV 80.0 - 100.0 fL 98.2 99.7 MCH 26.0 - 34.0 pg 31.5 31.4 MCHC 30.5 - 36.0 g/dL 32.1 31.5 RDW-CV 11.5 - 15.0 % 18.7 (H) 17.6 (H) Platelet Count 150 - 400 k/uL 65 (L) 66 (L) MPV 9.0 - 12.7 fL 13.6 (H) 13.5 (H) NRBC /100 WBC 0.0 0.0 Absolute nRBC <0.01 k/uL <0.01 <0.01 Neut% % 46.0 66.0 Abs Neut (ANC) 1.45 - 7.50 k/uL 2.61 6.75 Lymph% % 28.0 13.0 Abs Lymph 1.00 - 4.00 k/uL 1.59 1.33 [place]% % 23.0 19.0 Abs [place] <0.87 k/uL 1.30 (H) 1.94 (H) Eosin% % 1.0 0.0 Abs Eosin <0.46 k/uL 0.06 0.00 Baso% % 2.0 0.0 Abs Baso <0.11 k/uL 0.11 (H) 0.00 Realym% % 0.0 Bands % % 0.0 [place]% % 1.0 Myelo% % 1.0 Promyl% % 0.0 Blast <=0.0 % 0.0 Lymphoma Cell % 0.0 Prolymph % % 0.0 Plasma Cells % 0.0 Megakaryocytic Frag /100 WBC 0.0 Other Cells % 0.0 Left Shift Present Platelet Estimate Decreased Decreased Red Cell Morph Reviewed: see results of individual morphologies Reviewed: see results of individualmorphologies Polychromasia Slight Slight Anisocytosis Present Present DTYPE Manual Manual Iron 41 - 186 ug/dL 112 TIBC 232 - 386 ug/dL 412 (H) Transferrin Saturation 15.0 - 57.0 % 27.2 Retic % 0.4 - 2.0 % 7.1 (H) Abs Retic 0.018 - 0.100 M/uL 0.269 (H) Ferritin 30.3 - 565.7 ng/mL 69.1 Adjustment disorder with depressed mood Current medications: Cymbalta 60mg daily Doing well, no complaints. Gastroesophageal reflux disease with esophagitis without hemorrhage Omeprazole 40mg QD in the morning. Sx have completely gone away since starting. 05/05/2021 EGD/ colonoscopy, Dr. Vinicius Summers A. Antrum, biopsy: -Antral mucosa with no diagnostic alteration -No morphologic evidence of Helicobacter pylori B. Lower esophagus, biopsy: -Squamous mucosa with no diagnostic alteration -No prominence of intraepithelial eosinophils C. Sigmoid colon, polyp, biopsy: -Tubular adenoma Covid December HISTORIES FAMILY HISTORY Problem Relation Age of Onset Hypertension Mother Lipids Mother other (dementia) Mother other (aspiration pneumonia) Father following head injury Hypertension Sister Hypertension Brother No Known Problems Maternal Grandmother No Known Problems Maternal Grandfather Colon Cancer Paternal Grandmother No Known Problems Paternal Grandfather PAST MEDICAL HISTORY Diagnosis Date Acute myocardial infarction, unspecified site, episode of care unspecified 03/02/98 Bladder cancer (HCC) 02/2011 CAD (coronary artery disease) 2009 CABG x 3 Chronic depressive personality disorder Diverticulosis of colon (without mention of hemorrhage) DM (diabetes mellitus), type 2 (HCC) denies takes no medications Essential hypertension, benign History of basal cell carcinoma (BCC) of skin 2018 right posterior shoulder 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 CYSTOURETHROSCOPY 2019 LASER EXCISION SMALL BLADDER TUMOR(S) 0.5 TO 2.0 C EGD W/O BRSH SPEC VARICIES INJ 05/05/2021 ESOPHAGOGASTRODUODENOSCOPY TRANSORAL DIAGNOSTIC 12/11/2011 EGD KNEE ARTHROSCOPY Left 1966 PAST SURGICAL HISTORY OF 11/2008 CABG 3 PAST SURGICAL HISTORY OF 02/11/2011 Cysto, TURBT PAST SURGICAL HISTORY OF 12/18/2013 bladder surgery PAST SURGICAL HISTORY OF 2012 Transurethral resection of a medium bladder tumor REMOVE CATARACT, INSERT LENS, INTRACAPSUL Left 2012 RPR 1ST INGUN HRNA AGE 5 YRS/> REDUCIBLE Bilateral 2012 SIGMOIDOSCOPY FLX DX W/COLLJ SPEC BR/WA IF PFRMD 2001 Sigmoidoscopy TRANSCATH STENT INIT VESSEL,PERCUT 1998 Transcath stent init vessel percut 1 stent TRANSURETHRAL ELEC-SURG PROSTATECTOM 2016 Transurethral resection of bladder tumor, large Social History Tobacco Use Smoking status: Former Packs/day: 1.00 Years: 20.00 Pack years: 20.00 Types: Cigarettes Quit date: 12/23/1998 Years since quittin.0 Smokeless tobacco: Never Tobacco comments: Father smoked in childhood home. NO ETS as adult. Vaping Use Vaping Use: Never used Substance Use Topics Alcohol use: Yes Comment: RARE Drug use: No ACTIVE PROBLEM LIST Actinic Keratosis Hyperlipidemia Ldl Goal <100 Adjustment Disorder With Depressed Mood Essential Hypertension, Benign Polypharmacy Renal Cyst Bph (Benign Prostatic Hyperplasia) Smoking History Bladder Cancer (Hcc) Gerd (Gastroesophageal Reflux Disease) History of Bladder Cancer Supraglottic Airway Obstruction Anemia Thrombocytopenia (Hcc) Atherosclerosis of Coronary Artery of [place] Heart With Angina Pectoris (Hcc) Vitamin D Deficiency Chronic Frontal Sinusitis Cr (Obstructive Sleep Apnea) Type 2 Diabetes Mellitus Without Complication, Without Long-Term Current Use of Insulin (Hcc) Pad (Peripheral Artery Disease) (Hcc) Abnormal Cxr Chronic Itp (Idiopathic Thrombocytopenia) (Hcc) Class 1 Obesity Due to Excess Calories With Serious Comorbidity and Body Mass Index (Bmi) of 31.0 to 31.9 in Adult Reticulocytosis Current Outpatient Medications Medication Sig Dispense Refill clopidogrel (PLAVIX) 75 mg tablet Take 75 mg by mouth. tamsulosin (FLOMAX) 0.4 mg Take 1 capsule by mouth daily at bedtime. 30 capsule 0 omeprazole (PRILOSEC) 40 mg capsule Take 1 capsule by mouth once daily. 90 capsule 3 fluticasone-vilanterol (BREO ELLIPTA) 100-25 mcg/dose inhaler Inhale 1 Inhalation as instructed once daily. 3 Each 3 losartan (COZAAR) 25 mg tablet Take 0.5 tablets by mouth once daily. (Patient not taking: Reported on 11/11/2021) 45 tablet 3 XARELTO 2.5 mg tablet Take 1 tablet by mouth twice daily. peg 3350-Electrolytes (GOLYTELY) 236-22.74-6.74 -5.86 gram suspension Refer to printed prep instructions from your provider. 4000 mL 0 metFORMIN (GLUCOPHAGE) 500 mg tablet Take 1 tablet by mouth three times daily with meals. . 270 tablet 3 losartan (COZAAR) 25 mg tablet Take 1 tablet by mouth once daily. 30 tablet 0 multivit-min/FA/lycopen/lutein (CENTRUM SILVER MEN ORAL) Take 200 mg by mouth once daily. DULoxetine (CYMBALTA) 60 mg capsule Take 1 capsule by mouth once daily. 90 capsule 3 metoprolol tartrate, short acting, (LOPRESSOR) 100 mg tablet Take 1 tablet by mouth twice daily. 180 tablet 3 amLODIPine (NORVASC) 5 mg tablet Take 1 tablet by mouth once daily. 90 tablet 3 atorvastatin (LIPITOR) 20 mg tablet Take 1 tablet by mouth once daily. 90 tablet 3 Cholecalciferol, Vitamin D3, 50 mcg (2,000 unit) cap Take 1 capsule by mouth once daily. 90 capsule3 CPAP Supplies: suitable mask per pt preference, chin strap, head gear, humidity, tubing, lifetime supplies. G47.33 CR 1 Device 11 phenazopyridine (PYRIDIUM, GERIDIUM) 200 mg tablet Take 1 tablet by mouth three times daily as needed. 30 tablet 3 blood sugar diagnostic (FREESTYLE TEST) test strip 1 Strip twice daily. Use as instructed 100 Strip11 Lancets lancets Test blood sugar(s) 2 times daily. Dx: Type 2 DM - Uncontrolled E11.65 Insulin: No 100 Each 11 CPAP Autopap 7-20 cm H2O, Heat Humidity, suitable mask, Lifetime supplies, opt Chinstrap, G47.33. 1Device 0 aspirin, enteric coated (ASPIRIN, ENTERIC COATED) 81 mg EC tablet Take 1 tablet by mouth once daily. 0 No current facility-administered medications for this visit. DILATED RETINAL EXAM Never done SHINGRIX VACCINE(1 of 2) Never done COVID-19 VACCINE(4 - Booster for Pfizer series) due on 02/03/2021 DEPRESSION ASSESSMENT Never done INFLUENZA(1) due on 10/09/2021 HBA1C due on 12/26/2021 URINE ALBUMIN:CREATININE RATIO due on 12/25/2021 REVIEW OF SYSTEMS GENERAL: No weight loss, malaise or fevers HEENT: Negative for frequent or significant headaches, No changes in hearing or vision, no nose bleeds or other nasal problems NECK: Negative for lumps, goiter, pain and significant neck swelling RESPIRATORY: Negative for cough, hemoptysis, wheezing, COPD, dyspnea or shortness of breath CARDIOVASCULAR: Negative for chest pain, leg swelling, hypertension, CHF or palpitations GI: No nausea, vomiting, or diarrhea : No history of dysuria, frequency or incontinence See HPI regarding blood in urine. EXAM: BP 128/60 Pulse 72 Resp 16 Wt 93.9 kg (207 lb) SpO2 97% BMI 31.47 kg/m Pleasant 71 year old male in no acute distress. Alert and oriented all spheres. Normal affect and cognition. Speech normal. No deficits to learning or comprehension. Skin warm, dry, pink to lips and nailbeds. Normal turgor. Skin tags on back, several benign keratoses. Respirations regular and unlabored. HEENT: NCAT. No scleral icterus or conjunctival injection. EOMI PERRLA. TM's clear. Nose and oropharynx free from injection or lesion. Oral membranes moist and pink. No cervical lymph nodes. Thyroid non-tender, no masses, or enlargement. Carotids pulses 2+/4+ without bruits. No JVD with HOB at 30 de grees. Chest is normal shape. Lungs are clear to all nunez with good air exchange through out. HRRR without murmur or gallop. No lifts, heaves, or rubs. Abdomen: active bowel sounds throughout, soft, rounded, nontender, no masses or organomegaly. No CVAT. Extrem: no clubbing or cyanosis. Edema: none. Extremities are warm and pink with prompt capillary refill. ASSESSMENT/PLAN: 1. Atherosclerosis of coronary artery of [place] heart with angina pectoris, unspecified vessel or lesion type ([facility]) - ICD9: 414.01, 413.9, ICD10: I25.119 (primary diagnosis) - Continue ASA 81mg daily and Atorvastatin 20mg daily 2. Essential hypertension, benign - ICD9: 401.1, ICD10: I10 - good control - Continue current medication(s) - Recommended regular aerobic exercise. - Recommend home blood pressure monitoring, to bring results in on next visit - Goal of BP <130/80 3. Hyperlipidemia LDL goal <100 - ICD9: 272.4, ICD10: E78.5 - suboptimal control - Continue current medication. - Encouraged following a low fat, low cholesterol diet. - Discussed the benefits of regular aerobic exercise and weight loss. 4. PAD (peripheral artery disease) ([facility]) - ICD9: 443.9, ICD10: I73.9 S/p bypass stable symptomatically though cardioloist is concern per his report with possible restenosis and wants to maintain anticoagulation 5. CR (obstructive sleep apnea) - ICD9: 327.23, ICD10: G47.33 Compliant with CPAP 6. 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 Concerning with active bleeding on Xarelto without provocative event: will notify professor of medicine and urologist, check urine. 7. Type 2 diabetes mellitus without complication, without long-term current use of insulin ([facility]) - ICD9: 250.00, ICD10: E11.9 Controlled. - Continue current medications - Blood glucose monitoring on a weekly schedule - Encouraged regular aerobic exercise and weight loss - HGB A1C - ALBUMIN/CREAT RATIO RND UR - CONSULT TO OPHTHALMOLOGY 8. Chronic ITP (idiopathic thrombocytopenia) ([facility]) - ICD9: 287.31, ICD10: D69.3 persistent 9. Adjustment disorder with depressed mood - ICD9: 309.0, ICD10: F43.21 - Continue Cymbalta 10. Gastroesophageal reflux disease with esophagitis without hemorrhage - ICD9: 530.81, 530.10, ICD10: K21.00 - Discussed lifestyle modifications including losing weight, limiting caffeine, no meals three hours before sleep, and head of bed elevation. Continue omeprazole 11. Screening for diabetic retinopathy - ICD9: V80.2, ICD10: Z13.5 - CONSULT TO OPHTHALMOLOGY 12. Encounter for immunization - ICD9: V03.89, ICD10: Z23 - INFLUENZA SEASONAL QUADRIVALENT HIGH DOSE AGE 65+ - PFIZER-BIONTECH COVID-19 BIVALENT BOOSTER VACCINE, AGE 12+ YR 13. Gross hematuria - ICD9: 599.71, ICD10: R31.0 - UA DIP, URINE (POC) - URINE CULTURE - URINALYSIS, WITH MICROSCOPIC Raymond Dias PA-C [facility] Miscellaneous Notes* Telephone Encounter - Adam Lucero MD - 12/24/2021 1:35 PM EST agree * Telephone Encounter - Antony Andres LPN - 12/24/2021 1:30 PM EST TC to pt, he c/o chest congestion, body aches, headache, lightheaded, runny nose, chills. Denies shortness of breath or wheezing. Sx started yesterday. Pt has been using otc acetaminophen. He states he is not interested in antivirals at this time. Pt advised to go directly to ER if he develops any difficulty breathing, shortness of breath, wheezing, etc. Antony Andres LPN * Telephone Encounter - Adam Lucero MD - 12/24/2021 12:17 PM EST How doing with covid. He can see one of us virtually if less than 5 days symptomatic and wants to consider meds for covid. * Telephone Encounter - Leticia Enrique - 12/24/2021 9:31 AM EST Patient contacted office to advise that he tested positive for COVID19 today. His appointment with Dr. Lucero on 12/26 was rescheduled. documented [facility]Do[facility]11-[facility]22 NoteHNO ID: [id number] Author: Horace Rhodes MD Service: ? Author Type: Physician Type: Progress Notes Filed: 12/11/2021 5:22 PM Note Text: [facility] ESTABLISHED PATIENT OFFICE VISIT HISTORY OF PRESENT ILLNESS Clark Bedoya is a 71 year old male who presents with hx bph, bladder cancer, urethral stricture. TURP by me Kassie. Neg biopsy bladder last month. Not catheterizing daily now. Content with urinary stream, however, had significant regrowth on cystoscopy apically and that his bladder neck. Happy puttering along. Patient Entered Questionnaires PROMIS Global Health PROMIS Global Health Scale 08/20/2016 Mental Health Percentile 34 % Percentiles provide an indication of how the patient's score ranks in relation to the general population. Higher percentile rankings indicate better function/quality of life. 50th percentile is the average of the general population and indicates half of respondents had a worse score. Review of Systems The remainder of the ROS was reviewed and is negative. LAB Creatinine Date Value Ref Range Status 11/11/2021 0.91 0.73 - 1.22 mg/dL Final PSA (ng/mL) Date Value 03/24/2017 1.11 07/25/2015 1.04 07/04/2015 1.38 01/09/2012 1.38 PSA Screening (ng/mL) Date Value 01/08/2021 0.8 01/03/2020 0.77 12/28/2018 1.39 11/30/2013 1.52 GLUCOSE UA (POCT) >=1000 10/21/2021 BILIRUBIN UA (POCT) Negative 10/21/2021 KETONE UA (POCT) Trace 10/21/2021 SPECIFIC GRAVITY UA (POCT) 1.020 10/21/2021 HEMOGLOBIN/BLOOD UA (POCT) Large 10/21/2021 PH UA (POCT) 5.5 10/21/2021 PROTEIN UA (POCT) 100 10/21/2021 UROBILINOGEN UA (POCT) 0.2 10/21/2021 NITRITE UA (POCT) Negative 10/21/2021 LEUKOCYTES UA (POCT) Negative 10/21/2021 COLOR UA (POCT) Yellow 10/21/2021 CLARITY UA (POCT) Clear 10/21/2021 MEDICATIONS clopidogrel (PLAVIX) 75 mg tablet Take 75 mg by mouth. tamsulosin (FLOMAX) 0.4 mg Take 1 capsule by mouth daily at bedtime. omeprazole (PRILOSEC) 40 mg capsule Take 1 capsule by mouth once daily. fluticasone-vilanterol (BREO ELLIPTA) 100-25 mcg/dose inhaler Inhale 1 Inhalation as instructed once daily. losartan (COZAAR) 25 mg tablet Take 0.5 tablets by mouth once daily. (Patient not taking: Reported on 11/11/2021) XARELTO 2.5 mg tablet Take 1 tablet by mouth twice daily. peg 3350-Electrolytes (GOLYTELY) 236-22.74-6.74 -5.86 gram suspension Refer to printed prep instructions from your provider. metFORMIN (GLUCOPHAGE) 500 mg tablet Take 1 tablet by mouth three times daily with meals. . losartan (COZAAR) 25 mg tablet Take 1 tablet by mouth once daily. multivit-min/FA/lycopen/lutein (CENTRUM SILVER MEN ORAL) Take 200 mg by mouth once daily. DULoxetine (CYMBALTA) 60 mg capsule Take 1 capsule by mouth once daily. metoprolol tartrate, short acting, (LOPRESSOR) 100 mg tablet Take 1 tablet by mouth twice daily. amLODIPine (NORVASC) 5 mg tablet Take 1 tablet by mouth once daily. atorvastatin (LIPITOR) 20 mg tablet Take 1 tablet by mouth once daily. Cholecalciferol, Vitamin D3, 50 mcg (2,000 unit) cap Take 1 capsule by mouth once daily. CPAP Supplies: suitable mask per pt preference, chin strap, head gear, humidity, tubing, lifetime supplies. G47.33 CR phenazopyridine (PYRIDIUM, GERIDIUM) 200 mg tablet Take 1 tablet by mouth three times daily as needed. blood sugar diagnostic (FREESTYLE TEST) test strip 1 Strip twice daily. Use as instructed Lancets lancets Test blood sugar(s) 2 times daily. Dx: Type 2 DM - Uncontrolled E11.65 Insulin: No CPAP Autopap 7-20 cm H2O, Heat Humidity, suitable mask, Lifetime supplies, opt Chinstrap, G47.33. aspirin, enteric coated (ASPIRIN, ENTERIC COATED) 81 mg EC tablet Take 1 tablet by mouth once daily. 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 CYSTOURETHROSCOPY 2019 LASER EXCISION SMALL BLADDER TUMOR(S) 0.5 TO 2.0 C EGD W/O BRSH SPEC VARI (more content not included)...[facility]11-03-2022 History of Present illness Narrative* Horace Rhodes MD - 12/11/2021 11:20 AM EDT Images from the original note were not included. [facility] ESTABLISHED PATIENT OFFICE VISIT HISTORY OF PRESENT ILLNESS Clark Bedoya is a 71 year old male who presents with hx bph, bladdercancer, urethral stricture. TURP by me Kassie. Neg biopsy bladder last month. Not catheterizing daily now. Content with urinary stream, however, had significant regrowth on cystoscopy apically and that his bladder neck. Happy puttering along. Patient Entered Questionnaires PROMIS Global Health PROMIS Global Health Scale 08/20/2016 Mental Health Percentile 34 % Percentiles provide an indication of how the patient's score ranks in relation to the general population. Higher percentile rankings indicate better function/quality of life. 50th percentile is the average of the general population and indicates half of respondents had a worse score. Review of Systems The remainder of the ROS was reviewed and is negative. LAB Creatinine Date Value Ref Range Status 11/11/2021 0.91 0.73 - 1.22 mg/dL Final PSA (ng/mL) Date Value 03/24/2017 1.11 07/25/2015 1.04 07/04/2015 1.38 01/09/2012 1.38 PSA Screening (ng/mL) Date Value 01/08/2021 0.8 01/03/2020 0.77 12/28/2018 1.39 11/30/2013 1.52 GLUCOSE UA (POCT) >=1000 10/21/2021 BILIRUBIN UA (POCT) Negative 10/21/2021 KETONE UA (POCT) Trace 10/21/2021 SPECIFIC GRAVITY UA (POCT) 1.020 10/21/2021 HEMOGLOBIN/BLOOD UA (POCT) Large 10/21/2021 PH UA (POCT) 5.5 10/21/2021 PROTEIN UA (POCT) 100 10/21/2021 UROBILINOGEN UA (POCT) 0.2 10/21/2021 NITRITE UA (POCT) Negative 10/21/2021 LEUKOCYTES UA (POCT) Negative 10/21/2021 COLOR UA (POCT) Yellow 10/21/2021 CLARITY UA (POCT) Clear 10/21/2021 MEDICATIONS clopidogrel (PLAVIX) 75 mg tablet Take 75 mg by mouth. tamsulosin (FLOMAX) 0.4 mg Take 1 capsule by mouth daily at bedtime. omeprazole (PRILOSEC) 40 mg capsule Take 1 capsule by mouth once daily. fluticasone-vilanterol (BREO ELLIPTA) 100-25 mcg/dose inhaler Inhale 1 Inhalation as instructed once daily. losartan (COZAAR) 25 mg tablet Take 0.5 tablets by mouth once daily. (Patient not taking: Reported on 11/11/2021) XARELTO 2.5 mg tablet Take 1 tablet by mouth twice daily. peg 3350-Electrolytes (GOLYTELY) 236-22.74-6.74 -5.86 gram suspension Refer to printed prep instructions from your provider. metFORMIN (GLUCOPHAGE) 500 mg tablet Take 1 tablet by mouth three times daily with meals. . losartan (COZAAR) 25 mg tablet Take 1 tablet by mouth once daily. multivit-min/FA/lycopen/lutein (CENTRUM SILVER MEN ORAL) Take 200 mg by mouth once daily. DULoxetine (CYMBALTA) 60 mg capsule Take 1 capsule by mouth once daily. metoprolol tartrate, short acting, (LOPRESSOR) 100 mg tablet Take 1 tablet by mouth twice daily. amLODIPine (NORVASC) 5 mg tablet Take 1 tablet by mouth once daily. atorvastatin (LIPITOR) 20 mg tablet Take 1 tablet by mouth once daily. Cholecalciferol, Vitamin D3, 50 mcg (2,000 unit) cap Take 1 capsule by mouth once daily. CPAP Supplies: suitable mask per pt preference, chin strap, head gear, humidity, tubing, lifetime supplies. G47.33 CR phenazopyridine (PYRIDIUM, GERIDIUM) 200 mg tablet Take 1 tablet by mouth three times daily as needed. blood sugar diagnostic (FREESTYLE TEST) test strip 1 Strip twice daily. Use as instructed Lancets lancets Test blood sugar(s) 2 times daily. Dx: Type 2 DM - Uncontrolled E11.65 Insulin: No CPAP Autopap 7-20 cm H2O, Heat Humidity, suitable mask, Lifetime supplies, opt Chinstrap, G47.33. aspirin, enteric coated (ASPIRIN, ENTERIC COATED) 81 mg EC tablet Take 1 tablet by mouth once daily. 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 CYSTOURETHROSCOPY 2019 LASER EXCISION SMALL BLADDER TUMOR(S) 0.5 TO 2.0 C EGD W/O BRSH SPEC VARICIES INJ 05/05/2021 ESOPHAGOGASTRODUODENOSCOPY TRANSORAL DIAGNOSTIC 12/11/2011 EGD KNEE ARTHROSCOPY Left 1966 PAST SURGICAL HISTORY OF 11/2008 CABG 3 PAST SURGICAL HISTORY OF 02/11/2011 Cysto, TURBT PAST SURGICAL HISTORY OF 12/18/2013 bladder surgery PAST SURGICAL HISTORY OF 2012 Transurethral resection of a medium bladder tumor REMOVE CATARACT, INSERT LENS, INTRACAPSUL Left 2012 RPR 1ST INGUN HRNA AGE 5 YRS/> REDUCIBLE Bilateral 2013 SIGMOIDOSCOPY FLX DX W/COLLJ SPEC BR/WA IF PFRMD 2002 Sigmoidoscopy TRANSCATH STENT INIT VESSEL,PERCUT 1999 Transcath stent init vessel percut 1 stent TRANSURETHRAL ELEC-SURG PROSTATECTOM 2016 Transurethral resection of bladder tumor, large FAMILY HISTORY Problem Relation Age of Onset Hypertension Mother Lipids Mother other (dementia) Mother other (aspiration pneumonia) Father following head injury Hypertension Sister Hypertension Brother No Known Problems Maternal Grandmother No Known Problems Maternal Grandfather Colon Cancer Paternal Grandmother No Known Problems Paternal Grandfather SOCIAL HISTORY Social History Tobacco Use Smoking status: Former Packs/day: 1.00 Years: 20.00 Pack years: 20.00 Types: Cigarettes Quit date: 12/23/1998 Years since quittin.9 Smokeless tobacco: Never Tobacco comments: Father smoked in childhood home. NO ETS as adult. Vaping Use Vaping Use: Never used Substance Use Topics Alcohol use: Yes Comment: RARE Drug use: No Pulse 67 Ht 172.7 cm (5' 8 ) SpO2 98% BMI 31.25 kg/m Physical Exam Vitals and nursing note reviewed. Constitutional: Appearance: He is well-developed. HENT: Head: Normocephalic. Pulmonary: Effort: Pulmonary effort is normal. Skin: General: Skin is warm and dry. Neurological: Mental Status: He is alert and oriented to person, place, and time. Psychiatric: Behavior: Behavior normal. Thought Content: Thought content normal. Judgment: Judgment normal. IMAGING ASSESSMENT/PLAN: 1. Malignant neoplasm of urinary bladder, unspecified site (HCC) - ICD9: 188.9, ICD10: C67.9 (primary diagnosis) 2. Retention of urine, unspecified - ICD9: 788.20, ICD10: R33.9 3. Screening PSA (prostate specific antigen) - ICD9: V76.44, ICD10: Z12.5 - PSA/PROSTSPECAG SCRN We will continue annual PSA and digital rectal exam. We will plan on cystoscopy in 1 year now. Reviewed findings from the OR cystoscopy where there were no lesions that needed or warranted biopsy. Content with lower urinary tract symptoms and does not want to pursue TURP though does have considerable prostatic regrowth. Horace Rhodes Medical Decision Making: Problems: Moderate: 2+ stable chronic illnesses Data: Unique test result(s) reviewed: 1 Unique test(s) ordered: 1 Risk: Moderate: Moderate risk from testing/treatment Medical Decision Making Level: 4 - Moderate This note was partially created using voice recognition software and is inherently subject to errors including those of syntax and sound-alike substitutions which may escape proofreading. In such instances, original meaning may be extrapolated by contextual derivation. documented in this encounterDoctors Hospital10-07-2022 Miscellaneous Notes* Telephone Encounter - Antony Andres LPN - 11/14/2021 3:22 PM EDT SUZANNE 06/24/21 NOV 12/26/21 * Telephone Encounter - Jennifer Pickett - 11/14/2021 2:07 PM EDT Patient has been identified by name and date of : Yes Requested Prescriptions Pending Prescriptions Disp Refills omeprazole (PRILOSEC) 40 mg capsule 90 capsule 3 Sig: Take 1 capsule by mouth once daily. RX INSTRUCTIONS: Patient aware RX will be sent to pharmacy. No need to notify patient. Jennifer Serna [facility] documented in this encounterDoctors Hospital09-28-2022 History and physical note * Aislinn Gaona, DURGA.TRANSIT VEHICLE INSPECTOR - 11/05/2021 11:20 AM EDT HISTORY AND PHYSICAL EXAMINATION SERVICE DATE: 11/05/2021 SERVICE TIME: 11:20 AM PRIMARY CARE PHYSICIAN: Adam Lucero MD REASON FOR VISIT: Clark Bedoya is a 71 year old male who is scheduled for Procedure(s): CYSTOSCOPY, RETROPYELOGRAM (N/A) EXCISION BLADDER TUMOR SMALL (0.5 UP TO 2.0 CM) (N/A) at the request of Dr. Horace Rhodesfor routine H&P. My final recommendation will be communicated back to the requesting physician by way of shared medical record or letter. Subjective The patient has the following: ACTIVE PROBLEM LIST Actinic Keratosis Hyperlipidemia Ldl Goal <100 Adjustment Disorder With Depressed Mood Essential Hypertension, Benign Polypharmacy Renal Cyst Bph (Benign Prostatic Hyperplasia) Smoking History Bladder Cancer (Hcc) Gerd (Gastroesophageal Reflux Disease) History of Bladder Cancer Supraglottic Airway Obstruction Anemia Thrombocytopenia (Hcc) Atherosclerosis of Coronary Artery of [place] Heart With Angina Pectoris (Hcc) Vitamin D Deficiency Chronic Frontal Sinusitis Cr (Obstructive Sleep Apnea) Type 2 Diabetes Mellitus Without Complication, Without Long-Term Current Use of Insulin (Hcc) Pad (Peripheral Artery Disease) (Hcc) Abnormal Cxr Chronic Itp (Idiopathic Thrombocytopenia) (Hcc) Class 1 Obesity Due to Excess Calories With Serious Comorbidity and Body Mass Index (Bmi) of 31.0 to 31.9 in Adult COVID-19 Immunization Status Overdue - COVID-19 VACCINE (4 - Booster for Pfizer series) Overdue since 02/03/2021 12/09/2020 Imm Admin: COVID-19 vaccine, age 12+ yr (PFIZER-BIONTECH - PURPLE TOP) 05/17/2020 Imm Admin: COVID-19 vaccine, age 12+ yr (PFIZER-BIONTECH - PURPLE TOP) 04/26/2020 Imm Admin: COVID-19 vaccine, age 12+ yr (PFIZER-BIONTECH - PURPLE TOP) CHIEF COMPLAINT: Bladder tumor HPI: Patient has history of bladder cancer. Today, patient denies pain, rating 0 out of 10 on the numeric pain scale. He reports he experienced hematuria a month ago however has since resolved. He complains of urinary frequency, he denies urinary urgency or dysuria at this time. Patient also has history of multiple UTIs. After discussion with surgeon patient agreeable to surgical intervention. REVIEW OF SYSTEMS: General: No weight loss, malaise or fevers. Neurological: Negative for: headaches, seizures and strokes. Respiratory: Positive for: COPD and obstructive sleep apnea. Negative for: asthma, current cough and pneumonia within 6 weeks. Cardiovascular: Positive for: CAD, hyperlipidemia, hypertension and PVD Patient's last office visit The following tests and/or procedures were performed: cardiac stents. Negative for: arrhythmia, chest pain, CHF, DVT/PE and murmur/valvular heart disease. GI: Positive for: GERD and liver disease Negative for: abdominal pain, nausea and vomiting. : See HPI. Endocrine: Positive for: diabetes mellitus. Negative for: hypothyroidism. Hematology: Positive for: anemia and thrombocytopenia. Oncology: No history of CA metastasis, chemo within 30 days, or radiotherapy within 90 days. No history of oncological symptoms or problems. Psych: Positive for: anxiety and depression. Negative for: ADD, ADHD and bipolar disorder. Musculoskeletal: Negative for joint pain or swelling, back pain or muscle pain. Skin: Negative for lesions, rash and itching. 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 CYSTOURETHROSCOPY 2019 LASER EXCISION SMALL BLADDER TUMOR(S) 0.5 TO 2.0 C EGD W/O BRSH SPEC VARICIES INJ 05/05/2021 ESOPHAGOGASTRODUODENOSCOPY TRANSORAL DIAGNOSTIC 12/11/2011 EGD KNEE ARTHROSCOPY Left 1966 PAST SURGICAL HISTORY OF 11/2008 CABG 3 PAST SURGICAL HISTORY OF 02/11/2011 Cysto, TURBT PAST SURGICAL HISTORY OF 12/18/2013 bladder surgery PAST SURGICAL HISTORY OF 2012 Transurethral resection of a medium bladder tumor REMOVE CATARACT, INSERT LENS, INTRACAPSUL Left 2012 RPR 1ST INGUN HRNA AGE 5 YRS/> REDUCIBLE Bilateral 2012 SIGMOIDOSCOPY FLX DX W/COLLJ SPEC BR/WA IF PFRMD 2001 Sigmoidoscopy TRANSCATH STENT INIT VESSEL,PERCUT 1998 Transcath stent init vessel percut 1 stent TRANSURETHRAL ELEC-SURG PROSTATECTOM 2016 Transurethral resection of bladder tumor, large FAMILY HISTORY Problem Relation Age of Onset Hypertension Mother Lipids Mother other (dementia) Mother other (aspiration pneumonia) Father following head injury Hypertension Sister Hypertension Brother No Known Problems Maternal Grandmother No Known Problems Maternal Grandfather Colon Cancer Paternal Grandmother No Known Problems Paternal Grandfather Social History Tobacco Use Smoking status: Former Packs/day: 1.00 Years: 20.00 Pack years: 20.00 Types: Cigarettes Quit date: 12/23/1998 Years since quittin.8 Smokeless tobacco: Never Tobacco comments: Father smoked in childhood home. NO ETS as adult. Vaping Use Vaping Use: Never used Substance Use Topics Alcohol use: Yes Comment: RARE Drug use: No Prior to Admission medications as of 11/05/21 1131 Medication Sig Last Dose Taking omeprazole (PRILOSEC) 40 mg capsule Take 1 capsule by mouth once daily. Yes fluticasone-vilanterol (BREO ELLIPTA) 100-25 mcg/dose inhaler Inhale 1 Inhalation as instructed once daily. Yes XARELTO 2.5 mg tablet Take 1 tablet by mouth twice daily. Yes tamsulosin (FLOMAX) 0.4 mg Take 1 capsule by mouth daily at bedtime. Yes metFORMIN (GLUCOPHAGE) 500 mg tablet Take 1 tablet by mouth three times daily with meals. . Yes losartan (COZAAR) 25 mg tablet Take 1 tablet by mouth once daily. Yes multivit-min/FA/lycopen/lutein (CENTRUM SILVER MEN ORAL) Take 200 mg by mouth once daily. Yes DULoxetine (CYMBALTA) 60 mg capsule Take 1 capsule by mouth once daily. Yes metoprolol tartrate, short acting, (LOPRESSOR) 100 mg tablet Take 1 tablet by mouth twice daily. Yes amLODIPine (NORVASC) 5 mg tablet Take 1 tablet by mouth once daily. Yes atorvastatin (LIPITOR) 20 mg tablet Take 1 tablet by mouth once daily. Yes phenazopyridine (PYRIDIUM, GERIDIUM) 200 mg tablet Take 1 tablet by mouth three times daily as needed. Yes aspirin, enteric coated (ASPIRIN, ENTERIC COATED) 81 mg EC tablet Take 1 tablet by mouth once daily. Yes losartan (COZAAR) 25 mg tablet Take 0.5 tablets by mouth once daily. peg 3350-Electrolytes (GOLYTELY) 236-22.74-6.74 -5.86 gram suspension Refer to printed prep instructions from your provider. Cholecalciferol, Vitamin D3, 50 mcg (2,000 unit) cap Take 1 capsule by mouth once daily. Patient not taking: Reported on 11/04/2021 CPAP Supplies: suitable mask per pt preference, chin strap, head gear, humidity, tubing, lifetime supplies. G47.33 CR blood sugar diagnostic (FREESTYLE TEST) test strip 1 Strip twice daily. Use as instructed Lancets lancets Test blood sugar(s) 2 times daily. Dx: Type 2 DM - Uncontrolled E11.65 Insulin: No CPAP Autopap 7-20 cm H2O, Heat Humidity, suitable mask, Lifetime supplies, opt [place], G47.33. No medication comments found. ALLERGIES Allergen Reactions Plavix [Clopidogrel] GI Upset Caused constipation Effexor [Venlafaxin* Other: See Comments Agitation; constipation Gluten Other: See Comments Lactose Diarrhea Lisinopril Cough Nitro Patch [Other] Rash Rash at site [place] Diarrhea Objective PHYSICAL EXAM: General: alert and oriented and healthy appearance. Pertinent negatives noted - not distressed. Skin: normal color, no rash or lesions. HEENT: EOM intact. Cardiovascular: regular rate and rhythm, normal S1 and S2, no rub, murmurs, or gallop. Respiratory: normal breath sounds, no wheezes or crackles. No chest wall deformity or tenderness. Abdomen: bowel sounds present. Extremities: no deformity, no edema or tenderness, no joint swelling or clubbing. Neurological: normal cognition and motor skills. Gait normal. No weakness or sensory deficit. PAIN ASSESSMENT: Pain Pain Level: 0 VITALS: BP 132/73 Pulse 72 Temp 97.5 Resp 16 Ht 5' 8 (1.73m) Wt 198 lb (89.8kg) SpO2 98% BMI30.11 kg/(m^2). Diagnostic tests reviewed for today's visit: Lab Value Units Date High Low HB 10.3 g/dL 10/17/2021 17.0 13.0 HCT 32.1 % 10/17/2021 51.0 39.0 WBC 5.67 k/uL 10/17/2021 11.00 3.70 PLT 65 k/uL 10/17/2021 400 150 NA 137 mmol/L 06/25/2021 144 136 K 5.2 mmol/L 06/30/2021 5.1 3.7 GLUC 313 mg/dL 06/25/2021 99 74 BUN 10 mg/dL 06/25/2021 24 9 CREAT 0.91 mg/dL 06/25/2021 1.22 0.73 PTSEC No results within date range. INR No results within date range. APTT No results within date range. ALT 19 U/L 06/25/2021 54 10 AST 18 U/L 06/25/2021 40 14 TBILI 0.7 mg/dL 06/25/2021 1.3 0.2 TSH No results within date range. Lab Value Units Date High Low HCGQT No results within date range. UHCG No results within date range. HCG, BODY* No results within date range. Lab Value Units Date High Low ABORHD No results within date range. ABSCREEN No results within date range. Hemoglobin A1C (%) Date Value 06/25/2021 7.4 03/28/2021 7.1 12/25/2020 7.7 03/29/2020 7.0 09/27/2019 7.0 03/29/2019 6.7 No results found for this or any previous visit (from the past 8760 hour(s)). No results found for this or any previous visit (from the past 81006 hour(s)). Assessment No problem-specific Assessment & Plan notes found for this encounter. Felipe Activity Status Index: METS: Climb a flight of stairs or walk up a hill (5.50 METs) DASI Score: 5.5 Patient denies any chest pain or undue shortness of breath with the above physical activity. Clinical Frailty Scale: 3. Well, with treated comorbid disease ARISCAT Score: Age: 51-80 Preoperative SpO2: >=96% Respiratory infection in the last month: No Preoperative anemia: No Duration of surgery: <2 hrs Emergency procedure: No ARISCAT Score: ANESTHESIA FINDINGS: Intubation History: No history of difficult intubation Significant Anesthesia Considerations: none Airway History: No history of difficult airway I - PHYSICAL EVALUATION DENTAL Dentures, upper: partial. II - ANESTHESIA PLAN Anesthetic Plan: general Prepared for Surgery: CONSULTS: Patient does not require consults for optimization at this time Planned Anesthetic: general The Following Tests/Procedures Have Been Initiated: Orders Placed This Encounter Urine Culture Standing Status: Future Standing Expiration Date: 01/05/2022 Order Specific Question: Source Answer: URINE-MIDSTREAM CLEAN CATCH Implantable Devices: Cardiac instrumenetion Patient has the following medical conditions which may affect denae-operative course Anemia/Thrombocytopenia/ Chronic ITP - Followed by Hematology Dr. Kenney - 10/17/2021 H&H, Uylmdcwdq22.3/32.1/65. Last hematology OV 04/02/2021 per hematology POC regarding chronic ITP Continue monitor CBC every 3 months x 2; treatment for chronic ITP is not indicated as long as his platelet count is above 40,000 - 50,000 without clinical bleeding or increased bruising. Next hematology OV scheduled for 11/11/2021 CAD - H/O LA - s/p CABG - cardiac stent - Followed by Cardiology [facility] Dr. Plascencia - Aspirin - patient instructed to notify surgeon and prescriber for preop instructions. Diabetes - 06/25/2021 A1C 7.4% -metformin-patient instructed to hold day of surgery. HTN -amlodipine, losartan, metoprolol-patient instructed to take day of surgery. Hyperlipidemia - statin CR - Patient is using CPAP/BIPAP COPD - Followed by Pulmonary - nAnelo as scheduled. Patient denies hospitalizations or pneumonia within 6 to 6 weeks. PAD - Followed by Vascular - Xarelto - patient instructed to notify surgeon and prescriber for preop instructions. 09/10/2020 Cardiac stress scanned in epic Assessment/Plan Gross hematuria [R31.0] Malignant neoplasm of urinary bladder, unspecified site (HCC) [C67.9] PLAN Planned Procedure: Procedure(s): CYSTOSCOPY, RETROPYELOGRAM (N/A) EXCISION BLADDER TUMOR SMALL (0.5 UP TO 2.0 CM) (N/A) The Following Tests/Procedures Have Been Initiated: Urine culture ordered in [facility] by NAOMI. Patient reports he had recent urine culture. Last urine culture results in [facility] 10/21/2021. Instructions Given to Patient: Instructions located in the after visit summary. Patient given verbal and written preop instructions and voices comprehension and compliance. SIGNATURE: Aislinn Gaona APRN.CNP PATIENT NAME: Clark Bedoya DATE: November 05, 2021 TIME: 7:36 AM PAGER/CONTACT #: documented in this encounterDoctors Hospital09-28-2022 Instructions* Patient Instructions* Aislinn Gaona APRN.CNP - 11/05/2021 7:36 AM EDT PATIENT PREOPERATIVE INSTRUCTIONS Your surgeon has scheduled you for your procedure at this surgery center: [facility] [phone] [address] [id number] Please enter through the main entrance, and proceed to the blue elevators. The surgery center is located left of the blue elevators. Please read below carefully for your personalized instructions. Arrival Time for Surgery: DATE: 11/10/2021 OR TIME: 1:45 pm CHECK IN TIME: 11:45 am Please be aware that emergency situations arise, which may delay or change your surgical time. If this happens, we will notify you as soon as possible and regret any inconvenience. Dietary Restrictions: -Nothing to eat after midnight. Between midnight and four hours prior to your surgery time, you mayhave 12 ounces of clear liquids (Apple juice, carbonated beverages, Gatorade, black coffee or tea) unless your surgeon specifies otherwise. Blood Thinning Medications: - Stop NSAIDS (Ibuprofen, Advil, Aleve, Motrin, Celebrex, Mobic, Voltaren, Diclofenac, etc.) 7 daysbefore surgery, as directed by your surgeon. -You may take Tylenol or pain medications that do not contain Aspirin or NSAIDs. - Stop Vitamin E, fish oil, multivitamins, Marijuana, CBD oil and other over the counter herbals and dietary supplements 7 days before surgery. ?-This would not apply to cancer patients who are prescribed Marinol or any other prescription formon marijuana or CBD. -IF YOU TAKE ANY OF THE FOLLOWING BLOOD THINNERS, PLEASE CONTACT YOUR SURGEON AND THE PHYSICIAN WHOPRESCRIBES IT FOR YOU IN ORDER TO GET PERIOPERATIVE INSTRUCTIONS SOON POSSIBLE. BLOOD THINNERS: Aspirin , Coumadin, Plavix, Eliquis, Pradaxa, Xarelto, Lovenox, Brilinta, Effient, Savaysa, Arixtra, etc Medications: Approved medications to take the morning of surgery with a sip of water: BP, Heart, thyroid, psych,seizure, and pain medications excluding NSAIDS. Use inhalers as prescribed. Please bring inhalers. Medications to be taken with small amount of fluid on the morning of surgery: If these are morning medications, go ahead and take: Approved medications to take the morning of surgery with a sip of water: BP, Heart, thyroid, psych, seizure, and pain medications excluding NSAIDS. Use inhalers as prescribed. Please bring inhalers. Please follow up with the provider that manages your diabetes and how to prepare you for surgery. -If you are taking the following medications for Type 2 diabetes: Canagliflozin (INVOKANA), dapagliflozin (FARXIGA), and empagliflozin (JARDIANCE) should each be discontinued at least 3 days before scheduled surgery. Ertugliflozin (STEGLATRO) should be discontinued at least four days before scheduled surgery. If you start any new medications after today's visit, please contact the surgeon's office. Erectile Dysfunction If you take any medications for erectile dysfunction, please do not take these 48 hours prior to surgery. Important Reminders: - If you use CPAP/BIPAP, bring the machine with you to the surgery center. - If you are prescribed inhalers for breathing, continue using them AND bring them to the surgery center. - Candy, mints, gum and tobacco products are NOT permitted the morning of surgery. - Hearing aids, dentures and glasses may be worn the morning of surgery. - NO jewelry, body piercings, makeup, hairpins or contacts are to be worn the day of surgery. -Oral hygiene and a shower or bath is required the evening before or the morning of surgery. Use the [employer] body wash supplied to you along with the instruction. - NO lotion, creams, powders or deodorants on the skin the day of surgery -Wear loose, comfortable clothing that will accommodate bandages. -Your length of stay will be determined by your surgeon - You will need to have someone else (Family or friend) drive you home once discharged from the hospital. You are not allowed to drive yourself home after surgery. - YOU MUST HAVE A RESPONSIBLE RESEARCH RN SPEC TAKE YOU HOME. A PRECISION AIRCRAFT SYSTEMS ASSEMBLER, CAB OR UBER RESEARCH RN SPEC CANNOT BE MADEA RESPONSIBLE RESEARCH RN SPEC. - We recommend that a responsible person stays with you overnight to take care of you. - You cannot stay in a hotel alone after outpatient surgery. You will not be permitted to have yoursurgery, if you do not have someone to take care of you. - If you have a stimulator, implant or pump that requires a remote please bring the remote with youday of surgery. Given COVID 19 pandemic, two visitor is allowed to be in the hospital. You will enter at the main entrance of the hospital and check in at the surgery welcome center, where you will provide points ofcontact. [facility] current visitor policy: may bring two visitor with you morning of surgery, they must wear a mask at all times while in the hospital, and during surgery they may be asked to wait in the car, and the surgeon will call them with updates. You will be required to have COVID-19 testing prior to surgery. Your surgeon's office should order this for you. [facility] will [facility] a [facility] If you have not received a testing time and it is 4 days prior to surgery. Please call your surgeon. If you develop symptoms such as a fever, cold, or flu, or have other changes to your health within TWO DAYS of scheduled surgery or the morning of surgery, please contact the surgery center above. You should have a 72-hour period between getting your COVID vaccine and date of surgery. Personal Belongings: - Leave ALL valuables and money at home or with family members. - You will need a form of ID and insurance card to check in the morning of surgery. - You will have to wear a hospital gown during your stay but if you wish to bring undergarments forafter surgery you may. Aislinn Gaona APRN.ALLA 11/05/21 documented in this encounterDoctors Hospital09-14-2022 Procedure note* Horace Rhodes MD - 10/22/2021 2:54 PM EDTProcedure(s): CYSTOSCOPY Pre-Procedure Diagnose(s): Gross hematuria Post-Procedure Diagnose(s): Gross hematuria CYSTOSCOPY PROCEDURE NOTE: Clark Bedoya is a 71 year old male who presents with hematuria gross and follow up bladder tumor for cystoscopy. Pt ID verified with patient: Yes Procedure verified with patient: Yes Procedure confirmed with physician and it support engineer: Yes Patient's Pre-op pain level: 0 UNIVERSAL PROTOCOL / SAFETY CHECKLIST Procedure to be Performed: cystoscopy Sign In: A Moment of CARE was completed. Personnel directly involved with the procedure wore the appropriate PPE (Personal Protective Equipment). Patient/Surrogate Stated/Verified: PATIENT VERIFIED(optional for EMERGENT procedures): Patient name, Date of , Relevant allergies, and The intended procedure Time Out Communication: Intended patient and procedure match the source documents. Consent documented and matches the intended procedure. Sign Out: SIGN OUT (optional for EMERGENT procedures): No specimen collected. Horace Rhodes MD A urinalysis was performed revealing no evidence of infection. The benefits, risks, alternatives of the cystoscopy procedure and personnel were discussed with thepatient. The verbal consent was obtained and the patient agrees to proceed. Procedure: The patient was placed on the procedure table in the supine position and prepped and draped in the usual sterile fashion. 2% Lidocaine Jelly was placed per urethra as an anesthetic in the standard fashion. Once adequate local anesthesia was achieved, the tip of the flexible cystoscope was carefully placed into the urethra under direct visual guidance. The scope was negotiated through the pendulous urethra to the level of the bulbar urethra with no evidence of stricture. The verumontanum came into view and the scope was negotiated through the prostatic urethra which showed evidence of a patent prostatic urethra. The bladder was entered and careful [place] endoscopy was carried out. The posterior, superior and lateral ugarte and dome of the bladder were all well visualized. The findings were consistent with a red ulcerated area at the base of the bladder consistent with potential bladder cancer. Measures approximately 1/2-2 and half centimeters in diameter. . At the conclusion of the procedure, the flexible cystoscope was removed atraumatically. The patienttolerated the procedure without complications. Patient was given standard post-procedure instructions, and was directed to complete the course of oral antibiotics and increase oral fluid intake as directed. Patient's Post-op pain level: 0 ASSESSMENT/PLAN: 1. Gross hematuria - ICD9: 599.71, ICD10: R31.0 (primary diagnosis) - CYSTO.PANENDO 2. Malignant neoplasm of urinary bladder, unspecified site (HCC) - ICD9: 188.9, ICD10: C67.9 Given today's findings, his gross hematuria, history of bladder cancer, I feel that resection of this area is important. We will plan on pyelograms at the same time. Horace Rhodes Please note: This note has been produced using speech recognition software and may contain errors related to that system including grammar, punctuation, spelling, gender and words and phrases that may be inappropriate. documented in this encounterDoctors Hospital09-13-2022 Miscellaneous Notes* Telephone Encounter - Teresa Allen PA-C - 10/21/2021 3:21 PM EDT Please fax my encounter to dr. Lucero's office. Teresa Allen PA-C documented in this encounterDoctors Hospital09-13-2022 History of Present illness Narrative* Teresa Allen PA-C - 10/21/2021 9:46 AM EDT ESTABLISHED PATIENT OFFICE VISIT HISTORY OF PRESENT ILLNESS: Clark Bedoya is a 71 year old male, Ht 172.7 cm (5' 8 ) BMI 30.26 kg/m2 with a PMH significant for uti. Pt with episodic gross hematuria, history of stricture. Pt stopped his blood thinner when hematuria started, has not restarted. Pt to have cysto with dr. Rhodes. . LAB: Creatinine Date Value Ref Range Status 06/25/2021 0.91 0.73 - 1.22 mg/dL Final PSA (ng/mL) Date Value 03/24/2017 1.11 07/25/2015 1.04 07/04/2015 1.38 01/09/2012 1.38 PSA Screening (ng/mL) Date Value 01/08/2021 0.8 01/03/2020 0.77 12/28/2018 1.39 11/30/2013 1.52 Glucose, Urine (mg/dL) Date Value 09/29/2016 neg Bilirubin, Urine (no units) Date Value 09/29/2016 neg Ketones, Urine (no units) Date Value 09/29/2016 neg Specific En[place], Ur (no units) Date Value 09/29/2016 >1.030 Hemoglobin/Blood,Ur (no units) Date Value 09/29/2016 moderate pH, Urine (no units) Date Value 09/29/2016 5.5 Protein, Urine (mg/dL) Date Value 09/29/2016 trace Urobilinogen, Urine (EU) Date Value 09/29/2016 0.2 Nitrites (no units) Date Value 09/29/2016 neg Leukocytes (no units) Date Value 09/29/2016 neg Color/Appearance (comment:) Date Value 09/29/2016 normal MEDICATIONS: ergocalciferol 50,000 unit capsule (VITAMIN D2, DRISDOL) Take by mouth. famotidine (PEPCID) 20 mg tablet Take 20 mg by mouth. omeprazole (PRILOSEC) 40 mg capsule Take 1 capsule by mouth once daily. fluticasone-vilanterol (BREO ELLIPTA) 100-25 mcg/dose inhaler Inhale 1 Inhalation as instructed once daily. losartan (COZAAR) 25 mg tablet Take 0.5 tablets by mouth once daily. XARELTO 2.5 mg tablet Take 1 tablet by mouth twice daily. peg 3350-Electrolytes (GOLYTELY) 236-22.74-6.74 -5.86 gram suspension Refer to printed prep instructions from your provider. tamsulosin (FLOMAX) 0.4 mg Take 1 capsule by mouth daily at bedtime. metFORMIN (GLUCOPHAGE) 500 mg tablet Take 1 tablet by mouth three times daily with meals. . losartan (COZAAR) 25 mg tablet Take 1 tablet by mouth once daily. multivit-min/FA/lycopen/lutein (CENTRUM SILVER MEN ORAL) Take 200 mg by mouth once daily. DULoxetine (CYMBALTA) 60 mg capsule Take 1 capsule by mouth once daily. metoprolol tartrate, short acting, (LOPRESSOR) 100 mg tablet Take 1 tablet by mouth twice daily. amLODIPine (NORVASC) 5 mg tablet Take 1 tablet by mouth once daily. atorvastatin (LIPITOR) 20 mg tablet Take 1 tablet by mouth once daily. Cholecalciferol, Vitamin D3, 50 mcg (2,000 unit) cap Take 1 capsule by mouth once daily. CPAP Supplies: suitable mask per pt preference, chin strap, head gear, humidity, tubing, lifetime supplies. G47.33 CR phenazopyridine (PYRIDIUM, GERIDIUM) 200 mg tablet Take 1 tablet by mouth three times daily as needed. blood sugar diagnostic (FREESTYLE TEST) test strip 1 Strip twice daily. Use as instructed Lancets lancets Test blood sugar(s) 2 times daily. Dx: Type 2 DM - Uncontrolled E11.65 Insulin: No CPAP Autopap 7-20 cm H2O, Heat Humidity, suitable mask, Lifetime supplies, opt Chinstrap, G47.33. aspirin, enteric coated (ASPIRIN, ENTERIC COATED) 81 mg EC tablet Take 1 tablet by mouth once daily. 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 Hyperlipidemia CR (obstructive sleep apnea) DME [facility] [place] Other and unspecified hyperlipidemia Other peripheral vascular disease(443.89) Postsurgical aortocoronary bypass status Sinusitis FAMILY HISTORY Problem Relation Age of Onset Hypertension Mother Lipids Mother other (dementia) Mother other (aspiration pneumonia) Father following head injury Hypertension Sister Hypertension Brother No Known Problems Maternal Grandmother No Known Problems Maternal Grandfather Colon Cancer Paternal Grandmother No Known Problems Paternal Grandfather Social History Tobacco Use Smoking status: Former Packs/day: 1.00 Years: 20.00 Pack years: 20.00 Types: Cigarettes Quit date: 12/23/1998 Years since quittin.8 Smokeless tobacco: Never Tobacco comments: Father smoked in childhood home. NO ETS as adult. Vaping Use Vaping Use: Never used Substance Use Topics Alcohol use: Yes Comment: RARE Drug use: No PHYSICAL EXAMINATION GENERAL APPEARANCE: Well appearing, alert, in no acute distress, well-hydrated, well nourished. ASSESSMENT/PLAN: 1. Gross hematuria - ICD9: 599.71, ICD10: R31.0 - URINE CULTURE - URINALYSIS, WITH MICROSCOPIC Cystoscopy with dr. Meagan Allen PA-C documented in this encounterDoctors Hospital08-05-2022 Miscellaneous Notes* Telephone Encounter - Melly Baker Cma - 09/12/2021 1:32 PM EDT Patient called back results given. Melly Baker Cma * Telephone Encounter - Melly Baker Cma - 09/12/2021 12:05 PM EDT Called patient to advise culture results. No answer left message for a return call. Melly Baker Cma * Telephone Encounter - Melly Baker Cma - 09/12/2021 12:05 PM EDT ----- Message from Teresa Allen PA-C sent at 09/12/2021 11:54 AM EDT ----- Please call pt, bactrim will treat his uti. Teresa Allen PA-C documented in this encounterDoctors Hospital08-04-2022 Miscellaneous Notes* Telephone Encounter - Ivis Ervin - 09/11/2021 1:53 PM EDT Letter sent to coltuyet Ervin RN * Telephone Encounter - Teresa Allen PA-C - 09/11/2021 11:58 AM EDT Can you take care of this. Teresa Allen PA-C * Telephone Encounter - Paulette MONTERROSO - 09/11/2021 10:51 AM EDT Patient called back and informed me they use [employer] for his catheters documented in this encounterDoctors Hospital08-02-2022 History of Present illness Narrative* Teresa Allen PA-C - 09/09/2021 8:48 AM EDT ESTABLISHED PATIENT OFFICE VISIT HISTORY OF PRESENT ILLNESS: Clark Bedoya is a 71 year old male, Ht 172.7 cm (5' 8 ) BMI 30.41 kg/m2 with a PMH significant for increasing need to do cic, frequency, dysuria for several days. Urine dip + for uti. Pt states he normally passes catheter once weekly to keep stricture open, but in past many days has needed to do cic to empty bladder, at least 1-3 times daily. He needs new script for catheters. . LAB: Creatinine Date Value Ref Range Status 06/25/2021 0.91 0.73 - 1.22 mg/dL Final PSA (ng/mL) Date Value 03/24/2017 1.11 07/25/2015 1.04 07/04/2015 1.38 01/09/2012 1.38 PSA Screening (ng/mL) Date Value 01/08/2021 0.8 01/03/2020 0.77 12/28/2018 1.39 11/30/2013 1.52 Glucose, Urine (mg/dL) Date Value 09/29/2016 neg Bilirubin, Urine (no units) Date Value 09/29/2016 neg Ketones, Urine (no units) Date Value 09/29/2016 neg Specific [place], Ur (no units) Date Value 09/29/2016 >1.030 Hemoglobin/Blood,Ur (no units) Date Value 09/29/2016 moderate pH, Urine (no units) Date Value 09/29/2016 5.5 Protein, Urine (mg/dL) Date Value 09/29/2016 trace Urobilinogen, Urine (EU) Date Value 09/29/2016 0.2 Nitrites (no units) Date Value 09/29/2016 neg Leukocytes (no units) Date Value 09/29/2016 neg Color/Appearance (comment:) Date Value 09/29/2016 normal MEDICATIONS: ergocalciferol 50,000 unit capsule (VITAMIN D2, DRISDOL) Take by mouth. famotidine (PEPCID) 20 mg tablet Take 20 mg by mouth. omeprazole (PRILOSEC) 40 mg capsule Take 1 capsule by mouth once daily. fluticasone-vilanterol (BREO ELLIPTA) 100-25 mcg/dose inhaler Inhale 1 Inhalation as instructed once daily. losartan (COZAAR) 25 mg tablet Take 0.5 tablets by mouth once daily. XARELTO 2.5 mg tablet Take 1 tablet by mouth twice daily. peg 3350-Electrolytes (GOLYTELY) 236-22.74-6.74 -5.86 gram suspension Refer to printed prep instructions from your provider. tamsulosin (FLOMAX) 0.4 mg Take 1 capsule by mouth daily at bedtime. metFORMIN (GLUCOPHAGE) 500 mg tablet Take 1 tablet by mouth three times daily with meals. . losartan (COZAAR) 25 mg tablet Take 1 tablet by mouth once daily. multivit-min/FA/lycopen/lutein (CENTRUM SILVER MEN ORAL) Take 200 mg by mouth once daily. DULoxetine (CYMBALTA) 60 mg capsule Take 1 capsule by mouth once daily. metoprolol tartrate, short acting, (LOPRESSOR) 100 mg tablet Take 1 tablet by mouth twice daily. amLODIPine (NORVASC) 5 mg tablet Take 1 tablet by mouth once daily. atorvastatin (LIPITOR) 20 mg tablet Take 1 tablet by mouth once daily. Cholecalciferol, Vitamin D3, 50 mcg (2,000 unit) cap Take 1 capsule by mouth once daily. CPAP Supplies: suitable mask per pt preference, chin strap, head gear, humidity, tubing, lifetime supplies. G47.33 CR phenazopyridine (PYRIDIUM, GERIDIUM) 200 mg tablet Take 1 tablet by mouth three times daily as needed. blood sugar diagnostic (FREESTYLE TEST) test strip 1 Strip twice daily. Use as instructed Lancets lancets Test blood sugar(s) 2 times daily. Dx: Type 2 DM - Uncontrolled E11.65 Insulin: No CPAP Autopap 7-20 cm H2O, Heat Humidity, suitable mask, Lifetime supplies, opt Chinstrap, G47.33. aspirin, enteric coated (ASPIRIN, ENTERIC COATED) 81 mg EC tablet Take 1 tablet by mouth once daily. 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 Hyperlipidemia CR (obstructive sleep apnea) DME [employer] [place] Other and unspecified hyperlipidemia Other peripheral vascular disease(443.89) Postsurgical aortocoronary bypass status Sinusitis FAMILY HISTORY Problem Relation Age of Onset Hypertension Mother Lipids Mother other (dementia) Mother other (aspiration pneumonia) Father following head injury Hypertension Sister Hypertension Brother No Known Problems Maternal Grandmother No Known Problems Maternal Grandfather Colon Cancer Paternal Grandmother No Known Problems Paternal Grandfather Social History Tobacco Use Smoking status: Former Smoker Packs/day: 1.00 Years: 20.00 Pack years: 20.00 Types: Cigarettes Quit date: 12/23/1998 Years since quittin.7 Smokeless tobacco: Never Used Tobacco comment: Father smoked in childhood home. NO ETS as adult. Vaping Use Vaping Use: Never used Substance Use Topics Alcohol use: Yes Comment: RARE Drug use: No PHYSICAL EXAMINATION GENERAL APPEARANCE: Well appearing, alert, in no acute distress, well-hydrated, well nourished. ASSESSMENT/PLAN: 1. Urinary tract infection with hematuria, site unspecified - ICD9: 599.0, 599.70, ICD10: N39.0, R31.9 (primary diagnosis) acute - URINE CULTURE Bactrim 2. Incomplete bladder emptying - ICD9: 788.21, ICD10: R33.9 New order for catheters, pt to call with company name [email or web address] , 3 times daily Cysto possible dilation with dr. meagan Allen PA-C I spent a total of 20 minutes on the date of the service which included preparing to see the patient, [id number] patient care, completing clinical documentation and ordering medications, tests, or procedures. documented in this encounterDoctors Hospital07-01-2022 Miscellaneous Notes* Telephone Encounter - Ivis Mulligan RN - 08/08/2021 11:05 AM EDT Pts reports Pt is out of medication. Patient has been identified by name and date of : Yes Spouse phones for refill(s): Pending Prescriptions Disp Refills OMEPRAZOLE 40 MG CAPSULE,DELAYED RELEASE 90 capsule 0 Sig: Take 1 capsule by mouth once daily. ALFRED: No Date of last office visit in primary care: 07/14/21 Future visit: none Last 2 Encounter Wt Readings: Date: Wt: 07/22/2021 90.3 kg (199 lb) 07/14/2021 92.1 kg (203 lb) Previous labs/tests for medication: Blood Pressure: BUN (mg/dL) Date Value 06/25/2021 10 04/02/2021 13 Sodium (mmol/L) Date Value 06/25/2021 137 04/02/2021 135 Last 1 Encounter BP Readings: Date: BP: 07/22/2021 136/70 Liver Function: ALT (U/L) Date Value 06/25/2021 19 04/02/2021 19 AST (U/L) Date Value 06/25/2021 18 04/02/2021 16 Please advise. Thank you. Ivis Mulligan RN documented in this encounterDoctors Hospital06-19-2022 History of Present illness Narrative* Home Bartholomew MD - 07/27/2021 10:46 AM EDT [facility] [place], 07/22/2021: Name: Clark Bedoya : 1950 INTERVAL HISTORY: Since the February, clinic visit, he has noticed no change in daily cough productive of small amounts of nonpurulent sputum. Still no hemoptysis. No change in the previously described exertional dyspnea with activities of daily living, as well as the infrequent if any wheezing. Symptoms triggered by exertion, and may be worse in the current wave of heat and humidity. Problem list, PMH, PSH, FAMH, SOCH: Reviewed with patient today, and updated accordingly. Immunizations reviewed today. Allergies reviewed and updated, and medications reconciled today. PHYSICAL EXAMINATION: BP 136/70 Pulse 84 Resp 17 Wt 90.3 kg (199 lb) SpO2 99% BMI 30.26 kg/m Gen: No acute distress. Cooperative with examination. ENT: Sclerae clear. Nares clear. Oral hygeine and dentition good. Pharynx clear. Resp: No stridor, accessory respiratory muscle use, supra-sternal retractions. A-P diameter normal.No crackles, wheezes. CV: Regular rythm. Heart tones normal. Radial pulses normal. Abd: Not distended. MSK: No kyphoscoliosis. Ext: Warm and well perfused. No clubbing, cyanosis, edema, sclerodactyly, Raynaud's. Skin: No rash, eczema, urticaria, telangiectasia. Neuro: Mental status normal. No tremor. DATA REVIEW: CT chest, 06/30/2021: Comparison: Chest radiograph dated 02/26/2021 Limitations: None. Lines, tubes, and devices: None. Lung parenchyma and airways: There is emphysema with mild, diffuse bronchiectasis. There is mild biapical fibrosis, left greater than right. Presumed atelectasis or scarring is seen within the lingula and left lower lobe. There is mild right basilar atelectasis. There are subcentimeter indeterminate pulmonary nodules. For example, there is an indeterminant, approximately 8mm nodule within the left lung base (series 5, image #140). There is an indeterminate, approximately 7 mm nodule within the lingula (series 5, image #136). Other subcentimeter indeterminate pulmonary nodules are also seen. A calcified granuloma is incidentally noted within the right upper lobe (series 5, image #91). There is no pneumothorax or endobronchial lesion. Pleural space: There is a trace left-sided pleural effusion, with associated mild pleural thickening. Lower neck, lymph nodes, and mediastinum: There are prominent, less than 1 cm bilateral hilar lymph nodes, likely reactive. No rao axillary or mediastinal lymphadenopathy is identified. Heart, pericardium, and thoracic vessels: Atherosclerotic calcifications are present within thoracic aorta and coronary arteries. Patient is status post median sternotomy and CABG, with harvesting of the STARKEY. The heart is normal in size. There is no significant pericardial effusion. Bones and soft tissues: There is scoliosis, osteopenia, and multilevel degenerative change seen within the thoracic spine. The patient is status post median sternotomy. There is no destructive bony lesion. Upper abdomen: Nonspecific wall thickening of the stomach likely relates to underdistention. There is relative fatty atrophy of the pancreas. Gallbladder is relatively collapsed but is otherwise unremarkable. Nonspecific bilateral perinephric fat stranding. I have personally and independently reviewed the above images and I concur with the findings as described. TO SPIROMETRY, 03/10/2021: FVC (L) 3.90, 97 %. +5% post BD. FEV1 (L) 2.42, 79 %. No change post BD. FEV1/FVC 0.62 MEDICAL DECISION MAKIN. Left basilar effusion, +/- pleural thickening, +/- infiltrate, +/- atelectasis; these images have not changed in the interval. No chest trauma. Index of suspicion of venous thromboembolic disease is low. Prior smoker of 30 pack years. ? work with asbestos. -Reassess CT chest in 6 to 12 months based on smoking history. 2. COPD with chronic bronchitis. -In light of cough and dyspnea, initiate combination therapy with long-acting bronchodilator and inhaled corticosteroid; insurance plan covers Breo, 3-month supply electronically scripted to mail-order pharmacy on file. -Reassess symptoms and spirometry in 3 months. I informed the patient that I am retiring from the staff of [facility] and the practice of Medicine on August 07, 2021, after 41 years of service to my patients. It has been my privilege to provide him with Pulmonary consultation and care for the time we have known each other. Please feel confident that my colleagues are well equipped to provide ongoing care in the future: MD Home Roawn MD, [facility] [place] [address] P: [phone] F: [phone] [email or web address] documented in this encounterDoctors Hospital06-14-2022 Instructions* Patient Instructions* Home Bartholomew MD - 07/22/2021 4:34 PM EDT Patient agreed to receive AVS and Instructions via email message. Home Bartholomew MD, [facility] [place] [address] P: [phone] F: [phone] [email or web address] documented in this encounterDoctors Hospital06-14-2022 Nurse Note* Yessica Huynh LPN - 07/22/2021 3:25 PM EDT Intake information documented in the prior visit with dermatology today. documented in this [facility]06[facility]10[facility] History of Present illness Narrative* RT Briana(R) - 07/18/2021 7:45 AM EDT Radiology Service Progress Note PATIENT NAME: Clark Bedoya DATE OF SERVICE: July 18, 2021 TIME: 9:26 AM PATIENT IDENTITY VERIFICATION COMPLETED USING TWO (2) IDENTIFIERS: Name and Date of confirmedby patient verbally. FALL SCREENING: Has the patient had 2 falls in the last year or 1 fall with injury or currently using an Ambulatory Assistive Device (Walker, Cane, Wheelchair, Crutches, etc.)? No PATIENT GENDER DATA: Male PATIENT RELEVANT IMPLANT DATA REVIEWED: Not Applicable RADIOLOGY DEPARTMENT: Ultrasound PERIPHERAL IV DATA: Not applicable SIGNED BY: RT Briana(R) July 18, 2021 9:26 AM documented in this encounterDoctors Hospital06-07-2022 Miscellaneous Notes* Telephone Encounter - Taylor Stauffer RN - 07/15/2021 9:35 AM EDT Patient calls and notified that orders in place for ultrasound of right upper quadrant. Patient voiced understanding. Patient transferred to schedule ultrasound. Taylor Stauffer RN * Telephone Encounter - Jayshree Mancilla LPN - 07/14/2021 4:00 PM EDT Can you please call patient inform I have added a order for a repeat US to evaluate his fatty liversince it's been some time since he had his last US Thanks Alisa Shi APRN.ALLA Left message asking patient to return call. Please help him schedule US documented in this encounterDoctors Hospital06-06-2022 Instructions* Patient Instructions* Alisa Shi APRN.CNP - 07/14/2021 9:11 AM EDT Continue omeprazole 40mg daily - Follow up in one year Repeat colonoscopy in 5 years with possible repeat EGD at that time You can use tylenol for REAL Avoid NSAIDs (such as Advil, Ibuprofen, Excedrin, Mobic), tobacco, alcohol, carbonated beverages, caffeine, chocolate, tomato based sauces, spicy/fatty foods, and peppermint Avoid eating large meals. Avoid eating less than 3 hours before bed. Weight loss. Elevate the head of the bed 6 inches, or at least invest in a wedge pillow. Follow up yearly for medication renewal, and as needed. documented in this encounterDoctors Hospital06-06-2022 History of Present illness Narrative* Alisa Shi APRN.CNP - 07/14/2021 8:30 AM EDT CHIEF COMPLAINT: Patient presents with: Medication Follow-up: omeprazole 40 mg daily Anemia: treating with iron Surgical Followup: EGD and colonoscopy HPI Clark Bedoya is a 71 year old male here today for follow up anemia. Last EGD 05/05/2021 : Impression: Normal examined jejunum. - Duodenitis. - Gastritis. Biopsied. Negative for H pylori - no diagnostic alteration. - Mildly severe reflux esophagitis. Biopsied- squamous mucosa with no diagnostic changes. No prominence of intraepithelial eosinophils. Last Colonoscopy 05/05/2021: Impression: One diminutive polyp in the sigmoid colon; tubular adenoma,removed with a cold biopsy forceps. Resected and retrieved. Diverticulosis in the sigmoid colon. The examination was otherwise normal on direct and retroflexion views. Patient has been taking omeprazole 40 mg daily. Patient reports he has been feeling better not as SOB. Denies sore throat. Denies weight loss, SOB, or weakness or fatigued. Patient had blood work done today. Patient is currently experiencing no upper symptoms of nausea, vomiting, dysphagia or epigastric pain. Patient in the past has been worked up for pancytopenia - R/o celiac disease, hemochromatosis normal LFT's , in the past bone marrow bx done by [facility] which was normal. I have reviewed the procedure and pathology reports, as well as the images, with the patient. Findings of gastritis - biopsy no diagnostic alteration. Esophagitis no diagnostic alteration no prominence of intraepithelial eosinophils - Colonoscopy One diminutive polyp - tubular adenoma and a few dive rticulosis in the sigmoid colon. Component Latest Ref Rng & Units 03/28/2021 04/02/2021 04/21/2021 06/25/2021 06/30/2021 WBC 3.70 - 11.00 k/uL 5.94 6.57 RBC 4.20 - 6.00 m/uL 4.01 (L) 3.71 (L) Hemoglobin 13.0 - 17.0 g/dL 12.6 (L) 11.9 (L) Hematocrit 39.0 - 51.0 % 42.1 35.8 (L) MCV 80.0 - 100.0 fL 105.0 (H) 96.5 MCH 26.0 - 34.0 pg 31.4 32.1 MCHC 30.5 - 36.0 g/dL 29.9 (L) 33.2 RDW-CV 11.5 - 15.0 % 16.3 (H) 17.2 (H) Platelet Count 150 - 400 k/uL 54 (L) 58 (L) MPV 9.0 - 12.7 fL 13.8 (H) 13.2 (H) NRBC /100 WBC 1.0 Absolute nRBC <0.01 k/uL <0.01 0.07 (H) Neut% % 42.7 53.9 Abs Neut (ANC) 1.45 - 7.50 k/uL 2.53 3.54 Lymph% % 30.8 19.1 Abs Lymph 1.00 - 4.00 k/uL 1.83 1.25 Wharton% % 24.7 20.9 Abs Wharton <0.87 k/uL 1.47 (H) 1.37 (H) Eosin% % 0.8 0.9 Abs Eosin <0.46 k/uL 0.05 0.06 Baso% % 1.0 3.5 Abs Baso <0.11 k/uL 0.06 0.23 (H) Realym% % 0.0 Myelo% % 1.7 Left Shift Present Platelet Estimate Decreased Red Cell Morph Reviewed Polychromasia Slight Anisocytosis Present DTYPE Manual Nucleated Reds 0 /100 WBC 0.0 Diff Type Auto Diff Protein, Total 6.3 - 8.0 g/dL 7.4 7.4 Albumin 3.9 - 4.9 g/dL 4.6 4.5 Calcium 8.5 - 10.2 mg/dL 9.4 9.7 Bilirubin, Total 0.2 - 1.3 mg/dL 0.6 0.7 Alkaline Phosphatase 38 - 113 U/L 67 60 AST 14 - 40 U/L 16 18 Glucose 74 - 99 mg/dL 321 (H) 313 (H) BUN 9 - 24 mg/dL 13 10 Creatinine 0.73 - 1.22 mg/dL 0.81 0.91 Sodium 136 - 144 mmol/L 135 (L) 137 Potassium 3.7 - 5.1 mmol/L 4.9 5.3 (H) 5.2 (H) Chloride 97 - 105 mmol/L 99 99 CO2 22 - 30 mmol/L 23 24 Anion Gap 9 - 18 mmol/L 13 14 ALT 10 - 54 U/L 19 19 eGFR- >60 eGFR-All Other Races . >60 eGFR >=60 mL/min/1.73m 90 Cholesterol, Total <200 mg/dL 72 Triglyceride <150 mg/dL 215 (H) HDL Cholesterol >39 mg/dL 19 (L) Non HDL Cholesterol <130 mg/dL 53 Fasting Time hrs 12 VLDL Cholesterol <30 mg/dL 43 (H) TC:HDL Ratio <5.10 3.79 LDL Cholesterol <100 mg/dL 10 LDL:HDL Ratio <2.54 0.53 Iron 41 - 186 ug/dL 91 TIBC 232 - 386 ug/dL 369 Transferrin Saturation 15 - 57 % 25 KEERTHI Negative Positive (A) KEERTHI Titer Negative 1:160 (A) KEERTHI Pattern Homogeneous Retic % 0.4 - 2.0 % 6.4 (H) Abs Retic 0.0180 - 0.1000 M/uL 0.251 (H) Hemoglobin A1C 4.3 - 5.6 % 7.4 (H) Estimated Average Glucose mg/dL 166 Ferritin 30.3 - 565.7 ng/mL 201.0 Hep C Antibody IA Negative Negative Vitamin D 25 Hydroxy 31.0 - 80.0 ng/mL 30.3 (L) Current Outpatient Medications Medication Sig losartan (COZAAR) 25 mg tablet Take 0.5 tablets by mouth once daily. omeprazole (PRILOSEC) 40 mg capsule Take 1 capsule by mouth once daily. XARELTO 2.5 mg tablet Take 1 tablet by mouth twice daily. tamsulosin (FLOMAX) 0.4 mg Take 1 capsule by mouth daily at bedtime. metFORMIN (GLUCOPHAGE) 500 mg tablet Take 1 tablet by mouth three times daily with meals. . multivit-min/FA/lycopen/lutein (CENTRUM SILVER MEN ORAL) Take 200 mg by mouth once daily. DULoxetine (CYMBALTA) 60 mg capsule Take 1 capsule by mouth once daily. metoprolol tartrate, short acting, (LOPRESSOR) 100 mg tablet Take 1 tablet by mouth twice daily. amLODIPine (NORVASC) 5 mg tablet Take 1 tablet by mouth once daily. atorvastatin (LIPITOR) 20 mg tablet Take 1 tablet by mouth once daily. Cholecalciferol, Vitamin D3, 50 mcg (2,000 unit) cap Take 1 capsule by mouth once daily. phenazopyridine (PYRIDIUM, GERIDIUM) 200 mg tablet Take 1 tablet by mouth three times daily as needed. aspirin, enteric coated (ASPIRIN, ENTERIC COATED) 81 mg EC tablet Take 1 tablet by mouth once daily. peg 3350-Electrolytes (GOLYTELY) 236-22.74-6.74 -5.86 gram suspension Refer to printed prep instructions from your provider. (Patient not taking: Reported on 05/15/2021 ) losartan (COZAAR) 25 mg tablet Take 1 tablet by mouth once daily. CPAP Supplies: suitable mask per pt preference, chin strap, head gear, humidity, tubing, lifetime supplies. G47.33 CR blood sugar diagnostic (FREESTYLE TEST) test strip 1 Strip twice daily. Use as instructed Lancets lancets Test blood sugar(s) 2 times daily. Dx: Type 2 DM - Uncontrolled E11.65 Insulin: No CPAP Autopap 7-20 cm H2O, Heat Humidity, suitable mask, Lifetime supplies, opt Chinstrap, G47.33. No current facility-administered medications for this visit. ALLERGIES Allergen Reactions Plavix [Clopidogrel] GI Upset Caused constipation Effexor [Venlafaxin* Other: See Comments agitation Lactose Diarrhea Lisinopril Cough Nitro Patch [Other] Rash Rash at site [place] Diarrhea Social History Tobacco Use Smoking status: Former Smoker Packs/day: 1.00 Years: 20.00 Pack years: 20.00 Types: Cigarettes Quit date: 12/23/1998 Years since quittin.5 Smokeless tobacco: Never Used Vaping Use Vaping Use: Never used Substance Use Topics Alcohol use: Yes Comment: RARE Drug use: No PAST MEDICAL HISTORY Diagnosis Date Acute myocardial infarction, unspecified site, episode of care unspecified 03/02/98 Bladder cancer (HCC) 02/2011 CAD (coronary artery disease) 2009 CABG x 3 Chronic depressive personality disorder Diverticulosis of colon (without mention of hemorrhage) DM (diabetes mellitus), type 2 (HCC) denies takes no medications Essential hypertension, benign History of basal cell carcinoma (BCC) of skin 2019 right posterior shoulder 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 Hyperlipidemia CR (obstructive sleep apnea) DME [facility] Other and unspecified hyperlipidemia Other peripheral vascular disease(443.89) Postsurgical aortocoronary bypass status Sinusitis PAST SURGICAL HISTORY Procedure Laterality Date ANGIOPLASTY PERIPERAL ART 03/02/1998 STENT PLACED APPENDECTOMY 1969 COLONOSCOPY 05/05/2021 repeat in 5 years COLONOSCOPY FLX DX W/COLLJ SPEC WHEN PFRMD 08/23/2006 COLONOSCOPY FLX DX W/COLLJ SPEC WHEN PFRMD 12/11/2011 Colonoscopy CYSTOSCOPY CYSTOSCOPY EGD W/O [facility] SPEC VARICIES INJ 05/05/2021 ESOPHAGOGASTRODUODENOSCOPY TRANSORAL DIAGNOSTIC 12/11/2011 EGD PAST SURGICAL HISTORY OF 11/2008 CABG 3 PAST SURGICAL HISTORY OF 02/11/2011 Cysto, TURBT PAST SURGICAL HISTORY OF 12/18/2013 bladder surgery REMOVE CATARACT, INSERT LENS, INTRACAPSUL RPR 1ST INGUN HRNA AGE 5 YRS/> REDUCIBLE 05/05/2012 RIGHT SIGMOIDOSCOPY FLX DX W/COLLJ SPEC BR/WA IF PFRMD 2001 Sigmoidoscopy TRANSCATH STENT INIT VESSEL,PERCUT 1998 Transcath stent init vessel percut 1 stent FAMILY HISTORY Problem Relation Age of Onset Hypertension Mother Lipids Mother other (dementia) Mother other (aspiration pneumonia) Father following head injury Hypertension Sister Hypertension Brother No Known Problems Maternal Grandmother No Known Problems Maternal Grandfather Colon Cancer Paternal Grandmother No Known Problems Paternal Grandfather REVIEW OF SYSTEMS Review of Systems Constitutional: Positive for chills. All other systems reviewed and are negative. PHYSICAL EXAM BP 124/70 Pulse 80 Wt 203 lb (92.1kg) SpO2 98% Physical Exam Constitutional: Appearance: Normal appearance. He is normal weight. HENT: Head: Normocephalic and atraumatic. Eyes: Extraocular Movements: Extraocular movements intact. Pupils: Pupils are equal, round, and reactive to light. Cardiovascular: Rate and Rhythm: Normal rate and regular rhythm. Pulses: Normal pulses. Heart sounds: Normal heart sounds. Pulmonary: Effort: Pulmonary effort is normal. Breath sounds: Normal breath sounds. Abdominal: General: Abdomen is flat. Bowel sounds are normal. Palpations: Abdomen is soft. Musculoskeletal: General: Normal range of motion. Cervical back: Normal range of motion and neck supple. Skin: General: Skin is warm and dry. Neurological: General: No focal deficit present. Mental Status: He is alert and oriented to person, place, and time. Psychiatric: Mood and Affect: Mood normal. Behavior: Behavior normal. ASSESSMENT: Gastroesophageal reflux disease with esophagitis without hemorrhage (primary encounter diagnosis) Duodenitis without bleeding Tubular adenoma Pancytopenia (hcc) PLAN: Assessment/Plan (K21.00) Gastroesophageal reflux disease with esophagitis without hemorrhage (primary encounter diagnosis) (K29.80) Duodenitis without bleeding (D36.9) Tubular adenoma (D61.818) Pancytopenia (HCC) 1. Gastroesophageal reflux disease with esophagitis without hemorrhage I have reviewed the procedure and pathology reports, as well as the images, with the patient. EGD findings of duodenitis and gastritis and esophagitis - continue omeprazole 40 mg daily 2. Duodenitis without bleeding I have reviewed the procedure and pathology reports, as well as the images, with the patient. EGD findings of duodenitis and gastritis and esophagitis - continue omeprazole 40 mg daily 3. Tubular adenoma I have reviewed the procedure and pathology reports, as well as the images, with the patient. Findings of tubular adenoma Repeat colonoscopy in 5 years 4. Pancytopenia (HCC) - Can consider repeat RUQ US d/t history of fatty liver with possible fibroscan Follow up in office 3 months/PRN. Recommended to please call office/go to ER if fever, chills, chest pain, SOB, diarrhea, nausea, emesis, worsening abdominal pain, dehydration occurs I spent a total of 30 minutes on the date of the service which included preparing to see the patient, [id number] patient care, completing clinical documentation, obtaining and/or reviewing separately obtained history, performing a medically appropriate examination, counseling and educating the pat ient/family/caregiver, ordering medications, tests, or procedures, communicating with other HCPs (not separately reported), independently interpreting results (not separately reported), communicatingresults to the patient/family/caregiver, and care coordination (not separately reported). Alisa Shi APRN.CNP DATE: 07/14/21 TIME: 7:56 AM documented in this encounterDo[facility]05-25-2022 Miscellaneous Notes* Telephone Encounter - Candi Miranda LPN - 07/02/2021 11:20 AM EDT Left a message for pt to call the office and ask to speak to a triage nurse. Candi Miranda LPN * Telephone Encounter - Candi Miranda LPN - 07/02/2021 11:18 AM EDT Attempted to reach pt. Line was busy, try later. Candi Miranda LPN * Telephone Encounter - Santa Bianchi Ma - 06/30/2021 5:21 PM EDT Left message for patient to return call. Santa Bianchi Ma * Telephone Encounter - Adam Lucero MD - 06/30/2021 5:16 PM EDT Potassium is still up slightly. Did they have any trouble getting his blood. That can falsely elevate. Let me know documented in this encounterDoctors Hospital05-24-2022 Miscellaneous Notes* Telephone Encounter - Antony Andres LPN - 07/01/2021 1:17 PM EDT TC to pt, notified of results/provider response. Pt verbalized understanding. Antony Andres LPN * Telephone Encounter - Adam Lucero MD - 07/01/2021 12:14 PM EDT Still has some fluid on the one base of the lung and shows a nodule. These are often ok but needs to follow up with pulmonary documented in this encounterDoctors Hospital05-23-2022 History of Present illness Narrative* Cheryl Lambert, RT(R) - 06/30/2021 3:40 PM EDT Radiology Service Progress Note PATIENT NAME: Clark Bedoya DATE OF SERVICE: June 30, 2021 TIME: 4:05 PM PATIENT IDENTITY VERIFICATION COMPLETED USING TWO (2) IDENTIFIERS: Name and Date of confirmedby patient verbally. FALL SCREENING: Has the patient had 2 falls in the last year or 1 fall with injury or currently using an Ambulatory Assistive Device (Walker, Cane, Wheelchair, Crutches, etc.)? No PATIENT GENDER DATA: Male PATIENT RELEVANT IMPLANT DATA REVIEWED: Not Applicable RADIOLOGY DEPARTMENT: CT; Exam(s) Completed: Chest PERIPHERAL IV DATA: Not applicable SIGNED BY: RT Vazquez(R) June 30, 2021 4:05 PM documented in this encounterDoctors Hospital05-19-2022 Miscellaneous Notes* Telephone Encounter - Fabiola Cho RN - 06/26/2021 9:12 AM EDT Patient returned call and given provider's message below and patient verbalized understanding. Transferred to receivable manager to schedule CT. Jeronimo Cho RN * Telephone Encounter - Antony Andres LPN - 06/25/2021 10:21 AM EDT TC to pt, left message to return call to office. Antony Andres LPN * Telephone Encounter - Adam Lucero MD - 06/25/2021 8:35 AM EDT Let him know I did talk with pulmonary, they never got a copy of his films from the other hospital to compare. He recommends a follow up ct of the chest to make sure is ok. documented in this encounterDoctors Hospital05-17-2022 History of Present illness Narrative* Adam Lucero MD - 06/24/2021 2:38 PM EDT Patient presents with: Follow Up: 6 month HPI: Patient presents today for office visit for follow up. Since last here, has seen Dr. Kenney. He recommends close follow up of labs every three months. Most recent platelets have been stable. He also saw Pulmonary and had pft's. Dr Sims was going to review the CT scans and then comment on whether or not further evaluation was needed. I will double check with him to see if any further follow up is needed. No cough or wheeze. Remains on xarelto. Still seeing Dr. Blackmon. No bleeding issues out of the ordinary. Remains on cpap. Has not seen anyone since Dr. Ge. No snoring. He is feeling overall pretty well.Machine is only two years. Continues to see urology. Cardio: sees [facility]. Sees Dr Plascencia once a year. DM: no polyuria or polydipsia. Does not check sugars. Watches his diet closely. Last a1c was 7.1. No myalgias. bp is doing well. MEDICATIONS: Current Outpatient Medications Medication Sig omeprazole (PRILOSEC) 40 mg capsule Take 1 capsule by mouth once daily. XARELTO 2.5 mg tablet Take 1 tablet by mouth twice daily. peg 3350-Electrolytes (GOLYTELY) 236-22.74-6.74 -5.86 gram suspension Refer to printed prep instructions from your provider. (Patient not taking: Reported on 05/15/2021 ) tamsulosin (FLOMAX) 0.4 mg Take 1 capsule by mouth daily at bedtime. losartan (COZAAR) 25 mg tablet Take 1 tablet by mouth once daily. metFORMIN (GLUCOPHAGE) 500 mg tablet Take 1 tablet by mouth three times daily with meals. . losartan (COZAAR) 25 mg tablet Take 1 tablet by mouth once daily. multivit-min/FA/lycopen/lutein (CENTRUM SILVER MEN ORAL) Take 200 mg by mouth once daily. DULoxetine (CYMBALTA) 60 mg capsule Take 1 capsule by mouth once daily. metoprolol tartrate, short acting, (LOPRESSOR) 100 mg tablet Take 1 tablet by mouth twice daily. amLODIPine (NORVASC) 5 mg tablet Take 1 tablet by mouth once daily. atorvastatin (LIPITOR) 20 mg tablet Take 1 tablet by mouth once daily. Cholecalciferol, Vitamin D3, 50 mcg (2,000 unit) cap Take 1 capsule by mouth once daily. CPAP Supplies: suitable mask per pt preference, chin strap, head gear, humidity, tubing, lifetime supplies. G47.33 CR phenazopyridine (PYRIDIUM, GERIDIUM) 200 mg tablet Take 1 tablet by mouth three times daily as needed. blood sugar diagnostic (FREESTYLE TEST) test strip 1 Strip twice daily. Use as instructed Lancets lancets Test blood sugar(s) 2 times daily. Dx: Type 2 DM - Uncontrolled E11.65 Insulin: No CPAP Autopap 7-20 cm H2O, Heat Humidity, suitable mask, Lifetime supplies, opt Chinstrap, G47.33. aspirin, enteric coated (ASPIRIN, ENTERIC COATED) 81 mg EC tablet Take 1 tablet by mouth once daily. No current facility-administered medications for this visit. ALLERGIES: ALLERGIES Allergen Reactions Plavix [Clopidogrel] GI Upset Caused constipation Effexor [Venlafaxin* Other: See Comments agitation Lactose Diarrhea Lisinopril Cough Nitro Patch [Other] Rash Rash at site [place] Diarrhea PAST MEDICAL HISTORY Diagnosis Date Acute myocardial infarction, unspecified site, episode of care unspecified 03/02/98 Bladder cancer (HCC) 02/2011 CAD (coronary artery disease) 2009 CABG x 3 Chronic depressive personality disorder Diverticulosis of colon (without mention of hemorrhage) DM (diabetes mellitus), type 2 (HCC) denies takes no medications Essential hypertension, benign History of basal cell carcinoma (BCC) of skin 2019 right posterior shoulder 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 Hyperlipidemia CR (obstructive sleep apnea) DME [facility] Other and unspecified hyperlipidemia Other peripheral vascular disease(443.89) Postsurgical aortocoronary bypass status Sinusitis PAST SURGICAL HISTORY Procedure Laterality Date ANGIOPLASTY PERIPERAL ART 03/02/1998 STENT PLACED APPENDECTOMY 1969 COLONOSCOPY 05/05/2021 repeat in 5 years COLONOSCOPY FLX DX W/COLLJ SPEC WHEN PFRMD 08/23/2006 COLONOSCOPY FLX DX W/COLLJ SPEC WHEN PFRMD 12/11/2011 Colonoscopy CYSTOSCOPY CYSTOSCOPY EGD W/O [facility] SPEC VARICIES INJ 05/05/2021 ESOPHAGOGASTRODUODENOSCOPY TRANSORAL DIAGNOSTIC 12/11/2011 EGD PAST SURGICAL HISTORY OF 11/2008 CABG 3 PAST SURGICAL HISTORY OF 02/11/2011 Cysto, TURBT PAST SURGICAL HISTORY OF 12/18/2013 bladder surgery REMOVE CATARACT, INSERT LENS, INTRACAPSUL RPR 1ST INGUN HRNA AGE 5 YRS/> REDUCIBLE 05/05/2012 RIGHT SIGMOIDOSCOPY FLX DX W/COLLJ SPEC BR/WA IF PFRMD 2002 Sigmoidoscopy TRANSCATH STENT INIT VESSEL,PERCUT 1999 Transcath stent init vessel percut 1 stent FAMILY HISTORY Problem Relation Age of Onset Hypertension Mother Lipids Mother other (dementia) Mother other (aspiration pneumonia) Father following head injury Hypertension Sister Hypertension Brother No Known Problems Maternal Grandmother No Known Problems Maternal Grandfather Colon Cancer Paternal Grandmother No Known Problems Paternal Grandfather Social History Tobacco Use Smoking status: Former Smoker Packs/day: 1.00 Years: 20.00 Pack years: 20.00 Types: Cigarettes Quit date: 12/23/1998 Years since quittin.5 Smokeless tobacco: Never Used Vaping Use Vaping Use: Never used Substance Use Topics Alcohol use: Yes Comment: RARE Drug use: No Reviewed current medications, allergies, past medical history, surgical history, family history andsocial history today. REVIEW OF SYSTEMS All other reviewed and negative other than HPI. HEALTH MAINTENANCE: Reviewed health maintenance issues today and recommended the following in detail. ABDOMINAL AORTIC ANEURYSM SCREENING N-had ct done in last year. DILATED RETINAL EXAM -done within the last year. ADVANCE DIRECTIVE DISCUSSION -has dpoa, is surrogate and then his daughter Kira DIABETIC FOOT EXAM due on 03/29/2021 VITALS: BP 138/78 Pulse 82 Resp 16 Wt 92.3 kg (203 lb 6.4 oz) SpO2 98% BMI 30.93 kg/m Last 4 Encounter Wt Readings: Date: Wt: 04/21/2021 93.9 kg (207 lb) 04/02/2021 93.4 kg (206 lb) 03/10/2021 93.7 kg (206 lb 9.6 oz) 03/06/2021 94.3 kg (208 lb) PHYSICAL EXAMINATION: General appearance: Well appearing, alert, in no acute distress, well-hydrated, well nourished. Skin: Skin color, texture, turgor normal, no suspicious rashes or lesions Head: Normocephalic, no masses, lesions, tenderness or abnormalities Neck: Supple, no adenopathy; thyroid symmetric, normal size, no bruits Lungs: Lungs clear to auscultation. No wheezing, rhonchi, rales Heart: RRR without murmur, gallop, or rubs. No ectopy Abdomen: Normal abdominal exam, Abdomen soft, non-tender. Bowel sounds normal. No masses, organomegaly Extremities: No deformities, edema, skin discoloration, clubbing or cyanosis. Good capillary refill. Feet:Shoes and socks removed, No deformities, ulcers, calluses, normal distal pulses and sensitive to 10 gm monofilament. Has reported some numbness for the last three years. ASSESSMENT/PLAN: 1. PAD (peripheral artery disease) ([facility]) - ICD9: 443.9, ICD10: I73.9 (primary diagnosis) - per vascular surgery. 2. Atherosclerosis of coronary artery of [place] heart with angina pectoris, unspecified vessel or lesion type ([facility]) - ICD9: 414.01, 413.9, ICD10: I25.119 - call if any issues. Continue to see Cardiology 3. Essential hypertension, benign - ICD9: 401.1, ICD10: I10 - good control - Continue current medication(s) - Goal of BP <130/80 4. Hyperlipidemia LDL goal <100 - ICD9: 272.4, ICD10: E78.5 - to be determined upon return of lab results - Continue current medication. - COMP METABOLIC PANEL - LIPID PANEL BASIC 5. CR (obstructive sleep apnea) - ICD9: 327.23, ICD10: G47.33 - call if any issues. 6. 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 Type 2 diabetes mellitus without complication, without long-term current use of insulin ([facility]) - ICD9: 250.00, ICD10: E11.9 Controlled. - Continue current medications - HGB A1C 8. Chronic ITP (idiopathic thrombocytopenia) ([facility]) - ICD9: 287.31, ICD10: D69.3 - per Dr. Kenney 9. Thrombocytopenia ([facility]) - ICD9: 287.5, ICD10: D69.6 - as above. 10. Vitamin D deficiency - ICD9: 268.9, ICD10: E55.9 Check labs. Adam Lucero RTO in six months and prn. documented in this encounterDoctors Hospital04-18-2022 Miscellaneous Notes* Telephone Encounter - Lelia Ernandez RN - 05/26/2021 2:15 PM EDT Spoke to patient. Relayed Toro Weaver CNP message below. Scheduled accordingly. * Telephone Encounter - [place] Plaza LPN - 05/19/2021 1:17 PM EDT Left message for patient to call office and leave best time and number to reach him. * Telephone Encounter - Toro Weaver APRN.CNP - 05/19/2021 10:34 AM EDT Please call the patient with the following results: A. Skin, right forearm, anterior, shave biopsy: - Hypertrophic actinic keratosis, ulcerated. Recommended treatment: no treatment indicated at this time. The lesion removed was pre-cancerous and likely removed by the procedure performed. Please scheduled 8 week follow-up for re-evaluation of the site. Thank you, Toro Weaver APRN.ALLA documented in this encounterDoctors Hospital04-07-2022 Instructions* Patient Instructions* Toro Weaver APRN.CNP - 05/15/2021 3:14 PM EDT Thank you for allowing me to examine you for signs of skin cancer today. We had an opportunity to discuss my findings and any treatments I recommended. I believe that there are several steps that a person can do to help prevent skin cancers and to detect them at an early, treatable stage: 1) I highly recommend that once a month you perform your own complete skin check looking for changing or unusual spots. Use a wall-mounted mirror and a hand mirror to assist in seeing body areas thatare difficult to see otherwise. If you have a family member that can assist, this is often helpful.Additional information can be obtained at www.[email or web address]/apma-yihuwo-chxmpukqrua/early-detection 2) In many cases, skin cancer can be prevented. The best way to protect yourself is to avoid too much sun and sunburns. Health care providers believe that ultraviolet rays (UV rays) from the sun damage the skin and over time lead to skin cancer. Here are ways to protect yourself: -Don't spend long periods of time in direct sunlight. -Wear hats with brims to protect your face and ears. -Wear long-sleeved shirts and pants to protect your arms and legs. -Use broad spectrum sunscreens with a SPF (skin protection factor) of 30 or higher that protect against burning and tanning rays. Apply the lotion 30 minutes before you go outside. (Broad-spectrum sunscreens protect against UV-B and UV-A rays.) -Wear sunglasses to protect your eyes. -Use a lip balm with sunscreen. -Avoid the sun between 10am and 4pm. -Show any changing mole to your health care provider. +++++++++++++++++++++++++++++++++++++++ CARE FOR SURGICAL SITES WITHOUT SUTURES 1.) Keep the area clean and dry with the band-aid in place the day of surgery. 2.) The next day you may bathe or shower as usual. Do not wear a wet band-aid on the wound. 3.) Remove the band-aid daily. Wash gently with soap and water and pat dry. Apply vaseline and cover with a band-aid until healed. Usually this results in the most rapid healing. 4.) Some patients prefer to leave the wound open to the air. If you desire to do this, please applya small amount of white petrolatum (Vaseline) to the area until completely healed. 5.) DO NOT USE NEOSPORIN OR BACITRACIN as there is a fairly high incidence of allergic response to these products. 6.) You may experience some mild discomfort, redness, swelling and a mild clear discharge from the wound after your procedure. Severe pain, worsening swelling and foul-smelling discharge from the wound are not to be expected. If you have concerns about how your wounds are healing, please call and ask for the Dermatology Nurs[facility]. 7.) After 4:30 p.m. or on weekends, you will be transferred to [id number] or the answering service for advice. +++++++++++++++++++++++++++++++++ SKIN CARE AFTER CRYOSURGERY The skin s response to cryosurgery (freezing) can be mild to more severe, depending on the depth ofthe freeze and location of the area treated. You may have minimal redness and swelling with little discomfort or significant discoloration and blistering with considerable discomfort. A burning sensation in the skin may last from several minutes to several hours after the procedure. Follow these instructions when caring for an area treated by cryosurgery. MINOR RESPONSE 1. Keep the area clean and dry for 24 hours. After 24 hours, the area may be washed gently with soap and water. 2. The area may sting or burn for a short time after treatment. A blister may form at the site. 3. The treated area will be red in color at first then turn brown and flaky as it heals and the upper layer of skin sloughs off. 4. Gently cleanse the area with soap and warm water once daily. Pat dry and apply a thin film of (white petrolatum) Vaseline if the area is raw. We do not recommend Neosporin or bacitracin ointments. MAJOR REPSONSE 1. Follow instructions as stated above for minor response. 2. The area may sting and burn for several hours after treatment. 3. To relieve throbbing and pain, elevate the treatment area. 4. Tylenol (acetaminophen) may be taken every 3 to 4 hours for discomfort (unless you have previously been instructed not to use this medication). 5. A blister will form in the area of freezing. It may be filled with clear fluid or blood. This response is not unusual. 6. Do not break the blister unless it becomes uncomfortable. You may puncture the blister with a sterile needle or pin to remove the fluid. Allow the deflated skin to remain over the wound. 7. Cleanse twice a day with plain warm water and apply Vaseline to prevent infection and a thick scab from forming. 8. All treated areas usually heal with 3 to 4 weeks. If you experience problems or have questions call and ask to speak with the Dermatology nurses. After hours you will be transferred to our [id number] or answering service for advice. documented in this encounterDoctors [facility]04-07-[facility]22 History of Present illness Narrative* Toro Weaver APRN.CNP - 05/15/2021 2:49 PM EDT Images from the original note were not included. Department of Dermatology Toro Weaver APRN.CNP 05/15/2021 Last visit in Dermatology: 09/05/2018 Objective/Assessment/Plan 1. AK (actinic keratosis) (3) Objective Left Elbow - Posterior, Left Upper Arm - Posterior (2): Erythematous, hyperkeratotic papule without induration. CRYOTHERAPY SKIN LESION - Left Elbow - Posterior, Left Upper Arm - Posterior Complexity: simple Destruction method: cryotherapy Informed consent: discussed and consent obtained Timeout: patient name, date of , surgical site, and procedure verified Lesion destroyed using liquid nitrogen: Yes Cryotherapy cycles: 2 Outcome: patient tolerated procedure well with no complications Post-procedure details: wound care instructions given 2. Neoplasm of unspecified behavior of bone, soft tissue, and skin Objective Right Forearm - Anterior: 5x5mm scabbed erythematous, hyperkeratotic papule SKIN / NAIL BIOPSY Type of biopsy: tangential Informed consent: discussed and consent obtained Timeout: patient name, date of , surgical site, and procedure verified Procedure prep: Patient was prepped and draped in usual sterile fashion Prep type: Isopropyl alcohol Anesthesia: the lesion was anesthetized in a standard fashion Anesthetic: 1% lidocaine w/ epinephrine 1-100,000 local infiltration Instrument used: DermaBlade Hemostasis achieved with: aluminum chloride Outcome: patient tolerated procedure well Post-procedure details: sterile dressing applied Dressing type: petrolatum and bandage Specimen A - SURGICAL PATHOLOGY SKIN ONLY 5x5mm scabbed erythematous, hyperkeratotic papule 3. Seborrheic keratosis Objective Mid Back: Hyperkeratotic, variably hyperpigmented, stuck on papules. Distributed widely on the trunk and extremities. Reassured patient Benign and observe The nature of sun-induced photo-aging and skin cancers is discussed. Sun avoidance, protective clothing, and the use of 30-SPF sunscreens is advised. Patient is instructed to perform regular self exams. Observe for changing, symptomatic, or new skin lesions and seek care with the patient's primary care provider or with dermatology if any lesions of concern are noted. Follow-up as noted below or as needed. Toro Weaver APRN.TRANSIT VEHICLE INSPECTOR Chief Complaint: Patient presents with: LESION, SKIN: a few lesions of concern on the bilateral arms Subjective and Objective HPI: Clark Bedoya is a 71 year old male who presents for: For individual lesion(s). Lesion(s): spot Location(s): Right forearm Duration: 3 months Symptoms: non-healing Severity: mild Inciting factors: no inciting factors Associated symptoms/previous treatments: none Lesion(s): spots Location(s): Left upper arm Duration: unknown Symptoms: crusty Severity: n/a Inciting factors: no inciting factors Associated symptoms/previous treatments: none Past medical history is reviewed. Medication list is reviewed. Physical Exam included: back and bilateral upper extremities Intake completed by Alix Montiel LPN UNIVERSAL PROTOCOL / SAFETY CHECKLIST Procedure to be Performed: Shave biopsy x 1 Sign In: A Moment of CARE was completed. Personnel directly involved with the procedure wore the appropriate PPE (Personal Protective Equipment). No special equipment needed. Patient/Surrogate Stated/Verified: PATIENT VERIFIED(optional for EMERGENT procedures): Patient name, Date of , Relevant allergies and The intended procedure Time Out Communication: Intended patient and procedure match the source documents. Consent documented and matches the intended procedure. No relevant labs, photos, and/or imaging studies were applicable for review. Correct side/site marked and visible. Medications required for procedure verified. Fire risk assessed and interventions discussed. No implant(s) inserted. Sign Out: SIGN OUT (optional for EMERGENT procedures): All specimen containers correctly labeled. All instruments, equipment, possible retained foreign bodies accounted for. Post-procedure follow-up management communicated and Plan of Care Visit completed when applicable. Drea Weaver APRN.TRANSIT VEHICLE INSPECTOR documented in this encounterDoctors Hospital03-31-2022 Miscellaneous Notes* Telephone Encounter - Taylor Stauffer RN - 05/08/2021 4:21 PM EDT Patient notified of results and provider's instructions. Patient verbalizes understanding. Taylor Stauffer RN * Telephone Encounter - Alisa Shi APRN.CNP - 05/08/2021 9:07 AM EDT Called patient left voicemail to call office regarding EGD and colonoscopy results. EGD findings duodenitis; inflammation within the duodenum, gastritis inflammation throughout the entire stomach and mildly severe esophagitis. Biopsy of the stomach and lower esophagus both came backunremarkable. I had like to start a proton pump inhibitor like omeprazole 40 mg daily and stop the Pepcid, due to the inflammation throughout the esophagus stomach and duodenum. If you are okay with this please let me know I would also like a follow-up appointment in 2 to 3 months. Colonoscopy findings one diminutive polyp in the sigmoid colon-tubular adenoma, this is a benign polyp. It was the type of polyp that if left alone for a significant amount of time, could have the potential to develop abnormal cells. But, was fully removed at the time of the biopsy. Recommends repeating your colonoscopy in 5 years due to the type of polyp that it was. We will send you a reminder when it comes closer to that time to get you scheduled. Annika Cuellar documented in this encounterDoctors Hospital03-31-2022 Miscellaneous Notes* Telephone Encounter - Jayshree Mancilla LPN - 05/08/2021 9:59 AM EDT See telephone encounter 05/08/2021 * Telephone Encounter - Jayshree Mancilla LPN - 05/07/2021 9:58 AM EDT Message left asking patient to call and scheduled follow up. * Telephone Encounter - Penny Beltran RN - 05/05/2021 1:14 PM EDT Clark had his EGD and colonoscopy completed today with Dr. Johansen. He will need a follow up visit with Alisa Shi CNP, to review pathology. Thank you. Penny Beltran RN documented in this encounterDoctors Hospital03-28-2022 History and physical note * Chucho Johansen MD - 05/05/2021 11:45 AM EDT CHIEF COMPLAINT: Patient presents with: abnormal CT scan: showed esophagitis patient denies having any symptoms This consult was requested by Adam Lucero MD for an opinion regarding [place] CT . My final recommendations will be communicated to the requesting health care provider by way of the shared medical record for internal providers or letter via the [employer] for external providers. Clark Bedoya is a 70 year old male with a past medical history diverticulosis, CAD post coronary bypass HTN, hyperlipidemia, PAD CR on CPAP, bladder cancer, depression, diabetes, basal cell carcinoma, squamous cell carcinoma in situ, sinusitis . Who presents for abnormal CT scan: CT abdomen: Impression small left pleural effusion. Left lower lobe infiltrate. There is diffuse fatty infiltration of liver. There is esophagitis. Left anterior tibial artery: No flow and seen distally. This may suggest slow flow stenosis or occlusion. Right anterior tibial artery. No flow seen distally. This may suggest low-flow's, stenosis or occlusion. Left superficial femoral: Severe critical stenosis distally but there is flow distally. Right superficial femoral: Severe stenosis distally. Last colonoscopy 11/26/2011 The entire examined colon appeared normal. Multiple medium-mouthed diverticula were found in the sigmoid colon and in the descending colon. Last EGD 11/26/2011 Impression:- Savary-Lyles Grade I reflux esophagitis. This was biopsied. - Gastritis. This was biopsied. - Normal examined duodenum. Biopsy was performed. FINAL DIAGNOSIS 1. Duodenum, biopsy (A) - No significant pathologic change. 2. Gastric antrum, biopsy (B) - No significant pathologic change. 3. Esophagus at 38 cm, biopsy (C) - Fragments of mildly inflamed cardiac and fundic-type mucosa. - No evidence of intestinal metaplasia or dysplasia. HPI: Patient reports sore throat every 2 -3 weeks - Patient reports he quit eating green peppers and pizza and has not had a problem with heartburn. Reports bloating and gassy after eating dinner. Denies nausea or vomiting. Denies heartburn, indigestion, regurgitation or dysphagia. Usually has dinner: 7pm Evening snack: no Bedtime medications: yes Heads to bed: 10pm Sleeps in a regular bed with the head of the bed sleeps with one pillow The patient denies change in bowel habits, denies black stool, rectal bleeding or abdominal pain. Having a bowel movement daily. Denies constipation or diarrhea Record Review: [facility] / Outside records reviewed. 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 Hyperlipidemia CR (obstructive sleep apnea) DME [employer] [facility] G Other and unspecified hyperlipidemia Other peripheral vascular disease(443.89) Postsurgical aortocoronary bypass status Sinusitis PAST SURGICAL HISTORY PAST SURGICAL HISTORY Procedure Laterality Date ANGIOPLASTY PERIPERAL ART 03/02/98 STENT PLACED APPENDECTOMY 1969 COLONOSCOP W/ OR W/O [facility] SPEC 08/23/06 COLONOSCOP W/ OR W/O [facility] SPEC 12/11/2011 Colonoscopy CYSTOSCOPY CYSTOSCOPY EGD W/O OR W/BRUSH/WASH 12/11/2011 EGD PAST SURGICAL HISTORY OF 11/2008 CABG 3 PAST SURGICAL HISTORY OF 02/11/2011 Cysto, TURBT PAST SURGICAL HISTORY OF 12/18/13 bladder surgery REMOVE CATARACT, INSERT LENS, INTRACAPSUL REPAIR ING HERNIA,5+Y/O,REDUCIBL 3 RIGHT SIGMOIDOSCOPY FLEX DIAG 2001 Sigmoidoscopy TRANSCATH STENT INIT VESSEL,PERCUT 1999 Transcath stent init vessel percut 1 stent Allergies: ALLERGIES ALLERGIES Allergen Reactions Plavix [Clopidogrel] GI Upset Caused constipation Effexor [Venlafaxin* Other: See Comments agitation Lactose Diarrhea Lisinopril Cough Nitro Patch [Other] Rash Rash at site [place] Diarrhea Medications: CURRENT MEDICATIONS tamsulosin (FLOMAX) 0.4 mg Take 1 capsule by mouth daily at bedtime. XARELTO 2.5 mg tablet Take 2.5 mg by mouth twice daily. losartan (COZAAR) 25 mg tablet Take 1 tablet by mouth once daily. famotidine (PEPCID) 20 mg tablet Take 1 tablet by mouth at bedtime as needed. multivit-min/FA/lycopen/lutein (CENTRUM SILVER MEN ORAL) Take 200 mg by mouth once daily. DULoxetine (CYMBALTA) 60 mg capsule Take 1 capsule by mouth once daily. amLODIPine (NORVASC) 5 mg tablet Take 1 tablet by mouth once daily. metFORMIN (GLUCOPHAGE) 500 mg tablet Take 1 tablet by mouth twice daily with meals. . metoprolol tartrate, short acting, (LOPRESSOR) 100 mg tablet Take 1 tablet by mouth twice daily. atorvastatin (LIPITOR) 20 mg tablet Take 1 tablet by mouth once daily. Cholecalciferol, Vitamin D3, 50 mcg (2,000 unit) cap Take 1 capsule by mouth once daily. phenazopyridine (PYRIDIUM, GERIDIUM) 200 mg tablet Take 1 tablet by mouth three times daily as needed. aspirin, enteric coated (ASPIRIN, ENTERIC COATED) 81 mg EC tablet Take 1 tablet by mouth once daily. metroNIDAZOLE (FLAGYL) 500 mg tablet Take 500 mg by mouth twice daily. metFORMIN (GLUCOPHAGE) 500 mg tablet Take 1 tablet by mouth three times daily with meals. . losartan (COZAAR) 25 mg tablet Take 1 tablet by mouth once daily. DULoxetine (CYMBALTA) 60 mg capsule Take 1 capsule by mouth once daily. metoprolol tartrate, short acting, (LOPRESSOR) 100 mg tablet Take 1 tablet by mouth twice daily. metoprolol tartrate, short acting, (LOPRESSOR) 100 mg tablet Take 1 tablet by mouth twice daily. clopidogrel (PLAVIX) 75 mg tablet Take 75 mg by mouth once daily. CPAP Supplies: suitable mask per pt preference, chin strap, head gear, humidity, tubing, lifetime supplies. G47.33 CR blood sugar diagnostic (FREESTYLE TEST) test strip 1 Strip twice daily. Use as instructed Lancets lancets Test blood sugar(s) 2 times daily. Dx: Type 2 DM - Uncontrolled E11.65 Insulin: No CPAP Autopap 7-20 cm H2O, Heat Humidity, suitable mask, Lifetime supplies, opt Chinst[place], G47.33. FAMILY HISTORY FAMILY HISTORY Problem Relation Age of Onset Hypertension Mother Lipids Mother other (dementia) Mother other (aspiration pneumonia) Father following head injury Hypertension Sister Colon Cancer Paternal Grandmother Hypertension Brother OCCUPATION & MARITAL STATUS Employer And Job Title: None on file Years Of Education Completed: Not specified Marital Status: with 4 children SOCIAL HISTORY Social History Tobacco Use Smoking status: Former Smoker Quit date: 12/23/1998 Years since quittin.1 Smokeless tobacco: Never Used Vaping Use Vaping Use: Never used Substance Use Topics Alcohol use: Yes Comment: RARE Drug use: No Review of Systems: Review of Systems All other systems reviewed and are negative. Are you taking any blood thinners? Yes, Plavix and Yes, Xarelto Physical Examination: BP 112/60 Pulse 77 Ht 5' 9.291 (1.76m) Wt 206 lb (93.4kg) SpO2 98% BMI 30.17 kg/(m^2). Physical Exam Constitutional: Appearance: Normal appearance. He is normal weight. HENT: Head: Normocephalic and atraumatic. Eyes: Extraocular Movements: Extraocular movements intact. Pupils: Pupils are equal, round, and reactive to light. Cardiovascular: Rate and Rhythm: Normal rate and regular rhythm. Pulses: Normal pulses. Heart sounds: Normal heart sounds. Pulmonary: Effort: Pulmonary effort is normal. Breath sounds: Normal breath sounds. Abdominal: General: Abdomen is flat. Bowel sounds are normal. Palpations: Abdomen is soft. Musculoskeletal: General: Normal range of motion. Cervical back: Normal range of motion and neck supple. Skin: General: Skin is warm and dry. Neurological: General: No focal deficit present. Mental Status: He is alert and oriented to person, place, and time. Psychiatric: Mood and Affect: Mood normal. Behavior: Behavior normal. ASSESSMENT: Abnormal ct scan Gastroesophageal reflux disease with esophagitis without hemorrhage PLAN: Assessment/Plan (D64.9) Anemia, unspecified type (primary encounter diagnosis) (R93.89) Abnormal CT scan (K21.00) Gastroesophageal reflux disease with esophagitis without hemorrhage (K20.90) Esophagitis (Z12.11) Colon cancer screening 1. Abnormal CT scan - CONSULT TO GASTROENTEROLOGY - peg 3350-Electrolytes (GOLYTELY) 236-22.74-6.74 -5.86 gram suspension; Refer to printed prep instructions from your provider. Dispense: 4000 mL; Refill: 0 - famotidine (PEPCID) 20 mg tablet; Take 2 tablets by mouth at bedtime as needed. Dispense: 30 tablet; Refill: 3 - EGD DIAGNOSTIC; Future - SELF CHECK COVID; Future -Will need cardiac clearance-recent diagnostic cardiac cath 10/2020, 2. Gastroesophageal reflux disease with esophagitis without hemorrhage - CONSULT TO GASTROENTEROLOGY - famotidine (PEPCID) 20 mg tablet; Take 2 tablets by mouth at bedtime as needed. Dispense: 30 tablet; Refill: 3 - EGD DIAGNOSTIC; Future - SELF CHECK COVID; Future 3. Anemia, unspecified type - peg 3350-Electrolytes (GOLYTELY) 236-22.74-6.74 -5.86 gram suspension; Refer to printed prep instructions from your provider. Dispense: 4000 mL; Refill: 0 - COLONOSCOPY SCREENING - EGD DIAGNOSTIC; Future - SELF CHECK COVID; Future 4. Esophagitis -Increase famotidine to 40 mg daily - EGD DIAGNOSTIC; Future - SELF CHECK COVID; Future 5. Colon cancer screening - COLONOSCOPY SCREENING - SELF CHECK COVID; Future Follow up in office 3 months/PRN. Recommended to please call office/go to ER if fever, chills, chest pain, SOB, diarrhea, nausea, emesis, worsening abdominal pain, dehydration occurs I spent 30 minutes in the visit, with more than 50% of the total [id number] time of the visit in counseling / coordination of care. I have confirmed and edited as necessary, the PFSH and ROS obtained by others. Alisa Shi APRN.TRANSIT VEHICLE INSPECTOR February 04, 2021 1:55 PM * Chucho Johansen MD - 05/05/2021 10:43 AM EDT UPDATED HISTORY AND PHYSICAL EXAMINATION SERVICE DATE: 05/05/2021 SERVICE TIME: 10:46 AM PHYSICAL EXAM MUST BE COMPLETED ON ADMISSION The History and Physical (completed in the past 30 days) has been reviewed and the patient has beenexamined. The contents accurately reflect the patient's condition with the following additions or revisions since the H&P was completed. Examination indicates no changes. This H&P can be found in the attached. SIGNATURE: Chucho Johansen MD PATIENT NAME: Clark Bedoya DATE: May 05, 2021 TIME: 10:46 AM documented in this encounterDoctors Hospital01-14-2022 Miscellaneous Notes* Telephone Encounter - Antony Schwarz - 02/21/2021 11:51 AM EST 05-05-2021 Colon EGD [place] Antony Schwarz * Telephone Encounter - Jayshree Mancilla LPN - 02/20/2021 3:51 PM EST Cardiac clearance has been obtained from Dr. Plascencia and scanned into [employer]. * Telephone Encounter - Jayshree Mancilla LPN - 02/10/2021 9:57 AM EST Patient is needing scheduled at [place] with Dr. Johansen for a colonoscopy and EGD. Cardiac clearance has been requested from Dr. Plascencia DX: Abnormal CT scan [R93.89 (ICD-10-CM)]; Gastroesophageal reflux disease with esophagitis without hemorrhage [K21.00 (ICD-10-CM)]; Anemia, unspecified type [D64.9 (ICD-10-CM)]; Esophagitis [K20.90 (ICD-10-CM)] Colon cancer screening [Z12.11 (ICD-10-CM)] Verbal and written instructions given. documented in this encounterDoctors Hospital11-04-2021 Hospital Discharge instructions Patient Education 12/12/2020 12:14:08 3- Peripheral angioplasty//stent 03/2019 (CUSTOM) PERIPHERAL ANGIOPLASTY/STENTING Discharge Instructions This information has been developed to provide you with written guidelines to supplement the verbalinstructions your doctor has reviewed with you. It is very important that you follow any additionalinstructions your doctor has provided. Home instructions: An adult must stay with you overnight. Relax for 24 hours, keeping your legs and left arm elevated Keep the arm board on for 24 hours, then remove. Keep the dressing on your arm for 48 hours, then remove Drink plenty of fluids to flush out your kidneys. Resume your regular diet. Avoid strenuous exercise of lifting anything over 10 pounds for at least 2 days. Do not take a bath or shower for at least [address] for 3 days Discomfort, swelling and bruising are expected at the incision site. Watch the groin area where thecatheter was inserted for such things as, but not limited to: redness, swelling, pus or red streaksrunning down the leg. If any concerns, notify our office at . If bleeding is noted through the bandage: Lie flat and apply pressure for 10 to 15 minutes. If the bleeding does not stop, or if your foot feels numb, cold or turns blue, go to the Emergency Department immediately. If you do not have an arranged appointment, please call the office upon discharge at and make an appointment to see the doctor in 2 weeks. If you have concern after regular office hours, you can reach the doctor by calling . Follow all instructions given to you by your doctor 12/12/2020 12:08:04 Conscious Sedation, Adult, Care After Conscious Sedation, Adult, Care After Refer to this sheet in the next few weeks. These instructions provide you with information on caring for yourself after your procedure. Your health care provider may also give you more specific instructions. Your treatment has been planned according to current medical practices, but problems sometimes occur. Call your health care provider if you have any problems or questions after your procedure. WHAT TO EXPECT AFTER THE PROCEDURE After your procedure: You may feel sleepy, clumsy, and have poor balance for several hours. Vomiting may occur if you eat too soon after the procedure. HOME CARE INSTRUCTIONS Do not participate in any activities where you could become injured for at least 24 hours. Do not: ? Drive. ? Swim. ? Ride a bicycle. ? Operate heavy machinery. ? Cook. ? Use power tools. ? Climb ladders. ? Work from a high place. Do not make important decisions or sign legal documents until you are improved. If you vomit, drink water, juice, or soup when you can drink without vomiting. Make sure you have little or no nausea before eating solid foods. Only take [id number] or prescription medicines for pain, discomfort, or fever as directed by your health care provider. Make sure you and your family fully understand everything about the medicines given to you, including what side effects may occur. You should not drink alcohol, take sleeping pills, or take medicines that cause drowsiness for at least 24 hours. If you smoke, do not smoke without supervision. If you are feeling better, you may resume normal activities 24 hours after you were sedated. Keep all appointments with your health care provider. SEEK MEDICAL CARE IF: Your skin is pale or bluish in color. You continue to feel nauseous or vomit. Your pain is getting worse and is not helped by medicine. You have bleeding or swelling. You are still sleepy or feeling clumsy after 24 hours. SEEK IMMEDIATE MEDICAL CARE IF: You develop a rash. You have difficulty breathing. You develop any type of allergic problem. You have a fever. MAKE SURE YOU: Understand these instructions. Will watch your condition. Will get help right away if you are not doing well or get worse. Document Released: 11/15/2013 Document Reviewed: 11/15/2013 ExitCare Patient Information 2015 Primary Data. This information is not intended to replace advicegiven to you by your health care provider. Make sure you discuss any questions you have with your health care provider. Follow Up Care 12/03/2020 12:41:31 With:SIRENA BLACKMON MD, [facility], Surgery, Vascular Surgeons Address: When: Unknown Comments:Follow-up as scheduled [facility] 03-20-2014 History of Past illness Narrative* Problem Noted Date Resolved Date Snoring 04/27/2013 06/24/2021 Inguinal hernia without ment ion of obstruction or gangrene, unilateral or unspecified, (not specified as recurrent) 04/11/2012 06/24/2015 Bilateral inguinal hernia 12/23/20102015 Hematuria, microscopic 12/18/2010 6 Inguinal hernia 12/18/2010 06/24/2015 Coronary atherosclerosis 01/03/2008 021 documented as of this encounter (statuses as of 06/24/2021) [facility] of Past illness Narrative* Problem Noted Date Resolved Date Snoring 04/27/2013 06/24/2021 Inguinal hernia without ment ion of obstruction or gangrene, unilateral or unspecified, (not specified as recurrent) 04/11/2012 06/24/2015 Bilateral inguinal hernia 12/23/20102015 Hematuria, microscopic 12/18/2010 6 Inguinal hernia 12/18/2010 06/24/2015 Coronary atherosclerosis 01/03/2008 021 documented as of this encounter (statuses as of 06/26/2021) [facility] of Past illness Narrative* Problem Noted Date Resolved Date Snoring 04/27/2013 06/24/2021 Inguinal hernia without ment ion of obstruction or gangrene, unilateral or unspecified, (not specified as recurrent) 04/11/2012 06/24/2015 Bilateral inguinal hernia 12/23/20102015 Hematuria, microscopic 12/18/2010 6 Inguinal hernia 12/18/2010 06/24/2015 Coronary atherosclerosis 01/03/2008 021 documented as of this encounter (statuses as of 07/01/2021) [facility] of Past illness Narrative* Problem Noted Date Resolved Date Snoring 04/27/2013 06/24/2021 Inguinal hernia without ment ion of obstruction or gangrene, unilateral or unspecified, (not specified as recurrent) 04/11/2012 06/24/2015 Bilateral inguinal hernia 12/23/20102015 Hematuria, microscopic 12/18/2010 6 Inguinal hernia 12/18/2010 06/24/2015 Coronary atherosclerosis 01/03/2008 021 documented as of this encounter (statuses as of 07/02/2021) [facility] of Past illness Narrative* Problem Noted Date Resolved Date Snoring 04/27/2013 06/24/2021 Inguinal hernia without ment ion of obstruction or gangrene, unilateral or unspecified, (not specified as recurrent) 04/11/2012 06/24/2015 Bilateral inguinal hernia 12/23/20102015 Hematuria, microscopic 12/18/2010 6 Inguinal hernia 12/18/2010 06/24/2015 Coronary atherosclerosis 01/03/2008 021 documented as of this encounter (statuses as of 07/14/2021) [facility] Past illness Narrative* Problem Noted Date Resolved Date Snoring 04/27/2013 06/24/2021 Inguinal hernia without ment ion of obstruction or gangrene, unilateral or unspecified, (not specified as recurrent) 04/11/2012 06/24/2015 Bilateral inguinal hernia 12/23/20102015 Hematuria, microscopic 12/18/2010 6 Inguinal hernia 12/18/2010 06/24/2015 Coronary atherosclerosis 01/03/2008 021 documented as of this encounter (statuses as of 07/15/2021) [facility] History of Past illness Narrative* Problem Noted Date Resolved Date Snoring 04/27/2013 06/24/2021 Inguinal hernia without ment ion of obstruction or gangrene, unilateral or unspecified, (not specified as recurrent) 04/11/2012 06/24/2015 Bilateral inguinal hernia 12/23/20102015 Hematuria, microscopic 12/18/2010 6 Inguinal hernia 12/18/2010 06/24/2015 Coronary atherosclerosis 01/03/2008 021 documented as of this encounter (statuses as of 07/19/2021) [facility] History of Past illness Narrative* Problem Noted Date Resolved Date Snoring 04/27/2013 06/24/2021 Inguinal hernia without ment ion of obstruction or gangrene, unilateral or unspecified, (not specified as recurrent) 04/11/2012 06/24/2015 Bilateral inguinal hernia 12/23/20102015 Hematuria, microscopic 12/18/2010 6 Inguinal hernia 12/18/2010 06/24/2015 Coronary atherosclerosis 01/03/2008 021 documented as of this encounter (statuses as of 07/27/2021) [facility] History of Past illness Narrative* Problem Noted Date Resolved Date Snoring 04/27/2013 06/24/2021 Inguinal hernia without ment ion of obstruction or gangrene, unilateral or unspecified, (not specified as recurrent) 04/11/2012 06/24/2015 Bilateral inguinal hernia 12/23/20102015 Hematuria, microscopic 12/18/2010 6 Inguinal hernia 12/18/2010 06/24/2015 Coronary atherosclerosis 01/03/2008 021 documented as of this encounter (statuses as of 08/08/2021) [facility] Past illness Narrative* Problem Noted Date Resolved Date Snoring 04/27/2013 06/24/2021 Inguinal hernia without ment ion of obstruction or gangrene, unilateral or unspecified, (not specified as recurrent) 04/11/2012 06/24/2015 Bilateral inguinal hernia 12/23/20102015 Hematuria, microscopic 12/18/2010 6 Inguinal hernia 12/18/2010 06/24/2015 Coronary atherosclerosis 01/03/2008 021 documented as of this encounter (statuses as of 09/09/2021) [facility] Past illness Narrative* Problem Noted Date Resolved Date Snoring 04/27/2013 06/24/2021 Inguinal hernia without ment ion of obstruction or gangrene, unilateral or unspecified, (not specified as recurrent) 04/11/2012 06/24/2015 Bilateral inguinal hernia 12/23/20102015 Hematuria, microscopic 12/18/2010 6 Inguinal hernia 12/18/2010 06/24/2015 Coronary atherosclerosis 01/03/2008 021 documented as of this encounter (statuses as of 09/11/2021) [facility] History of Past illness Narrative* Problem Noted Date Resolved Date Snoring 04/27/2013 06/24/2021 Inguinal hernia without ment ion of obstruction or gangrene, unilateral or unspecified, (not specified as recurrent) 04/11/2012 06/24/2015 Bilateral inguinal hernia 12/23/20102015 Hematuria, microscopic 12/18/2010 6 Inguinal hernia 12/18/2010 06/24/2015 Coronary atherosclerosis 01/03/2008 021 documented as of this encounter (statuses as of 09/12/2021) [facility] History of Past illness Narrative* Problem Noted Date Resolved Date Snoring 04/27/2013 06/24/2021 Inguinal hernia without ment ion of obstruction or gangrene, unilateral or unspecified, (not specified as recurrent) 04/11/2012 06/24/2015 Bilateral inguinal hernia 12/23/20102015 Hematuria, microscopic 12/18/2010 6 Inguinal hernia 12/18/2010 06/24/2015 Coronary atherosclerosis 01/03/2008 021 documented as of this encounter (statuses as of 10/21/2021) [facility] Past [facility] Narrative* Problem Noted Date Resolved Date Snoring 04/27/2013 06/24/2021 Inguinal hernia without ment ion of obstruction or gangrene, unilateral or unspecified, (not specified as recurrent) 04/11/2012 06/24/2015 Bilateral inguinal hernia 12/23/20102015 Hematuria, microscopic 12/18/2010 6 Inguinal hernia 12/18/2010 06/24/2015 Coronary atherosclerosis 01/03/2008 021 documented as of this encounter (statuses as of 10/21/2021) [facility] Past illness Narrative* Problem Noted Date Resolved Date Snoring 04/27/2013 06/24/2021 Inguinal hernia without ment ion of obstruction or gangrene, unilateral or unspecified, (not specified as recurrent) 04/11/2012 06/24/2015 Bilateral inguinal hernia 12/23/20102015 Hematuria, microscopic 12/18/2010 6 Inguinal hernia 12/18/2010 06/24/2015 Coronary atherosclerosis 01/03/2008 021 documented as of this encounter (statuses as of 10/22/2021) [facility] History of Past illness Narrative* Problem Noted Date Resolved Date Snoring 04/27/2013 06/24/2021 Inguinal hernia without ment ion of obstruction or gangrene, unilateral or unspecified, (not specified as recurrent) 04/11/2012 06/24/2015 Bilateral inguinal hernia 12/23/20102015 Hematuria, microscopic 12/18/2010 6 Inguinal hernia 12/18/2010 06/24/2015 Coronary atherosclerosis 01/03/2008 021 documented as of this encounter (statuses as of 11/05/2021) [facility] Past illness Narrative* Problem Noted Date Resolved Date Snoring 04/27/2013 06/24/2021 Inguinal hernia without ment ion of obstruction or gangrene, unilateral or unspecified, (not specified as recurrent) 04/11/2012 06/24/2015 Bilateral inguinal hernia 12/23/20102015 Hematuria, microscopic 12/18/2010 6 Inguinal hernia 12/18/2010 06/24/2015 Coronary atherosclerosis 01/03/2008 021 documented as of this encounter (statuses as of 11/14/2021) [facility] History of Past illness Narrative* Problem Noted Date Resolved Date Snoring 04/27/2013 06/24/2021 Inguinal hernia without ment ion of obstruction or gangrene, unilateral or unspecified, (not specified as recurrent) 04/11/2012 06/24/2015 Bilateral inguinal hernia 12/23/20102015 Hematuria, microscopic 12/18/2010 6 Inguinal hernia 12/18/2010 06/24/2015 Coronary atherosclerosis 01/03/2008 021 documented as of this encounter (statuses as of 11/14/2021) [facility] History of Past illness Narrative* Problem Noted Date Resolved Date Snoring 04/27/2013 06/24/2021 Inguinal hernia without ment ion of obstruction or gangrene, unilateral or unspecified, (not specified as recurrent) 04/11/2012 06/24/2015 Bilateral inguinal hernia 12/23/20102015 Hematuria, microscopic 12/18/2010 6 Inguinal hernia 12/18/2010 06/24/2015 Coronary atherosclerosis 01/03/2008 021 documented as of this encounter (statuses as of 12/11/2021) [facility] History of Past illness Narrative* Problem Noted Date Resolved Date Snoring 04/27/2013 06/24/2021 Inguinal hernia without ment ion of obstruction or gangrene, unilateral or unspecified, (not specified as recurrent) 04/11/2012 06/24/2015 Bilateral inguinal hernia 12/23/20102015 Hematuria, microscopic 12/18/2010 6 Inguinal hernia 12/18/2010 06/24/2015 Coronary atherosclerosis 01/03/2008 021 documented as of this encounter (statuses as of 12/24/2021) [facility] History of Past illness Narrative* Problem Noted Date Resolved Date Snoring 04/27/2013 06/24/2021 Inguinal hernia without ment ion of obstruction or gangrene, unilateral or unspecified, (not specified as recurrent) 04/11/2012 06/24/2015 Bilateral inguinal hernia 12/23/20102015 Hematuria, microscopic 12/18/2010 6 Inguinal hernia 12/18/2010 06/24/2015 Coronary atherosclerosis 01/03/2008 021 documented as of this encounter (statuses as of 01/05/2022) [facility] History of Past illness Narrative* Problem Noted Date Resolved Date Snoring 04/27/2013 06/24/2021 Inguinal hernia without ment ion of obstruction or gangrene, unilateral or unspecified, (not specified as recurrent) 04/11/2012 06/24/2015 Bilateral inguinal hernia 12/23/20102015 Hematuria, microscopic 12/18/2010 6 Inguinal hernia 12/18/2010 06/24/2015 Coronary atherosclerosis 01/03/2008 021 documented as of this encounter (statuses as of 01/07/2022) [facility] of Past illness Narrative* Problem Noted Date Resolved Date Snoring 04/27/2013 06/24/2021 Inguinal hernia without ment ion of obstruction or gangrene, unilateral or unspecified, (not specified as recurrent) 04/11/2012 06/24/2015 Bilateral inguinal hernia 12/23/20102015 Hematuria, microscopic 12/18/2010 6 Inguinal hernia 12/18/2010 06/24/2015 Coronary atherosclerosis 01/03/2008 021 documented as of this encounter (statuses as of 01/07/2022) [facility] History of Past illness Narrative* Problem Noted Date Resolved Date Snoring 04/27/2013 06/24/2021 Inguinal hernia without ment ion of obstruction or gangrene, unilateral or unspecified, (not specified as recurrent) 04/11/2012 06/24/2015 Bilateral inguinal hernia 12/23/20102015 Hematuria, microscopic 12/18/2010 6 Inguinal hernia 12/18/2010 06/24/2015 Coronary atherosclerosis 01/03/2008 021 documented as of this encounter (statuses as of 01/07/2022) [facility] History of Past illness Narrative* Problem Noted Date Resolved Date Snoring 04/27/2013 06/24/2021 Inguinal hernia without ment ion of obstruction or gangrene, unilateral or unspecified, (not specified as recurrent) 04/11/2012 06/24/2015 Bilateral inguinal hernia 12/23/20102015 Hematuria, microscopic 12/18/2010 6 Inguinal hernia 12/18/2010 06/24/2015 Coronary atherosclerosis 01/03/2008 021 documented as of this encounter (statuses as of 01/08/2022) [facility] History of Past illness Narrative* Problem Noted Date Resolved Date Snoring 04/27/2013 06/24/2021 Inguinal hernia without ment ion of obstruction or gangrene, unilateral or unspecified, (not specified as recurrent) 04/11/2012 06/24/2015 Bilateral inguinal hernia 12/23/20102015 Hematuria, microscopic 12/18/2010 6 Inguinal hernia 12/18/2010 06/24/2015 Coronary atherosclerosis 01/03/2008 021 documented as of this encounter (statuses as of 01/09/2022) [facility] History of Past illness Narrative* Problem Noted Date Resolved Date Snoring 04/27/2013 06/24/2021 Inguinal hernia without ment ion of obstruction or gangrene, unilateral or unspecified, (not specified as recurrent) 04/11/2012 06/24/2015 Bilateral inguinal hernia 12/23/20102015 Hematuria, microscopic 12/18/2010 6 Inguinal hernia 12/18/2010 06/24/2015 Coronary atherosclerosis 01/03/2008 021 documented as of this encounter (statuses as of 01/20/2022) [facility] History of Past illness Narrative* Problem Noted Date Resolved Date Snoring 04/27/2013 06/24/2021 Inguinal hernia without ment ion of obstruction or gangrene, unilateral or unspecified, (not specified as recurrent) 04/11/2012 06/24/2015 Bilateral inguinal hernia 12/23/20102015 Hematuria, microscopic 12/18/2010 6 Inguinal hernia 12/18/2010 06/24/2015 Coronary atherosclerosis 01/03/2008 021 documented as of this encounter (statuses as of 02/13/2022) [facility] History of Past illness Narrative* Problem Noted Date Resolved Date Snoring 04/27/2013 06/24/2021 Inguinal hernia without ment ion of obstruction or gangrene, unilateral or unspecified, (not specified as recurrent) 04/11/2012 06/24/2015 Bilateral inguinal hernia 12/23/20102015 Hematuria, microscopic 12/18/2010 6 Inguinal hernia 12/18/2010 06/24/2015 Coronary atherosclerosis 01/03/2008 021 documented as of this encounter (statuses as of 04/28/2022) [facility] History of Past illness Narrative* Problem Noted Date Resolved Date Snoring 04/27/2013 06/24/2021 Inguinal hernia without ment ion of obstruction or gangrene, unilateral or unspecified, (not specified as recurrent) 04/11/2012 06/24/2015 Bilateral inguinal hernia 12/23/20102015 Hematuria, microscopic 12/18/2010 6 Inguinal hernia 12/18/2010 06/24/2015 Coronary atherosclerosis 01/03/2008 021 documented as of this encounter (statuses as of 04/30/2022) [facility] History of Past illness Narrative* Problem Noted Date Resolved Date Snoring 04/27/2013 06/24/2021 Inguinal hernia without ment ion of obstruction or gangrene, unilateral or unspecified, (not specified as recurrent) 04/11/2012 06/24/2015 Bilateral inguinal hernia 12/23/20102015 Hematuria, microscopic 12/18/2010 6 Inguinal hernia 12/18/2010 06/24/2015 Coronary atherosclerosis 01/03/2008 021 documented as of this encounter (statuses as of 05/12/2022) [facility] History of Past illness Narrative* Problem Noted Date Resolved Date Snoring 04/27/2013 06/24/2021 Inguinal hernia without ment ion of obstruction or gangrene, unilateral or unspecified, (not specified as recurrent) 04/11/2012 06/24/2015 Bilateral inguinal hernia 12/23/20102015 Hematuria, microscopic 12/18/2010 6 Inguinal hernia 12/18/2010 06/24/2015 Coronary atherosclerosis 01/03/2008 021 documented as of this encounter (statuses as of 05/21/2022) [facility] History of Past illness Narrative* Problem Noted Date Resolved Date Snoring 04/27/2013 06/24/2021 Inguinal hernia without ment ion of obstruction or gangrene, unilateral or unspecified, (not specified as recurrent) 04/11/2012 06/24/2015 Bilateral inguinal hernia 12/23/20102015 Hematuria, microscopic 12/18/2010 6 Inguinal hernia 12/18/2010 06/24/2015 Coronary atherosclerosis 01/03/2008 021 documented as of this encounter (statuses as of 07/15/2022) [facility] History of Past illness Narrative* Problem Noted Date Diagnosed Date Resolved Date Snoring 04/27/2013 06/24/2021 Inguinal hernia without ment ion of obstruction or gangrene, unilateral or unspecified, (not specified as recurrent) 04/11/2012 06/24/2015 Bilateral inguinal hernia 12/23/2010 Hematuria, microscopic 12/18/201006/23 Inguinal hernia 12/18/2010 06/24/2015 Coronary atherosclerosis 01/03/2008 documented as of this encounter (statuses as of 08/18/2022) [facility] History of Past illness Narrative* Problem Noted Date Diagnosed Date Resolved Date Snoring 04/27/2013 06/24/2021 Inguinal hernia without ment ion of obstruction or gangrene, unilateral or unspecified, (not specified as recurrent) 04/11/2012 06/24/2015 Bilateral inguinal hernia 12/23/2010 Hematuria, microscopic 12/18/201006/23 Inguinal hernia 12/18/2010 06/24/2015 Coronary atherosclerosis 01/03/2008 documented as of this encounter (statuses as of 09/03/2022) [facility] History [facility] Past illness Narrative* Problem Noted Date Diagnosed Date Resolved Date Snoring 04/27/2013 06/24/2021 Inguinal hernia without ment ion of obstruction or gangrene, unilateral or unspecified, (not specified as recurrent) 04/11/2012 06/24/2015 Bilateral inguinal hernia 12/23/2010 Hematuria, microscopic 12/18/201006/23 Inguinal hernia 12/18/2010 06/24/2015 Coronary atherosclerosis 01/03/2008 documented as of this encounter (statuses as of 09/08/2022) [facility] History of Past illness Narrative* Problem Noted Date Diagnosed Date Resolved Date Snoring 04/27/2013 06/24/2021 Inguinal hernia without ment ion of obstruction or gangrene, unilateral or unspecified, (not specified as recurrent) 04/11/2012 06/24/2015 Bilateral inguinal hernia 12/23/2010 Hematuria, microscopic 12/18/201006/23 Inguinal hernia 12/18/2010 06/24/2015 Coronary atherosclerosis 01/03/2008 documented as of this encounter (statuses as of 09/15/2022) [facility] History [facility] Past illness Narrative* Problem Noted Date Diagnosed Date Resolved Date Snoring 04/27/2013 06/24/2021 Inguinal hernia without ment ion of obstruction or gangrene, unilateral or unspecified, (not specified as recurrent) 04/11/2012 06/24/2015 Bilateral inguinal hernia 12/23/2010 Hematuria, microscopic 12/18/201006/23 Inguinal hernia 12/18/2010 06/24/2015 Coronary atherosclerosis 01/03/2008 documented as of this encounter (statuses as of 09/16/2022) [facility] Past illness Narrative* Problem Noted Date Diagnosed Date Resolved Date Snoring 04/27/2013 06/24/2021 Inguinal hernia without ment ion of obstruction or gangrene, unilateral or unspecified, (not specified as recurrent) 04/11/2012 06/24/2015 Bilateral inguinal hernia 12/23/2010 Hematuria, microscopic 12/18/201006/23 Inguinal hernia 12/18/2010 06/24/2015 Coronary atherosclerosis 01/03/2008 documented as of this encounter (statuses as of 09/17/2022) [facility] Past illness Narrative* Problem Noted Date Diagnosed Date Resolved Date Snoring 04/27/2013 06/24/2021 Inguinal hernia without ment ion of obstruction or gangrene, unilateral or unspecified, (not specified as recurrent) 04/11/2012 06/24/2015 Bilateral inguinal hernia 12/23/2010 Hematuria, microscopic 12/18/201006/23 Inguinal hernia 12/18/2010 06/24/2015 Coronary atherosclerosis 01/03/2008 documented as of this encounter (statuses as of 09/24/2022) [facility] History [facility] Past illness Narrative* Problem Noted Date Diagnosed Date Resolved Date Snoring 04/27/2013 06/24/2021 Inguinal hernia without ment ion of obstruction or gangrene, unilateral or unspecified, (not specified as recurrent) 04/11/2012 06/24/2015 Bilateral inguinal hernia 12/23/2010 Hematuria, microscopic 12/18/201006/23 Inguinal hernia 12/18/2010 06/24/2015 Coronary atherosclerosis 01/03/2008 documented as of this encounter (statuses as of 10/15/2022) [facility] Past [facility] Narrative* Problem Noted Date Diagnosed Date Resolved Date Snoring 04/27/2013 06/24/2021 Inguinal hernia without ment ion of obstruction or gangrene, unilateral or unspecified, (not specified as recurrent) 04/11/2012 06/24/2015 Bilateral inguinal hernia 12/23/2010 Hematuria, microscopic 12/18/201006/23 Inguinal hernia 12/18/2010 06/24/2015 Coronary atherosclerosis 01/03/2008 documented as of this encounter (statuses as of 12/13/2022) [facility] Past [facility] Narrative* Problem Noted Date Resolved Date Inguinal hernia without ment ion of obstruction or gangrene, unilateral or unspecified, (not specified as recurrent) 04/11/2012 06/24/2015 Bilateral inguinal hernia 12/23/20102015 Hematuria, microscopic 12/18/2010 6 Inguinal hernia 12/18/2010 06/24/2015 Coronary atherosclerosis 01/03/2008 021 documented as of this encounter (statuses as of 05/06/2021) [facility] History of Past illness Narrative* Problem Noted Date Resolved Date Inguinal hernia without ment ion of obstruction or gangrene, unilateral or unspecified, (not specified as recurrent) 04/11/2012 06/24/2015 Bilateral inguinal hernia 12/23/20102015 Hematuria, microscopic 12/18/2010 6 Inguinal hernia 12/18/2010 06/24/2015 Coronary atherosclerosis 01/03/2008 021 documented as of this encounter (statuses as of 05/08/2021) [facility] History of Past illness Narrative* Problem Noted Date Resolved Date Inguinal hernia without ment ion of obstruction or gangrene, unilateral or unspecified, (not specified as recurrent) 04/11/2012 06/24/2015 Bilateral inguinal hernia 12/23/20102015 Hematuria, microscopic 12/18/2010 6 Inguinal hernia 12/18/2010 06/24/2015 Coronary atherosclerosis 01/03/2008 021 documented as of this encounter (statuses as of 05/12/2021) [facility] Past illness Narrative* Problem Noted Date Resolved Date Inguinal hernia without ment ion of obstruction or gangrene, unilateral or unspecified, (not specified as recurrent) 04/11/2012 06/24/2015 Bilateral inguinal hernia 12/23/20102015 Hematuria, microscopic 12/18/2010 6 Inguinal hernia 12/18/2010 06/24/2015 Coronary atherosclerosis 01/03/2008 021 documented as of this encounter (statuses as of 05/15/2021) [facility] Past illness Narrative* Problem Noted Date Resolved Date Inguinal hernia without ment ion of obstruction or gangrene, unilateral or unspecified, (not specified as recurrent) 04/11/2012 06/24/2015 Bilateral inguinal hernia 12/23/20102015 Hematuria, microscopic 12/18/2010 6 Inguinal hernia 12/18/2010 06/24/2015 Coronary atherosclerosis 01/03/2008 021 documented as of this encounter (statuses as of 05/16/2021) [facility] Past [facility] Narrative* Problem Noted Date Resolved Date Inguinal hernia without ment ion of obstruction or gangrene, unilateral or unspecified, (not specified as recurrent) 04/11/2012 06/24/2015 Bilateral inguinal hernia 12/23/20102015 Hematuria, microscopic 12/18/2010 6 Inguinal hernia 12/18/2010 06/24/2015 Coronary atherosclerosis 01/03/2008 021 documented as of this encounter (statuses as of 05/26/2021) [facility] No data available for this section [facility] Evaluation note* Diagnosis Abnormal CT scan Other nonspecific (abnormal) findings on radiological and other examinations of body structure Gastroesophageal reflux disease with esophagitis without hemorrhage Anemia, unspecified type Esophagitis Esophagitis, unspecified [facility] Diagnosis AK (actinic keratosis)- Primary Actinic keratosis Neoplasm of unspecified behavior of bone, soft tissue, and skin Seborrheic keratosis Other seborrheic keratosis [facility] PAD (peripheral artery disease) (HCC)- Primary Peripheral vascular disease, unspecified Atherosclerosis of coronary artery of [place] heart with angina pectoris, unspecified vessel or lesion type (HCC) Essential hypertension, benign Hyperlipidemia LDL goal <100 Other and unspecified hyperlipidemia CR (obstructive sleep apnea) Obstructive sleep apnea (adult) (pediatric) 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) Malignant neoplasm of anterior wall of urinary bladder Type 2 diabetes mellitus without complication, without long-term current use of insulin (HCC) 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 Thrombocytopenia (HCC) Thrombocytopenia, unspecified Vitamin D deficiency Unspecified vitamin D deficiency [facility] Pleural effusion Unspecified pleural effusion Hyperlipidemia LDL goal <100 Other and unspecified hyperlipidemia Type 2 diabetes mellitus without complication, without long-term current use of insulin (HCC) Vitamin D deficiency Unspecified vitamin D deficiency [facility] Pleural effusion Unspecified pleural effusion Hyperlipidemia LDL goal <100 Other and unspecified hyperlipidemia Type 2 diabetes mellitus without complication, without long-term current use of insulin (HCC) Vitamin D deficiency Unspecified vitamin D deficiency [facility] Lung nodule- Primary Solitary pulmonary nodule Pleural effusion Unspecified pleural effusion Hyperlipidemia LDL goal <100 Other and unspecified hyperlipidemia Type 2 diabetes mellitus without complication, without long-term current use of insulin (HCC) Vitamin D deficiency Unspecified vitamin D deficiency [facility] Diagnosis Gastroesophageal reflux disease with esophagitis without hemorrhage- Primary Duodenitis without bleeding Duodenitis without mention of hemorrhage Tubular adenoma Benign neoplasm of unspecified site Pancytopenia (HCC) Other pancytopenia Fatty liver Other chronic nonalcoholic liver disease [facility] Fatty liver Other chronic nonalcoholic liver disease [facility] COPD with chronic bronchitis (HCC)- Primary Obstructive chronic bronchitis without exacerbation Lung nodule Solitary pulmonary nodule Pleural effusion Unspecified pleural effusion [facility] Diagnosis Urinary tract infection with hematuria, site unspecified- Primary Incomplete bladder emptying [facility] Diagnosis Gross hematuria- Primary [facility] Diagnosis Gross hematuria- Primary Malignant neoplasm of urinary bladder, unspecified site (HCC) [facility] Diagnosis Preop testing- Primary Preoperative examination, unspecified Chronic obstructive pulmonary disease, unspecified COPD type (HCC) [J44.9 (ICD-10-CM)] CR (obstructive sleep apnea) [G47.33 (ICD-10-CM)] Obstructive sleep apnea (adult) (pediatric) Hyperlipidemia, unspecified hyperlipidemia type [E78.5 (ICD-10-CM)] Hypertension, unspecified type [I10 (ICD-10-CM)] Type 2 diabetes mellitus without complication, without long-term current use of insulin (HCC) [E11.9 (ICD-10-CM)] Coronary artery disease, unspecified vessel or lesion type, unspecified whether angina present, unspecified whether [place] or transplanted heart [I25.10 (ICD-10-CM)] Thrombocytopenia (HCC) [D69.6 (ICD-10-CM)] Thrombocytopenia, unspecified Anemia, unspecified type [D64.9 (ICD-10-CM)] Malignant neoplasm of urinary bladder, unspecified site (HCC) [C67.9 (ICD-10-CM)] Gross hematuria [R31.0 (ICD-10-CM)] Gross hematuria Gross hematuria Malignant neoplasm of urinary bladder, unspecified site (HCC) [facility] Diagnosis Changing skin lesion Unspecified disorder of skin and subcutaneous tissue [facility] Diagnosis Malignant neoplasm of urinary bladder, unspecified site (HCC)- Primary Retention of urine, unspecified Screening PSA (prostate specific antigen) Special screening for malignant neoplasm of prostate [facility]* Diagnosis Atherosclerosis of coronary artery of [place] heart with angina pectoris, unspecified vessel or lesion type (HCC)- Primary Essential hypertension, benign Hyperlipidemia LDL goal <100 Other and unspecified hyperlipidemia PAD (peripheral artery disease) (HCC) Peripheral vascular disease, unspecified CR (obstructive sleep apnea) Obstructive sleep apnea (adult) (pediatric) 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) Malignant neoplasm of anterior wall of urinary bladder Type 2 diabetes mellitus without complication, without long-term current use of insulin (HCC) 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 Adjustment disorder with depressed mood Gastroesophageal reflux disease with esophagitis without hemorrhage Screening for diabetic retinopathy Screening for other eye conditions Encounter for immunization Need for other specified prophylactic vaccination against single bacterial disease Gross hematuria documented in this encounter [facility]* Diagnosis Type 2 diabetes mellitus without complication, without long-term current use of insulin (HCC)- Primary [facility] Diagnosis Type 2 diabetes mellitus with microalbuminuria, without long-term current use of insulin (HCC) [facility] Diagnosis Adjustment disorder with depressed mood [facility] Diagnosis Actinic keratosis- Primary [facility] Diagnosis Essential hypertension, benign [facility] Diagnosis CR (obstructive sleep apnea)- Primary Obstructive sleep apnea (adult) (pediatric) [facility] Diagnosis Chronic ITP (idiopathic thrombocytopenia) (HCC)- Primary Immune thrombocytopenic purpura Anemia, unspecified type Reticulocytosis Other nonspecific findings on examination of blood History of bladder cancer Personal history of malignant neoplasm of bladder [facility] Diagnosis AK (actinic keratosis)- Primary Actinic keratosis [facility] Diagnosis AK (actinic keratosis)- Primary Actinic keratosis [facility] Diagnosis Essential hypertension, benign- Primary Hyperlipidemia LDL goal <100 Other and unspecified hyperlipidemia Atherosclerosis of coronary artery of [place] heart with angina pectoris, unspecified vessel or lesion type (HCC) PAD (peripheral artery disease) (HCC) Peripheral vascular disease, unspecified CR (obstructive sleep apnea) Obstructive sleep apnea (adult) (pediatric) 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) Malignant neoplasm of anterior wall of urinary bladder Type 2 diabetes mellitus without complication, without long-term current use of insulin (HCC) 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 Sinus congestion Other diseases of nasal cavity and sinuses Gross hematuria History of bladder cancer Personal history of malignant neoplasm of bladder Vitamin D deficiency Unspecified vitamin D deficiency Sinus pressure Other diseases of nasal cavity and sinuses [facility] Diagnosis Gross hematuria- Primary History of bladder cancer Personal history of malignant neoplasm of bladder [facility] Diagnosis 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 Pancytopenia (HCC) Other pancytopenia [facility] Diagnosis Dizziness- Primary Dizziness and giddiness [facility] Diagnosis Lung nodules Other nonspecific abnormal finding of lung field [facility]* Diagnosis Atherosclerosis of coronary artery of [place] heart with angina pectoris, unspecified vessel or lesion type (HCC)- Primary Essential hypertension, benign Hyperlipidemia LDL goal <100 Other and unspecified hyperlipidemia Primary hypertension Unspecified essential hypertension CR (obstructive sleep apnea) Obstructive sleep apnea (adult) (pediatric) 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) Malignant neoplasm of anterior wall of urinary bladder Anemia, unspecified type 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 Type 2 diabetes mellitus without complication, without long-term current use of insulin (HCC) History of bladder cancer Personal history of malignant neoplasm of bladder SOB (shortness of breath) Shortness of breath Type 2 diabetes mellitus with peripheral neuropathy ([facility]) [facility] Diagnosis Hiatal hernia- Primary Diaphragmatic hernia without mention of obstruction or gangrene Early satiety Steatorrhea Other specified intestinal malabsorption Flatulence Flatulence, eructation, and gas pain [facility]* Diagnosis Hyperkalemia- Primary Hyperpotassemia [facility]* Diagnosis Essential hypertension, benign [facility]* Diagnosis Anemia, unspecified type- Primary Thrombocytopenia (HCC) Thrombocytopenia, unspecified [facility]* Diagnosis PAD (peripheral artery disease) (HCC)- Primary Peripheral vascular disease, unspecified Type 2 diabetes mellitus without complication, without long-term current use of insulin (HCC) Type 2 diabetes mellitus with peripheral neuropathy (HCC) Ingrowing toenail of right foot Ingrowing nail Onychomycosis Dermatophytosis of nail documented in this encounter [facility] for referral (narrative)* Outpatient Procedure (Routine) - Closed Specialty Diagnoses / Procedures Referred By Tangela t Referred To Contact [facility] Diagnoses Abnormal CT scan Gastroesophageal reflux disease with esophagitis without hemorrhage Anemia, unspecified type Esophagitis Procedures EGD DIAGNOSTIC EGD W/O OR W/BRUSH/WASH Alisa Shi, DURGA.TRANSIT VEHICLE INSPECTOR [address] [place] [address] [facility] [address] [place] [id number] Referral ID Status Reason Start Date Expiration Date V isits Requested Visits Authorized [id number] Closed Auto-Generate d Referral 02/04/2021 02/04/2022 1 1 [facility] for referral (narrative)* Diagnostic Procedure Only (Routine) - Pending Review Specialty Diagnoses / Procedures Referred By Contac t Referred To Contact [facility] Diagnoses Fatty liver Procedures US ABD RT UPPER QUADRANT US ABDOMINAL REAL TIME W/IMAGE LIMITED Alisa Shi APRN.TRANSIT VEHICLE INSPECTOR [address] [place] [address] Us Imaging Referral ID Status Reason Start Date Expiration Date Visits Requested Visits Authorized [id number] Pending Review Auto-Generat ed Referral 07/14/2021 08/13/2022 1 1 [facility] for referral (narrative)* Diagnostic Procedure Only (Routine) - Closed Specialty Diagnoses / Procedures Referred By Contac t Referred To Contact [facility] IMAGING Diagnoses Fatty liver Procedures US ABD RT UPPER QUADRANT US ABDOMINAL REAL TIME W/IMAGE LIMITED Alisa Shi APRN.TRANSIT VEHICLE INSPECTOR [address] [place] [address] Us Imaging Referral ID Status Reason Start Date Expiration Date V isits Requested Visits Authorized [id number] Closed Auto-Generate d Referral 07/14/2021 08/13/2022 1 1 [facility] for referral (narrative)* Outpatient Procedure (Routine) - Authorized Specialty Diagnoses / Procedures Referred By Contac t Referred To [facility] Diagnoses COPD with chronic bronchitis (HCC) Procedures SPIROMETRY BASELINE ONLY SPMTRY W/VC EXPIRATORY TOO W/WO MXML VOL VNTJ Home Bartholomew MD [address] [id number] [facility] [place] [address] Referral ID Status Reason Start Date Expiration Date Visits Requested Visits Authorized [id number] Authorized Auto-Generat ed Referral 10/22/2021 08/21/2022 1 1 [facility] Auth/Cert Specialty Diagnoses / Procedures Referred By Tangela t Referred To Contact Diagnoses Anemia, unspecified Procedures ESOPHAGOGASTRODUODENOSCOPY TRANSORAL DIAGNOSTIC COLONOSCOPY FLX W/REMOVAL OF FOREIGN BODY(S) [facility] [address] [place] [address] Referral ID Status Reason Start Date Expiration Date Visits Re quested Visits Authorized [id number] 1 1 [facility] Family History No Family History Records FoundNo Family History Records FoundNo Family History Records FoundNo Family History Records FoundNo Family History Records Found Advance Directives No Advanced Directives Records FoundDocuments on File Type Date Recorded Patient Flame Gouger Expl anation Advance Directive(s) 05/05/2021 9:58 AM Advance Directive(s) 04/11/2021 11:47 AM Advance Directive(s) 12/05/2018 6:02 AM h as, not on file Documents on File Type Date Recorded Patient Flame Gouger Expl anation Advance Directive(s) 05/05/2021 9:58 AM Advance Directive(s) 04/11/2021 11:47 AM Advance Directive(s) 12/05/2018 6:02 AM h as, not on file Medications Administered Section Inactive Administered Medications - up to 3 most recent administrations Medication Order MAR Action Action Date Dose Rate Site benzocaine 20% 1 [place] (TOPEX) 1 [place], TOPICAL, ONCE, 1 dose, On Wed05/05/21 at 1100, APPLY Orally per LIP prior to the start of the procedure. - Pharmaceutical Waste: Aerosol -, Intraprocedure Given 05/05/2021 10:49 AM EDT 4 Sprays lactated ringers iv infusion 30 mL/hr, INTRAVENOUS, CONTINUOUS, Starting on Wed05/05/21 at 1030, Until Wed05/05/21 at 1129, Preprocedure Restarted 05/05/2021 11:23 AM EDT Inactive Administered Medications - up to 3 most recent administrations Medication Order MAR Action Action Date Dose Rate Site ciprofloxacin HCl 500 mg tab(s) (CIPRO) 500 mg, ORAL, ONCE (UP TO 30 DAYS AMB), 1 dose, On Wed10/22/21 at 1500, Administer 2 hours before or 6 hours after antacids, calcium, iron, zinc or foods containing these items. Tube feedings should be held 1 hour before and 1 hour after administration., Please document the antimicrobial indication: Prophylaxis Given 10/22/2021 3:31 PM EDT 500 mg Oral lidocaine urojet 2 % 11 mL topical gel (XYLOCAINE, GLYDO) 11 mL, URETHRAL, ONCE (UP TO 30 DAYS AMB), 1 dose, On Wed10/22/21 at 1500, FOR EXTERNAL USE ONLY APPLY TO: urethra Given 10/22/2021 3:32 PM EDT 6 mL Other Inactive Administered Medications - up to 3 most recent administrations Medication Order MAR Action Action Date Dose Rate Site Aminolevulinic Acid HCl 20 % soln 2 Each 2 Each, TOPICAL, ONCE, 1 dose, On Wed07/15/22 at 1030 Given 07/15/2022 10:40 AM EDT 2 Each Other Health Concerns Infection Onset Date Last Indicated Resolved Time COVID-19 Rule-Out 02/05/2021 02/04/2021 02/25/2021 8:51 PM EST Reason for Referral Specialty Diagnoses / Procedures Referred By Contac t Referred To Contact Podiatry Diagnoses Type 2 diabetes mellitus without complication, without long-term current use of insulin (HCC) Type 2 diabetes mellitus with peripheral neuropathy (HCC) Procedures CONSULT TO PODIATRY OFFICE/OUTPATIENT CARE ONE AT [facility] 60 MINUTES Adam Lucero MD [address] [place] [address] Referral ID Status Reason Start Date Expiration Date Visits Requested Visits Authorized [id number] Authorized PCP Requested Referral 03/12/2023 03/11/2024 1 1 Specialty Diagnoses / Procedures Referred By Contac t Referred To Contact CT IMAGING Diagnoses Lung nodules Procedures CT CHEST WO IVCON DIAGNOSTIC COMPUTED TOMOGRAPHY THORAX W/O CNTRST Adam Lucero MD [address] [place] [address] [place] [address] Referral ID Status Reason Start Date Expiration Date V isits Requested Visits Authorized [id number] Closed Auto-Generate d Referral 09/08/2022 10/08/2023 1 1 Specialty Diagnoses / Procedures Referred By Contac t Referred To Contact Urology Diagnoses Gross hematuria History of bladder cancer Procedures CONSULT TO UROLOGY OFFICE/OUTPATIENT CARE ONE AT [facility] 60-74 MINUTES Adam Lucero MD [address] [place] [address] Referral ID Status Reason Start Date Expiration Date Visits Requested Visits Authorized [id number] Authorized PCP Requested Referral 09/07/2022 09/07/2023 1 1 Specialty Diagnoses / Procedures Referred By Contac t Referred To Contact Hematology Diagnoses Chronic ITP (idiopathic thrombocytopenia) (HCC) Procedures CONSULT TO HEMATOLOGY OFFICE/OUTPATIENT CARE ONE AT [facility] 60-[place] [address] [place] [id number] Referral ID Status Reason Start Date Expiration Date Visits Requested Visits Authorized [id number] Authorized PCP Requested Referral 09/07/2022 09/07/2023 1 1 Specialty Diagnoses / Procedures Referred By Contac t Referred To Contact Diagnoses Actinic keratosis Procedures CONSULT TO DERMATOLOGY Adam Lucero MD [address] [place] [id number] Referral ID Status Reason Start Date Expiration Date Visits Requested Visits Authorized [id number] Ref Not Required PCP Requested Referral 02/12/2022 02/12/2023 1 1 Specialty Diagnoses / Procedures Referred By Contac t Referred To Contact Ophthalmology Diagnoses Type 2 diabetes mellitus without complication, without long-term current use of insulin (HCC) Screening for diabetic retinopathy Procedures CONSULT TO OPHTHALMOLOGY OFFICE/OUTPATIENT CARE ONE AT [facility] 60-74 MINUTES Raymond Dias PA-C [address] [place] [address] Referral ID Status Reason Start Date Expiration Date Visits Requested Visits Authorized [id number] Authorized PCP Requested Referral 01/04/2023 1 1 Specialty Diagnoses / Procedures Referred By Contac t Referred To Contact Pulmonary and Critical Care Medicine Diagnoses Lung nodule Pleural effusion Procedures CONSULT TO PULM/CRITICAL CARE OFFICE/OUTPATIENT CARE ONE AT [facility] 60-74 MINUTES Adam Lucero MD [address] [place] [address] Referral ID Status Reason Start Date Expiration Date Visits Requested Visits Authorized [id number] Authorized PCP Requested Referral 07/01/2021 07/01/2022 1 1 Specialty Diagnoses / Procedures Referred By Tangela t Referred To Contact CT IMAGING Diagnoses Pleural effusion Procedures CT CHEST WO IVCON DIAGNOSTIC COMPUTED TOMOGRAPHY THORAX W/O CNTRST Adam Lucero MD [address] [place] [place] [address] Ct Imaging Referral ID Status Reason Start Date Expiration Date Visits Requested Visits Authorized [id number] Authorized Auto-Generat ed Referral 06/25/2021 07/25/2022 1 1 Additional Source Comments (unrecognized sect ion and content) No Status Records FoundNo Status Records FoundNo Status Records FoundNo Status Records FoundNo Status Records Found INFORMATION SOURCE (unrecogn ized section and content) DATE CREATED AUTHOR AUTHOR'S ORGANIZ ATION 12/25/2020 [facility] DATE CREATED AUTHOR AUTHOR'S ORGANIZ ATION 05/08/2021 [facility] DATE CREATED AUTHOR AUTHOR'S ORGANIZ ATION 11/15/2022 [facility] DATE CREATED AUTHOR AUTHOR'S ORGANIZ ATION 03/23/2023 [facility] Source Comments (unrecognize d section and content) In the event this informatio n is protected by the Federal Confidentiality of Alcohol and Drug Abuse Patient Records regulations: The Federal rules restrict any use of the information to criminally investigate or prosecute any alcohol or drug abuse patient.[facility] the event this information is protected by the Federal Confidentiality of Alcohol and Drug Abuse Patient Records regulations: The Federal rules restrict any use of the information to criminally investigate or prosecute any alcohol or drug abuse patient.[facility] the event this information is protected by the Federal Confidentiality of Alcohol and Drug Abuse Patient Records regulations: The Federal rules restrict any use of the information to criminally investigate or prosecute any alcohol or drug abuse patient.[facility] the event this information is protected by the Federal Confidentiality of Alcohol and Drug Abuse Patient Records regulations: The Federal rules restrict any use of the information to criminally investigate or prosecute any alcohol or drug abuse patient.[facility] the event this information is protected by the Federal Confidentiality of Alcohol and Drug Abuse Patient Records regulations: The Federal rules restrict any use of the information to criminally investigate or prosecute any alcohol or drug abuse patient.[facility] Hospital[facility] the event this information is protected by the Federal Confidentiality of Alcohol and Drug Abuse Patient Records regulations: The Federal rules restrict any use of the information to criminally investigate or prosecute any alcohol or drug abuse patient.[facility] HospitalIn the event this information is protected by the Federal Confidentiality of Alcohol and Drug Abuse Patient Records regulations: The Federal rules restrict any use of the information to criminally investigate or prosecute any alcohol or drug abuse patient.[facility] HospitalIn the event this information is protected by the Federal Confidentiality of Alcohol and Drug Abuse Patient Records regulations: The Federal rules restrict any use of the information to criminally investigate or prosecute any alcohol or drug abuse patient.[facility] Hospital[facility] the event this information is protected by the Federal Confidentiality of Alcohol and Drug Abuse Patient Records regulations: The Federal rules restrict any use of the information to criminally investigate or prosecute any alcohol or drug abuse patient.[facility] Hospital[facility] the event this information is protected by the Federal Confidentiality of Alcohol and Drug Abuse Patient Records regulations: The Federal rules restrict any use of the information to criminally investigate or prosecute any alcohol or drug abuse patient.[facility] Hospital[facility] the event this information is protected by the Federal Confidentiality of Alcohol and Drug Abuse Patient Records regulations: The Federal rules restrict any use of the information to criminally investigate or prosecute any alcohol or drug abuse patient.[facility] HospitalIn the event this information is protected by the Federal Confidentiality of Alcohol and Drug Abuse Patient Records regulations: The Federal rules restrict any use of the information to criminally investigate or prosecute any alcohol or drug abuse patient.[facility] HospitalIn the event this information is protected by the Federal Confidentiality of Alcohol and Drug Abuse Patient Records regulations: The Federal rules restrict any use of the information to criminally investigate or prosecute any alcohol or drug abuse patient.[facility] HospitalIn the event this information is protected by the Federal Confidentiality of Alcohol and Drug Abuse Patient Records regulations: The Federal rules restrict any use of the information to criminally investigate or prosecute any alcohol or drug abuse patient.[facility] HospitalIn the event this information is protected by the Federal Confidentiality of Alcohol and Drug Abuse Patient Records regulations: The Federal rules restrict any use of the information to criminally investigate or prosecute any alcohol or drug abuse patient.[facility] HospitalIn the event this information is protected by the Federal Confidentiality of Alcohol and Drug Abuse Patient Records regulations: The Federal rules restrict any use of the information to criminally investigate or prosecute any alcohol or drug abuse patient.[facility] HospitalIn the event this information is protected by the Federal Confidentiality of Alcohol and Drug Abuse Patient Records regulations: The Federal rules restrict any use of the information to criminally investigate or prosecute any alcohol or drug abuse patient.[facility] HospitalIn the event this information is protected by the Federal Confidentiality of Alcohol and Drug Abuse Patient Records regulations: The Federal rules restrict any use of the information to criminally investigate or prosecute any alcohol or drug abuse patient.[facility] HospitalIn the event this information is protected by the Federal Confidentiality of Alcohol and Drug Abuse Patient Records regulations: The Federal rules restrict any use of the information to criminally investigate or prosecute any alcohol or drug abuse patient.[facility] HospitalIn the event this information is protected by the Federal Confidentiality of Alcohol and Drug Abuse Patient Records regulations: The Federal rules restrict any use of the information to criminally investigate or prosecute any alcohol or drug abuse patient.[facility] HospitalIn the event this information is protected by the Federal Confidentiality of Alcohol and Drug Abuse Patient Records regulations: The Federal rules restrict any use of the information to criminally investigate or prosecute any alcohol or drug abuse patient.[facility] HospitalIn the event this information is protected by the Federal Confidentiality of Alcohol and Drug Abuse Patient Records regulations: The Federal rules restrict any use of the information to criminally investigate or prosecute any alcohol or drug abuse patient.[facility] HospitalIn the event this information is protected by the Federal Confidentiality of Alcohol and Drug Abuse Patient Records regulations: The Federal rules restrict any use of the information to criminally investigate or prosecute any alcohol or drug abuse patient.[facility] HospitalIn the event this information is protected by the Federal Confidentiality of Alcohol and Drug Abuse Patient Records regulations: The Federal rules restrict any use of the information to criminally investigate or prosecute any alcohol or drug abuse patient.[facility] HospitalIn the event this information is protected by the Federal Confidentiality of Alcohol and Drug Abuse Patient Records regulations: The Federal rules restrict any use of the information to criminally investigate or prosecute any alcohol or drug abuse patient.[facility] HospitalIn the event this information is protected by the Federal Confidentiality of Alcohol and Drug Abuse Patient Records regulations: The Federal rules restrict any use of the information to criminally investigate or prosecute any alcohol or drug abuse patient.[facility] HospitalIn the event this information is protected by the Federal Confidentiality of Alcohol and Drug Abuse Patient Records regulations: The Federal rules restrict any use of the information to criminally investigate or prosecute any alcohol or drug abuse patient.[facility] HospitalIn the event this information is protected by the Federal Confidentiality of Alcohol and Drug Abuse Patient Records regulations: The Federal rules restrict any use of the information to criminally investigate or prosecute any alcohol or drug abuse patient.[facility] HospitalIn the event this information is protected by the Federal Confidentiality of Alcohol and Drug Abuse Patient Records regulations: The Federal rules restrict any use of the information to criminally investigate or prosecute any alcohol or drug abuse patient.[facility] HospitalIn the event this information is protected by the Federal Confidentiality of Alcohol and Drug Abuse Patient Records regulations: The Federal rules restrict any use of the information to criminally investigate or prosecute any alcohol or drug abuse patient.[facility] HospitalIn the event this information is protected by the Federal Confidentiality of Alcohol and Drug Abuse Patient Records regulations: The Federal rules restrict any use of the information to criminally investigate or prosecute any alcohol or drug abuse patient.[facility] HospitalIn the event this information is protected by the Federal Confidentiality of Alcohol and Drug Abuse Patient Records regulations: The Federal rules restrict any use of the information to criminally investigate or prosecute any alcohol or drug abuse patient.[facility] HospitalIn the event this information is protected by the Federal Confidentiality of Alcohol and Drug Abuse Patient Records regulations: The Federal rules restrict any use of the information to criminally investigate or prosecute any alcohol or drug abuse patient.[facility] HospitalIn the event this information is protected by the Federal Confidentiality of Alcohol and Drug Abuse Patient Records regulations: The Federal rules restrict any use of the information to criminally investigate or prosecute any alcohol or drug abuse patient.[facility] HospitalIn the event this information is protected by the Federal Confidentiality of Alcohol and Drug Abuse Patient Records regulations: The Federal rules restrict any use of the information to criminally investigate or prosecute any alcohol or drug abuse patient.[facility] HospitalIn the event this information is protected by the Federal Confidentiality of Alcohol and Drug Abuse Patient Records regulations: The Federal rules restrict any use of the information to criminally investigate or prosecute any alcohol or drug abuse patient.[facility] HospitalIn the event this information is protected by the Federal Confidentiality of Alcohol and Drug Abuse Patient Records regulations: The Federal rules restrict any use of the information to criminally investigate or prosecute any alcohol or drug abuse patient.[facility] HospitalIn the event this information is protected by the Federal Confidentiality of Alcohol and Drug Abuse Patient Records regulations: The Federal rules restrict any use of the information to criminally investigate or prosecute any alcohol or drug abuse patient.[facility] HospitalIn the event this information is protected by the Federal Confidentiality of Alcohol and Drug Abuse Patient Records regulations: The Federal rules restrict any use of the information to criminally investigate or prosecute any alcohol or drug abuse patient.[facility] HospitalIn the event this information is protected by the Federal Confidentiality of Alcohol and Drug Abuse Patient Records regulations: The Federal rules restrict any use of the information to criminally investigate or prosecute any alcohol or drug abuse patient.[facility] HospitalIn the event this information is protected by the Federal Confidentiality of Alcohol and Drug Abuse Patient Records regulations: The Federal rules restrict any use of the information to criminally investigate or prosecute any alcohol or drug abuse patient.[facility] HospitalIn the event this information is protected by the Federal Confidentiality of Alcohol and Drug Abuse Patient Records regulations: The Federal rules restrict any use of the information to criminally investigate or prosecute any alcohol or drug abuse patient.[facility] HospitalIn the event this information is protected by the Federal Confidentiality of Alcohol and Drug Abuse Patient Records regulations: The Federal rules restrict any use of the information to criminally investigate or prosecute any alcohol or drug abuse patient.[facility] HospitalIn the event this information is protected by the Federal Confidentiality of Alcohol and Drug Abuse Patient Records regulations: The Federal rules restrict any use of the information to criminally investigate or prosecute any alcohol or drug abuse patient.[facility] HospitalIn the event this information is protected by the Federal Confidentiality of Alcohol and Drug Abuse Patient Records regulations: The Federal rules restrict any use of the information to criminally investigate or prosecute any alcohol or drug abuse patient.[facility] HospitalIn the event this information is protected by the Federal Confidentiality of Alcohol and Drug Abuse Patient Records regulations: The Federal rules restrict any use of the information to criminally investigate or prosecute any alcohol or drug abuse patient.[facility] HospitalIn the event this information is protected by the Federal Confidentiality of Alcohol and Drug Abuse Patient Records regulations: The Federal rules restrict any use of the information to criminally investigate or prosecute any alcohol or drug abuse patient.[facility] HospitalIn the event this information is protected by the Federal Confidentiality of Alcohol and Drug Abuse Patient Records regulations: The Federal rules restrict any use of the information to criminally investigate or prosecute any alcohol or drug abuse patient.[facility] HospitalIn the event this information is protected by the Federal Confidentiality of Alcohol and Drug Abuse Patient Records regulations: The Federal rules restrict any use of the information to criminally investigate or prosecute any alcohol or drug abuse patient.[facility] HospitalIn the event this information is protected by the Federal Confidentiality of Alcohol and Drug Abuse Patient Records regulations: The Federal rules restrict any use of the information to criminally investigate or prosecute any alcohol or drug abuse patient.[facility] HospitalIn the event this information is protected by the Federal Confidentiality of Alcohol and Drug Abuse Patient Records regulations: The Federal rules restrict any use of the information to criminally investigate or prosecute any alcohol or drug abuse patient.[facility] HospitalIn the event this information is protected by the Federal Confidentiality of Alcohol and Drug Abuse Patient Records regulations: The Federal rules restrict any use of the information to criminally investigate or prosecute any alcohol or drug abuse patient.[facility] HospitalIn the event this information is protected by the Federal Confidentiality of Alcohol and Drug Abuse Patient Records regulations: The Federal rules restrict any use of the information to criminally investigate or prosecute any alcohol or drug abuse patient.[facility] HospitalIn the event this information is protected by the Federal Confidentiality of Alcohol and Drug Abuse Patient Records regulations: The Federal rules restrict any use of the information to criminally investigate or prosecute any alcohol or drug abuse patient.[facility] HospitalIn the event this information is protected by the Federal Confidentiality of Alcohol and Drug Abuse Patient Records regulations: The Federal rules restrict any use of the information to criminally investigate or prosecute any alcohol or drug abuse patient.[facility] HospitalIn the event this information is protected by the Federal Confidentiality of Alcohol and Drug Abuse Patient Records regulations: The Federal rules restrict any use of the information to criminally investigate or prosecute any alcohol or drug abuse patient.[facility] HospitalIn the event this information is protected by the [facility] Confidentiality of Alcohol and Drug Abuse Patient Records regulations: The Federal rules restrict any use of the information to criminally investigate or prosecute any alcohol or drug abuse patient.[facility] HospitalIn the event this information is protected by the Federal Confidentiality of Alcohol and Drug Abuse Patient Records regulations: The Federal rules restrict any use of the information to criminally investigate or prosecute any alcohol or drug abuse patient.[facility] Care Teams (unrecognized sec tion and content) Animal Taxonomist Relationship Specialty Start Date End Date Adam Lucero MD [address] [place], [place] [id number] PCP - General Family Practice 12/25/20 Animal Taxonomist Relationship Specialty Start Date End Date Adam Lucero MD [address] [place], [place] [id number] PCP - General Family Practice 12/25/20 Animal Taxonomist Relationship Specialty Start Date End Date Adam Lucero MD [address] [place], [place] [id number] PCP - General Family Practice 12/25/20 Animal Taxonomist Relationship Specialty Start Date End Date Adam Lucero MD [address] [place] [address] PCP - General Family Practice 12/25/20 Animal Taxonomist Relationship Specialty Start Date End Date Adam Lucero MD [address] [place] [address] PCP - General Family Practice 12/25/20 Animal Taxonomist Relationship Specialty Start Date End Date Adam Lucero MD [address] [place] [address] PCP - General Family Practice 12/25/20 Animal Taxonomist Relationship Specialty Start Date End Date Adam Lucero MD [address] [place] [address] PCP - General Family Practice 12/25/20 Animal Taxonomist Relationship Specialty Start Date End Date Adam Lucero MD [address] [place] [address] PCP - General Family Practice 12/25/20 Animal Taxonomist Relationship Specialty Start Date End Date Adam Lucero MD [address] [place] [address] PCP - General Family Practice 12/25/20 Animal Taxonomist Relationship Specialty Start Date End Date Adam Lucero MD [address] [place] [address] PCP - General Family Practice 12/25/20 Animal Taxonomist Relationship Specialty Start Date End Date Adam Lucero MD [address] [place] [address] PCP - General Family Practice 12/25/20 Animal Taxonomist Relationship Specialty Start Date End Date Adam Lucero MD [address] [place] [address] PCP - General Family Practice 12/25/20 Animal Taxonomist Relationship Specialty Start Date End Date Adam Lucero MD [address] [place] [address] PCP - General Family Practice 12/25/20 Animal Taxonomist Relationship Specialty Start Date End Date Adam Lucero MD [address] [place] [address] PCP - General Family Medicine 12/25/20 Animal Taxonomist Relationship Specialty Start Date End Date Adam Lucero MD [address] [place] [address] PCP - General Family Medicine 12/25/20 Animal Taxonomist Relationship Specialty Start Date End Date Adam Lucero MD [address] [place] [address] PCP - General Family Medicine 12/25/20 Animal Taxonomist Relationship Specialty Start Date End Date Adam Lucero MD [address] [place] [address] PCP - General Family Medicine 12/25/20 Animal Taxonomist Relationship Specialty Start Date End Date Adam Lucero MD [address] [place] [address] PCP - General Family Medicine 12/25/20 Animal Taxonomist Relationship Specialty Start Date End Date Adam Lucero MD [address] [place] [address] PCP - General Family Medicine 12/25/20 Animal Taxonomist Relationship Specialty Start Date End Date Adam Lucero MD [address] [place] [address] PCP - General Family Medicine 12/25/20 Animal Taxonomist Relationship Specialty Start Date End Date Adam Lucero MD [address] [place] [address] PCP - General Family Medicine 12/25/20 Animal Taxonomist Relationship Specialty Start Date End Date Adam Lucero MD [address] [place] [address] PCP - General Family Medicine 12/25/20 Animal Taxonomist Relationship Specialty Start Date End Date Adam Lucero MD [address] [place] [address] PCP - General Family Medicine 12/25/20 Animal Taxonomist Relationship Specialty Start Date End Date Adam Lucero MD [address] [place] [address] PCP - General Family Medicine 12/25/20 Darrin Kenney MD [address] [facility] [address] Hematology/Oncology 04/29/22 Animal Taxonomist Relationship Specialty Start Date End Date Adam Lucero MD [address] [place] [address] PCP - General Family Medicine 12/25/20 Darrin Kenney MD [address] [place] [address] Hematology/Oncology 04/29/22 Animal Taxonomist Relationship Specialty Start Date End Date Adam Lucero MD [address] [place] [address] PCP - General Family Medicine 12/25/20 Darrin Kenney MD [address] [place] [address] Hematology/Oncology 04/29/22 Animal Taxonomist Relationship Specialty Start Date End Date Adam Lucero MD [address] [facility], [place] [address] PCP - General Family Medicine 12/25/20 Darrin Kenney MD [address] [place], [place] [address] Hematology/Oncology 04/29/22 Animal Taxonomist Relationship Specialty Start Date End Date Adam Lucero MD [address] [place], [place] [address] PCP - General Family Medicine 12/25/20 Darrin Kenney MD [address] [place], [place] [address] Hematology/Oncology 04/29/22 Animal Taxonomist Relationship Specialty Start Date End Date Adam Lucero MD [address] [place] [address] PCP - General Family Medicine 12/25/20 Darrin Kenney MD [address] [place], [place] [address] Hematology/Oncology 04/29/22 09/13/22 [place] [address] [place] [address] Hematology/Oncology 09/14/22 Animal Taxonomist Relationship Specialty Start Date End Date Adam Lucero MD [address] [place] [address] PCP - General Family Medicine 12/25/20 [place] [address] [place] [address] Hematology/Oncology 09/14/22 Animal Taxonomist Relationship Specialty Start Date End Date Adam Lucero MD [address] [place], [place] [address] PCP - General Family Medicine 12/25/20 [place] [address] [place] [address] Hematology/Oncology 09/14/22 Animal Taxonomist Relationship Specialty Start Date End Date Adam Lucero MD [address] [place], [place] [address] PCP - General Family Medicine 12/25/20 [place] [address] [place] [address] Hematology/Oncology 09/14/22 Animal Taxonomist Relationship Specialty Start Date End Date Adam Lucero MD [address] [place], [place] [address] PCP - General Family Medicine 12/25/20 [place] [address] [place] [address] Hematology/Oncology 09/14/22 Animal Taxonomist Relationship Specialty Start Date End Date Adam Lucero MD [address] [place] [address] PCP - General Family Medicine 12/25/20 [place] [address] [place] [address] Hematology/Oncology 09/14/22 Animal Taxonomist Relationship Specialty Start Date End Date Adam Lucero MD [address] [place] [place], [place] [address] PCP - General Family Medicine 12/25/20 [place] [address] [place], [place] [id number] Hematology/Oncology 09/14/22 Animal Taxonomist Relationship Specialty Start Date End Date Adam Lucero MD [address] [place], [place] [address] PCP - General Family Medicine 12/25/20 [place] [address] [place], [place] [id number] Hematology/Oncology 09/14/22 Animal Taxonomist Relationship Specialty Start Date End Date Adam Lucero MD [address] [place], [place] [address] PCP - General Family Medicine 12/25/20 [place] [address] [place] [address] Hematology/Oncology 09/14/22 Animal Taxonomist Relationship Specialty Start Date End Date Adam Lucero MD [address] [place] [address] PCP - General Family Medicine 12/25/20 [place] [address] [place] [address] Hematology/Oncology 09/14/22 Reason for Visit (unrecogniz ed section and content) Reason Comments Results Reason Comments LESION, SKIN a few lesions of con cern on the bilateral arms Reason Comments 05-05-2021 Colon EGD Patel both Reason Comments Follow Up 6 month Reason Comments Results Reason Comments Radiology CT Specialty Diagnoses / Procedures Referred By Contac t Referred To Contact CT IMAGING Diagnoses Pleural effusion Procedures CT CHEST WO IVCON DIAGNOSTIC COMPUTED TOMOGRAPHY THORAX W/O CNTRST Adam Lucero MD [address] [place] [address] Ct Imaging Referral ID Status Reason Start Date Expiration Date V isits Requested Visits Authorized [id number] Closed Auto-Generate d Referral 06/25/2021 07/25/2022 1 1 Reason Comments Medication Follow-up omeprazole 40 mg da evan Anemia treating with iron Surgical Followup EGD and colonoscopy Reason Comments Appointment Reason Comments Radiology US Specialty Diagnoses / Procedures Referred By Contac t Referred To Contact US IMAGING Diagnoses Fatty liver Procedures US ABD RT UPPER QUADRANT US ABDOMINAL REAL TIME W/IMAGE LIMITED Alisa Shi APRN.[employer] [address] [place] [address] Us Imaging Referral ID Status Reason Start Date Expiration Date V isits Requested Visits Authorized [id number] Closed Auto-Generate d Referral 07/14/2021 08/13/2022 1 1 Reason Comments Established Patient Specialty Diagnoses / Procedures Referred By Contac t Referred To Contact Pulmonary and Critical Care Medicine Diagnoses Lung nodule Pleural effusion Procedures CONSULT TO PULM/CRITICAL CARE OFFICE/[facility] MDM 60-74 MINUTES Adam Lucero MD [address] [place] [address] Referral ID Status Reason Start Date Expiration Date V isits Requested Visits Authorized [id number] Closed PCP Requested Referral 07/01/2021 07/01/2022 1 1 Reason Onset Date Comments Refill Request 08/08/2021 Reason Comments Urinary Frequency Reason Comments cath order Reason Comments UTI Reason Comments Orders Reason Comments Cystoscopy-1 Reason Onset Date Comments Refill Request 11/14/2021 Reason Comments Refill Request Reason Comments Post-Op Visit urethra meatotomy Reason Comments Patient Update Reason Comments 6 Month Exam Reason Comments Medication Problem Reason Comments Medication sent Reason Onset Date Comments Refill Request 01/20/2022 Reason Comments White Spots Reason Onset Date Comments Refill Request 04/27/2022 Reason Comments LESION, SKIN Reason Comments Light Treatments Reason Comments Actinic Keratosis Follow up PDT Reason Comments Refill Request 'freestyle lite kris t strips Reason Comments 6 Month Exam Reason Comments Follow Up Blood In Urine Bladder Cancer Specialty Diagnoses / Procedures Referred By Tangela sahni Referred To Contact Urology Diagnoses Gross hematuria History of bladder cancer Procedures CONSULT TO UROLOGY OFFICE/OUTPATIENT [facility] 60-[place] [address] [place] [address] Referral ID Status Reason Start Date Expiration Date V isits Requested Visits Authorized [id number] Closed PCP Requested Referral 09/07/2022 09/07/2023 1 1 Reason Comments Established Patient Specialty Diagnoses / Procedures Referred By Tangela sahni Referred To Contact Hematology Diagnoses Chronic ITP (idiopathic thrombocytopenia) (HCC) Procedures CONSULT TO HEMATOLOGY OFFICE/OUTPATIENT [facility] 60-74 MINUTES Adam Lucero MD [address] [place] [id number] Referral ID Status Reason Start Date Expiration Date V isits Requested Visits Authorized [id number] Closed PCP Requested Referral 09/07/2022 09/07/2023 1 1 Reason Comments Sinus Problem Sinus pain x 1 day Specialty Diagnoses / Procedures Referred By Tangela sahni Referred To Contact CT IMAGING Diagnoses Lung nodules Procedures CT CHEST WO IVCON DIAGNOSTIC COMPUTED TOMOGRAPHY THORAX W/O CNTRST Adam Lucero MD [address] [place] [address] [address] [id number] Referral ID Status Reason Start Date Expiration Date V isits Requested Visits Authorized [id number] Closed Auto-Generate d Referral 09/08/2022 10/08/2023 1 1 Reason Comments ER F/U Indigestion, hiatal hernia. CT done in Epic Reason Onset Date Comments Refill Request 03/17/2023 Reason Comments New Diabetic Foot Check Numbness Specialty Diagnoses / Procedures Referred By Tangela sahni Referred To Contact Podiatry Diagnoses Type 2 diabetes mellitus without complication, without long-term current use of insulin (HCC) Type 2 diabetes mellitus with peripheral neuropathy (HCC) Procedures CONSULT TO PODIATRY OFFICE/OUTPATIENT [facility] 60 MINUTES Adam Lucero MD [address] [place] [address] Referral ID Status Reason Start Date Expiration Date V isits Requested Visits Authorized [id number] Closed PCP Requested Referral 03/12/2023 03/11/2024 1 FOR RECORDS PERTAINING TO PATIENTS WHO ARE OR HAVE BEEN ENROLLED IN A CHEMICAL DEPENDENCY/SUBSTANCEABUSE PROGRAM, SOME INFORMATION MAY BE OMITTED. This clinical summary was aggregated from multiple sources. Caution should be exercised in using it in the provision of clinical care. This summary normalizes information from multiple sources, and as a consequence, information in this document may materially change the coding, format and clinical context of patient data. In addition, data may be omitted in some cases. CLINICAL DECISIONS SHOULD BE BASED ON THE PRIMARY CLINICAL RECORDS. [facility] [employer] provides no warranty or guarantee of the accuracy or completeness of information in this document.
--- NOTE | 2023-04-07 17:33 | STRESSREP ---
Stress Test Report Pharmacologic myocardial perfusion stress test. 72-year-old lady with a history of chest pain Resting EKG demonstrates sinus rhythm with a rate of 74 bpm. Resting blood pressure is 132/80 mmHg. 0.4 mg of regadenoson was infused per usual protocol followed by rapid intravenous saline flush injection. Continuous EKG monitoring was performed. The maximum heart rate was 83 bpm which was 56% of max impacted heart rate the maximum workload was 1 metabolic equivalent. At rest there were no ST or T wave changes noted to suggest ischemia and at peak infusion nonspecific ST changes were noted which did not meet the criteria for ischemia. No clinical angina is noted. The final blood pressure was 122/78 mmHg. Myocardial perfusion protocol. 13.7 mCi of technetium 99m sestamibi was injected at rest. 0.4 mg of regadenoson was infused per usual protocol. At peak infusion 41.3 mCi of technetium 99m sestamibi was injected stress images were obtained stress and rest images were reconstructed and compared in the short axis vertical long and horizontal long axis. Gated images were also obtained. Perfusion SPECT analysis: Review of the stress images demonstrate normal uptake of tracer noted in all areas of the myocardium. The resting images similar demonstrated normal uptake of tracer noted in all areas of the myocardium. No areas of reversibility are noted to suggest ischemia and no previous infarct is noted. Gated SPECT analysis: The gated ejection fraction is 56%. Conclusion: Normal pharmacologic myocardial perfusion stress test. Preserved ejection fraction.
== END | disposition home or self-care (01) ==
LOC: CVS 06:36
PROVIDERS: PCP Family Medicine; Referring Provider Nurse Practitioner Gerontology; Visit Provider Nurse Practitioner Gerontology
DX: I25.10 Atherosclerotic heart disease of native coronary artery without angina pectoris (principal); Z95.1 Presence of aortocoronary bypass graft
CPT/HCPCS: 78452; 93017; A9500; A4216; J2785

== ENCOUNTER → 2023-06-01 | Outpatient (CLI) | payer MEDICARE, OTHER, SELFPAY ==
--- NOTE | 2023-06-01 09:22 | RAD_ITS ---
EXAM: XR CHEST, 2 VIEWS CLINICAL INDICATION: GONZALEZ TECHNIQUE: Frontal and lateral views of the chest. COMPARISON: No relevant prior studies available. FINDINGS: LUNGS AND PLEURAL SPACES: There is blunting left costophrenic angle. No pneumothorax. No effusion. HEART: Unremarkable. Cardiac silhouette not enlarged. MEDIASTINUM: Central airways and mediastinal contour are unremarkable. BONES/JOINTS: Unremarkable. No acute fracture. SOFT TISSUES: Unremarkable. RAD/Chest PA and Lateral IMPRESSION: Small left-sided effusion. No focal consolidation is identified. Electronically Signed: Eliceo López MD at 0:07 EDT ,
[2023-06-01 10:53] LABS: Absolute Lymphocyte Count 1.35 X10^3/uL (0.83-4.51); Absolute Neutrophil Count 3.6 X10^3/uL (2.0-7.7); Basophil# 0.05 X10^3/uL; Basophil% 0.8 % (0-1); Eosinophil# 0.05 X10^3/uL; Eosinophils% 0.8 % (0-5); Hematocrit 38.3 % (40-54); Hemoglobin 12.3 g/dL (13.0-16.5); Lymphocyte # 1.35 X10^3/ul (0.83-4.51); Lymphocyte % 20.4 % (19-41); Mean Corp Hgb Conc 32.1 g/dL (32-36); Mean Corpuscular Hgb 31.2 pg (27.0-32.0); Mean Corpuscular Volume 97.2 fL (80-94); Mean Platelet Vol. 13.5 fl (6.2-12.0); Monocyte# 1.53 X10^3/uL; Monocyte% 23.1 % (0-10); NRBC Flagged by Analyzer 0 % (0-5); Neutrophil # 3.55 X10^3/uL (2.7-7.7); Neutrophil % 53.5 % (47-70); POSITIVE COUNT YES; POSITIVE DIFFERENTIAL YES; Platelet Count 62 K/mm3 (150-450); RBC Distribution Width CV 16.4 % (11.6-14.6); RBC Distribution Width SD 58.9 fl (35.1-43.9); Red Blood Count 3.94 M/mm3 (4.6-6.2); White Blood Count 6.6 K/mm3 (4.4-11.0)
[2023-06-01 10:54] LABS: Anion Gap 7 (5-15); BUN 13 mg/dL (7-18); BUN/Creat Ratio 11.7 RATIO (10-20); Chloride 103 mmol/L (98-107); Creatinine, Serum 1.11 mg/dL (0.70-1.30); EST Glomerular Filtration Rate 69 mL/min (>60); Est Glom Filt Rate - Afr Amer 84 mL/min (>60); Glucose 218 mg/dL (74-106); Sodium Level 135 mmol/L (136-145)
[2023-06-01 10:57] LABS: BNP,B-Type NATRIURETIC PEPTIDE 56.5 pg/mL (0-100)
[2023-06-01 10:59] LABS: Differential Indicated SCAN CRITERIA MET
[2023-06-01 11:26] LABS: Platelet Estimate MOD DEC (ADEQ)
== END | disposition home or self-care (01) ==
LOC: RAD 09:22
PROVIDERS: PCP Family Medicine; Referring Provider Nurse Practitioner Gerontology; Visit Provider Nurse Practitioner Gerontology
DX: R06.09 Other forms of dyspnea (principal)
CPT/HCPCS: 36415; 71046; 80048; 83880; 85025

== ENCOUNTER → 2023-11-23 | Outpatient (CLI) | payer MEDICARE, OTHER, SELFPAY ==
--- NOTE | 2023-11-23 09:59 | RAD_ITS ---
HISTORY: GONZALEZ. TECHNIQUE: XR Chest 2 Views. COMPARISON: 06/01/2023. FINDINGS: CARDIOMEDIASTINAL BORDERS: Cardiac silhouette within normal limits in size. Mediastinal contour also unchanged with calcification of the aortic knob and midline sternotomy. LUNGS: Chronic scarring in the left lung base. PLEURA: Chronic blunting of the left costophrenic angle from mild pleural effusion or pleural scarring. OSSEOUS STRUCTURES: Degenerative change. RAD/Chest PA and Lateral IMPRESSION: No significant interval change in left basilar opacity, likely scarring with possible mild pleural effusion. Electronically Signed: Rose Kim MD at 8:39 EDT ,
[2023-11-23 10:35] LABS: Absolute Lymphocyte Count 1.54 X10^3/uL (0.83-4.51); Absolute Neutrophil Count 3.1 X10^3/uL (2.0-7.7); Basophil# 0.08 X10^3/uL; Basophil% 1.4 % (0-1); Eosinophil# 0.08 X10^3/uL; Eosinophils% 1.4 % (0-5); Hematocrit 36.9 % (40-54); Hemoglobin 11.6 g/dL (13.0-16.5); Lymphocyte # 1.54 X10^3/ul (0.83-4.51); Mean Corp Hgb Conc 31.4 g/dL (32-36); Mean Corpuscular Volume 98.7 fL (80-94); Monocyte# 1.08 X10^3/uL; Monocyte% 18.2 % (0-10); NRBC Flagged by Analyzer 0 % (0-5); Neutrophil # 3.05 X10^3/uL (2.7-7.7); Neutrophil % 51.5 % (47-70); POSITIVE COUNT YES; RBC Distribution Width SD 58.3 fl (35.1-43.9); Red Blood Count 3.74 M/mm3 (4.6-6.2); White Blood Count 5.9 K/mm3 (4.4-11.0)
[2023-11-23 10:39] LABS: Platelet Count 49 K/mm3 (150-450)
[2023-11-23 10:40] LABS: Differential Indicated SCAN CRITERIA MET
[2023-11-23 11:05] LABS: Differential Comment SCANNED; Platelet Estimate MKD DEC (ADEQ); Polychromasia 1+
[2023-11-23 11:19] LABS: Anion Gap 9 (5-15); BUN 12 mg/dL (7-18); BUN/Creat Ratio 11.4 RATIO (10-20); Calcium,Total 9.1 mg/dL (8.5-10.1); Chloride 104 mmol/L (98-107); Creatinine, Serum 1.05 mg/dL (0.70-1.30); EST Glomerular Filtration Rate 74 mL/min (>60); Est Glom Filt Rate - Afr Amer 89 mL/min (>60); Glucose 188 mg/dL (74-106); Potassium 4.9 mmol/L (3.5-5.1); Sodium Level 137 mmol/L (136-145)
[2023-11-24 15:01] LABS: Pathologist Review Reviewed
== END | disposition home or self-care (01) ==
LOC: RAD 09:48
PROVIDERS: PCP Family Medicine; Referring Provider Nurse Practitioner Gerontology; Visit Provider Nurse Practitioner Gerontology
DX: R06.09 Other forms of dyspnea (principal)
CPT/HCPCS: 36415; 71046; 80048; 83880; 85025

== ENCOUNTER → 2024-01-14 | Outpatient (CLI) | payer MEDICARE, OTHER, SELFPAY ==
--- NOTE | 2024-01-14 08:52 | AAVD_ITS ---
Reason For Study: s/p B/L Iliac Angio w Lt Stent Aorta Measurements Aorta Doppler Measurements Proximal aorta measures2.25cm x 2.32cm. in cross- Peak systolic flow velocities within the proximal sectional axis. aorta measure 76 cm/sec. Proximal aorta measures1.96cm. in longitudinal Peak systolic flow velocities within the mid aorta axis. measure 71 cm/sec. Mid aorta measures1.53cm x 1.26cm. in cross- Peak systolic flow velocities within the distal sectional axis. aorta measure 71 cm/sec. Mid aorta measures1.42cm. in longitudinal axis. Distal aorta measures1.11cm x 1.23cm. in cross- sectional axis. Distal aorta measures1.33cm. in longitudinal axis. Left Iliac Artery Left iliac artery measures 0.66cm x 0.65 cm. in the cross-sectional axis. Left iliac artery measures 0.76 cm. in the longitudinal axis. Peak systolic velocity in the left iliac artery measures 239 cm/sec. Right Iliac Artery Right iliac artery measures 0.75cm x 0.82 cm. in the cross-sectional axis. Right iliac artery measures 0.80 cm. in the longitudinal axis. Peak systolic velocity in the right iliac artery measures 270 cm/sec. Procedure Aorta IVC Iliac vasculature or bypass grafts [id number]. Exam performed in department. VL/Abd Aortic/IVC Duplex scan Interpretation Summary Aortoiliac normal with moderate bilateral iliac stenosis. Ordering Physician: Jeyson Albright Referring Physician: Adam Watson Performed By: Lesia Christensen, AYAN, RVT
--- NOTE | 2024-01-14 08:52 | ART_ITS ---
Reason For Study: s/p B/L Iliac Angio w/ Lt Stent Procedure A bilateral lower extremity continuous wave Doppler with analog waveform analysis and ankle brachial indexes. Left Segmental Pressures Left brachial= 158mmHg. Left posterior tibial artery = 102mmHg. Left dorsalis pedis artery = 101mmHg. Left digit = 56 mmHg. Right Segmental Pressures Right brachial= 153mmHg. Right posterior tibial artery = 127mmHg. Right dorsalis pedis artery = 105mmHg. Right digit = 90 mmHg. Indices The right ankle brachial index by the posterior tibial artery is 0.80. The right ankle brachial index by the dorsalis pedis is 0.66. The right digital-brachial index is 0.57. The left ankle brachial index by the posterior tibial artery is 0.65. The left ankle brachial index by the dorsalis pedis is 0.64. The left digital-brachial index is 0.35. VL/Ankle Brachial Index Interpretation Summary The right resting ankle-brachial index appears mildly abnormal. The left restin g ankle-brachial index appears moderately abnormal. Ordering Physician: Jeyson Albright Referring Physician: Adam Watson Performed By: Lesia Christensen RDCS/RVT
--- NOTE | 2024-01-14 08:52 | ADU_ITS ---
Reason For Study: s/p B/L Iliac Angio w Lt Stent Right Velocities Left Velocities Ext. Iliac Artery, dist = 59 cm./sec. Ext Iliac Artery, dist = 52 cm./sec. Common Femoral Artery, mid = 105 cm./sec. Common Femoral Artery, mid = 66 cm./sec. Supf Femoral Artery, prox = 136 cm./sec. Supf. Femoral Artery, prox = 52 cm./sec. Supf Femoral Artery, mid = 72 cm./sec. Supf. Femoral Artery, mid = 382 cm./sec. Supf Femoral Artery, dist. = 44 cm./sec. Supf. Femoral Artery, dist = 22 cm./sec. Rt SFA mid stenosis Lt SFA mid Stenosis Pre-stenosis: 97 cm/s Pre Stenosis: 40 cm/s Stenosis: 337 cm/s Stenosis: 382 cm/s Post Stenosis: 65 cm/s. Post Stenosis: 22 cm/s. Profunda Femoral Artery = 63 cm./sec. Profunda Femoral Artery = 127 cm./sec. Popliteal Artery, mid = 58 cm./sec. Popliteal Artery, mid = 22 cm./sec. Post. Tibial Artery, prox = 26 cm./sec. Post. Tibial Artery, prox = 13 cm./sec. Post. Tibial Artery, mid = 24 cm./sec. Post Tibial Artery, mid = 26 cm./sec. Post. Tibial Artery, dist = 35 cm./sec. Post Tibial Artery, dist. = 13 cm./sec. Peroneal Artery, mid = 28 cm./sec. Peroneal Artery, prox = 8 cm./sec. Peroneal Artery,dist = 14 cm./sec. Peroneal Artery, mid = 13 cm./sec. Ant. Tibial Artery, prox = 38 cm./sec. Peroneal Artery,dist. = 11 cm./sec. Ant. Tibial Artery, mid = 25 cm./sec. Ant.Tibial Artery, prox = 16 cm./sec. Ant. Tibial Artery, dist = 13 cm./sec. Ant Tibial Artery, mid = 11 cm./sec. Ant. Tibial Artery, distal = 7 cm./sec. Procedure Exam performed in department. 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 Se nathan to critical disease, 75-99%, of the left superficial femoral artery. Ordering Physician: Jeyson Albright Referring Physician: Adam Watson Performed By: Lesia Christensen, AYAN, RVT
== END | disposition home or self-care (01) ==
LOC: CVS 08:51
PROVIDERS: PCP Family Medicine; Referring Provider Surgery Vascular Surgery; Visit Provider Surgery Vascular Surgery
DX: I70.213 Atherosclerosis of native arteries of extremities with intermittent claudication, bilateral legs (principal); Z48.812 Encounter for surgical aftercare following surgery on the circulatory system; I77.1 Stricture of artery; I10 Essential (primary) hypertension
CPT/HCPCS: 93922; 93925; 93978

== ENCOUNTER → 2024-03-31 | Outpatient (CLI) | payer MEDICARE, OTHER, SELFPAY ==
[2024-03-31 12:08] LABS: Anion Gap 7 (5-15); BUN 17 mg/dL (7-18); Calcium,Total 9.4 mg/dL (8.5-10.1); Chloride 109 mmol/L (98-107); Creatinine, Serum 1.06 mg/dL (0.70-1.30); EST Glomerular Filtration Rate 73 mL/min (>60); Est Glom Filt Rate - Afr Amer 88 mL/min (>60); Glucose 163 mg/dL (74-106); Potassium 4.8 mmol/L (3.5-5.1); Sodium Level 139 mmol/L (136-145)
== END | disposition home or self-care (01) ==
LOC: LAB 10:52
PROVIDERS: PCP Family Medicine; Referring Provider Nurse Practitioner Gerontology; Visit Provider Nurse Practitioner Gerontology
DX: R06.09 Other forms of dyspnea (principal)
CPT/HCPCS: 36415; 80048